=== PATIENT | female | born 1960 | race Caucasian/White ===

== ENCOUNTER → 2018-05-10 10:09 | Outpatient (CLI) | payer OTHER, SELFPAY ==
[2018-05-10 12:38] LABS: Appearance Urine UA CLOUDY; Bilirubin Urine UA NEGATIVE (NEGATIVE); Color Urine UA YELLOW; Glucose Urine UA NEGATIVE (Normal); Ketones Urine UA NEGATIVE (NEGATIVE); Leukocyte Esterase Urine UA 1+ (NEGATIVE); Nitrite Urine UA POSITIVE (Negative); Occult Blood Urine UA TRACE-INTACT (Negative); Protein Urine UA NEGATIVE (Negative); Specific Gravity Urine UA 1.015 (1.000-1.035); Urobilinogen Urine UA 0.2 E.U./dL (0.2)
[2018-05-10 12:57] LABS: RBC Urine 1-5/HPF (0-5/HPF); WBC Urine 10-30/HPF (0-5/HPF)
[2018-05-10 12:58] LABS: Bacteria Urine Many (>30); Culture Indicated Urine Specimen Cultured; Squamous Epithelial Cell Urine 1-5 /HPF
== END ==
PROVIDERS: Family Provider Family Medicine; PCP Family Medicine; Visit Provider Internal Medicine
DX: R30.0 Dysuria (principal)
CPT/HCPCS: 81003; 81015; 87077; 87086; 87186

== ENCOUNTER → 2018-08-22 09:04 | Outpatient (CLI) | payer OTHER, SELFPAY ==
[2018-08-22 10:40] LABS: Alanine Aminotransferase 37 IU/L (9-52); Albumin 3.9 g/dL (3.5-5.0); Albumin Globulin Ratio 1.3 (1.0-2.8); Alkaline Phosphatase 109 U/L (38-126); Aspartate Aminotransferase 29 IU/L (14-36); BUN Creatinine Ratio 27.1 (6-22); Bilirubin Total 0.5 mg/dL (0.2-1.3); Blood Urea Nitrogen 19 mg/dL (7-17); Carbon Dioxide 32 mmol/L (22-32); Chloride 102 mmol/L (98-107); Estimated Glomerular Filt Rate > 60.0 mL/min (>60); Globulin 2.9 g/dL (1.7-4.1); Glucose 113 mg/dL (70-100); HEMOLYSIS < 15 (0-50); Potassium 4.4 mmol/L (3.4-5.1); Sodium 141 mmol/L (137-145); Total Protein 6.8 g/dL (6.3-8.2)
[2018-08-22 10:53] LABS: Free T4, Direct Thyroxine 0.95 ng/dL (0.78-2.19)
[2018-08-22 11:57] LABS: Thyroid Stimulating Hormone 3.61 uIU/mL (0.47-4.68)
[2018-08-22 20:05] LABS: Appearance Urine UA CLEAR; Bilirubin Urine UA NEGATIVE (NEGATIVE); Color Urine UA YELLOW; Glucose Urine UA NEGATIVE (Normal); Ketones Urine UA NEGATIVE (NEGATIVE); Leukocyte Esterase Urine UA 2+ (NEGATIVE); Nitrite Urine UA Negative (Negative); Occult Blood Urine UA 1+ (Negative); Protein Urine UA NEGATIVE (Negative); Urobilinogen Urine UA 0.2 E.U./dL (0.2); pH Urine UA 6.5 (4.5-8.0)
[2018-08-22 20:13] LABS: Bacteria Urine Many (>30); Culture Indicated Urine Specimen Cultured; RBC Urine 5-10/HPF (0-5/HPF); Squamous Epithelial Cell Urine 0-1 /HPF; WBC Urine 30-100/HPF (0-5/HPF)
== END ==
PROVIDERS: Visit Provider Family Medicine
DX: R73.9 Hyperglycemia, unspecified (principal); E03.9 Hypothyroidism, unspecified; R39.89 Other symptoms and signs involving the genitourinary system
CPT/HCPCS: 36415; 80053; 81001; 83036; 84439; 84443; 87077; 87086; 87186

== ENCOUNTER 2018-10-08 15:20 | Emergency (ER) | payer OTHER, SELFPAY ==
[2018-10-08 15:25] VITALS: BP 184/87; PULSE 79; RESP 16; TEMP 37.1; O2SAT 99; BMI 50.4
--- NOTE | 2018-10-08 15:32 | ED.CHESTPAIN ---
HPI - Chest Pain General Chief Complaint: Chest Pain Stated Complaint: thinks she is having a heart attack Time Seen by Provider: 10/08/18 15:32 Source: patient Mode of arrival: ambulatory Limitations: no limitations History of Present Illness HPI narrative: Patient is a 58-year-old female who came into the emergency department for left-sided chest pain. She states started approximately 45 min prior to arrival in the ER. She states that she was lifting wood when it started to happen. She states it is a sharp pain over the left side of her chest. It is worse with palpation. Is worse with movement. Is worse with deep breath. Seems we localized in 1 specific spot. Has never had anything like this before. Has not tried anything for prior to arrival Related Data Previous Rx's Medication Instructions Recorded Disabled Parking Permit ea #1 03/08/17 levothyroxine 112 mcg tablet 112 mcg PO DAILY #90 tab 08/26/18 lorazepam 0.5 mg tablet 0 mg PO TIDP PRN #30 tab 08/26/18 fluoxetine 20 mg tablet 20 mg PO DAILY #90 tab 09/26/18 Allergies Allergy/AdvReac Type Severity Reaction Status Date / Time shellfish derived Allergy Severe breathing Verified 10/08/18 15:37 difficulties if ingested; hives when touched codeine Allergy Mild UNKNOWN Verified 10/08/18 15:37 Review of Systems Constitutional Denies fever(s) and Denies headache(s) ENT Ears, Nose, Mouth, and Throat: Denies headache(s) Cardiovascular Reports chest pain, Denies edema, Denies irregular heart rhythm, Denies leg edema, Denies palpitations and Denies dyspnea Respiratory Denies cough, Reports pain on inspiration, Reports pain with cough and Denies dyspnea Gastrointestinal Gastrointestinal: Denies nausea and Denies vomiting Musculoskeletal Denies myalgias and Denies arthralgias Integumentary/Breasts Denies rash Neurologic Denies headache(s) Endocrine Denies palpitations PFSH Medical History MS (multiple sclerosis) (Chronic ~1987) Anxiety (Chronic) Depression (Chronic) Ovarian cancer (Resolved) Family History Sister Aneurysm Social History Smoking Status: Never smoker Exam Initial Vital Signs Initial Vital Signs: Vital Signs Temperature 98.7 F 10/08/18 15:25 Pulse Rate 79 10/08/18 15:25 Respiratory Rate 16 10/08/18 15:25 Blood Pressure 184/87 H 10/08/18 15:25 Pulse Oximetry 99 10/08/18 15:25 Const General: cooperative, healthy appearing, comfortable, well developed, well groomed and No acute distress Orientation: alert, awake and oriented x3 HENMT Head: normal to inspection and normocephalic Chest Other: Patient with tenderness to palpation over the left anterior chest approximately the 3rd intercostal space. Able to reproduce the pain that brought her in by palpating this area. Improves as you move lateral and superior and inferior but worsens as you move more medial. Resp Effort & Inspection: normal respiratory effort Auscultation: clear to auscultation bilaterally Cardio Rate: regular rate Rhythm: regular rhythm Pulses: radial pulses present Skin Lesions: no lesions Rashes: no rashes Neuro General: alert, awake and oriented x3 Extrem General: normal to inspection and capillary refill normal Psych Appearance: grossly normal and well kempt Course Orders Ordered: ED Orders 10/08/18 15:33 XR chest 1V Stat 10/08/18 15:34 EKG-12 Lead Stat 10/08/18 15:36 Complete Blood Count AUTO DIFF Stat Comprehensive Metabolic Panel Stat Troponin I Stat Vital Signs - 8 hr 10/08/18 15:25 10/08/18 16:00 10/08/18 16:30 Temperature 98.7 F Pulse Rate 79 74 67 Respiratory Rate 16 22 21 Blood Pressure 184/87 H Blood Pressure [Right Arm] 128/84 130/74 Pulse Oximetry 99 95 97 MDM - Chest Pain Lab Data Attestation: I reviewed the patient's lab results. Result diagrams: 10/08/18 15:36 10/08/18 15:36 Lab Results 10/08/18 10/08/18 Range/Units 15:36 15:36 WBC 9.9 (4.5-11.0) X10^3/uL RBC 4.71 (4.0-5.2) X10^6/uL Hgb 12.9 (12.0-16.0) g/dL Hct 38.4 (36-46) % MCV 81.4 (80-100) fL MCH 27.3 (26-34) PG MCHC 33.5 (30-36) % RDW 14.4 (11.6-14.8) % Plt Count 323 (150-400) X10^3/uL Neut % (Auto) 57.7 (50-75) % Lymph % (Auto) 30.9 (25-40) % Ritchie % (Auto) 7.7 (3-14) % Eos % (Auto) 3.3 (2-4) % Baso % (Auto) 0.4 (0-2) % Neut # (Auto) 5700 (0853-5471) /uL Sodium 145 (137-145) mmol/L Potassium 3.6 (3.4-5.1) mmol/L Chloride 106 (98-107) mmol/L Carbon Dioxide 26 (22-32) mmol/L BUN 16 (7-17) mg/dL Creatinine 0.80 (0.52-1.04) mg/dL Estimated GFR > 60.0 (>60) mL/min BUN/Creatinine Ratio 20.0 (6-22) Glucose 120 H (70-100) mg/dL Calcium 8.9 (8.4-10.2) mg/dL Total Bilirubin 0.3 (0.2-1.3) mg/dL AST 33 (14-36) IU/L ALT 42 (9-52) IU/L Alkaline Phosphatase 118 (38-126) U/L Troponin I < 0.012 (0.01-0.034) ng/mL Total Protein 7.0 (6.3-8.2) g/dL Albumin 4.1 (3.5-5.0) g/dL Globulin 2.9 (1.7-4.1) g/dL Albumin/Globulin Ratio 1.4 (1.0-2.8) Imaging Data Chest x-ray: Radiologist's impression: [address] [address] XRay Report Signed Patient: Alva Lozano [facility]#: [id number] : 2Acct:[id number] Age/Sex: 58 / FDate of Service: 10/08/18 Loc: ED Accession Number: [id number] Procedure: XR chest 1V Ordering Provider: Jose Alfredo Barrett D.O. PROCEDURE: XR CHEST 1V INDICATIONS: Chest pain TECHNIQUE: One view of the chest was acquired. COMPARISON: [facility], CHEST 1 VIEW, 09/06/2012, 15:03. FINDINGS: Surgical changes and devices: None. Lungs and pleura: No pleural effusions or pneumothorax. Lungs are clear. Mediastinum: Mediastinal contours appear normal. Heart size is normal. Bones and chest wall: No suspicious bony lesions. Overlying soft tissues appear unremarkable. IMPRESSION: No acute process. Dictated by: Dawson Marr M.D. on 10/08/2018 at 15:45 Approved by: Dawson Marr M.D. on 10/08/2018 at 15:45 ECG Data Attestation: I personally reviewed and interpreted this ECG as follows: Prior ECG tracings: not available for review Interpretation: Sinus rhythm Ventricular rate is 77 Normal axis Normal intervals Normal QRS Nonspecific ST T wave changes MDM Narrative Medical decision making narrative: Patient reports some improvement of her symptoms after arrival here in the emergency department from the onset. I was able to reproduce the symptoms with palpation of the left anterior chest wall. Chest x-ray is unremarkable. EKG is unremarkable. Labs are unremarkable. I have low suspicion for ACS. Low suspicion for PE. Low suspicion for pneumonia. I suspect musculoskeletal etiology. Discussed all this with the patient and her who was at bedside. She was given return precautions. She expressed understanding and agreement with plan. Discharge Plan Departure Patient Disposition: Home Clinical Impression: Acute chest wall pain Instructions: DI for Costochondritis Activity Restrictions/Additional Instructions: Recommend you continue all of your medications as directed. Call your primary care doctor for a follow-up. Return to the emergency department for any new or worsening symptoms Prescriptions: No Action Disabled Parking Permit Qty: 1 RF: 0 fluoxetine 20 mg tablet 20 mg PO DAILY Qty: 90 RF: 0 lorazepam 0.5 mg tablet PO TIDP PRN (Reason: anxiety) Qty: 30 RF: 2 levothyroxine [Levo-T] 112 mcg tablet 112 mcg PO DAILY Qty: 90 RF: 1
[2018-10-08 15:44] LABS: Add Manual Diff / Slide Review NO; Basophils Percent Auto 0.4 % (0-2); Eosinophils Percent Auto 3.3 % (2-4); Hematocrit 38.4 % (36-46); Hemoglobin 12.9 g/dL (12.0-16.0); Lymphocytes Percent Auto 30.9 % (25-40); Mean Corpuscular HGB Conc 33.5 % (30-36); Mean Corpuscular Hemoglobin 27.3 PG (26-34); Mean Corpuscular Volume 81.4 fL (80-100); Monocytes Percent Auto 7.7 % (3-14); Neutrophils Absolute Auto 5700 /uL (3000-5900); Neutrophils Percent Auto 57.7 % (50-75); Platelet Count 323 X10^3/uL (150-400); Red Blood Cell Count 4.71 X10^6/uL (4.0-5.2); Red Cell Distribution Width 14.4 % (11.6-14.8); White Blood Cell Count 9.9 X10^3/uL (4.5-11.0)
[2018-10-08 15:56] LABS: Alanine Aminotransferase 42 IU/L (9-52); Albumin 4.1 g/dL (3.5-5.0); Albumin Globulin Ratio 1.4 (1.0-2.8); Alkaline Phosphatase 118 U/L (38-126); Aspartate Aminotransferase 33 IU/L (14-36); Bilirubin Total 0.3 mg/dL (0.2-1.3); Blood Urea Nitrogen 16 mg/dL (7-17); Calcium 8.9 mg/dL (8.4-10.2); Carbon Dioxide 26 mmol/L (22-32); Chloride 106 mmol/L (98-107); Estimated Glomerular Filt Rate > 60.0 mL/min (>60); Globulin 2.9 g/dL (1.7-4.1); Glucose 120 mg/dL (70-100); HEMOLYSIS 16 (0-50); Potassium 3.6 mmol/L (3.4-5.1); Sodium 145 mmol/L (137-145)
[2018-10-08 16:00] VITALS: BP 128/84; PULSE 74; RESP 22; O2SAT 95
[2018-10-08 16:11] LABS: Troponin I < 0.012 ng/mL (0.01-0.034)
[2018-10-08 16:30] VITALS: BP 130/74; PULSE 67; RESP 21; O2SAT 97
== END 2018-10-08 16:55 | disposition home or self-care (01) ==
PROVIDERS: Emergency Provider Emergency Medicine
DX: R07.89 Other chest pain (principal)
CPT/HCPCS: 36591; 71045; 80053; 84484; 85025; 93005; 99282; 99285

== ENCOUNTER → 2019-04-04 09:40 | Outpatient (CLI) | payer OTHER, SELFPAY ==
[2019-04-04 12:46] LABS: Free T3, Triiodothyronine Free 3.54 pg/mL (2.77-5.27); Free T4, Direct Thyroxine 1.35 ng/dL (0.78-2.19)
[2019-04-04 13:00] LABS: Thyroid Stimulating Hormone 1.18 uIU/mL (0.47-4.68)
== END ==
PROVIDERS: Visit Provider Family Medicine
DX: E03.9 Hypothyroidism, unspecified (principal)
CPT/HCPCS: 36415; 84439; 84443; 84481

== ENCOUNTER → 2019-05-22 16:07 | Outpatient (CLI) | payer OTHER, SELFPAY ==
--- NOTE | 2019-05-22 16:09 | DI.RAD.S_ITS ---
PROCEDURE: XR WRIST LT MIN 3V INDICATIONS: fall on left wrist TECHNIQUE: 4 views of the wrist were acquired. COMPARISON: [facility], CR, XR FINGER LT MIN 2V, 05/22/2019, 16:09. [facility], CR, WRIST MINIMUM 3 VIEWS RIGHT, 11/03/2012, 13:09. FINDINGS: Bones: No fractures or dislocations. No suspicious bony lesions. Scaphoid view: No trauma the scaphoid is found. Soft tissues: No suspicious soft tissue calcifications. IMPRESSION: Mild degenerative osteoarthr same day.no fracture or traumatic ligamentous subluxation is identified itis at the wrist, as was seen during hand plain film imaging Dictated by: Zaid Murphy M.D. on 05/22/2019 at 16:51 Approved by: Zaid Murphy M.D. on 05/22/2019 at 16:52
--- NOTE | 2019-05-22 16:09 | DI.RAD.S_ITS ---
PROCEDURE: XR FINGER LT MIN 2V INDICATIONS: fall on left wrist, hyperextension of thumb TECHNIQUE: AP hand, 2 views of the first finger(s) acquired. COMPARISON: None. FINDINGS: Bones: No fractures or dislocations. No suspicious bony lesions. Soft tissues: No suspicious soft tissue calcifications. IMPRESSION: Mild degenerative osteoarthritic changes of the hand, no trauma found. Dictated by: Zaid Murphy M.D. on 05/22/2019 at 16:48 Approved by: Zaid Murphy M.D. on 05/22/2019 at 16:49
== END ==
PROVIDERS: PCP Family Medicine; Visit Provider Family Medicine
DX: S69.82XA Other specified injuries of left wrist, hand and finger(s), initial encounter (principal); M19.032 Primary osteoarthritis, left wrist; W19.XXXA Unspecified fall, initial encounter
CPT/HCPCS: 73110; 73140

== ENCOUNTER → 2019-06-23 19:50 | Outpatient (CLI) | payer OTHER, SELFPAY | PROVIDERS: PCP Family Medicine; Visit Provider Physician Assistant | DX: N10 Acute pyelonephritis (principal) | CPT/HCPCS: 87077; 87086; 87186 ==

== ENCOUNTER → 2019-07-12 11:12 | Outpatient (CLI) | payer OTHER, SELFPAY ==
--- NOTE | 2019-07-12 11:17 | DI.CT.S_ITS ---
PROCEDURE: CT KIDNEY URETER BLADDER (KUB) INDICATIONS: hematuria, back pain TECHNIQUE: Noncontrast 5 mm thick sections acquired from the diaphragms to the symphysis. 5 mm thick coronal and sagittal reformats were then performed. For radiation dose reduction, the following was used: automated exposure control, adjustment of mA and/or kV according to patient size. COMPARISON: [facility], CT, ABDOMEN/PELVIS WITH CONTRAST, 08/21/2013, 11:49. FINDINGS: Image quality: Diagnostic. Lung bases: Lung bases are clear. Heart size is normal. Urinary system: Both kidneys are normal in size. No kidney stones. No hydronephrosis or perinephric fat stranding. Both ureters appear non-dilated throughout their expected courses. Bladder wall thickness is normal; no calcified bladder stones. A small amount of air is contained within the urinary bladder. Other solid organs: The liver appears to be within normal limits. No definite liver lesions are evident. The patient has had a prior cholecystectomy. There is no intrahepatic or significant extrahepatic biliary dilatation. Spleen and pancreas are within normal limits. There continues to be enlargement of the right adrenal gland, measuring 2.5 x 2.0 cm, which is unchanged in size when remeasured in a similar configuration. Peritoneum and bowel: There is a moderate-sized hiatal hernia. Otherwise, stomach is unremarkable. Extensive distal colonic diverticulosis is identified without surrounding colonic inflammation to suggest diverticulitis. Within the periumbilical region of the mid to lower abdomen there is a heterogeneous bilobed structure identified that measures approximately 6.1 x 8.6 x 5.0 cm, which may be contiguous with the small bowel and is new since the previous exam. There is moderate edema within the adjacent mesentery. The small bowel loops are not significantly dilated. No drainable fluid collection is appreciated. There is no free air evident. Nodes and vessels: No retroperitoneal or mesenteric adenopathy by size criteria. Aorta and inferior vena cava are normal in caliber. Abdominal wall: No ventral hernias. Pelvis: A trace amount of free fluid may be present within the pelvis. The uterus is surgically absent. The ovaries are not definitely seen and may have either been surgically removed or atrophic. No inguinal hernias or adenopathy. Bones: No suspicious bony lesions. No vertebral body compression fractures. Mild to moderate degenerative changes of the mid spine are present. IMPRESSION: 1. No nephro ureterolithiasis or hydronephrosis. 2. Minimal air within the urinary bladder is suspicious for possible bladder infection, unless the patient has been catheterized recently. 3. Soft tissue mass within the mid abdomen may potentially be contiguous with small bowel loops. However, the adjacent small bowel is not dilated. Differential diagnostic considerations would include a closed loop small bowel obstruction versus a mesenteric mass such as a GI stromal tumor. An abscess cannot be completely excluded. A CT of the abdomen and pelvis with oral and intravenous contrast is recommended for further evaluation. Additional findings: -Unchanged right adrenal mass is suggestive of a benign process given lack of significant change in 7 years. -Small hiatal hernia. -Distal colonic diverticulosis without diverticulitis. Dictated by: Sanchez Jones M.D. on 07/12/2019 at 10:51 Approved by: Sanchez Jones M.D. on 07/12/2019 at 11:03
== END ==
PROVIDERS: PCP Family Medicine; Visit Provider Family Medicine
DX: R31.9 Hematuria, unspecified (principal); M54.5 Low back pain
CPT/HCPCS: 74176; 87086

== ENCOUNTER → 2019-07-19 09:27 | Outpatient (CLI) | payer OTHER, SELFPAY ==
--- NOTE | 2019-07-19 09:56 | DI.CT.S_ITS ---
PROCEDURE: CT ABDOMEN PELVIS W CON INDICATIONS: mass found on CT TECHNIQUE: After the administration of oral and intravenous contrast, 5 mm thick sections acquired from the diaphragms to the symphysis. 5 mm thick coronal and sagittal reformats were performed. For radiation dose reduction, the following was used: automated exposure control, adjustment of mA and/or kV according to patient size. COMPARISON: [facility], CT, CT KIDNEY URETER BLADDER (KUB), 07/12/2019, 11:20. [facility], CT, ABDOMEN/PELVIS WITH CONTRAST, 08/21/2013, 11:49. [facility], CT, ABDOMEN/PELVIS WITH CONTRAST, 03/09/2013, 9:17. FINDINGS: Image quality: Excellent. ABDOMEN: Lung bases: Lung bases are clear. Heart size is normal. There is a small hiatal hernia behind the heart Solid organs: Liver is normal in size and enhancement. Gallbladder has been previously resected. Biliary system is non-dilated. Pancreas enhances normally. Spleen is normal in size and enhancement. No new adrenal nodules, and a lobulated right adrenal mass previously present has not significantly changed in size from 08/21/13 CT scanning. Currently measures 3.5 cm.. Kidneys are normal in size and enhancement, without hydronephrosis. Peritoneum and bowel: Stomach, small bowel, and colon loops are normal in caliber and wall thickness. No free fluid or air. Nodes and vessels: No retroperitoneal or mesenteric adenopathy. Aorta and inferior vena cava are normal in caliber. Miscellaneous: No ventral hernias. PELVIS: Genitourinary: Bladder wall thickness is normal. Miscellaneous: No inguinal hernias or adenopathy. There is a lobulated soft tissue mass at the midline of the pelvis, middle third, measuring up to 5.0 cm transverse and 8.7 cm oblique AP. No adnexal mass is identified. Sigmoid diverticulosis without acute diverticulitis is relatively prominent in this area. Bones: No suspicious bony lesions. No vertebral body compression fractures. IMPRESSION: Lobulated soft tissue mass at the midline of the pelvis, measuring up to 5.0 x 8.7 cm not previously present on CT scanning from August 2013 and not having changed from the most recent CT scanning 07/12/19. 2. There is a chronic lobulated mass measuring up to 2.5 x 2.9 cm at the right adrenal gland. This has soft tissue radiodensity, and has not enlarged from the comparison study in February of 2013. The stability over time indicates benign etiology. Dictated by: Zaid Murphy M.D. on 07/19/2019 at 12:51 Approved by: Zaid Murphy M.D. on 07/19/2019 at 12:58
== END ==
PROVIDERS: PCP Family Medicine; Visit Provider Family Medicine
DX: R19.00 Intra-abdominal and pelvic swelling, mass and lump, unspecified site (principal); E27.9 Disorder of adrenal gland, unspecified; N39.0 Urinary tract infection, site not specified
CPT/HCPCS: 74177; Q9967

== ENCOUNTER → 2019-07-21 07:10 | Outpatient (CLI) | payer OTHER, SELFPAY ==
[2019-07-21 08:00] LABS: Add Manual Diff / Slide Review NO; Basophils Absolute Auto 100 /uL (0-100); Basophils Percent Auto 0.5 % (0-2); Eosinophils Absolute Auto 300 /uL (0-450); Eosinophils Percent Auto 3.1 % (2-4); Hematocrit 39.2 % (36-46); Lymphocytes Absolute Auto 2800 /uL (1100-4500); Mean Corpuscular HGB Conc 33.1 % (30-36); Mean Corpuscular Hemoglobin 26.2 PG (26-34); Mean Corpuscular Volume 79.3 fL (80-100); Monocytes Absolute Auto 900 /uL (0-900); Monocytes Percent Auto 8.7 % (3-14); Neutrophils Absolute Auto 6000 /uL (1500-7000); Neutrophils Percent Auto 59.7 % (50-75); Platelet Count 387 X10^3/uL (150-400); Red Blood Cell Count 4.94 X10^6/uL (4.0-5.2); Red Cell Distribution Width 14.6 % (11.6-14.8)
[2019-07-21 08:25] LABS: Alanine Aminotransferase 30 IU/L (9-52); Albumin 3.7 g/dL (3.5-5.0); Albumin Globulin Ratio 1.4 (1.0-2.8); Alkaline Phosphatase 102 U/L (38-126); Aspartate Aminotransferase 21 IU/L (14-36); BUN Creatinine Ratio 25.7 (6-22); Bilirubin Total 0.7 mg/dL (0.2-1.3); Blood Urea Nitrogen 18 mg/dL (7-17); Calcium 9.7 mg/dL (8.4-10.2); Carbon Dioxide 29 mmol/L (22-32); Chloride 102 mmol/L (98-107); Cholesterol 170 mg/dL (140-199); Estimated Glomerular Filt Rate > 60.0 mL/min (>60); Globulin 2.7 g/dL (1.7-4.1); Glucose 101 mg/dL (70-100); HDL Cholesterol 48 mg/dL (40-60); HEMOLYSIS < 15 (0-50); LDL Cholesterol Calculated 86 mg/dL (<100); Sodium 140 mmol/L (137-145); Total Protein 6.4 g/dL (6.3-8.2); Triglycerides 181 mg/dL (35-150)
[2019-07-21 08:51] LABS: Cancer Antigen 125 44 U/mL (0-35)
[2019-07-21 08:52] LABS: TSH w/ Reflex to FT4 0.71 uIU/mL (0.47-4.68)
[2019-07-21 12:09] LABS: HEMOLYSIS < 15 (0-50); Iron 47 ug/dL (37-170)
[2019-07-21 12:19] LABS: Percent Iron Saturation 16 % (15-50); Total Iron Binding Capacity 286 ug/dL (265-497); Transferrin 229 mg/dL (206-381)
[2019-07-25 15:24] LABS: Human HE4 Antigen 111 pmol/L
== END ==
PROVIDERS: PCP Family Medicine; Visit Provider Family Medicine
DX: E03.9 Hypothyroidism, unspecified (principal); E66.9 Obesity, unspecified; E78.5 Hyperlipidemia, unspecified; R73.03 Prediabetes; Z85.43 Personal history of malignant neoplasm of ovary
CPT/HCPCS: 36415; 80053; 80061; 83540; 83550; 84443; 85025; 86304; 86305

== ENCOUNTER → 2019-07-31 15:21 | Outpatient (CLI) | payer OTHER, SELFPAY ==
--- NOTE | 2019-07-31 15:23 | DI.MG.S_ITS ---
BILATERAL DIGITAL SCREENING MAMMOGRAM 3D/2D WITH CAD: 07/31/2019 CLINICAL: Routine screening. Comparison is made to exams dated: 09/26/2014 mammogram, 07/07/2011 mammogram, and 06/13/2009 mammogram - [facility]. There are scattered fibroglandular elements in both breasts. Current study was also evaluated with a Computer Aided Detection (CAD) system. There is an oval low density focal asymmetry with an indistinct and circumscribed margin in the left breast at 7 o'clock anterior depth. No other significant masses, calcifications, or other findings are seen in either breast. IMPRESSION: INCOMPLETE: NEEDS ADDITIONAL IMAGING EVALUATION The oval low density focal asymmetry in the left breast is indeterminate. Mediolateral and spot compression views as well as additional views with possible ultrasound are recommended. This exam was interpreted at Station ID: [id number]. NOTE: For mammograms, a report in lay terms will be sent to the patient. Approximately 15% of breast malignancies will not be visualized mammographically. In the management of a palpable breast mass, a negative mammogram must not discourage biopsy of a clinically suspicious lesion. Electronically Signed By: Sahil persaud/nina:08/01/2019 08:18:18 letter sent: Additional Imaging Needed ACR BI-RADS Category 0: Incomplete 3340F
--- NOTE | 2019-08-01 15:19 | ONC.MSW ---
Description: T/C-Initial navigation call to introduce and schedule Activity: Called and left pt a message introducing myself and offering an urgent appt. time for Dr. Wing, initial consult for this coming Wednesday, 08/07 at 8:40am. Requested that she return this call to confirm.
--- NOTE | 2019-08-02 09:11 | ONC.MSW ---
Addendum entered and electronically signed by BRADLEY Stallworth 08/02/19 09:16: Pt called and confirmed this appt. Original Note: Late Entry: T/C navigation coordination/initial ONC consult visit Dr. Spears's office requested for Dr. Wing to review pt's recent CT scan and advise as to 1) if the imaging shows recurrance of ovarian cancer, and 2)should they move forward with a biopsy first, or schedule oncology consult first? Dr. Wing advised for a biopsy to be scheduled angelina, and that we would concurrently schedule an expedited f/u for her initial ONC provider visit. HYDROELECTRIC OPERATOR coordinated this with Dr. Spears's office, and have scheduled pt for Tuesday 08/07 at 8:40am.
== END ==
PROVIDERS: PCP Family Medicine; Visit Provider Family Medicine
DX: Z12.31 Encounter for screening mammogram for malignant neoplasm of breast (principal)
CPT/HCPCS: 77063; 77067

== ENCOUNTER → 2019-08-17 14:58 | Outpatient (CLI) | payer OTHER, SELFPAY ==
--- NOTE | 2019-08-17 15:00 | DI.MG.S_ITS ---
UNILATERAL LEFT DIGITAL DIAGNOSTIC MAMMOGRAM 3D/2D WITH ADDITIONAL VIEWS: 08/17/2019 CLINICAL: Additional evaluation requested from prior study. Comparison is made to exams dated: 07/31/2019 mammogram, 09/26/2014 mammogram, and 07/07/2011 mammogram - [facility]. There are scattered fibroglandular elements in left breast. There is a possible 0.5 cm oval equal density focal asymmetry in the left breast at 7 o'clock in the retroareolar region which appears less prominent on additional imaging. No other significant masses or calcifications are seen in the breast. IMPRESSION: INCOMPLETE: NEEDS ADDITIONAL IMAGING EVALUATION There is a possible 0.5 cm oval equal density focal asymmetry in the left breast that appears to have nearly resolved and favored to represent close proximity of two adjacent vessels and/or small ducts, and is indeterminate. Further evaluation by sonogram is recommended which is scheduled to immediately follow this examination. This exam was interpreted at Station ID: [id number]. NOTE: For mammograms, a report in lay terms will be sent to the patient. Approximately 15% of breast malignancies will not be visualized mammographically. In the management of a palpable breast mass, a negative mammogram must not discourage biopsy of a clinically suspicious lesion. Electronically Signed By: Sunny Álvarez M.D. aty/:08/17/2019 15:29:34 ACR BI-RADS Category 0: Incomplete 3340F
--- NOTE | 2019-08-17 15:00 | DI.US.S_ITS ---
ULTRASOUND OF LEFT BREAST: 08/17/2019 CLINICAL: Patient returns today to evaluate a density in the left breast. Comparison is made to exams dated: 08/17/2019 mammogram, 07/31/2019 mammogram, 09/26/2014 mammogram, 07/07/2011 mammogram, 06/13/2009 mammogram, and 05/31/2008 mammogram - [facility]. Color flow and real-time ultrasound of the left breast were performed. Campbell scale images of the real-time examination were reviewed. There is a possible 0.3 cm x 0.6 cm x 0.3 cm cluster of microcysts with a smooth internal carrington versus a complicated cyst in the left breast at 9 o'clock anterior depth 3 cm from the nipple. This cluster of microcysts versus complicated cyst is hypoechoic with no posterior acoustic shadowing or enhancement. This correlates with mammography findings. Color flow imaging demonstrates that there is no vascularity present. IMPRESSION: PROBABLY BENIGN The possible 0.3 cm x 0.6 cm x 0.3 cm cluster of microcysts versus complicated cyst in the left breast is probably benign. A follow-up left mammogram and an ultrasound in 6 months is recommended to demonstrate stability. This exam was interpreted at Station ID: [id number]. Electronically Signed By: Sunny Álvarez M.D. at/:08/17/2019 16:33:23 letter sent: Followup Recommended Ultrasound BI-RADS: 3 Probably benign
== END ==
PROVIDERS: PCP Family Medicine; Visit Provider Family Medicine
DX: R92.8 Other abnormal and inconclusive findings on diagnostic imaging of breast (principal)
CPT/HCPCS: 76642; 77065; G0279

== ENCOUNTER 2019-09-22 11:05 | Emergency (ER) | payer OTHER, SELFPAY ==
[2019-09-22 11:05] VITALS: BP 114/70; PULSE 93; RESP 12; TEMP 36.9; O2SAT 100; BMI 46.8
--- NOTE | 2019-09-22 11:20 | ED.NAVMDI ---
HPI - Nausea/Vomiting/Diarrhea General Chief complaint: Nausea/Vomiting/Diarrhea Stated complaint: pt has cancer, is sick and has lost weight,pain Time Seen by Provider: 09/22/19 11:12 Source: patient, RN notes reviewed and old records reviewed Mode of arrival: Ambulatory Limitations: no limitations History of Present Illness HPI Narrative: Patient is a 59-year-old female presenting with nausea vomiting ongoing for last 3 days. She was recently diagnosed with recurrent ovarian cancer. She is scheduled to see her ball shagger oncologist for surgery in October. There is a trip that she wants to go on . She has lost 30 lb in the last 1 month. She has also noticed swelling and a lump in her left shoulder. She overall has been unable to keep anything down she has some mild abdominal cramping. She is passing gas and having bowel movements. No fever chills. MD complaint: nausea and vomiting Description of Diarrhea: none Related Data Home Medications Medication Instructions Recorded Confirmed Disabled Parking Permit 1 ea MISCELLANEOUS DIRECTED 09/22/19 09/22/19 Previous Rx's Medication Instructions Recorded fluoxetine 20 mg tablet 20 mg PO DAILY #90 tab 06/05/19 levothyroxine 112 mcg tablet 112 mcg PO DAILY #90 tab 06/29/19 lorazepam 0.5 mg tablet 0.5 mg PO TIDP PRN #30 tab 08/14/19 cephalexin [Keflex] 500 mg PO TID #21 cap 09/22/19 omeprazole 20 mg PO DAILY PRN #20 cap 09/22/19 ondansetron 4 mg PO Q8H PRN #10 tab 09/22/19 Allergies Allergy/AdvReac Type Severity Reaction Status Date / Time shellfish derived Allergy Severe breathing Verified 09/22/19 11:17 difficulties if ingested; hives when touched codeine Allergy Mild UNKNOWN Verified 09/22/19 11:17 Review of Systems Review of Systems Narrative: GENERAL: Denies chills, fatigue, malaise, fever, sweats, travel HEENT: Denies sinus pain, ear pain, sore throat, difficulty swallowing, neck pain RESPIRATORY: Denies dyspnea, cough, wheezing, hemoptysis, sputum. CARDIOVASCULAR: Denies chest pain, palpitations, orthopnea, edema GASTROINTESTINAL: See HPI : Urinary urgency no dysuria. MUSCULOSKELETAL: Denies weakness, joint pain, or bony pain SKIN: No rash, no erythema, no pruritus NEUROLOGIC: Denies weakness, dizziness, headache, numbness, change in speech, confusion PSYCHIATRIC: No concerning psychosocial issues. 12 point review of systems is negative except for those stated above and HPI Patient History Medical History Anxiety (Chronic) Depression (Chronic) Hyperlipidemia (Acute) Hypothyroid (Acute 02/15/12) MS (multiple sclerosis) (Chronic ~1987) Ovarian cancer (Resolved) Surgical History History of third molar tooth extraction (Resolved) S/P total abdominal hysterectomy and bilateral salpingo-oophorectomy (Resolved 2011) Status post appendectomy (Resolved 1982) Status post cholecystectomy (Resolved 1987) Family History Sister Aneurysm Sister Age: 56 Breast cancer Social History Smoking Status: Current every day smoker alcohol intake frequency: holidays/special occasions only Substance Use Type: does not use Exam Initial Vital Signs Initial Vital Signs: Vital Signs Temperature 98.4 F 09/22/19 11:05 Pulse Rate 93 H 09/22/19 11:05 Respiratory Rate 12 09/22/19 11:05 Blood Pressure 114/70 09/22/19 11:05 Pulse Oximetry 100 09/22/19 11:05 GENERAL: Overweight well-appearing female HEENT: Head atraumatic,EOMI, pupils reactive, face symmetric, moist mucous membranes CARDIOVASCULAR: Regular rate and rhythm without murmurs, rubs or gallops. RESPIRATORY: Breath sounds equal bilaterally, no wheezes rales or rhonchi. ABDOMEN: Soft, obese nontender no distention. She does have superficial abrasion on her abdomen no redness or gross pus or streaking EXTREMITIES: Normal range of motion, no clubbing or edema. Neurovascularly intact NEUROLOGICAL: Alert and oriented x4.Normal gait and speech. SKIN: Warm, dry, no laceration, no petechiae, no rashes or lesions. Course Orders Ordered: ED Orders 09/22/19 11:37 CT chest abd pel w con Stat Complete Blood Count AUTO DIFF Stat Comprehensive Metabolic Panel Stat Lipase Stat 09/22/19 11:50 Ictotest Urine Stat Urine Culture Stat Urine Microscopic Stat Discontinued Medications Sodium Chloride (Normal Saline 0.9%) 1,000 mls @ 1,000 mls/hr IV CONT GASTON Last Infusion: 09/22/19 13:35 Dose: 0 mls/hr Documented by: Admin: 09/22/19 12:02 Dose: 1,000 mls/hr Documented by: BRAULIO Ondansetron HCl (Zofran) 4 mg IV NOW ONE Stop: 09/22/19 11:38 Last Admin: 09/22/19 12:01 Dose: 4 mg Documented by: BRAULIO Pantoprazole Sodium (Protonix) 40 mg IV NOW ONE Stop: 09/22/19 11:38 Last Admin: 09/22/19 12:01 Dose: 40 mg Documented by: BRAULIO Vital Signs Vital signs: Vital Signs - 8 hr 09/22/19 11:05 09/22/19 13:33 Temperature 98.4 F Pulse Rate 93 H 79 Respiratory Rate 12 22 Blood Pressure 114/70 Blood Pressure [Left Arm] 135/96 H Pulse Oximetry 100 97 MDM - Nausea/Vomiting/Diarrhea Lab Data Attestation: I reviewed the patient's lab results. Result diagrams: 09/22/19 11:37 09/22/19 11:37 Labs: Lab Results 09/22/19 09/22/19 09/22/19 Range/Units 11:37 11:37 11:50 WBC 15.4 H (4.5-11.0) X10^3/uL RBC 4.54 (4.0-5.2) X10^6/uL Hgb 11.4 L (12.0-16.0) g/dL Hct 34.8 L (36-46) % MCV 76.5 L (80-100) fL MCH 25.0 L (26-34) PG MCHC 32.7 (30-36) % RDW 15.1 H (11.6-14.8) % Plt Count 327 (150-400) X10^3/uL Neut % (Auto) 86.5 H (50-75) % Lymph % (Auto) 4.1 L (25-40) % [place] % (Auto) 9.1 (3-14) % Eos % (Auto) 0.1 L (2-4) % Baso % (Auto) 0.2 (0-2) % Neut # (Auto) 76420 H (2899-6632) /uL Lymph # (Auto) 600 L (1364-6923) /uL [place] # (Auto) 1400 H (0-900) /uL Eos # (Auto) 0 (0-450) /uL Baso # (Auto) 0 (0-100) /uL Sodium 133 L (137-145) mmol/L Potassium 3.3 L (3.4-5.1) mmol/L Chloride 98 (98-107) mmol/L Carbon Dioxide 26 (22-32) mmol/L BUN 21 H (7-17) mg/dL Creatinine 1.00 (0.52-1.04) mg/dL Estimated GFR 57.1 L (>60) mL/min BUN/Creatinine Ratio 21.0 (6-22) Glucose 147 H (70-100) mg/dL Calcium 9.2 (8.4-10.2) mg/dL Total Bilirubin 1.3 (0.2-1.3) mg/dL AST 42 H (14-36) IU/L ALT 21 (<35) IU/L Alkaline Phosphatase 129 H (38-126) U/L Total Protein 6.8 (6.3-8.2) g/dL Albumin 3.6 (3.5-5.0) g/dL Globulin 3.2 (1.7-4.1) g/dL Albumin/Globulin Ratio 1.1 (1.0-2.8) Lipase 29 (23-300) U/L Urine Ictotest Negative (Negative) Urine RBC 1-5/hpf (0-5/HPF) Urine WBC >100/hpf H (0-5/HPF) Ur Squamous Epith Cells 5-10 /hpf H (0-5/HPF) Urine Bacteria Many (>30) H (None) Ur Culture Indicated? Specimen cultured Urine Dip Bedside Urine Glucose Negative Bedside Urine Bilirubin + 1 Bedside Urine Ketone +/- 5 Urine Specific [place] 1.010 Bedside Urine Occult Blood +/- Bedside Urine pH 6.0 Bedside Urine Protein + 30 Bedside Urine Urobilinogen 1+ 2mg Bedside Urine Nitrite - Negative Bedside Urine Leukocytes +++ [address] scan - abdomen: Radiologist's impression: PROCEDURE: CT CHEST ABD PEL W CON INDICATIONS: vomiting with new recurrent ovarian cancer TECHNIQUE: After the administration of intravenous contrast, 5 mm thick sections acquired from the lung apices to the symphysis. 2.5 mm thick coronal and sagittal reformats were acquired. Additional 7 mm thick coronal maximum intensity projection (MIP) reformats acquired through the lungs. Optional 10-minute delayed imaging may be performed from the kidneys to the bladder. For radiation dose reduction, the following was used: automated exposure control, adjustment of mA and/or kV according to patient size. COMPARISON: [facility], CT, ABDOMEN/PELVIS WITH CONTRAST, 08/22/2012, 10:00. [facility], MR, ABDOMEN WITHOUT CONTRAST, 09/05/2012, 8:24. [facility], CT, CT KIDNEY URETER BLADDER (KUB), 07/12/2019, 11:20. [facility], CT, CT ABDOMEN PELVIS W CON, 07/19/2019, 10:44. [facility], CT, CT BIOPSY ABDOMEN OR RETROPERITONEAL, 08/14/2019, 8:22. FINDINGS: Image quality: Excellent. CHEST: Lungs: No acute airspace opacities. There is a 5 mm nodule in the left upper lobe. No pleural effusion or pneumothorax. Central and peripheral airways appear patent and normal in caliber. Mediastinum: No mediastinal or hilar lymphadenopathy. Heart size is normal. No pericardial effusion. Thoracic aorta and pulmonary arteries demonstrate normal size and enhancement. No mediastinal or hilar adenopathy. Esophagus is normal in caliber. There is a small hiatal hernia. Chest wall: No rib fractures. No subcutaneous emphysema. No axillary or supraclavicular adenopathy. Thyroid gland is normal. ABDOMEN: Solid organs: Hepatic steatosis. Liver is normal in size and enhancement. Gallbladder is surgically absent. Biliary system is non-dilated. Pancreas enhances normally, without transection. Spleen is normal in size and enhancement, without lacerations. There is a 3.2 x 2 point centimeter right adrenal mass, unchanged in size since 08/22/2012. Both kidneys enhance normally, without hydronephrosis or lacerations. Peritoneum and bowel: There is a mass in the central lower abdomen within the mesentery measuring 7.5 x 8.2 x 8.4 cm, demonstrating interval enlargement since 07/19/2019 (previously 6.4 x 7.5 x 5.5 cm). There is mass effect to adjacent bowel loop. There is no evidence for small bowel structure. There are innumerable colonic diverticula. No evidence for acute diverticulitis. No free air. There is trace free fluid. Unenhanced bowel loops demonstrate normal wall thickness and caliber. Nodes and vessels: No retroperitoneal or mesenteric adenopathy. Aorta and inferior vena cava are normal in size and enhancement. Miscellaneous: No ventral hernias. There is a 1.4 x 3.0 cm lipoma in the right lower anterior abdominal wall. PELVIS: Genitourinary: Bladder is contracted. Uterus is absent. A 1.3 x 2.2 cm soft tissue density in the left adnexa along the left ligament may be the left ovary (series 2 image 112). Right ovary is not identified. Miscellaneous: No inguinal hernias. There is a mildly enlarged left inguinal lymph node measuring 1.3 x 2.1 cm, unchanged. Bones: Pelvic ring and hip joints appear intact. No vertebral compression fractures. IMPRESSION: 1. Interval enlargement of a large mesenteric mass in the central lower abdomen measuring 7.5 x 8.2 x 8.4 cm. A 1.3 x 2.2 cm soft tissue density in the left adnexa along the broad ligament may be a left ovary. If the patient has had bilateral oophorectomy, this could represent a peritoneal implant. 2. Extensive diverticulosis without definitive CT findings to suggest acute diverticulitis. 3. A 5 mm left upper lobe lung nodule. A followup CT is suggested in 3 months. 4. Small hiatal hernia. 5. Hepatic steatosis. 6. A mildly enlarged left inguinal lymph node measuring 1.3 x 2.1 cm, unchanged. 7. A small lipoma in the right anterior lower abdominal wall. The result was discussed with Dr. Gao. Dictated by: Kolton Harrison M.D. on 09/22/2019 at 12:42 Approved by: Kolton Harrison M.D. on 09/22/2019 at 13:05 MDM Narrative Medical decision making narrative: The patient does have signs of UTI. She has had some slight growth in a mass. She is also found to have a lung nodule questionable if this is mets versus old. I have discussed with her that without treatment the mass seems to be growing it has grown in 2 months. She is adamant about going on trip to see her new grand niece which is scheduled for the end of the month. She will see her ball shagger oncologist afterwards. I recommend that she call this physician and update her. I discussed all findings with the patient, Education has been performed regarding treatment plan, diagnosis, warning signs and symptoms and all concerns have been addressed. Verbally agree with and understood all of the above. Discharge Plan Departure Patient Disposition: Home Clinical Impression: Acute UTI Discharge Date/Time: 09/22/19 13:55 Instructions: DI for Urinary Tract Infection (UTI) Activity Restrictions/Additional Instructions: *You have been diagnosed with bladder infection *What to do: CT today does show slightly in large mass in the ED or pelvis. You also have a 5 mm nodule in your lung. Difficult to say if this is related to your cancer or not *Continue to take medications as directed Keflex 500 mg 3 times a day for 1 week --> SENT TO [facility], [place], [facility] *Follow up with your primary care provider in 2-3 days You need to follow up with her ball shagger oncologist as soon as possible *Return to ER if you should have increasing pain persistent vomiting fevers chills or any new, worsening or concerning symptoms Prescriptions: New cephalexin [Keflex] 500 mg capsule 500 mg PO TID Qty: 21 RF: 0 ondansetron 4 mg tablet,disintegrating 4 mg PO Q8H PRN (Reason: nausea and vomiting) Qty: 10 RF: 0 omeprazole 20 mg capsule,delayed release(DR/EC) 20 mg PO DAILY PRN (Reason: acid reflux) Qty: 20 RF: 0 No Action levothyroxine [Levo-T] 112 mcg tablet 112 mcg PO DAILY Qty: 90 RF: 1 lorazepam 0.5 mg tablet 0.5 mg PO TIDP PRN (Reason: anxiety) Qty: 30 RF: 2 fluoxetine 20 mg tablet 20 mg PO DAILY Qty: 90 RF: 3 Disabled Parking Permit 1 ea miscellaneous DIRECTED RF: 0 Referrals: Kay Elisa DO [Primary Care Provider] -
--- NOTE | 2019-09-22 11:37 | DI.CT.S_ITS ---
PROCEDURE: CT CHEST ABD PEL W CON INDICATIONS: vomiting with new recurrent ovarian cancer TECHNIQUE: After the administration of intravenous contrast, 5 mm thick sections acquired from the lung apices to the symphysis. 2.5 mm thick coronal and sagittal reformats were acquired. Additional 7 mm thick coronal maximum intensity projection (MIP) reformats acquired through the lungs. Optional 10-minute delayed imaging may be performed from the kidneys to the bladder. For radiation dose reduction, the following was used: automated exposure control, adjustment of mA and/or kV according to patient size. COMPARISON: [facility], CT, ABDOMEN/PELVIS WITH CONTRAST, 08/22/2012, 10:00. [facility], MR, ABDOMEN WITHOUT CONTRAST, 09/05/2012, 8:24. [facility], CT, CT KIDNEY URETER BLADDER (KUB), 07/12/2019, 11:20. [facility], CT, CT ABDOMEN PELVIS W CON, 07/19/2019, 10:44. [facility], CT, CT BIOPSY ABDOMEN OR RETROPERITONEAL, 08/14/2019, 8:22. FINDINGS: Image quality: Excellent. CHEST: Lungs: No acute airspace opacities. There is a 5 mm nodule in the left upper lobe. No pleural effusion or pneumothorax. Central and peripheral airways appear patent and normal in caliber. Mediastinum: No mediastinal or hilar lymphadenopathy. Heart size is normal. No pericardial effusion. Thoracic aorta and pulmonary arteries demonstrate normal size and enhancement. No mediastinal or hilar adenopathy. Esophagus is normal in caliber. There is a small hiatal hernia. Chest wall: No rib fractures. No subcutaneous emphysema. No axillary or supraclavicular adenopathy. Thyroid gland is normal. ABDOMEN: Solid organs: Hepatic steatosis. Liver is normal in size and enhancement. Gallbladder is surgically absent. Biliary system is non-dilated. Pancreas enhances normally, without transection. Spleen is normal in size and enhancement, without lacerations. There is a 3.2 x 2 point centimeter right adrenal mass, unchanged in size since 08/22/2012. Both kidneys enhance normally, without hydronephrosis or lacerations. Peritoneum and bowel: There is a mass in the central lower abdomen within the mesentery measuring 7.5 x 8.2 x 8.4 cm, demonstrating interval enlargement since 07/19/2019 (previously 6.4 x 7.5 x 5.5 cm). There is mass effect to adjacent bowel loop. There is no evidence for small bowel structure. There are innumerable colonic diverticula. No evidence for acute diverticulitis. No free air. There is trace free fluid. Unenhanced bowel loops demonstrate normal wall thickness and caliber. Nodes and vessels: No retroperitoneal or mesenteric adenopathy. Aorta and inferior vena cava are normal in size and enhancement. Miscellaneous: No ventral hernias. There is a 1.4 x 3.0 cm lipoma in the right lower anterior abdominal wall. PELVIS: Genitourinary: Bladder is contracted. Uterus is absent. A 1.3 x 2.2 cm soft tissue density in the left adnexa along the left ligament may be the left ovary (series 2 image 112). Right ovary is not identified. Miscellaneous: No inguinal hernias. There is a mildly enlarged left inguinal lymph node measuring 1.3 x 2.1 cm, unchanged. Bones: Pelvic ring and hip joints appear intact. No vertebral compression fractures. IMPRESSION: 1. Interval enlargement of a large mesenteric mass in the central lower abdomen measuring 7.5 x 8.2 x 8.4 cm. A 1.3 x 2.2 cm soft tissue density in the left adnexa along the broad ligament may be a left ovary. If the patient has had bilateral oophorectomy, this could represent a peritoneal implant. 2. Extensive diverticulosis without definitive CT findings to suggest acute diverticulitis. 3. A 5 mm left upper lobe lung nodule. A followup CT is suggested in 3 months. 4. Small hiatal hernia. 5. Hepatic steatosis. 6. A mildly enlarged left inguinal lymph node measuring 1.3 x 2.1 cm, unchanged. 7. A small lipoma in the right anterior lower abdominal wall. The result was discussed with Dr. Gao. Dictated by: Kolton Harrison M.D. on 09/22/2019 at 12:42 Approved by: Kolton Harrison M.D. on 09/22/2019 at 13:05
[2019-09-22] MEDS: ONDANSETRON 4 MG/2 ML INJ IV (12:01)
[2019-09-22] MEDS: PANTOPRAZOLE 40 MG VIAL IV (12:01)
[2019-09-22] MEDS: SODIUM CHLORIDE 0.9% 1,000 ML 1000 ML IV (12:02)
[2019-09-22 12:10] LABS: Add Manual Diff / Slide Review NO; Basophils Absolute Auto 0 /uL (0-100); Basophils Percent Auto 0.2 % (0-2); Eosinophils Absolute Auto 0 /uL (0-450); Eosinophils Percent Auto 0.1 % (2-4); Hematocrit 34.8 % (36-46); Hemoglobin 11.4 g/dL (12.0-16.0); Lymphocytes Absolute Auto 600 /uL (1100-4500); Lymphocytes Percent Auto 4.1 % (25-40); Mean Corpuscular HGB Conc 32.7 % (30-36); Mean Corpuscular Volume 76.5 fL (80-100); Monocytes Absolute Auto 1400 /uL (0-900); Monocytes Percent Auto 9.1 % (3-14); Neutrophils Absolute Auto 13300 /uL (1500-7000); Neutrophils Percent Auto 86.5 % (50-75); Platelet Count 327 X10^3/uL (150-400); Red Blood Cell Count 4.54 X10^6/uL (4.0-5.2); Red Cell Distribution Width 15.1 % (11.6-14.8); White Blood Cell Count 15.4 X10^3/uL (4.5-11.0)
[2019-09-22 12:13] LABS: Alanine Aminotransferase 21 IU/L (<35); Albumin 3.6 g/dL (3.5-5.0); Albumin Globulin Ratio 1.1 (1.0-2.8); Alkaline Phosphatase 129 U/L (38-126); Aspartate Aminotransferase 42 IU/L (14-36); Bilirubin Total 1.3 mg/dL (0.2-1.3); Blood Urea Nitrogen 21 mg/dL (7-17); Calcium 9.2 mg/dL (8.4-10.2); Carbon Dioxide 26 mmol/L (22-32); Chloride 98 mmol/L (98-107); Estimated Glomerular Filt Rate 57.1 mL/min (>60); Globulin 3.2 g/dL (1.7-4.1); Glucose 147 mg/dL (70-100); HEMOLYSIS 22 (0-50); Lipase 29 U/L (23-300); Potassium 3.3 mmol/L (3.4-5.1); Sodium 133 mmol/L (137-145); Total Protein 6.8 g/dL (6.3-8.2)
[2019-09-22 12:29] LABS: RBC Urine 1-5/HPF (0-5/HPF); WBC Urine >100/HPF (0-5/HPF)
[2019-09-22 12:30] LABS: Bacteria Urine Many (>30); Culture Indicated Urine Specimen Cultured; Squamous Epithelial Cell Urine 5-10 /HPF (0-5/HPF)
[2019-09-22 12:31] LABS: Ictotest Urine Negative (Negative)
[2019-09-22 13:33] VITALS: BP 135/96; PULSE 79; RESP 22; O2SAT 97
== END 2019-09-22 13:55 | disposition home or self-care (01) ==
PROVIDERS: Emergency Provider Emergency Medicine; PCP Family Medicine
DX: N39.0 Urinary tract infection, site not specified (principal); R79.89 Other specified abnormal findings of blood chemistry; R11.2 Nausea with vomiting, unspecified
CPT/HCPCS: 36415; 71260; 74177; 80053; 81003; 81015; 83690; 85025; 87077; 87086; 87186; 96361; 96374; 96375; 99283; 99284; C9113; J2405

== ENCOUNTER 2019-09-25 02:12 | Emergency (ER) | payer OTHER, SELFPAY ==
[2019-09-25 02:12] VITALS: BP 95/63; PULSE 94; RESP 18; TEMP 36.7; O2SAT 99; BMI 43.6
--- NOTE | 2019-09-25 02:13 | ED_ITS ---
HPI - GI Bleed General Chief complaint: GI Bleed Stated complaint: GI Bleed Time Seen by Provider: 09/25/19 02:13 Source: patient and family Mode of arrival: Ambulatory Limitations: no limitations History of Present Illness HPI Narrative: 59-year-old female with history of ovarian cancer and hypothyroidism presents with her in the chief complaint of bright red bleeding per rectum today. She also complains of some generalized abdominal fullness and feels a bit fatigued but denies any specific dizziness or lightheadedness. She has no chest pain or shortness of breath. She was here few days ago with a chief complaint of some generalized abdominal fullness, she had a chest abdomen and pelvis CT which showed interval growth of a known ovarian mass for which she has a scheduled surgery for October. complaint: gross hematochezia Onset (ago): hour(s) Pain Consistency: intermittent Severity: moderate Relieving factors: none Exacerbating factors: none Associated symptoms: abdominal pain, nausea and loss of appetite Related Data Home Medications Medication Instructions Recorded Confirmed Disabled Parking Permit 1 ea MISCELLANEOUS DIRECTED 09/22/19 09/22/19 Previous Rx's Medication Instructions Recorded fluoxetine 20 mg tablet 20 mg PO DAILY #90 tab 06/05/19 levothyroxine 112 mcg tablet 112 mcg PO DAILY #90 tab 06/29/19 lorazepam 0.5 mg tablet 0.5 mg PO TIDP PRN #30 tab 08/14/19 cephalexin [Keflex] 500 mg PO TID #21 cap 09/22/19 omeprazole 20 mg PO DAILY PRN #20 cap 09/22/19 ondansetron 4 mg PO Q8H PRN #10 tab 09/22/19 Allergies Allergy/AdvReac Type Severity Reaction Status Date / Time shellfish derived Allergy Severe breathing Verified 09/22/19 11:17 difficulties if ingested; hives when touched codeine Allergy Mild UNKNOWN Verified 09/22/19 11:17 Review of Systems Constitutional Constitutional: Denies chills, Denies fatigue, Denies fever(s), Denies frequent falls, Denies lethargy and Denies weakness Eyes Eyes: Denies change in vision, Denies eye discharge, Denies irritation and Denies loss of vision ENT Ears, Nose, Mouth, and Throat: Denies change in voice, Denies dizziness, Denies neck pain, Denies sore throat and Denies throat swelling Cardiovascular Cardiovascular: Denies chest pain, Denies irregular heart rhythm, Denies lightheadedness, Denies palpitations, Denies dyspnea, Denies dyspnea on exertion and Denies orthopnea Respiratory Respiratory: Denies cough, Denies dyspnea, Denies dyspnea on exertion and Denies wheezing Gastrointestinal Gastrointestinal: Reports abdominal pain, Denies change in bowel habits, Denies diarrhea, Reports nausea and Denies vomiting Genitourinary Genitourinary: Denies hematuria, Denies flank pain, Denies urinary incontinence and Denies urinary urgency Musculoskeletal Musculoskeletal: Denies back pain, Denies muscle weakness, Denies neck pain, Denies numbness and Denies tingling Integumentary/Breasts Skin/Breast: Denies pruritus, Denies erythema, Denies rash and Denies wounds Neurologic Neurologic: Denies behavioral changes, Denies confusion, Denies dizziness, Denies frequent falls, Denies loss of vision, Denies numbness, Denies tingling and Denies weakness Psychiatric Psychiatric: Denies anxiety, Denies behavioral changes, Denies confusion, Denies depression, Denies homicidal ideation and Denies suicidal ideation Endocrine Endocrine: Denies fatigue, Denies flushing and Denies palpitations Hematologic/Lymphatic Hematologic/Lymphatic: Denies easy bruising Allergic/Immunologic Allergic/Immunologic: Denies urticaria, Denies throat swelling and Denies wheezing Patient History Medical History Anxiety (Chronic) Depression (Chronic) Hyperlipidemia (Acute) Hypothyroid (Acute 02/15/12) MS (multiple sclerosis) (Chronic ~1987) Ovarian cancer (Resolved) Surgical History History of third molar tooth extraction (Resolved) S/P total abdominal hysterectomy and bilateral salpingo-oophorectomy (Resolved 2011) Status post appendectomy (Resolved 1982) Status post cholecystectomy (Resolved 1987) Family History Sister Aneurysm Sister Age: 56 Breast cancer Social History Smoking Status: Current every day smoker alcohol intake frequency: holidays/special occasions only Substance Use Type: does not use Exam Narrative Exam Narrative: GENERAL: [59] year old patient appears stated age. Morbidly obese, obviously uncomfortable HEAD: Atraumatic. Normocephalic. EYES: Pupils equal round and reactive. Extraocular motions intact. No scleral icterus. No injection or drainage. ENT: Nose without bleeding, purulent drainage. Throat without erythema, tonsillar hypertrophy or exudate. Airway patent. NECK: Trachea midline. Non tender CARDIOVASCULAR: Regular rate and rhythm without murmurs, gallops, or rubs. RESPIRATORY: Clear to auscultation. Breath sounds equal bilaterally. No wheezes, rales, or rhonchi. GASTROINTESTINAL: Abdomen soft, non-tender, nondistended. EXTREMITIES: No edema or joint tenderness. BACK: Nontender without deformity or crepitance. No flank tenderness. NEURO: AOx3. SKIN: No rash or erythema of visible areas Initial Vital Signs Initial Vital Signs: Vital Signs Temperature 98.0 F 09/25/19 02:12 Pulse Rate 94 H 09/25/19 02:12 Respiratory Rate 18 09/25/19 02:12 Blood Pressure 95/63 09/25/19 02:12 Pulse Oximetry 99 09/25/19 02:12 Course Course Course Narrative: Patient BP is down in the 90s (her normal is 120s) Also, hgb has dropped another few grams. Her baseline is Mariposa Score for Safe Discharge After Lower GI Bleed from [facility] on 11/25/2018 All calculations should be rechecked by clinician prior to use RESULT SUMMARY: 21 points Mariposa Score 33-45 % Probability of safe discharge (absence of rebleeding, blood transfusion, therapeutic intervention, 28 day readmission, or ). Discharge NOT recommended. Consider admission with further workup and resuscitation as necessary. INPUTS: Age, years ?> 1 = 40-69 Sex ?> 0 = Female Previous lower GI bleeding admission ?> 0 = No IVA findings ?> 1 = Blood Heart rate, bpm ?> 2 = 90-109 Systolic blood pressure, mmHg ?> 4 = 90-119 Hemoglobin, mg/dL (g/dL) ?> 13 = 9.0-10.9 (90-109) Orders Ordered: ED Orders 09/25/19 02:23 XR acute abdomen series Stat 09/25/19 02:30 Complete Blood Count AUTO DIFF Stat Comprehensive Metabolic Panel Stat Partial Thromboplastin Time Stat Prothrombin Time INR Stat Type and Screen Stat 09/25/19 03:47 EKG-12 Lead Stat Discontinued Medications Lorazepam (Ativan) 0.5 mg PO NOW ONE Stop: 09/25/19 05:02 Last Admin: 09/25/19 05:09 Dose: 0.5 mg Documented by: JO ANN Ondansetron HCl (Zofran) 4 mg IV NOW ONE Stop: 09/25/19 02:22 Last Admin: 09/25/19 03:31 Dose: 4 mg Documented by: JO ANN Pantoprazole Sodium (Protonix) 40 mg IV NOW ONE Stop: 09/25/19 03:10 Last Admin: 09/25/19 03:31 Dose: 40 mg Documented by: JO ANN Consultations Consultation #1: call to Dr. Betancourt (gen surg), patient is more complex than is appropriate for this facility. Recommends transfer Consultation #2: call to [place] after discussion of the case with [facility] physician he wants an ED to ED transfer. Patient currently with stable vitals HR 84, BP 109/66. call to [place] ED, Dr. Bañuelos happy to accept in the ED. I have confirmed with their nursing supervisor insecticide that they have appropriate beds. Time: 03:17 Vital Signs Vital signs: Vital Signs - 8 hr 09/25/19 02:12 09/25/19 03:30 09/25/19 05:00 Temperature 98.0 F Pulse Rate 94 H 82 83 Respiratory Rate 18 20 18 Blood Pressure 95/63 Blood Pressure [Left Arm] 114/64 112/65 Pulse Oximetry 99 96 96 MDM - GI Bleed Lab Data Result diagrams: 09/25/19 02:30 09/25/19 02:30 Labs: Lab Results 09/25/19 09/25/19 09/25/19 Range/Units 02:30 02:30 02:30 WBC 17.6 H (4.5-11.0) X10^3/uL RBC 3.89 L (4.0-5.2) X10^6/uL Hgb 9.8 L (12.0-16.0) g/dL Hct 29.7 L (36-46) % MCV 76.2 L (80-100) fL MCH 25.3 L (26-34) PG MCHC 33.2 (30-36) % RDW 15.5 H (11.6-14.8) % Plt Count 364 (150-400) X10^3/uL Neut % (Auto) 77.6 H (50-75) % Lymph % (Auto) 10.4 L (25-40) % Bleck[place] % (Auto) 10.5 (3-14) % Eos % (Auto) 1.0 L (2-4) % Baso % (Auto) 0.5 (0-2) % Neut # (Auto) 64951 H (3480-2469) /uL Lymph # (Auto) 1800 (7381-0136) /uL Bleck[place] # (Auto) 1900 H (0-900) /uL Eos # (Auto) 200 (0-450) /uL Baso # (Auto) 100 (0-100) /uL PT 14.5 H (10.1-12.7) SECONDS INR 1.2 (0.9-1.3) APTT 28 (26.4-36.2) SECONDS Sodium 138 (137-145) mmol/L Potassium 3.1 L (3.4-5.1) mmol/L Chloride 102 (98-107) mmol/L Carbon Dioxide 23 (22-32) mmol/L BUN 42 H (7-17) mg/dL Creatinine 1.70 H (0.52-1.04) mg/dL Estimated GFR 31.0 L (>60) mL/min BUN/Creatinine Ratio 24.7 H (6-22) Glucose 106 H (70-100) mg/dL Calcium 8.6 (8.4-10.2) mg/dL Total Bilirubin 1.6 H (0.2-1.3) mg/dL AST 24 (14-36) IU/L ALT 16 (<35) IU/L Alkaline Phosphatase 213 H D (38-126) U/L Total Protein 6.0 L (6.3-8.2) g/dL Albumin 3.1 L (3.5-5.0) g/dL Globulin 2.9 (1.7-4.1) g/dL Albumin/Globulin Ratio 1.1 (1.0-2.8) Blood Type Antibody Screen Antibody Identification Antigen Identification Crossmatch 09/25/19 Range/Units 02:30 WBC (4.5-11.0) X10^3/uL RBC (4.0-5.2) X10^6/uL Hgb (12.0-16.0) g/dL Hct (36-46) % MCV (80-100) fL MCH (26-34) PG MCHC (30-36) % RDW (11.6-14.8) % Plt Count (150-400) X10^3/uL Neut % (Auto) (50-75) % Lymph % (Auto) (25-40) % Bleck[place] % (Auto) (3-14) % Eos % (Auto) (2-4) % Baso % (Auto) (0-2) % Neut # (Auto) (0259-8987) /uL Lymph # (Auto) (9552-7311) /uL Bleckley # (Auto) (0-900) /uL Eos # (Auto) (0-450) /uL Baso # (Auto) (0-100) /uL PT (10.1-12.7) SECONDS INR (0.9-1.3) APTT (26.4-36.2) SECONDS Sodium (137-145) mmol/L Potassium (3.4-5.1) mmol/L Chloride (98-107) mmol/L Carbon Dioxide (22-32) mmol/L BUN (7-17) mg/dL Creatinine (0.52-1.04) mg/dL Estimated GFR (>60) mL/min BUN/Creatinine Ratio (6-22) Glucose (70-100) mg/dL Calcium (8.4-10.2) mg/dL Total Bilirubin (0.2-1.3) mg/dL AST (14-36) IU/L ALT (<35) IU/L Alkaline Phosphatase (38-126) U/L Total Protein (6.3-8.2) g/dL Albumin (3.5-5.0) g/dL Globulin (1.7-4.1) g/dL Albumin/Globulin Ratio (1.0-2.8) Blood Type B Negative Antibody Screen Positive Antibody Identification Anti-Fya Antigen Identification Fya Antigen - NEGATIVE Crossmatch See Detail Discharge Plan Departure Patient Disposition: [facility] Clinical Impression: Acute lower gastrointestinal bleeding, Acute kidney injury Anemia Qualifiers: Anemia type: unspecified type Qualified Code(s): D64.9 - Anemia, unspecified Discharge Date/Time: 09/25/19 05:30 Prescriptions: No Action levothyroxine [Levo-T] 112 mcg tablet 112 mcg PO DAILY Qty: 90 RF: 1 lorazepam 0.5 mg tablet 0.5 mg PO TIDP PRN (Reason: anxiety) Qty: 30 RF: 2 fluoxetine 20 mg tablet 20 mg PO DAILY Qty: 90 RF: 3 Disabled Parking Permit 1 ea miscellaneous DIRECTED RF: 0 cephalexin [Keflex] 500 mg capsule 500 mg PO TID Qty: 21 RF: 0 ondansetron 4 mg tablet,disintegrating 4 mg PO Q8H PRN (Reason: nausea and vomiting) Qty: 10 RF: 0 omeprazole 20 mg capsule,delayed release(DR/EC) 20 mg PO DAILY PRN (Reason: acid reflux) Qty: 20 RF: 0 Referrals: Kay Elias DO [Primary Care Provider] -
--- NOTE | 2019-09-25 02:23 | DI.RAD.S_ITS ---
PROCEDURE: XR ACUTE ABDOMEN SERIES INDICATIONS: Abdominal pain TECHNIQUE: One view chest and two views of the abdomen were acquired. COMPARISON: [facility], CT, CT CHEST ABD PEL W CON, 09/22/2019, 12:18. FINDINGS: Surgical changes and devices: Cholecystectomy clips Chest: Lungs are clear. Heart size is normal. No pleural effusions. No pneumoperitoneum. Abdomen: Bowel gas pattern is nonspecific. No suspicious calcifications. Visualized solid organ contours appear normal. Bones: No suspicious bony lesions. IMPRESSION: Nonspecific bowel gas pattern. If the patient's symptoms persist or worsen, then CT scan of the abdomen/pelvis should be considered for further evaluation. Dictated by: Lakeisha Butts MD, PhD on 09/25/2019 at 8:45 Approved by: Lakeisha Butts MD, PhD on 09/25/2019 at 8:47
[2019-09-25 02:44] LABS: Add Manual Diff / Slide Review NO; Basophils Absolute Auto 100 /uL (0-100); Basophils Percent Auto 0.5 % (0-2); Eosinophils Absolute Auto 200 /uL (0-450); Hematocrit 29.7 % (36-46); Hemoglobin 9.8 g/dL (12.0-16.0); Lymphocytes Absolute Auto 1800 /uL (1100-4500); Lymphocytes Percent Auto 10.4 % (25-40); Mean Corpuscular HGB Conc 33.2 % (30-36); Mean Corpuscular Hemoglobin 25.3 PG (26-34); Mean Corpuscular Volume 76.2 fL (80-100); Monocytes Absolute Auto 1900 /uL (0-900); Monocytes Percent Auto 10.5 % (3-14); Neutrophils Absolute Auto 13700 /uL (1500-7000); Neutrophils Percent Auto 77.6 % (50-75); Platelet Count 364 X10^3/uL (150-400); Red Blood Cell Count 3.89 X10^6/uL (4.0-5.2); Red Cell Distribution Width 15.5 % (11.6-14.8); White Blood Cell Count 17.6 X10^3/uL (4.5-11.0)
[2019-09-25 02:46] LABS: INR 1.2 (0.9-1.3); Prothrombin Time 14.5 SECONDS (10.1-12.7)
[2019-09-25 02:49] LABS: PTT Partial Thromboplastin Tim 28 SECONDS (26.4-36.2)
[2019-09-25 02:50] LABS: Alanine Aminotransferase 16 IU/L (<35); Albumin 3.1 g/dL (3.5-5.0); Albumin Globulin Ratio 1.1 (1.0-2.8); Alkaline Phosphatase 213 U/L (38-126); Aspartate Aminotransferase 24 IU/L (14-36); BUN Creatinine Ratio 24.7 (6-22); Bilirubin Total 1.6 mg/dL (0.2-1.3); Blood Urea Nitrogen 42 mg/dL (7-17); Calcium 8.6 mg/dL (8.4-10.2); Carbon Dioxide 23 mmol/L (22-32); Chloride 102 mmol/L (98-107); Globulin 2.9 g/dL (1.7-4.1); Glucose 106 mg/dL (70-100); HEMOLYSIS < 15 (0-50); Potassium 3.1 mmol/L (3.4-5.1); Sodium 138 mmol/L (137-145)
[2019-09-25 03:30] VITALS: BP 114/64; PULSE 82; RESP 20; O2SAT 96
[2019-09-25] MEDS: ONDANSETRON 4 MG/2 ML INJ IV (03:31)
[2019-09-25] MEDS: PANTOPRAZOLE 40 MG VIAL IV (03:31)
[2019-09-25 05:00] VITALS: BP 112/65; PULSE 83; RESP 18; O2SAT 96
[2019-09-25] MEDS: LORazepam 0.5 MG TABLET PO (05:09)
== END 2019-09-25 05:30 | disposition short-term general hospital (02) ==
PROVIDERS: Emergency Provider Emergency Medicine; PCP Family Medicine
DX: K92.2 Gastrointestinal hemorrhage, unspecified (principal); N17.9 Acute kidney failure, unspecified; D64.9 Anemia, unspecified
CPT/HCPCS: 36415; 74022; 80053; 85025; 85610; 85730; 86850; 86870; 86900; 86901; 86902; 93005; 96374; 96375; 99283; 99285; C9113; J2405

== ENCOUNTER → 2019-10-16 17:21 | Outpatient (CLI) | payer OTHER, SELFPAY ==
[2019-10-16 17:38] LABS: RBC Urine None Seen (0-5/HPF)
[2019-10-16 18:03] LABS: Appearance Urine UA CLEAR; Bilirubin Urine UA NEGATIVE (NEGATIVE); Color Urine UA YELLOW; Glucose Urine UA NEGATIVE (Negative); Ketones Urine UA NEGATIVE (NEGATIVE); Leukocyte Esterase Urine UA 3+ (NEGATIVE); Nitrite Urine UA POSITIVE (Negative); Occult Blood Urine UA TRACE-LYSED (Negative); Protein Urine UA NEGATIVE (Negative); Specific Gravity Urine UA <=1.005 (1.000-1.035); Urobilinogen Urine UA 0.2 E.U./dL (0.2)
[2019-10-16 18:10] LABS: Bacteria Urine Many (>30); Culture Indicated Urine Specimen Cultured; Squamous Epithelial Cell Urine 1-5 /HPF (0-5/HPF); WBC Urine 30-100/HPF (0-5/HPF); pH Urine UA 6.5 (4.5-8.0)
== END ==
PROVIDERS: PCP Family Medicine; Visit Provider Obstetrics & Gynecology Gynecologic Oncology
DX: R82.90 Unspecified abnormal findings in urine (principal); R19.7 Diarrhea, unspecified
CPT/HCPCS: 81001; 87077; 87086; 87186

== ENCOUNTER → 2019-10-17 08:50 | Outpatient (CLI) | payer OTHER, SELFPAY ==
[2019-10-17 11:52] LABS: Clostridium Difficile Tox PCR Negative for C. diff
== END ==
PROVIDERS: PCP Family Medicine; Visit Provider Obstetrics & Gynecology Gynecologic Oncology
DX: R82.90 Unspecified abnormal findings in urine (principal); R19.7 Diarrhea, unspecified
CPT/HCPCS: 87493

== ENCOUNTER → 2019-10-18 17:26 | Outpatient (CLI) | payer OTHER, SELFPAY ==
[2019-10-18 18:02] LABS: Hematocrit 33.7 % (36-46); Hemoglobin 10.7 g/dL (12.0-16.0); Mean Corpuscular HGB Conc 31.7 % (30-36); Mean Corpuscular Hemoglobin 24.9 PG (26-34); Mean Corpuscular Volume 78.4 fL (80-100); Platelet Count 549 X10^3/uL (150-400); Red Cell Distribution Width 18.9 % (11.6-14.8); White Blood Cell Count 19.8 X10^3/uL (4.5-11.0)
[2019-10-18 20:09] LABS: Alanine Aminotransferase 11 IU/L (<35); Albumin 3.3 g/dL (3.5-5.0); Albumin Globulin Ratio 1.1 (1.0-2.8); Alkaline Phosphatase 148 U/L (38-126); Aspartate Aminotransferase 16 IU/L (14-36); Bilirubin Total 0.8 mg/dL (0.2-1.3); Blood Urea Nitrogen 17 mg/dL (7-17); Calcium 9.5 mg/dL (8.4-10.2); Carbon Dioxide 26 mmol/L (22-32); Chloride 99 mmol/L (98-107); Estimated Glomerular Filt Rate 57.1 mL/min (>60); Globulin 2.9 g/dL (1.7-4.1); Glucose 111 mg/dL (70-100); HEMOLYSIS < 15 (0-50); Potassium 4.8 mmol/L (3.4-5.1); Sodium 135 mmol/L (137-145); Total Protein 6.2 g/dL (6.3-8.2)
== END ==
PROVIDERS: PCP Family Medicine; Visit Provider Obstetrics & Gynecology Gynecologic Oncology
DX: R19.7 Diarrhea, unspecified (principal)
CPT/HCPCS: 36415; 80053; 85027

== ENCOUNTER 2019-10-23 21:28 | Emergency (ER) | payer OTHER, SELFPAY ==
[2019-10-23 21:30] VITALS: BP 128/95; PULSE 74; RESP 19; TEMP 36.8; O2SAT 100
--- NOTE | 2019-10-23 22:03 | DI.CT.S_ITS ---
PROCEDURE: CT ABDOMEN PELVIS W CON INDICATIONS: Drainage from lower portion of laproscopic incision TECHNIQUE: After the administration of intravenous contrast, 5 mm thick sections acquired from the diaphragm to the symphysis. 5 mm coronal and sagittal reformats were acquired. For radiation dose reduction, the following was used: automated exposure control, adjustment of mA and/or kV according to patient size. COMPARISON: [facility], CT, CT KIDNEY URETER BLADDER (KUB), 07/12/2019, 11:20. [facility], CT, CT CHEST ABD PEL W CON, 09/22/2019, 12:18. [facility], CT, CT ABDOMEN PELVIS W CON, 07/19/2019, 10:44. FINDINGS: Image quality: Excellent. ABDOMEN: Lung bases: Lung bases are clear. Heart size is normal. Solid organs: There is hepatic fatty infiltration. Liver is normal in size and enhancement. Gallbladder is surgically absent. Biliary system is non dilated. Pancreas enhances normally. Small low-density nodules are noted in spleen. Spleen is normal in size. There is a 3 cm right adrenal mass which demonstrates heterogeneous enhancement. It appears unchanged in size and appearance compared to last exam. Kidneys demonstrate normal size and enhancement, without hydronephrosis. Peritoneum and bowel: Bowel loops demonstrate normal wall thickness and caliber. There are multiple colonic diverticula. No free fluid or air. Nodes and vessels: No retroperitoneal or mesenteric adenopathy by size criteria. Aorta and inferior vena cava are normal in size. Miscellaneous: There is stranding and ill-defined fluid collection in the left lower anterior abdominal wall measuring 1.9 x 3.1 x 6.3 cm. There is a tiny pocket of air collection within the fluid. This is consistent with an abscess. There is a smaller fluid collection within the abdominal cavity measuring 1.7 x 3.0 x 3.7 cm There may be fistula connection between the superficial abscess in the deep fluid collection within the abdominal cavity. Thickening and nodularity of the intra-abdominal wall is noted. There is a 1.8 x 3.2 cm lipoma in the right anterior abdominal wall. PELVIS: Genitourinary: Bladder wall thickness is normal. There is hysterectomy. Ovaries are not visualized. No pathological free fluid in pelvis. Miscellaneous: No inguinal hernias or adenopathy. Bones: No suspicious bony lesions. No vertebral body compression fractures. IMPRESSION: 1. There is stranding and ill-defined fluid collection with a tiny pocket of air in the left lower anterior abdominal wall measuring 1.9 x 3.1 x 6.3 cm consistent with an abscess. A smaller fluid collection is noted within the abdominal cavity measuring 1.7 x 3.0 x 3.7 cm There may be fistula connection between the two fluid collections. 2. Thickening and nodularity of the intra-abdominal wall. 3. A 3 cm right adrenal mass appears stable. 4. Colonic diverticulosis without diverticulitis. Dictated by: Kolton Harrison M.D. on 10/24/2019 at 7:43 Approved by: Kolton Harrison M.D. on 10/24/2019 at 7:59
--- NOTE | 2019-10-23 22:04 | ED_ITS ---
HPI - General Adult <Jose Alfredo Barrett DO - Last Filed: 10/24/19 20:32> General Chief complaint: Abdominal Pain Stated complaint: feels llike she is filling up with fluids Time Seen by Provider: 10/23/19 21:44 Source: patient Mode of arrival: Wheelchair Limitations: no limitations History of Present Illness HPI narrative: Patient is a 59-year-old female here for evaluation of generalized abdominal pain and drainage coming from the lower portion of her abdominal surgical incision. Approximately 3 weeks ago she underwent an ex lap for removal of a tumor around her mesentery. This was done at [facility]. Back in 2011 she had ovarian cancer. Underwent chemotherapy. She states that the tumor that they removed during this surgery was cancer as well. She also states that she had part of her bowel removed. Approximately 5 days ago had some generalized abdominal tenderness. Went to [facility] had a CT scan performed at that time. I do not have the actual pictures of the CT scan but I have the report which showed a fairly large abdominal hematoma. This was measured as 16 cm. This scan was done without contrast. Patient states that since that time she has had drainage coming from the lower portion of her incision. Related Data Home Medications Medication Instructions Recorded Confirmed Disabled Parking Permit 1 ea MISCELLANEOUS DIRECTED 09/22/19 09/22/19 Previous Rx's Medication Instructions Recorded fluoxetine 20 mg tablet 20 mg PO DAILY #90 tab 06/05/19 cephalexin [Keflex] 500 mg PO TID #21 cap 09/22/19 omeprazole 20 mg PO DAILY PRN #20 cap 09/22/19 ondansetron 4 mg PO Q8H PRN #10 tab 09/22/19 levothyroxine 112 mcg tablet 112 mcg PO DAILY #90 tab 10/02/19 lorazepam 0.5 mg tablet 0.5 mg PO TIDP PRN #30 tab 10/11/19 levofloxacin [Levaquin] 750 mg PO DAILY #7 tab 10/24/19 omeprazole 40 mg PO DAILY PRN #20 cap 10/24/19 Allergies Allergy/AdvReac Type Severity Reaction Status Date / Time shellfish derived Allergy Severe breathing Verified 10/23/19 21:43 difficulties if ingested; hives when touched codeine Allergy Mild UNKNOWN Verified 10/23/19 21:43 Review of Systems <DO Dinah Lynch Last Filed: 10/24/19 20:32> Constitutional Constitutional: Denies fever(s) Cardiovascular Cardiovascular: Denies chest pain and Denies dyspnea Respiratory Respiratory: Denies dyspnea Gastrointestinal Gastrointestinal: Reports abdominal pain and Denies vomiting Genitourinary Genitourinary: Denies dysuria Musculoskeletal Musculoskeletal: Denies myalgias and Denies arthralgias Integumentary/Breasts Comments: Drainage from lower portion of surgical incision Neurologic Neurologic: Denies behavioral changes Psychiatric Psychiatric: Denies behavioral changes Hematologic/Lymphatic Hematologic/Lymphatic: Denies easy bleeding and Denies easy bruising Patient History <Jose Alfredo Barrett DO - Last Filed: 10/24/19 20:32> Medical History Acute lower gastrointestinal bleeding (Inactive ~09/30/19) Anxiety (Chronic) Depression (Chronic) Hyperlipidemia (Acute) Hypothyroid (Acute 02/15/12) MS (multiple sclerosis) (Chronic ~1987) Ovarian cancer (Resolved) Sigmoid diverticulosis (Acute) Surgical History History of third molar tooth extraction (Resolved) S/P total abdominal hysterectomy and bilateral salpingo-oophorectomy (Resolved 2011) Status post appendectomy (Resolved 1982) Status post cholecystectomy (Resolved 1987) Family History Sister Aneurysm Sister Age: 56 Breast cancer Social History Smoking Status: Current every day smoker Smoking Status: Current every day smoker alcohol intake frequency: holidays/special occasions only Substance Use Type: does not use Exam <Jose Alfredo Barrett DO - Last Filed: 10/24/19 20:32> Initial Vital Signs Initial Vital Signs: Vital Signs Temperature 98.2 F 10/23/19 21:30 Pulse Rate 74 10/23/19 21:30 Respiratory Rate 19 10/23/19 21:30 Blood Pressure 128/95 H 10/23/19 21:30 Pulse Oximetry 100 10/23/19 21:30 Const General: cooperative, comfortable and well developed Orientation: alert, awake and oriented x3 HENMT Head: normal to inspection and normocephalic Resp Effort & Inspection: normal respiratory effort Auscultation: clear to auscultation bilaterally Cardio Rate: regular rate Rhythm: regular rhythm GI Inspection: non-distended Palpation: soft, No firm and No tender Back/Spine/Pelvis Back: No CVA tenderness Skin Other: Multiple well-healed surgical incisions on her abdomen. The midline incision consistent with her stated history 3 weeks ago is closed. There's no surrounding erythema. The most inferior portion of this has a 2 mm opening that is draining either a purulent/serosanguineous fluid. Was able to express fluid out of this area Neuro General: alert, awake and oriented x3 Cognition: normal cognition Speech: speech normal Extrem General: normal to inspection and capillary refill normal Psych Appearance: grossly normal and well kempt <Siri Gao DO - Last Filed: 10/24/19 10:13> Initial Vital Signs Initial Vital Signs: Vital Signs Temperature 98.2 F 10/23/19 21:30 Pulse Rate 74 10/23/19 21:30 Respiratory Rate 19 10/23/19 21:30 Blood Pressure 128/95 H 10/23/19 21:30 Pulse Oximetry 100 10/23/19 21:30 Course <Jose Alfredo Barrett DO - Last Filed: 10/24/19 20:32> Orders Ordered: Discontinued Medications Sodium Chloride (Normal Saline 0.9%) 1,000 mls @ 1,000 mls/hr IV BOLUS ONE Stop: 10/23/19 23:01 Last Infusion: 10/24/19 01:24 Dose: 0 mls/hr Documented by: JO ANN Admin: 10/24/19 00:09 Dose: 1,000 mls/hr Documented by: JO ANN Piperacillin/Tazobactam/Dextrose (Zosyn) 3.375 gm in 50 mls @ 100 mls/hr IV NOW ONE Stop: 10/24/19 01:32 Last Infusion: 10/24/19 02:21 Dose: 0 mls/hr Documented by: Admin: 10/24/19 01:34 Dose: 100 mls/hr Documented by: JO ANN Vital Signs Vital signs: Vital Signs - 8 hr 10/24/19 03:27 10/24/19 04:15 10/24/19 08:43 Temperature 98.0 F Pulse Rate 68 89 77 Respiratory Rate 16 16 16 Blood Pressure 127/77 Blood Pressure [Right Arm] 124/52 L 138/83 Pulse Oximetry 96 100 97 <Siri Gao DO - Last Filed: 10/24/19 10:13> Orders Ordered: Discontinued Medications Sodium Chloride (Normal Saline 0.9%) 1,000 mls @ 1,000 mls/hr IV BOLUS ONE Stop: 10/23/19 23:01 Last Infusion: 10/24/19 01:24 Dose: 0 mls/hr Documented by: JO ANN Admin: 10/24/19 00:09 Dose: 1,000 mls/hr Documented by: JO ANN Piperacillin/Tazobactam/Dextrose (Zosyn) 3.375 gm in 50 mls @ 100 mls/hr IV NOW ONE Stop: 10/24/19 01:32 Last Infusion: 10/24/19 02:21 Dose: 0 mls/hr Documented by: Admin: 10/24/19 01:34 Dose: 100 mls/hr Documented by: JO ANN Vital Signs Vital signs: Vital Signs - 8 hr 10/24/19 03:27 10/24/19 04:15 10/24/19 08:43 Temperature 98.0 F Pulse Rate 68 89 77 Respiratory Rate 16 16 16 Blood Pressure 127/77 Blood Pressure [Right Arm] 124/52 L 138/83 Pulse Oximetry 96 100 97 Medical Decision Making <Jose Alfredo Barrett DO - Last Filed: 10/24/19 20:32> Medical Records Medical records reviewed: Yes I reviewed the patient's medical records. Lab Data Lab results reviewed: Yes I reviewed the patient's lab results. Result diagrams: 10/23/19 23:00 10/23/19 23:00 Labs: Lab Results 10/23/19 10/23/19 10/23/19 Range/Units 23:00 23:00 23:00 WBC 11.2 H (4.5-11.0) X10^3/uL RBC 4.21 (4.0-5.2) X10^6/uL Hgb 10.5 L (12.0-16.0) g/dL Hct 32.7 L (36-46) % MCV 77.5 L (80-100) fL MCH 24.9 L (26-34) PG MCHC 32.2 (30-36) % RDW 18.3 H (11.6-14.8) % Plt Count 601 H (150-400) X10^3/uL Neut % (Auto) 63.6 (50-75) % Lymph % (Auto) 25.7 (25-40) % Baldwin % (Auto) 7.7 (3-14) % Eos % (Auto) 2.1 (2-4) % Baso % (Auto) 0.9 (0-2) % Neut # (Auto) 7100 H (6706-5741) /uL Lymph # (Auto) 2900 (0918-2333) /uL Baldwin # (Auto) 900 (0-900) /uL Eos # (Auto) 200 (0-450) /uL Baso # (Auto) 100 (0-100) /uL ESR 75 H (0-20) MM/HR Sodium 135 L (137-145) mmol/L Potassium 4.3 (3.4-5.1) mmol/L Chloride 101 (98-107) mmol/L Carbon Dioxide 27 (22-32) mmol/L BUN 12 (7-17) mg/dL Creatinine 0.70 (0.52-1.04) mg/dL Estimated GFR > 60.0 (>60) mL/min BUN/Creatinine Ratio 17.1 (6-22) Glucose 111 H (70-100) mg/dL Lactate (0.7-2.1) mmol/L Calcium 9.7 (8.4-10.2) mg/dL Total Bilirubin 0.6 (0.2-1.3) mg/dL AST 30 (14-36) IU/L ALT 12 (<35) IU/L Alkaline Phosphatase 156 H (38-126) U/L C-Reactive Protein 3.2 H (<1.0) mg/dL Total Protein 7.0 (6.3-8.2) g/dL Albumin 3.6 (3.5-5.0) g/dL Globulin 3.4 (1.7-4.1) g/dL Albumin/Globulin Ratio 1.1 (1.0-2.8) Lipase 146 (23-300) U/L Procalcitonin 0.10 (<0.5) ng/mL 10/23/19 Range/Units 23:00 WBC (4.5-11.0) X10^3/uL RBC (4.0-5.2) X10^6/uL Hgb (12.0-16.0) g/dL Hct (36-46) % MCV (80-100) fL MCH (26-34) PG MCHC (30-36) % RDW (11.6-14.8) % Plt Count (150-400) X10^3/uL Neut % (Auto) (50-75) % Lymph % (Auto) (25-40) % Baldwin % (Auto) (3-14) % Eos % (Auto) (2-4) % Baso % (Auto) (0-2) % Neut # (Auto) (1602-2817) /uL Lymph # (Auto) (3153-3825) /uL Baldwin # (Auto) (0-900) /uL Eos # (Auto) (0-450) /uL Baso # (Auto) (0-100) /uL ESR (0-20) MM/HR Sodium (137-145) mmol/L Potassium (3.4-5.1) mmol/L Chloride (98-107) mmol/L Carbon Dioxide (22-32) mmol/L BUN (7-17) mg/dL Creatinine (0.52-1.04) mg/dL Estimated GFR (>60) mL/min BUN/Creatinine Ratio (6-22) Glucose (70-100) mg/dL Lactate 1.3 (0.7-2.1) mmol/L Calcium (8.4-10.2) mg/dL Total Bilirubin (0.2-1.3) mg/dL AST (14-36) IU/L ALT (<35) IU/L Alkaline Phosphatase (38-126) U/L C-Reactive Protein (<1.0) mg/dL Total Protein (6.3-8.2) g/dL Albumin (3.5-5.0) g/dL Globulin (1.7-4.1) g/dL Albumin/Globulin Ratio (1.0-2.8) Lipase (23-300) U/L Procalcitonin (<0.5) ng/mL Imaging Data CT scan - abdomen: Radiologist's impression: Focal organizing fluid collection within the anterior intra peritoneal soft tissues adjacent to the anastomosis measuring 1.6 x 2.6 by 4.9 cm. Findings concerning for developing in tripped peritoneal abscess. Soft tissue edema and ill-defined fluid collection along the anterior abdominal wall at midline Unchanged appearance of right adrenal mass measuring 3.2 cm. This reported stable since 2011 MDM Narrative Medical decision making narrative: Patient is nontoxic appearing. She is afebrile. Has a very slight leukocytosis without a left shift. Her lactate is unremarkable. Procalcitonin is unremarkable. Does have an elevated ESR/CRP however this is somewhat difficult to interpret given the fact that she recently had surgery. I do not have the CT scan images from the CT scan performed 5 days ago however there report today in the CT images today do not show anything that would be consistent with the large hematoma that they described during that time. I do suspect that the drainage from her lower surgical wound is most likely draining this fluid collection. The skin incision looks well. There's no signs of infection. The CT scan performed at this department today is somewhat concerning about a developing abscess. I did discuss the case with the on-call Gyne Onc at [facility]. He was unable to see the CT images perfor med at our facility today. He states that given the patient's clinical presentation there is some concern as to whether not this is actually an abscess in the abdomen. Plan will be is to observe the patient here in the emergency department to allow the radiology/transfer department to see why the images cannot be viewed at [facility]. The on-call provider will talk with the patient's surgical provider early in the morning and review the images together to see whether not this new finding today is concerning for an abscess given her clinical presentation. I did discuss this with the patient she is willing to stay in the emergency department. Will continue to observe and re-evaluate. Patient has been stable. Care turned over to day provider at change of shift to follow up on recommendations from operative surgeons. <Siri Gao, DO - Last Filed: 10/24/19 10:13> Lab Data Labs: Lab Results 10/23/19 10/23/19 10/23/19 Range/Units 23:00 23:00 23:00 WBC 11.2 H (4.5-11.0) X10^3/uL RBC 4.21 (4.0-5.2) X10^6/uL Hgb 10.5 L (12.0-16.0) g/dL Hct 32.7 L (36-46) % MCV 77.5 L (80-100) fL MCH 24.9 L (26-34) PG MCHC 32.2 (30-36) % RDW 18.3 H (11.6-14.8) % Plt Count 601 H (150-400) X10^3/uL Neut % (Auto) 63.6 (50-75) % Lymph % (Auto) 25.7 (25-40) % Baldwin % (Auto) 7.7 (3-14) % Eos % (Auto) 2.1 (2-4) % Baso % (Auto) 0.9 (0-2) % Neut # (Auto) 7100 H (3352-1697) /uL Lymph # (Auto) 2900 (4887-6352) /uL Baldwin # (Auto) 900 (0-900) /uL Eos # (Auto) 200 (0-450) /uL Baso # (Auto) 100 (0-100) /uL ESR 75 H (0-20) MM/HR Sodium 135 L (137-145) mmol/L Potassium 4.3 (3.4-5.1) mmol/L Chloride 101 (98-107) mmol/L Carbon Dioxide 27 (22-32) mmol/L BUN 12 (7-17) mg/dL Creatinine 0.70 (0.52-1.04) mg/dL Estimated GFR > 60.0 (>60) mL/min BUN/Creatinine Ratio 17.1 (6-22) Glucose 111 H (70-100) mg/dL Lactate (0.7-2.1) mmol/L Calcium 9.7 (8.4-10.2) mg/dL Total Bilirubin 0.6 (0.2-1.3) mg/dL AST 30 (14-36) IU/L ALT 12 (<35) IU/L Alkaline Phosphatase 156 H (38-126) U/L C-Reactive Protein 3.2 H (<1.0) mg/dL Total Protein 7.0 (6.3-8.2) g/dL Albumin 3.6 (3.5-5.0) g/dL Globulin 3.4 (1.7-4.1) g/dL Albumin/Globulin Ratio 1.1 (1.0-2.8) Lipase 146 (23-300) U/L Procalcitonin 0.10 (<0.5) ng/mL 10/23/19 Range/Units 23:00 WBC (4.5-11.0) X10^3/uL RBC (4.0-5.2) X10^6/uL Hgb (12.0-16.0) g/dL Hct (36-46) % MCV (80-100) fL MCH (26-34) PG MCHC (30-36) % RDW (11.6-14.8) % Plt Count (150-400) X10^3/uL Neut % (Auto) (50-75) % Lymph % (Auto) (25-40) % Baldwin % (Auto) (3-14) % Eos % (Auto) (2-4) % Baso % (Auto) (0-2) % Neut # (Auto) (6211-3874) /uL Lymph # (Auto) (7292-5363) /uL Baldwin # (Auto) (0-900) /uL Eos # (Auto) (0-450) /uL Baso # (Auto) (0-100) /uL ESR (0-20) MM/HR Sodium (137-145) mmol/L Potassium (3.4-5.1) mmol/L Chloride (98-107) mmol/L Carbon Dioxide (22-32) mmol/L BUN (7-17) mg/dL Creatinine (0.52-1.04) mg/dL Estimated GFR (>60) mL/min BUN/Creatinine Ratio (6-22) Glucose (70-100) mg/dL Lactate 1.3 (0.7-2.1) mmol/L Calcium (8.4-10.2) mg/dL Total Bilirubin (0.2-1.3) mg/dL AST (14-36) IU/L ALT (<35) IU/L Alkaline Phosphatase (38-126) U/L C-Reactive Protein (<1.0) mg/dL Total Protein (6.3-8.2) g/dL Albumin (3.5-5.0) g/dL Globulin (1.7-4.1) g/dL Albumin/Globulin Ratio (1.0-2.8) Lipase (23-300) U/L Procalcitonin (<0.5) ng/mL [facility] Narrative Medical decision making narrative: I received sign-out from Dr. Barrett, I've seen and evaluated patient myself. Abdomen is soft she appears well alert oriented x3 does not appear septic. Abdomen is minimally tender. I received phone call from Roderick patient has an appointment today with her surgeons in clinic. At this time she will follow-up in clinic today. Discharge Plan Departure Patient Disposition: Home Clinical Impression: Adrenal mass Discharge Date/Time: 10/24/19 08:38 Instructions: DI for Abdominal Pain-Adult Activity Restrictions/Additional Instructions: *You have been diagnosed with adrenal mass *What to do: At this time follow-up with your doctors in clinic today. If they determine the need to be hospitalized they will make those arrangements. At this time it does seem you need to be emergently transferred to another facility. Hold off taking antibiotics until you see them today *Continue to take medications as directed Levaquin 750 mg once daily Omeprazole once daily as needed for acid reflux or upset stomach *Follow up with your primary care provider today as scheduled *Return to ER if you should have increasing pain at weakness fevers chills or redness confusion or any new, worsening or concerning symptoms Prescriptions: New levofloxacin [Levaquin] 750 mg tablet 750 mg PO DAILY Qty: 7 RF: 0 omeprazole 40 mg capsule,delayed release(DR/EC) 40 mg PO DAILY PRN (Reason: acid reflux) Qty: 20 RF: 0 No Action levothyroxine [Levo-T] 112 mcg tablet 112 mcg PO DAILY Qty: 90 RF: 1 lorazepam 0.5 mg tablet 0.5 mg PO TIDP PRN (Reason: anxiety) Qty: 30 RF: 2 fluoxetine 20 mg tablet 20 mg PO DAILY Qty: 90 RF: 3 Disabled Parking Permit 1 ea miscellaneous DIRECTED RF: 0 cephalexin [Keflex] 500 mg capsule 500 mg PO TID Qty: 21 RF: 0 ondansetron 4 mg tablet,disintegrating 4 mg PO Q8H PRN (Reason: nausea and vomiting) Qty: 10 RF: 0 omeprazole 20 mg capsule,delayed release(DR/EC) 20 mg PO DAILY PRN (Reason: acid reflux) Qty: 20 RF: 0 Referrals: Kay Elias DO [Primary Care Provider] -
[2019-10-23 22:14] VITALS: BP 159/96; PULSE 133; RESP 22; TEMP 36.8; O2SAT 95
[2019-10-23 23:15] LABS: Add Manual Diff / Slide Review NO; Basophils Absolute Auto 100 /uL (0-100); Basophils Percent Auto 0.9 % (0-2); Eosinophils Absolute Auto 200 /uL (0-450); Eosinophils Percent Auto 2.1 % (2-4); Hematocrit 32.7 % (36-46); Hemoglobin 10.5 g/dL (12.0-16.0); Lymphocytes Absolute Auto 2900 /uL (1100-4500); Lymphocytes Percent Auto 25.7 % (25-40); Mean Corpuscular HGB Conc 32.2 % (30-36); Mean Corpuscular Hemoglobin 24.9 PG (26-34); Mean Corpuscular Volume 77.5 fL (80-100); Monocytes Absolute Auto 900 /uL (0-900); Monocytes Percent Auto 7.7 % (3-14); Neutrophils Absolute Auto 7100 /uL (1500-7000); Neutrophils Percent Auto 63.6 % (50-75); Platelet Count 601 X10^3/uL (150-400); Red Blood Cell Count 4.21 X10^6/uL (4.0-5.2); Red Cell Distribution Width 18.3 % (11.6-14.8); White Blood Cell Count 11.2 X10^3/uL (4.5-11.0)
[2019-10-23 23:22] LABS: Lactate (Lactic Acid) 1.3 mmol/L (0.7-2.1)
[2019-10-23 23:25] LABS: Alanine Aminotransferase 12 IU/L (<35); Albumin 3.6 g/dL (3.5-5.0); Albumin Globulin Ratio 1.1 (1.0-2.8); BUN Creatinine Ratio 17.1 (6-22); Bilirubin Total 0.6 mg/dL (0.2-1.3); Blood Urea Nitrogen 12 mg/dL (7-17); Calcium 9.7 mg/dL (8.4-10.2); Carbon Dioxide 27 mmol/L (22-32); Chloride 101 mmol/L (98-107); Estimated Glomerular Filt Rate > 60.0 mL/min (>60); Globulin 3.4 g/dL (1.7-4.1); Glucose 111 mg/dL (70-100); Lipase 146 U/L (23-300); Sodium 135 mmol/L (137-145)
[2019-10-23 23:31] LABS: HEMOLYSIS 97 (0-50); Potassium 4.3 mmol/L (3.4-5.1)
[2019-10-23 23:32] LABS: Aspartate Aminotransferase 30 IU/L (14-36)
[2019-10-23 23:33] LABS: Alkaline Phosphatase 156 U/L (38-126)
[2019-10-23 23:45] LABS: C-Reactive Protein Quant 3.2 mg/dL (<1.0)
[2019-10-23 23:47] LABS: Erythrocyte Sedimentation Rate 75 MM/HR (0-20)
[2019-10-24] MEDS: SODIUM CHLORIDE 0.9% 1,000 ML 1000 ML IV (00:09)
[2019-10-24 01:16] VITALS: PULSE 65; O2SAT 100
[2019-10-24] MEDS: PIPERACILLIN-TAZO 3.375 GM/50 ML FROZ.PIGGY IV (01:34)
[2019-10-24 03:27] VITALS: BP 124/52; PULSE 68; RESP 16; O2SAT 96
[2019-10-24 04:15] VITALS: BP 138/83; PULSE 89; RESP 16; TEMP 36.7; O2SAT 100
--- NOTE | 2019-10-24 04:18 | PC.NURSE ---
patient given ice chips per provider.
[2019-10-24 08:43] VITALS: BP 127/77; PULSE 77; RESP 16; O2SAT 97
== END 2019-10-24 08:38 | disposition home or self-care (01) ==
PROVIDERS: Emergency Medicine; Emergency Provider Emergency Medicine; Family Provider Family Medicine; PCP Family Medicine
DX: E27.8 Other specified disorders of adrenal gland (principal)
CPT/HCPCS: 36415; 74177; 80053; 83605; 83690; 84145; 85025; 85651; 86140; 87070; 87075; 87077; 87147; 87186; 87205; 96361; 96374; 99281; 99284; J2543; Q9967

== ENCOUNTER → 2019-10-27 10:14 | Outpatient (CLI) | payer OTHER, SELFPAY | PROVIDERS: Family Provider Family Medicine; PCP Family Medicine; Visit Provider Family Medicine | DX: S31.105A Unspecified open wound of abdominal wall, periumbilic region without penetration into peritoneal cavity, initial encounter (principal); T81.49XA Infection following a procedure, other surgical site, initial encounter; C56.9 Malignant neoplasm of unspecified ovary; R63.4 Abnormal weight loss; G35 Multiple sclerosis | CPT/HCPCS: 99203; 99214 ==

== ENCOUNTER → 2019-11-01 15:01 | Outpatient (CLI) | payer OTHER, SELFPAY | PROVIDERS: Family Provider Internal Medicine Hematology & Oncology; PCP Family Medicine; Referring Provider Family Medicine; Visit Provider Family Medicine | DX: S31.105A Unspecified open wound of abdominal wall, periumbilic region without penetration into peritoneal cavity, initial encounter (principal); T81.49XA Infection following a procedure, other surgical site, initial encounter; C56.9 Malignant neoplasm of unspecified ovary; C78.5 Secondary malignant neoplasm of large intestine and rectum; R63.4 Abnormal weight loss | CPT/HCPCS: 97605; 99213 ==

== ENCOUNTER → 2019-11-03 14:07 | Outpatient (CLI) | payer OTHER, SELFPAY | PROVIDERS: Family Provider Family Medicine; PCP Family Medicine; Visit Provider Family Medicine | DX: S31.105A Unspecified open wound of abdominal wall, periumbilic region without penetration into peritoneal cavity, initial encounter (principal); T81.49XA Infection following a procedure, other surgical site, initial encounter; L08.0 Pyoderma; C56.9 Malignant neoplasm of unspecified ovary; S31.101D Unspecified open wound of abdominal wall, left upper quadrant without penetration into peritoneal cavity, subsequent encounter; S31.104D Unspecified open wound of abdominal wall, left lower quadrant without penetration into peritoneal cavity, subsequent encounter | CPT/HCPCS: 97597; 99214 ==

== ENCOUNTER → 2019-11-07 10:36 | Outpatient (CLI) | payer OTHER, SELFPAY | PROVIDERS: Family Provider Family Medicine; PCP Family Medicine; Visit Provider Family Medicine | DX: S31.105A Unspecified open wound of abdominal wall, periumbilic region without penetration into peritoneal cavity, initial encounter (principal); S31.104D Unspecified open wound of abdominal wall, left lower quadrant without penetration into peritoneal cavity, subsequent encounter; L08.0 Pyoderma | CPT/HCPCS: 97605 ==

== ENCOUNTER → 2019-11-10 11:19 | Outpatient (CLI) | payer OTHER, SELFPAY | PROVIDERS: Family Provider Family Medicine; PCP Family Medicine; Visit Provider Family Medicine | DX: S31.105A Unspecified open wound of abdominal wall, periumbilic region without penetration into peritoneal cavity, initial encounter (principal); C56.9 Malignant neoplasm of unspecified ovary; S31.101A Unspecified open wound of abdominal wall, left upper quadrant without penetration into peritoneal cavity, initial encounter; S31.104A Unspecified open wound of abdominal wall, left lower quadrant without penetration into peritoneal cavity, initial encounter; L08.0 Pyoderma | CPT/HCPCS: 87070; 87075; 87077; 87147; 87186; 87205; 97597; 99213 ==

== ENCOUNTER → 2019-11-13 10:38 | Outpatient (CLI) | payer OTHER, SELFPAY | PROVIDERS: Family Provider Family Medicine; PCP Family Medicine; Visit Provider Family Medicine | DX: S31.105A Unspecified open wound of abdominal wall, periumbilic region without penetration into peritoneal cavity, initial encounter (principal); S31.101D Unspecified open wound of abdominal wall, left upper quadrant without penetration into peritoneal cavity, subsequent encounter; S31.104D Unspecified open wound of abdominal wall, left lower quadrant without penetration into peritoneal cavity, subsequent encounter; L08.9 Local infection of the skin and subcutaneous tissue, unspecified; C56.9 Malignant neoplasm of unspecified ovary; B95.61 Methicillin susceptible Staphylococcus aureus infection as the cause of diseases classified elsewhere | CPT/HCPCS: 99213; 99214 ==

== ENCOUNTER 2019-11-14 09:19 | Day surgery (SDC) | payer OTHER, SELFPAY ==
[2019-11-13 08:23] VITALS: BMI 47.6
--- NOTE | 2019-11-14 10:11 | SUR.PREOP ---
Pt arrived for portacath placement. Pt carries a dx of ovarian cancer. During my intake with her, it was discovered that the pt had been recently on a wound vac r/t a staph infection to her abd after having recent surgery at [place].After further inspection of the wound, I found an area that failed to heal with noted drainage on the dressing cover the site. Pt stated that she is being treated with doxycycline started 2 days ago. Case was discussed with FELICITY Singh for Dr Bermudez who spoke with with him regarding this new finding and he asked me to hold off with preop procedures until he was able to speak with her and observe the wound. This was done and due to the recent infection of staph, the size of the open wound, her case was canceled until she has run her course of abx and no further staph is present.
== END 2019-11-14 19:00 | disposition home or self-care (01) ==
PROVIDERS: Family Provider Family Medicine; PCP Family Medicine; Visit Provider Surgery

== ENCOUNTER → 2019-11-21 10:19 | Outpatient (CLI) | payer MEDICARE, SELFPAY | PROVIDERS: Family Provider Family Medicine; PCP Family Medicine; Visit Provider Family Medicine | DX: S31.105A Unspecified open wound of abdominal wall, periumbilic region without penetration into peritoneal cavity, initial encounter (principal); C56.9 Malignant neoplasm of unspecified ovary; C17.9 Malignant neoplasm of small intestine, unspecified; B95.61 Methicillin susceptible Staphylococcus aureus infection as the cause of diseases classified elsewhere | CPT/HCPCS: 87070; 87077; 87147; 87186; 87205; 99213 ==

== ENCOUNTER → 2019-11-28 09:44 | Outpatient (CLI) | payer MEDICARE, SELFPAY | PROVIDERS: Family Provider Family Medicine; PCP Family Medicine; Visit Provider Family Medicine | DX: S31.105A Unspecified open wound of abdominal wall, periumbilic region without penetration into peritoneal cavity, initial encounter (principal); C56.9 Malignant neoplasm of unspecified ovary; B95.61 Methicillin susceptible Staphylococcus aureus infection as the cause of diseases classified elsewhere; R11.0 Nausea; L08.9 Local infection of the skin and subcutaneous tissue, unspecified; T50.995A Adverse effect of other drugs, medicaments and biological substances, initial encounter | CPT/HCPCS: 99213; 99214 ==

== ENCOUNTER → 2019-11-28 10:51 | Outpatient (CLI) | payer MEDICARE, SELFPAY ==
--- NOTE | 2019-11-28 | DI.CT.S_ITS ---
PROCEDURE: CT ABDOMEN PELVIS W CON INDICATIONS: WOUND INFECTION POST SURGERY TECHNIQUE: After the administration of oral and intravenous contrast, 5 mm thick sections acquired from the diaphragms to the symphysis. 5 mm thick coronal and sagittal reformats were performed. For radiation dose reduction, the following was used: automated exposure control, adjustment of mA and/or kV according to patient size. COMPARISON: [facility], CT, CT CHEST ABD PEL W CON, 09/22/2019, 12:18. [facility], CT, CT ABDOMEN PELVIS W CON, 10/23/2019, 23:34. FINDINGS: Image quality: Excellent. ABDOMEN: Lung bases: Lung bases are clear. Heart size is normal. There is mild concentric thickening of the distal esophagus at the gastroesophageal junction. Solid organs: Liver is normal in size and enhancement. Gallbladder is normal. Biliary system is non-dilated. Pancreas enhances normally. Spleen is normal in size and enhancement. There is a 3.1 x 3.3 cm right adrenal mass, unchanged in size. Kidneys are normal in size and enhancement, without hydronephrosis. Peritoneum and bowel: Stomach, small bowel, and colon loops are normal in caliber and wall thickness. Extensive diverticulosis in sigmoid colon. No CT findings to suggest acute diverticulitis. No free fluid or air. Nodes and vessels: No retroperitoneal or mesenteric adenopathy. Aorta and inferior vena cava are normal in caliber. Miscellaneous: There is a thick-walled fluid collection in the anterior abdominal wall along the surgical incision measuring 5.3 x 2.7 cm, containing pockets of air, consistent with an abscess. This is in the same area of ill-defined fluid collection on the last CT and appears more defined. The smaller fluid collection behind the anterior abdominal wall can last exam is no longer present. There is irregular thickening in the left anterior abdominal wall along the surgical incision. There is a soft tissue nodule in the left rectus muscle measuring 1.6 x 2.3 cm, unchanged in size, most likely secondary to postsurgical sequelae. Again noted is a lipoma in the right anterior abdominal wall near the inferior Hepatic tip. PELVIS: Genitourinary: Bladder wall thickness is normal. Miscellaneous: No inguinal hernias or adenopathy. Bones: No suspicious bony lesions. No vertebral body compression fractures. IMPRESSION: 1. A new thick-walled fluid collection in the anterior abdominal wall along the surgical incision measuring 5.3 x 2.7 cm, containing pockets of air, consistent with an abscess. The smaller fluid collection behind the anterior abdominal wall can last exam is no longer present. 2. Irregular thickening in the left anterior abdominal wall along the surgical incision. There is a soft tissue nodule in the left rectus muscle measuring 1.6 x 2.3 cm, unchanged in size, most likely secondary to postsurgical sequelae. 3. Extensive diverticulosis. No active diverticulitis. 4. Mild concentric thickening of the distal esophagus at the gastroesophageal junction. 5. Stable right adrenal mass. 6. A small lipoma in the right anterior abdominal wall. Dictated by: Kolton Harrison M.D. on 11/28/2019 at 16:34 Approved by: Kolton Harrison M.D. on 11/28/2019 at 18:32
== END ==
PROVIDERS: Family Provider Internal Medicine Hematology & Oncology; PCP Family Medicine; Referring Provider Family Medicine; Visit Provider Obstetrics & Gynecology Gynecologic Oncology
DX: T81.49XA Infection following a procedure, other surgical site, initial encounter (principal); S31.105A Unspecified open wound of abdominal wall, periumbilic region without penetration into peritoneal cavity, initial encounter; B95.61 Methicillin susceptible Staphylococcus aureus infection as the cause of diseases classified elsewhere; C56.2 Malignant neoplasm of left ovary; K57.30 Diverticulosis of large intestine without perforation or abscess without bleeding; D17.1 Benign lipomatous neoplasm of skin and subcutaneous tissue of trunk; E27.9 Disorder of adrenal gland, unspecified; R11.0 Nausea; L08.9 Local infection of the skin and subcutaneous tissue, unspecified; T50.995A Adverse effect of other drugs, medicaments and biological substances, initial encounter
CPT/HCPCS: 36415; 74177; 80053; 85025; 86304; 99213; Q9967

== ENCOUNTER 2019-12-19 07:51 | Day surgery (SDC) | payer MEDICARE, SELFPAY ==
[2019-12-15 12:29] VITALS: BMI 47.6
[2019-12-19] VITALS (9 sets, daily range): BP systolic 130–152; BP diastolic 68–90; PULSE 64–83; RESP 12–20; TEMP 35.6–36.5; O2SAT 95–99; BMI 47.6
--- NOTE | 2019-12-19 | DI.RAD.S_ITS ---
PROCEDURE: XR CHEST 1V INDICATIONS: TARIK CATH TECHNIQUE: One view of the chest was acquired. COMPARISON: [facility], , XR CHEST 1V, 10/08/2018, 15:37. [facility], CR, CHEST 1 VIEW, 09/06/2012, 15:03. FINDINGS: Surgical changes and devices: Port-A-Cath has been placed from a right-sided approach with tip at the apparent confluence of the right and left brachiocephalic veins and origin of the superior vena cava.. Lungs and pleura: Lungs are clear. No pleural effusions or pneumothorax. Mediastinum: Mediastinal contours appear normal. Heart size is normal. Bones and chest wall: No suspicious bony lesions. Overlying soft tissues appear unremarkable. IMPRESSION: No pneumothorax after central line positioning with tip as discussed, located at the confluence of the right and left brachiocephalic veins and the superior vena cava area. Dictated by: Zaid Murphy M.D. on 12/19/2019 at 11:02 Approved by: Zaid Murphy M.D. on 12/19/2019 at 11:03
--- NOTE | 2019-12-19 09:13 | PM.HP.1 ---
History of Present Illness History of Present Illness Date Patient Seen: 12/19/19 Time Patient Seen: 09:13 Chief complaint: 28914 Narrative: Patient is a 59-year-old female with recurring ovarian cancer who presents for Port-A-Cath placement today. She had previous right-sided Port-A-Cath placement via subclavian access. Today she is feeling well in no pain nausea vomiting fever. Patient History Medical History Acute lower gastrointestinal bleeding (Inactive ~09/30/19) Anxiety (Chronic) Delayed surgical wound healing (Acute) Depression (Chronic) Hyperlipidemia (Acute) Hypothyroid (Acute 02/15/12) MS (multiple sclerosis) (Chronic ~1987) Ovarian cancer (Resolved ~2011) Sigmoid diverticulosis (Acute) Surgical History History of removal of Port-a-Cath (Acute) History of surgery (Acute 08/01/12) History of third molar tooth extraction (Resolved) Hx of exploratory laparotomy (Acute 10/02/19) S/P total abdominal hysterectomy and bilateral salpingo-oophorectomy (Resolved 2011) Status post appendectomy (Resolved 1982) Status post cholecystectomy (Resolved 1987) Family & Social History Family History Sister Aneurysm Sister Age: 56 Breast cancer Social History: household members spouse Tobacco & Substance use: Smoking Status Never smoker alcohol intake current alcohol intake frequency holiday/special occasion Substance Use Type does not use Meds Home Medications and Allergies Home Medications Medication Instructions Recorded Confirmed Type fluoxetine 20 mg tablet 20 mg PO DAILY #90 tab 06/05/19 12/19/19 Rx Disabled Parking Permit 1 ea MISCELLANEOUS DIRECTED 09/22/19 12/18/19 History levothyroxine 112 mcg tablet 112 mcg PO DAILY #90 tab 10/02/19 12/19/19 Rx lorazepam 0.5 mg tablet 0.5 mg PO TIDP PRN #30 tab 10/11/19 12/19/19 Rx cholecalciferol (vitamin D3) 1,000 unit PO DAILY 11/09/19 12/19/19 History [Vitamin D3] cyanocobalamin (vitamin B-12) 2,500 mcg SUBLINGUAL DAILY 11/09/19 12/19/19 History [Vitamin B-12] Allergies Allergy/AdvReac Type Severity Reaction Status Date / Time shellfish derived Allergy Severe breathing Verified 12/19/19 07:49 difficulties if ingested; hives when touched codeine Allergy Mild UNKNOWN Verified 12/19/19 07:49 Review of Systems Review of Systems Narrative: A 10 point review of systems is negative except as noted in the HPI Exam Vital Signs (past 8 hours): - 12/19/19 08:14 Temperature 96.1 F L Pulse Rate 83 Respiratory Rate 20 Blood Pressure 135/85 Pulse Oximetry 99 Oxygen Delivery Method Room Air Narrative Exam Narrative: General-no acute distress, well nourished HEENT-moist mucous membranes, no scleral icterus Neck-supple, no lymphadenopathy Chest- non labored respirations, clear to auscultation bilaterally Cardiac-regular rate no peripheral edema Abdomen-soft, nontender, non distended Extremities-warm, well perfused Neurological-alert and oriented, no focal deficits Assessment & Plan Assessment and plan (1) Recurrent malignant neoplasm of ovary: Current visit: Yes Status: Acute Assessment & Plan narrative: This is a 59-year-old female with recurrent ovarian cancer who presents for Port-A-Cath placement. She had previous right-sided Port-A-Cath placement. We discussed the nature of the procedure and its risks including bleeding infection pneumothorax. Her questions have been answered and she is in agreement with this plan.
[2019-12-19] MEDS: LACTATED RINGERS 1,000 ML 42 ML IV (09:16)
[2019-12-19] MEDS: CEFAZOLIN 2 GM/100 ML FROZ.PIGGY IV (09:31)
--- NOTE | 2019-12-19 09:55 | SUR.OPER ---
Supine on padded OR bed, head on pillow, BILATERAL arms padded and tucked at side, legs uncrossed, safety belt at thigh, tape over blanket over lower legs .
[2019-12-19] MEDS: HEPARIN 5,000 UNIT, SODIUM CHLORIDE 0.9% 50 ML IV (10:03)
[2019-12-19] MEDS: BUPIVACAINE 0.25% (PF) VIAL 30 ML INJ (10:04)
--- NOTE | 2019-12-19 10:39 | PM.OP.1 ---
Operative Date/Time/Diagnoses Date of procedure: 12/19/19 Time of procedure: 10:39 Pre-op diagnosis: Recurrent ovarian cancer Post-op diagnosis: same Procedure & Clinicians Procedure: ultrasound-guided the Port-A-Cath placement Same procedure as scheduled: Yes Indications: 59-year-old female current ovarian cancer presents for Port-A-Cath placement Surgeon: Drew Bermudez Anesthesia Type: General Operative Notes Findings: Chest x-ray demonstrates the catheter within the SVC and no pneumothorax. Estimated Blood Loss (mL): 10 Procedure in detail: Patient was brought to the operating room placed supine on table. Bilateral lower extremity compressive devices were applied. General anesthesia was induced and he was intubated with an LMA. He was then prepped and draped in usual sterile fashion. Time-out was performed ensure the correct patient procedure necessary equipment within the operating room. He received 2 g of Ancef prior to incision. Under ultrasound guidance the right internal jugular vein was accessed under direct visualization. The guidewire was then threaded through the needle. Its placement was then confirmed using fluoroscopy. The dilator was then placed over the guidewire. The catheter was then inserted through the sheath. Placement was again confirmed with fluoroscopy. A subcutaneous pocket was made in the right chest wall. The tunneler device was used to move the catheter from the neck to the chest pocket. The port was attached after it was primed with heparined saline. The port was tested to ensure that it flushed easily and had good blood return. The port was then secured to the underlying fascia using interupted 0 Prolene suture. Hemostasis was achieved. The wound was irrigated with sterile saline. The subcutaneous tissues were reapproximated with the 3 0 Vicryl and then skin closed with 4-0 Monocryl. The skin was sealed with Dermabond. Patient tolerated procedure well. The sponge and instrument count at the end operation was correct. Patient emerged from general anesthesia was extubated and taken to the postoperative care unit in stable condition Complications: none Post-operative Condition: stable Disposition: same day surgery
[2019-12-19] MEDS: ACETAMINOPHEN 325 MG TABLET 650 MG PO (10:59)
[2019-12-19] MEDS: KETOROLAC 30 MG/ML VIAL 15 MG IV (11:33)
== END 2019-12-19 12:47 | disposition home or self-care (01) ==
PROVIDERS: Family Provider Internal Medicine Hematology & Oncology; PCP Family Medicine; Referring Provider Family Medicine; Visit Provider Surgery
PROC: (CPT 36561; principal; 2019-12-19 09:15)
DX: C56.9 Malignant neoplasm of unspecified ovary (principal); Z45.2 Encounter for adjustment and management of vascular access device
CPT/HCPCS: 36561; 71045; 76000; C1788; J0690; J1644; J1885; J2405; J2704; J3010

== ENCOUNTER 2020-01-14 12:35 | Emergency (ER) | payer MEDICARE, SELFPAY ==
[2020-01-14 12:40] VITALS: BP 140/86; PULSE 98; RESP 18; TEMP 36.9; O2SAT 100
[2020-01-14] MEDS: ONDANSETRON 4 MG/2 ML INJ IV (13:21)
[2020-01-14] MEDS: SODIUM CHLORIDE 0.9% 1,000 ML 1000 ML IV (13:21)
[2020-01-14 13:26] LABS: Add Manual Diff / Slide Review NO; Basophils Absolute Auto 0 /uL (0-100); Basophils Percent Auto 0.9 % (0-2); Eosinophils Absolute Auto 0 /uL (0-450); Eosinophils Percent Auto 1.8 % (2-4); Hematocrit 28.1 % (36-46); Hemoglobin 9.3 g/dL (12.0-16.0); Lymphocytes Absolute Auto 1000 /uL (1100-4500); Lymphocytes Percent Auto 46.5 % (25-40); Mean Corpuscular HGB Conc 33.1 % (30-36); Mean Corpuscular Hemoglobin 24.2 PG (26-34); Monocytes Absolute Auto 100 /uL (0-900); Monocytes Percent Auto 4.7 % (3-14); Neutrophils Absolute Auto 1000 /uL (1500-7000); Neutrophils Percent Auto 46.1 % (50-75); Platelet Count 275 X10^3/uL (150-400); Red Blood Cell Count 3.84 X10^6/uL (4.0-5.2); Red Cell Distribution Width 15.7 % (11.6-14.8); White Blood Cell Count 2.1 X10^3/uL (4.5-11.0)
[2020-01-14 13:32] LABS: Prothrombin Time 11.8 SECONDS (10.1-12.7)
[2020-01-14 13:34] LABS: Bacteria Urine Many (>30); Culture Indicated Urine Cult Not Indicated; RBC Urine 1-5/HPF (0-5/HPF); Squamous Epithelial Cell Urine 5-10 /HPF (0-5/HPF); WBC Urine 5-10/HPF (0-5/HPF)
[2020-01-14 13:35] LABS: PTT Partial Thromboplastin Tim 24 SECONDS (26.4-36.2)
[2020-01-14 13:36] LABS: Lactate (Lactic Acid) 1.9 mmol/L (0.7-2.1)
[2020-01-14 13:37] LABS: Alanine Aminotransferase 15 IU/L (<35); Albumin 3.9 g/dL (3.5-5.0); Albumin Globulin Ratio 1.3 (1.0-2.8); Alkaline Phosphatase 128 U/L (38-126); Aspartate Aminotransferase 23 IU/L (14-36); Bilirubin Total 0.6 mg/dL (0.2-1.3); Blood Urea Nitrogen 18 mg/dL (7-17); Calcium 9.4 mg/dL (8.4-10.2); Carbon Dioxide 24 mmol/L (22-32); Chloride 99 mmol/L (98-107); Estimated Glomerular Filt Rate 57.1 mL/min (>60); Globulin 3.1 g/dL (1.7-4.1); Glucose 107 mg/dL (70-100); HEMOLYSIS < 15 (0-50); Lipase 62 U/L (23-300); Potassium 3.2 mmol/L (3.4-5.1); Sodium 135 mmol/L (137-145)
[2020-01-14 13:50] LABS: Magnesium 1.8 mg/dL (1.6-2.3)
[2020-01-14 13:52] LABS: Procalcitonin 0.16 ng/mL (<0.5)
[2020-01-14 14:00] VITALS: BP 135/66; PULSE 85; O2SAT 96
[2020-01-14] MEDS: POTASSIUM CHLORIDE 20 MEQ TAB 40 MEQ PO (14:46)
[2020-01-14 15:30] VITALS: BP 146/70; PULSE 96; RESP 16; O2SAT 99
--- NOTE | 2020-01-14 15:58 | ED_ITS ---
HPI - Nausea/Vomiting/Diarrhea <Mehran BIJAN Cole - Last Filed: 01/14/20 22:04> General Chief complaint: Nausea/Vomiting/Diarrhea Stated complaint: had cancer treatment, not well Time Seen by Provider: 01/14/20 13:02 Source: patient and family Mode of arrival: Wheelchair Limitations: no limitations History of Present Illness HPI Narrative: This is a 59 year female, nonsmoker, who presents to ED with her daughter with chief complain of not feeling well. Patient reports nausea, m ultiple diarrheas and feeling weak after the chemotherapy last week. Patient has been taking Compazine and Zofran at home as needed for nausea. Patient denies emesis, blood in her stools, recent cold symptoms or urinary symptoms such as dysuria, frequency or urgency. Patient denies fever but some chills. Patient was diagnosed with initial ovarian cancer and had total hysterectomy procedure for this in 2011 and underwent chemotherapy for this. However, there is a recurring tumor from ovarian cancer and had two mesenteric masses removed along the resection of 6 inch of the bowel in 10/02/2019 at [facility]. She is currently undergoing chemotherapy at [facility] and had 4th treatment completed. Patient reports she received 2 different chemotherapy medications for the 1st time last week. Patient usually come in on Saturdays to receive IV fluid and with electrolytes which she skipped this Wednesday. Patient reports some discomfort in her abdomen which has not been changed from previous and she takes Tylenol as needed for discomfort. Patient still has healing low vertical abdominal incision which has been repacking by her daughter at home. Daughter reports dressing change has been done before coming into ED and surgical wound looked good. Related Data Home Medications Medication Instructions Recorded Confirmed Disabled Parking Permit 1 ea MISCELLANEOUS DIRECTED 09/22/19 01/11/20 cholecalciferol (vitamin D3) 1,000 unit PO DAILY 11/09/19 01/11/20 [Vitamin D3] cyanocobalamin (vitamin B-12) 2,500 mcg SUBLINGUAL DAILY 11/09/19 01/11/20 [Vitamin B-12] Previous Rx's Medication Instructions Recorded fluoxetine 20 mg tablet 20 mg PO DAILY #90 tab 06/05/19 levothyroxine 112 mcg tablet 112 mcg PO DAILY #90 tab 10/02/19 acetaminophen [Tylenol] 650 mg PO QID PRN #60 cap 12/19/19 potassium chloride [Klor-Con M20] 20 meq PO BID #14 tab 01/04/20 magnesium oxide 400 mg PO BID 7 Days #14 cap 01/08/20 lorazepam 0.5 mg PO TIDP PRN #30 tab 01/11/20 prochlorperazine maleate 10 mg PO Q6H PRN #100 tab 01/11/20 [Compazine] Allergies Allergy/AdvReac Type Severity Reaction Status Date / Time shellfish derived Allergy Severe breathing Verified 01/14/20 12:49 difficulties if ingested; hives when touched codeine Allergy Mild UNKNOWN Verified 01/14/20 12:49 Review of Systems <BIJAN Champagne - Last Filed: 01/14/20 22:04> Review of Systems Narrative: General: Denies fever, (+) chills, fatigue, malaise, sweats. HEENT: Denies sinus pain, ear pain, sore throat, difficulty swallowing, dizziness. Respiratory: Denies dyspnea, cough, wheezing, hemoptysis, sputum. Cardiovascular: Denies chest pain, palpitations, orthopnea, edema. Gastrointestinal: Denies nausea, vomiting, abdominal pain, diarrhea, constipation, melena. : Denies dysuria, frequency, incontinence, hematuria, urinary retention. Musculoskeletal: Denies weakness, joint pain or bony pain. Skin: Denies rash, skin lesions, or other. Neurologic: Denies weakness, headache, numbness, change in speech, confusion, seizures, incoordination. Psychiatric: No concerning psychosocial issues. 12-point review of systems is negative except for those stated above. Patient History <BIJAN Champagne - Last Filed: 01/14/20 22:04> Medical History Acute lower gastrointestinal bleeding (Inactive ~09/30/19) Anxiety (Chronic) Delayed surgical wound healing (Acute) Depression (Chronic) Hyperlipidemia (Acute) Hypothyroid (Acute 02/15/12) MS (multiple sclerosis) (Chronic ~1987) Ovarian cancer (Resolved ~2011) Sigmoid diverticulosis (Acute) Surgical History History of removal of Port-a-Cath (Acute) History of surgery (Acute 08/01/12) History of third molar tooth extraction (Resolved) Hx of exploratory laparotomy (Acute 10/02/19) S/P total abdominal hysterectomy and bilateral salpingo-oophorectomy (Resolved 2011) Status post appendectomy (Resolved 1982) Status post cholecystectomy (Resolved 1987) Family History Sister Aneurysm Sister Age: 56 Breast cancer Social History household members: spouse Smoking Status: Never smoker alcohol intake: current Smoking Status: Never smoker alcohol intake frequency: holidays/special occasions only Substance Use Type: does not use Exam <BIJAN Champagne - Last Filed: 01/14/20 22:04> Narrative Exam Narrative: GEN: Alert, oriented x 3, well appearing and nourished, and in no acute distress. Head: Normal cephalic, atraumatic. No scalp or temporal tenderness, palpable mass or rash. EYES: Pupils are equal, round, and reactive to light and accommodation. Extraocular muscles are intact bilaterally. There is no subconjunctival hemorrhage, exudate and sclera non-icteric. ENT: Bilateral auditory canals and tympanic membranes clear. Hearing grossly intact. Nose without bleeding, purulent discharge or deviation. Facial sinuses nontender to palpate. Mucous membrane moist, no mucosal lesion. Throat without erythema, tonsillar hypertrophy or exudate. Uvula in midline, airway patent. Neck: Trachea in midline. No JVD, non-tender without lymphadenopathy. No masses or thyroid megaly. Supple, non-tender and no meningeal signs. CARDIAC: Normal regular rate and rhythm without murmurs, gallops, or rubs. No chest wall tenderness. No peripheral edema, cyanosis or pallor. Capillary refill is less than 2 seconds. RESPIRATORY: Lungs are clear to auscultate bilaterally. No cough, wheezes, rales, or rhonchi. No stridor, respiratory distress, increase work of breathing, or accessary muscle used. ABD: Abdomen soft, mild TTP in right lower abdomen w/o distended. No guarding or rebound tenderness to palpate. Bowel sounds are normal in all 4 quadrants. There is no palpable masses or organomegaly. Healing surgical incision inferior to umbilicus without erythema or warmth in surrounding region and this has been packed with gauze without drainage and covered with clear plastic bandage. On the right side lower abdomen has superficial lesion (from irritation from tapes ). There are several healed old surgical scars in abdomen. EXT: Full painless ROM of all extremities with no loss of sensation, strength, effusion or edema. SKIN: Warm, dry, mildy pale for patient. No erythema, lesions or rash over other visible areas. BACK: Nontender without deformity or crepitance. No flank tenderness. NEUROLOGICAL: Alert and oriented to place, time and person. Sensation and motor function intact bilaterally without focal deficit. No facial droops, dysphasia. PSYCHIATRIC: Good judgement and reason, without hallucinations, abnormal affect or abnormal behaviors during the examination. Initial Vital Signs Initial Vital Signs: Vital Signs Temperature 98.5 F 01/14/20 12:40 Pulse Rate 98 H 01/14/20 12:40 Respiratory Rate 18 01/14/20 12:40 Blood Pressure 140/86 01/14/20 12:40 Pulse Oximetry 100 01/14/20 12:40 <Jose Alfredo Barrett DO - Last Filed: 01/15/20 06:58> Initial Vital Signs Initial Vital Signs: Vital Signs Temperature 98.5 F 01/14/20 12:40 Pulse Rate 98 H 01/14/20 12:40 Respiratory Rate 18 01/14/20 12:40 Blood Pressure 140/86 01/14/20 12:40 Pulse Oximetry 100 01/14/20 12:40 Scores <BIJAN Champagne - Last Filed: 01/14/20 22:04> GCS [place] coma scale eye opening: Spontaneous Solo coma scale verbal response: Orientated [place] coma scale motor response: Obey commands Solo coma scale total score: 15 Course <BIJAN Champagne - Last Filed: 01/14/20 22:04> Orders Ordered: Discontinued Medications Sodium Chloride (Normal Saline 0.9%) 1,000 mls @ 1,000 mls/hr IV BOLUS ONE Stop: 01/14/20 13:57 Last Infusion: 01/14/20 14:21 Dose: 0 mls/hr Documented by: Admin: 01/14/20 13:21 Dose: 1,000 mls/hr Documented by: KSCHERE Ondansetron HCl (Zofran) 4 mg IV NOW ONE Stop: 01/14/20 12:59 Last Admin: 01/14/20 13:21 Dose: 4 mg Documented by: LISA Potassium Chloride (Klor-Con M20) 40 meq PO NOW ONE Stop: 01/14/20 14:20 Last Admin: 01/14/20 14:46 Dose: 40 meq Documented by: ARETHA Vital Signs Vital signs: Vital Signs - 8 hr 01/14/20 14:00 01/14/20 15:30 Pulse Rate 85 96 H Respiratory Rate 16 Blood Pressure [Left Arm] 135/66 146/70 H Pulse Oximetry 96 99 <Jose Alfredo Barrett DO - Last Filed: 01/15/20 06:58> Orders Ordered: Discontinued Medications Sodium Chloride (Normal Saline 0.9%) 1,000 mls @ 1,000 mls/hr IV BOLUS ONE Stop: 01/14/20 13:57 Last Infusion: 01/14/20 14:21 Dose: 0 mls/hr Documented by: Admin: 01/14/20 13:21 Dose: 1,000 mls/hr Documented by: LISA Ondansetron HCl (Zofran) 4 mg IV NOW ONE Stop: 01/14/20 12:59 Last Admin: 01/14/20 13:21 Dose: 4 mg Documented by: LISA Potassium Chloride (Klor-Con M20) 40 meq PO NOW ONE Stop: 01/14/20 14:20 Last Admin: 01/14/20 14:46 Dose: 40 meq Documented by: ARETHA Vital Signs Vital signs: Vital Signs - 8 hr 01/14/20 14:00 01/14/20 15:30 Pulse Rate 85 96 H Respiratory Rate 16 Blood Pressure [Left Arm] 135/66 146/70 H Pulse Oximetry 96 99 MDM - Nausea/Vomiting/Diarrhea <BIJAN Champagne - Last Filed: 01/14/20 22:04> Differential Diagnosis Differential diagnosis: Likely drug-induced nausea and vomiting, dehydration and other (electrolyte imbalance, ) Medical Records Attestation: I reviewed the patient's medical records. Lab Data Attestation: I reviewed the patient's lab results. Result diagrams: 01/14/20 13:15 03/01/20 13:15 Labs: Lab Results 01/14/20 01/14/20 01/14/20 Range/Units 13:00 13:15 13:15 WBC 2.1 L (4.5-11.0) X10^3/uL RBC 3.84 L (4.0-5.2) X10^6/uL Hgb 9.3 L (12.0-16.0) g/dL Hct 28.1 L (36-46) % MCV 73.0 L (80-100) fL MCH 24.2 L (26-34) PG MCHC 33.1 (30-36) % RDW 15.7 H (11.6-14.8) % Plt Count 275 (150-400) X10^3/uL Neut % (Auto) 46.1 L (50-75) % Lymph % (Auto) 46.5 H (25-40) % Reynolds % (Auto) 4.7 (3-14) % Eos % (Auto) 1.8 L (2-4) % Baso % (Auto) 0.9 (0-2) % Neut # (Auto) 1000 L (6352-1827) /uL Lymph # (Auto) 1000 L (4118-7711) /uL Reynolds # (Auto) 100 (0-900) /uL Eos # (Auto) 0 (0-450) /uL Baso # (Auto) 0 (0-100) /uL PT 11.8 (10.1-12.7) SECONDS INR 1.0 (0.9-1.3) APTT 24 L D (26.4-36.2) SECONDS Sodium (137-145) mmol/L Potassium (3.4-5.1) mmol/L Chloride (98-107) mmol/L Carbon Dioxide (22-32) mmol/L BUN (7-17) mg/dL Creatinine (0.52-1.04) mg/dL Estimated GFR (>60) mL/min BUN/Creatinine Ratio (6-22) Glucose (70-100) mg/dL Lactate (0.7-2.1) mmol/L Calcium (8.4-10.2) mg/dL Magnesium (1.6-2.3) mg/dL Total Bilirubin (0.2-1.3) mg/dL AST (14-36) IU/L ALT (<35) IU/L Alkaline Phosphatase (38-126) U/L Total Protein (6.3-8.2) g/dL Albumin (3.5-5.0) g/dL Globulin (1.7-4.1) g/dL Albumin/Globulin Ratio (1.0-2.8) Lipase (23-300) U/L Procalcitonin (<0.5) ng/mL Urine RBC 1-5/hpf (0-5/HPF) Urine WBC 5-10/hpf H (0-5/HPF) Ur Squamous Epith Cells 5-10 /hpf H (0-5/HPF) Urine Bacteria Many (>30) H (None) Ur Culture Indicated? Cult not indicated 01/14/20 01/14/20 01/14/20 Range/Units 13:15 13:15 13:15 WBC (4.5-11.0) X10^3/uL RBC (4.0-5.2) X10^6/uL Hgb (12.0-16.0) g/dL Hct (36-46) % MCV (80-100) fL MCH (26-34) PG MCHC (30-36) % RDW (11.6-14.8) % Plt Count (150-400) X10^3/uL Neut % (Auto) (50-75) % Lymph % (Auto) (25-40) % Reynolds % (Auto) (3-14) % Eos % (Auto) (2-4) % Baso % (Auto) (0-2) % Neut # (Auto) (6529-4844) /uL Lymph # (Auto) (3047-9811) /uL Reynolds # (Auto) (0-900) /uL Eos # (Auto) (0-450) /uL Baso # (Auto) (0-100) /uL PT (10.1-12.7) SECONDS INR (0.9-1.3) APTT (26.4-36.2) SECONDS Sodium 135 L (137-145) mmol/L Potassium 3.2 L (3.4-5.1) mmol/L Chloride 99 (98-107) mmol/L Carbon Dioxide 24 (22-32) mmol/L BUN 18 H (7-17) mg/dL Creatinine 1.00 (0.52-1.04) mg/dL Estimated GFR 57.1 L (>60) mL/min BUN/Creatinine Ratio 18.0 (6-22) Glucose 107 H (70-100) mg/dL Lactate 1.9 (0.7-2.1) mmol/L Calcium 9.4 (8.4-10.2) mg/dL Magnesium (1.6-2.3) mg/dL Total Bilirubin 0.6 (0.2-1.3) mg/dL AST 23 (14-36) IU/L ALT 15 (<35) IU/L Alkaline Phosphatase 128 H (38-126) U/L Total Protein 7.0 (6.3-8.2) g/dL Albumin 3.9 (3.5-5.0) g/dL Globulin 3.1 (1.7-4.1) g/dL Albumin/Globulin Ratio 1.3 (1.0-2.8) Lipase 62 (23-300) U/L Procalcitonin 0.16 (<0.5) ng/mL Urine RBC (0-5/HPF) Urine WBC (0-5/HPF) Ur Squamous Epith Cells (0-5/HPF) Urine Bacteria (None) Ur Culture Indicated? 01/14/20 Range/Units 13:15 WBC (4.5-11.0) X10^3/uL RBC (4.0-5.2) X10^6/uL Hgb (12.0-16.0) g/dL Hct (36-46) % MCV (80-100) fL MCH (26-34) PG MCHC (30-36) % RDW (11.6-14.8) % Plt Count (150-400) X10^3/uL Neut % (Auto) (50-75) % Lymph % (Auto) (25-40) % Reynolds % (Auto) (3-14) % Eos % (Auto) (2-4) % Baso % (Auto) (0-2) % Neut # (Auto) (1286-6824) /uL Lymph # (Auto) (3792-2096) /uL Reynolds # (Auto) (0-900) /uL Eos # (Auto) (0-450) /uL Baso # (Auto) (0-100) /uL PT (10.1-12.7) SECONDS INR (0.9-1.3) APTT (26.4-36.2) SECONDS Sodium (137-145) mmol/L Potassium (3.4-5.1) mmol/L Chloride (98-107) mmol/L Carbon Dioxide (22-32) mmol/L BUN (7-17) mg/dL Creatinine (0.52-1.04) mg/dL Estimated GFR (>60) mL/min BUN/Creatinine Ratio (6-22) Glucose (70-100) mg/dL Lactate (0.7-2.1) mmol/L Calcium (8.4-10.2) mg/dL Magnesium 1.8 (1.6-2.3) mg/dL Total Bilirubin (0.2-1.3) mg/dL AST (14-36) IU/L ALT (<35) IU/L Alkaline Phosphatase (38-126) U/L Total Protein (6.3-8.2) g/dL Albumin (3.5-5.0) g/dL Globulin (1.7-4.1) g/dL Albumin/Globulin Ratio (1.0-2.8) Lipase (23-300) U/L Procalcitonin (<0.5) ng/mL Urine RBC (0-5/HPF) Urine WBC (0-5/HPF) Ur Squamous Epith Cells (0-5/HPF) Urine Bacteria (None) Ur Culture Indicated? Urine Dip Bedside Urine Glucose Negative Bedside Urine Bilirubin - Negative Bedside Urine Ketone - Negative Urine Specific [place] 1.015 Bedside Urine Occult Blood + Bedside Urine pH 7.0 Bedside Urine Protein + 30 Bedside Urine Urobilinogen +/- 1mg Bedside Urine Nitrite + Positive Bedside Urine Leukocytes + 70 Esterase MDM Narrative Medical decision making narrative: This is a 59 year old female who is currently being treated with chemotherapy at oncology clinic with Carboplatin/Paclitaxel for recurring ovarian cancer after mesenteric mass has been removed in September 2019 at [facility] with generalized weakness, chills, increased nausea, portable episodes of diarrhea and generalized not feeling well. There was no focal neurological deficit per exam. Very mild tenderness to palpate in right lower abdomen near vertical incision site below umbilicus. She has no signs of infection such as erythema, edema or warmth appreciated during abdominal exam. Patient is afebrile while in ED with stable vital signs. Patient had a slight decrease in white count to 2.1 today from 3.4 (01/11/2020) with stable hemoglobin and hematocrit of 9.3/28.1. Today's neutrophil was 46.1 which is improvement from 40.6 (01/11/20). Patient had mildly decreased sodium (135) and potassium (3.2) with slightly increased of BUN (18). Patient has normal creatinine of 1.0 with slightly decreased GFR of 57.1 which is no change from last visit. This is likely due to multiple diarrhea episodes and difficulty hydrating at home orally due to nausea. Lactate and procalcitonin level were normal. Patient was hydrated with normal saline 1 L and hypokalemia has been replaced with 40 mEq of oral potassium. Patient reports her symptoms improved and is able to tolerate fluids after IV Zofran. Patient advised to follow-up with oncology clinic tomorrow to inform her visit to ED and advised bland diet with low fiber and to increase oral hydration with sports drinks along electrolyte supplements including magnesium which was lower normal range today. Patient reports next appointment with Dr. Wing at oncology clinic is on . Patient verbalized understanding and in agreement with the treatment plan. Patient reports she has enough of Compazine which works better than Zofran at home. <Jose Alfredo Barrett, DO - Last Filed: 01/15/20 06:58> Lab Data Labs: Lab Results 01/14/20 01/14/20 01/14/20 Range/Units 13:00 13:15 13:15 WBC 2.1 L (4.5-11.0) X10^3/uL RBC 3.84 L (4.0-5.2) X10^6/uL Hgb 9.3 L (12.0-16.0) g/dL Hct 28.1 L (36-46) % MCV 73.0 L (80-100) fL MCH 24.2 L (26-34) PG MCHC 33.1 (30-36) % RDW 15.7 H (11.6-14.8) % Plt Count 275 (150-400) X10^3/uL Neut % (Auto) 46.1 L (50-75) % Lymph % (Auto) 46.5 H (25-40) % Reynolds % (Auto) 4.7 (3-14) % Eos % (Auto) 1.8 L (2-4) % Baso % (Auto) 0.9 (0-2) % Neut # (Auto) 1000 L (9752-2357) /uL Lymph # (Auto) 1000 L (5930-2682) /uL Reynolds # (Auto) 100 (0-900) /uL Eos # (Auto) 0 (0-450) /uL Baso # (Auto) 0 (0-100) /uL PT 11.8 (10.1-12.7) SECONDS INR 1.0 (0.9-1.3) APTT 24 L D (26.4-36.2) SECONDS Sodium (137-145) mmol/L Potassium (3.4-5.1) mmol/L Chloride (98-107) mmol/L Carbon Dioxide (22-32) mmol/L BUN (7-17) mg/dL Creatinine (0.52-1.04) mg/dL Estimated GFR (>60) mL/min BUN/Creatinine Ratio (6-22) Glucose (70-100) mg/dL Lactate (0.7-2.1) mmol/L Calcium (8.4-10.2) mg/dL Magnesium (1.6-2.3) mg/dL Total Bilirubin (0.2-1.3) mg/dL AST (14-36) IU/L ALT (<35) IU/L Alkaline Phosphatase (38-126) U/L Total Protein (6.3-8.2) g/dL Albumin (3.5-5.0) g/dL Globulin (1.7-4.1) g/dL Albumin/Globulin Ratio (1.0-2.8) Lipase (23-300) U/L Procalcitonin (<0.5) ng/mL Urine RBC 1-5/hpf (0-5/HPF) Urine WBC 5-10/hpf H (0-5/HPF) Ur Squamous Epith Cells 5-10 /hpf H (0-5/HPF) Urine Bacteria Many (>30) H (None) Ur Culture Indicated? Cult not indicated 01/14/20 01/14/20 01/14/20 Range/Units 13:15 13:15 13:15 WBC (4.5-11.0) X10^3/uL RBC (4.0-5.2) X10^6/uL Hgb (12.0-16.0) g/dL Hct (36-46) % MCV (80-100) fL MCH (26-34) PG MCHC (30-36) % RDW (11.6-14.8) % Plt Count (150-400) X10^3/uL Neut % (Auto) (50-75) % Lymph % (Auto) (25-40) % Reynolds % (Auto) (3-14) % Eos % (Auto) (2-4) % Baso % (Auto) (0-2) % Neut # (Auto) (5839-1095) /uL Lymph # (Auto) (9423-5375) /uL Reynolds # (Auto) (0-900) /uL Eos # (Auto) (0-450) /uL Baso # (Auto) (0-100) /uL PT (10.1-12.7) SECONDS INR (0.9-1.3) APTT (26.4-36.2) SECONDS Sodium 135 L (137-145) mmol/L Potassium 3.2 L (3.4-5.1) mmol/L Chloride 99 (98-107) mmol/L Carbon Dioxide 24 (22-32) mmol/L BUN 18 H (7-17) mg/dL Creatinine 1.00 (0.52-1.04) mg/dL Estimated GFR 57.1 L (>60) mL/min BUN/Creatinine Ratio 18.0 (6-22) Glucose 107 H (70-100) mg/dL Lactate 1.9 (0.7-2.1) mmol/L Calcium 9.4 (8.4-10.2) mg/dL Magnesium (1.6-2.3) mg/dL Total Bilirubin 0.6 (0.2-1.3) mg/dL AST 23 (14-36) IU/L ALT 15 (<35) IU/L Alkaline Phosphatase 128 H (38-126) U/L Total Protein 7.0 (6.3-8.2) g/dL Albumin 3.9 (3.5-5.0) g/dL Globulin 3.1 (1.7-4.1) g/dL Albumin/Globulin Ratio 1.3 (1.0-2.8) Lipase 62 (23-300) U/L Procalcitonin 0.16 (<0.5) ng/mL Urine RBC (0-5/HPF) Urine WBC (0-5/HPF) Ur Squamous Epith Cells (0-5/HPF) Urine Bacteria (None) Ur Culture Indicated? 01/14/20 Range/Units 13:15 WBC (4.5-11.0) X10^3/uL RBC (4.0-5.2) X10^6/uL Hgb (12.0-16.0) g/dL Hct (36-46) % MCV (80-100) fL MCH (26-34) PG MCHC (30-36) % RDW (11.6-14.8) % Plt Count (150-400) X10^3/uL Neut % (Auto) (50-75) % Lymph % (Auto) (25-40) % Reynolds % (Auto) (3-14) % Eos % (Auto) (2-4) % Baso % (Auto) (0-2) % Neut # (Auto) (1739-4390) /uL Lymph # (Auto) (0831-8462) /uL Reynolds # (Auto) (0-900) /uL Eos # (Auto) (0-450) /uL Baso # (Auto) (0-100) /uL PT (10.1-12.7) SECONDS INR (0.9-1.3) APTT (26.4-36.2) SECONDS Sodium (137-145) mmol/L Potassium (3.4-5.1) mmol/L Chloride (98-107) mmol/L Carbon Dioxide (22-32) mmol/L BUN (7-17) mg/dL Creatinine (0.52-1.04) mg/dL Estimated GFR (>60) mL/min BUN/Creatinine Ratio (6-22) Glucose (70-100) mg/dL Lactate (0.7-2.1) mmol/L Calcium (8.4-10.2) mg/dL Magnesium 1.8 (1.6-2.3) mg/dL Total Bilirubin (0.2-1.3) mg/dL AST (14-36) IU/L ALT (<35) IU/L Alkaline Phosphatase (38-126) U/L Total Protein (6.3-8.2) g/dL Albumin (3.5-5.0) g/dL Globulin (1.7-4.1) g/dL Albumin/Globulin Ratio (1.0-2.8) Lipase (23-300) U/L Procalcitonin (<0.5) ng/mL Urine RBC (0-5/HPF) Urine WBC (0-5/HPF) Ur Squamous Epith Cells (0-5/HPF) Urine Bacteria (None) Ur Culture Indicated? Urine Dip Bedside Urine Glucose Negative Bedside Urine Bilirubin - Negative Bedside Urine Ketone - Negative Urine Specific [place] 1.015 Bedside Urine Occult Blood + Bedside Urine pH 7.0 Bedside Urine Protein + 30 Bedside Urine Urobilinogen +/- 1mg Bedside Urine Nitrite + Positive Bedside Urine Leukocytes + 70 Esterase Discharge Plan Departure Patient Disposition: Home Clinical Impression: Hypokalemia, Generalized weakness Diarrhea Qualifiers: Diarrhea type: unspecified type Qualified Code(s): R19.7 - Diarrhea, unspecified Discharge Date/Time: 01/14/20 16:00 Instructions: DI for Dehydration -- Adult, DI for Hypokalemia Activity Restrictions/Additional Instructions: You have been diagnosed with [generalized weakness, multiple diarrhea and hypokalemia. Your blood count is at near your baseline. Sodium and potassium level were mildly decreased as 135, 3.2. Potassium was replaced by p.o. with 40 mEq. BUN was mildly elevated as well as 18 likely from mild dehydration. Otherwise other blood tests were unremarkable.]. What to do: *Take your medications as directed. Please take your anti nausea medications that you have at home-Zofran and Compazine. Hydrate herself adequately with water and sports drink. *Follow up with your primary care provider in 2-3 days, call for an appointment. Let them know you were seen in the ED and that we asked you to be seen in follow up. *Return to ED if you have any new, worsening, or concerning symptoms, such as [chest pain, breathing difficulty, increasing weakness, fever, unable to tolerate fluids, dizziness, or any acute concerns] Prescriptions: No Action levothyroxine [Levo-T] 112 mcg tablet 112 mcg PO DAILY Qty: 90 RF: 1 fluoxetine 20 mg tablet 20 mg PO DAILY Qty: 90 RF: 3 cyanocobalamin (vitamin B-12) [Vitamin B-12] 2,500 mcg Tablet, Sublingual 2,500 mcg SUBLINGUAL DAILY RF: 0 cholecalciferol (vitamin D3) [Vitamin D3] 1,000 unit Tablet,Chewable 1,000 unit PO DAILY RF: 0 potassium chloride [Klor-Con M20] 20 mEq Tablet,Er Particles/Crystals 20 meq PO BID Qty: 14 RF: 0 magnesium oxide 400 mg magnesium Capsule 400 mg PO BID 7 Days Qty: 14 RF: 0 lorazepam 0.5 mg tablet 0.5 mg PO TIDP PRN (Reason: anxiety) Qty: 30 RF: 2 prochlorperazine maleate [Compazine] 10 mg Tablet 10 mg PO Q6H PRN (Reason: nausea and vomiting. ) Qty: 100 RF: 2 Disabled Parking Permit 1 ea miscellaneous DIRECTED RF: 0 acetaminophen [Tylenol] 325 mg capsule 650 mg PO QID PRN (Reason: pain) Qty: 60 RF: 0 Referrals: Julio César Wing MD [Family Provider] - Kay Elias DO [Primary Care Provider] - <Jose Alfredo Barrett DO - Last Filed: 01/15/20 06:58> Sign Out Provider Sign Out Attestation: Dr Barrett Co-Sign Statement: I was available for consultation during this patient's emergency department visit. This chart is signed by myself for administrative purposes only. I did not have direct contact with this patient during this visit. They were seen independently by the APC.
== END 2020-01-14 16:00 | disposition home or self-care (01) ==
PROVIDERS: Emergency Medicine; Emergency Provider Nurse Practitioner Family; Family Provider Internal Medicine Hematology & Oncology; PCP Family Medicine
DX: E87.6 Hypokalemia (principal); R53.1 Weakness; R19.7 Diarrhea, unspecified; R79.89 Other specified abnormal findings of blood chemistry; C56.9 Malignant neoplasm of unspecified ovary
CPT/HCPCS: 36415; 80053; 81003; 81015; 83605; 83690; 83735; 84145; 85025; 85610; 85730; 87077; 87086; 87186; 96361; 96374; 99284; J1642; J2405

== ENCOUNTER → 2020-01-19 13:01 | Outpatient (CLI) | payer MEDICARE, SELFPAY ==
[2020-01-20 10:41] VITALS: BP 119/68; PULSE 86; RESP 18; TEMP 36.1; O2SAT 98
== END ==
PROVIDERS: Family Provider Internal Medicine Hematology & Oncology; PCP Family Medicine; Referring Provider Family Medicine; Visit Provider Family Medicine
DX: S31.105A Unspecified open wound of abdominal wall, periumbilic region without penetration into peritoneal cavity, initial encounter (principal); C56.9 Malignant neoplasm of unspecified ovary; T45.1X5A Adverse effect of antineoplastic and immunosuppressive drugs, initial encounter; Z79.899 Other long term (current) drug therapy; E43 Unspecified severe protein-calorie malnutrition
CPT/HCPCS: 99213; 99214

== ENCOUNTER → 2020-02-02 12:39 | Outpatient (CLI) | payer MEDICARE, SELFPAY | PROVIDERS: Family Provider Internal Medicine Hematology & Oncology; PCP Family Medicine; Referring Provider Family Medicine; Visit Provider Family Medicine | DX: S31.105A Unspecified open wound of abdominal wall, periumbilic region without penetration into peritoneal cavity, initial encounter (principal); T45.1X5A Adverse effect of antineoplastic and immunosuppressive drugs, initial encounter; C56.9 Malignant neoplasm of unspecified ovary | CPT/HCPCS: 99213 ==

== ENCOUNTER → 2020-02-08 10:26 | Outpatient (CLI) | payer MEDICARE, SELFPAY ==
--- NOTE | 2020-02-08 10:28 | DI.US.S_ITS ---
PROCEDURE: US PERIPH VENOUS UP EXTREM RT INDICATIONS: EVAL FOR RIGHT LEG DVT TECHNIQUE: Real-time imaging, as well as color and pulse Doppler interrogation, was performed of the right upper extremity deep veins from the inferior neck to the antecubital fossa. COMPARISON: None. FINDINGS: Nonocclusive thrombus is identified within the imaged portions of the right internal jugular vein. The visualized portions of the subclavian vein, axillary, and brachial veins are free of intraluminal thrombus. Where physically possible, the veins are normally compressible. Color and pulse Doppler demonstrate normal intraluminal flow, with expected phasicity and pulsatility. Additional scanning of the cephalic and basilic veins of the superficial system demonstrate normal compressibility, without thrombus. IMPRESSION: Nonocclusive deep vein thrombus involving the right internal jugular vein. Dictated by: Sanchez Jones M.D. on 02/08/2020 at 10:28 Approved by: Sanchez Jones M.D. on 02/08/2020 at 10:29
== END ==
PROVIDERS: Family Provider Internal Medicine Hematology & Oncology; PCP Family Medicine; Referring Provider Internal Medicine Hematology & Oncology; Visit Provider Internal Medicine Hematology & Oncology
DX: C56.9 Malignant neoplasm of unspecified ovary (principal); I82.621 Acute embolism and thrombosis of deep veins of right upper extremity
CPT/HCPCS: 93971

== ENCOUNTER → 2020-02-22 12:38 | Outpatient (CLI) | payer MEDICARE, SELFPAY ==
--- NOTE | 2020-02-22 12:39 | DI.US.S_ITS ---
PROCEDURE: US ABDOMEN COMPLETE INDICATIONS: BLOATING; DROPPING HEMATOCRIT TECHNIQUE: Real-time scanning was performed of the abdominal and retroperitoneal organs, with image documentation. COMPARISON: [facility], CT, CT ABDOMEN PELVIS W CON, 11/28/2019, 11:40. [facility], CT, CT ABDOMEN PELVIS W CON, 10/23/2019, 23:34. FINDINGS: Liver: Liver is normal in size and homogeneous in echotexture. Gallbladder: Removed. Biliary ducts: Intrahepatic bile ducts are non-dilated. Extrahepatic bile duct caliber measures 6.5 mm. Normal is 6-7 mm or less in diameter, or 10 mm or less post-cholecystectomy. Pancreas: Visualized portions of the pancreas are sonographically normal. Spleen: Spleen is normal in size and homogeneous in echotexture. Kidneys: Kidneys are normal in size and echotexture. Right kidney measures 11.8 cm long; left kidney measures 9.6 cm long. No hydronephrosis or nephrolithiasis. No solid masses. Aorta: Visualized aorta is normal in caliber at less than 3 cm. Iliacs: Proximal common iliac arteries are normal in caliber at less than 2.5 cm. IVC: Intrahepatic inferior vena cava is patent. Miscellaneous: Negative for ascites. IMPRESSION: No imaging explanation is found for this patient's presenting symptoms. Negative for ascites. No masses are seen to the limits of this ultrasound. Given the patient's presenting history, please consider a dedicated abdomen pelvis CT with at least IV contrast for further evaluation. Dictated by: Moisés Anderson M.D. on 02/22/2020 at 12:35 Approved by: Moisés Anderson M.D. on 02/22/2020 at 12:37
== END ==
PROVIDERS: Family Provider Internal Medicine Hematology & Oncology; PCP Family Medicine; Referring Provider Internal Medicine Hematology & Oncology; Visit Provider Internal Medicine Hematology & Oncology
DX: C56.9 Malignant neoplasm of unspecified ovary (principal); R14.0 Abdominal distension (gaseous); R71.0 Precipitous drop in hematocrit; Z90.49 Acquired absence of other specified parts of digestive tract
CPT/HCPCS: 76700

== ENCOUNTER 2020-04-07 18:50 | Emergency (ER) | payer MEDICARE, SELFPAY ==
[2020-04-07 18:57] VITALS: BP 109/62; PULSE 89; RESP 14; TEMP 37.3; O2SAT 99; BMI 35.5
--- NOTE | 2020-04-07 19:16 | ED_ITS ---
HPI - Back Pain/Injury <Susan EnglishBIJAN - Last Filed: 04/07/20 20:41> General Chief Complaint: Back Pain/Injury Stated Complaint: thinks she has a UTI Time Seen by Provider: 04/07/20 19:00 Source: patient History of Present Illness HPI Narrative: 59-year-old female with a history of reoccur and ovarian cancer, presents to the emergency department complaining of left sided flank pain and dysuria that started 3 days ago. She states she usually gets a UTI after chemotherapy. Patient states she had her last chemotherapy 4 days ago. She denies any fevers at home, abdominal pain, chest pain, shortness of breath, dizziness, uncontrollable vomiting, diarrhea, or any other concerns. Related Data Home Medications Medication Instructions Recorded Confirmed Disabled Parking Permit 1 ea MISCELLANEOUS DIRECTED 09/22/19 03/21/20 cholecalciferol (vitamin D3) 1,000 unit PO DAILY 11/09/19 03/21/20 [Vitamin D3] cyanocobalamin (vitamin B-12) 2,500 mcg SUBLINGUAL DAILY 11/09/19 03/21/20 [Vitamin B-12] cholecalciferol (vitamin D3) 1,000 unit PO DAILY 03/21/20 03/21/20 [Vitamin D3] cyanocobalamin (vitamin B-12) 1,000 mcg PO DAILY 03/21/20 03/21/20 [Vitamin B-12] Previous Rx's Medication Instructions Recorded acetaminophen [Tylenol] 650 mg PO QID PRN #60 cap 12/19/19 prochlorperazine maleate 10 mg PO Q6H PRN #100 tab 01/11/20 [Compazine] lorazepam 0.5 mg PO TIDP PRN #30 tab 02/29/20 potassium chloride [Klor-Con M20] 20 meq PO BID #14 tab 02/29/20 cephalexin 500 mg PO BID 14 Days #28 cap 04/07/20 nitrofurantoin monohyd/m-cryst 100 mg PO Q12H 5 Days #10 cap 04/07/20 [Macrobid] Allergies Allergy/AdvReac Type Severity Reaction Status Date / Time shellfish derived Allergy Severe breathing Verified 04/07/20 18:57 difficulties if ingested; hives when touched codeine Allergy Mild UNKNOWN Verified 04/07/20 18:57 Review of Systems <BIJAN Forte - Last Filed: 04/07/20 20:41> Review of Systems Narrative: REVIEW OF SYSTEMS: GENERAL: Denies fever, chills, malaise, or wt. loss. HENT: No head trauma. CARDIOVASCULAR: No chest pain. RESPIRATORY: No cough. GASTROINTESTINAL: Denies abdominal pain. GENITOURINARY: Reports flank pain and dysuria, see HPI. MUSCULOSKELETAL: No pain, weakness, or trauma. INTEGUMENTARY: No rash, lesions, or pruritus. NEURO: No numbness or tingling. PSYCH: No behavior or mood changes. Patient History <BIJAN Forte - Last Filed: 04/07/20 20:41> Medical History Acute lower gastrointestinal bleeding (Inactive ~09/30/19) Anxiety (Chronic) Delayed surgical wound healing (Acute) Depression (Chronic) Hyperlipidemia (Acute) Hypothyroid (Acute 02/15/12) MS (multiple sclerosis) (Chronic ~1987) Ovarian cancer (Resolved ~2011) Sigmoid diverticulosis (Acute) Surgical History History of removal of Port-a-Cath (Acute) History of surgery (Acute 08/01/12) History of third molar tooth extraction (Resolved) Hx of exploratory laparotomy (Acute 10/02/19) S/P total abdominal hysterectomy and bilateral salpingo-oophorectomy (Resolved 2011) Status post appendectomy (Resolved 1982) Status post cholecystectomy (Resolved 1987) Family History Sister Aneurysm Sister Age: 56 Breast cancer Social History household members: spouse Smoking Status: Never smoker alcohol intake: current Smoking Status: Never smoker alcohol intake frequency: holidays/special occasions only Substance Use Type: does not use Exam <BIJAN Forte - Last Filed: 04/07/20 20:41> Initial Vital Signs Initial Vital Signs: Vital Signs Temperature 99.1 F 04/07/20 18:57 Pulse Rate 89 04/07/20 18:57 Respiratory Rate 14 04/07/20 18:57 Blood Pressure 109/62 04/07/20 18:57 Pulse Oximetry 99 04/07/20 18:57 PHYSICAL EXAMINATION: GENERAL: Well groomed, alert, and cooperative. Answers questions promptly and appropriately. Vital signs noted. HENT: Normocephalic, atraumatic. Hearing intact. Oral mucosa is pink and moist. EYES: Conjunctiva pink, sclera white, no periorbital swelling. CARDIOVASCULAR: Regular rate. RESPIRATORY: Normal respiratory rate, trachea midline, airway patent. No stridor, nasal flaring or accessory muscle use. GASTROINTESTINAL: Bowel sounds normoactive. Abdomen is soft and non-tender. No organomegaly, no palpable masses. GENITALURINARY: Mild left CVA tenderness. MUSCULOSKELETAL: Normal gait and coordination. Equal tone and mass bilaterally. EXTREMITIES: CMS intact, no pedal edema. SKIN: Warm, dry, soft, appropriate color for ethnicity. No lesions, rashes, or wounds to visualized areas. NEURO: Alert and Oriented X 3. Good coordination. No ataxia, or sensory deficits, or cognitive issues. PSYCH: Appropriate affect and mood. <Rosa M Perez MD - Last Filed: 04/08/20 01:55> Initial Vital Signs Initial Vital Signs: Vital Signs Temperature 99.1 F 04/07/20 18:57 Pulse Rate 89 04/07/20 18:57 Respiratory Rate 14 04/07/20 18:57 Blood Pressure 109/62 04/07/20 18:57 Pulse Oximetry 99 04/07/20 18:57 Course <BIJAN Forte - Last Filed: 04/07/20 20:41> Course Course Narrative: IV ceftriaxone was given symptoms of pyelonephritis and increased risk of immunocompromised nature., p.o. potassium was given to replenish low potassium. No concern for worsening condition due to lack of vomiting or diarrhea. Orders Ordered: ED Orders 04/07/20 19:45 Complete Blood Count AUTO DIFF Stat Comprehensive Metabolic Panel Stat Lactate (Lactic Acid) Stat Urine Culture Stat Urine Microscopic Stat Discontinued Medications Ceftriaxone Sodium/Dextrose (Rocephin) 1 gm in 50 mls @ 100 mls/hr IV NOW ONE Stop: 04/07/20 20:50 Last Infusion: 04/07/20 21:11 Dose: 0 mls/hr Documented by: Admin: 04/07/20 20:40 Dose: 100 mls/hr Documented by: MALACHI Nitrofurantoin Macrocrystals (Macrobid 100 Mg Capsule) 100 mg PO NOW ONE Stop: 04/07/20 20:16 Last Admin: 04/07/20 20:46 Dose: Not Given Documented by: MALACHI Potassium Chloride (Klor-Con M10) 40 meq PO NOW ONE Stop: 04/07/20 20:16 Last Admin: 04/07/20 20:45 Dose: 40 meq Documented by: MALACHI Consultations Consultation #1: Patient staffed with Dr. Perez, discussed test, test results, plan of care. Vital Signs Vital signs: Vital Signs - 8 hr 04/07/20 18:57 04/07/20 20:44 Temperature 99.1 F Pulse Rate 89 Respiratory Rate 14 Blood Pressure 109/62 Blood Pressure [Left Arm] 109/62 Pulse Oximetry 99 <Rosa M Perez MD - Last Filed: 04/08/20 01:55> Orders Ordered: ED Orders 04/07/20 19:45 Complete Blood Count AUTO DIFF Stat Comprehensive Metabolic Panel Stat Lactate (Lactic Acid) Stat Urine Culture Stat Urine Microscopic Stat Discontinued Medications Ceftriaxone Sodium/Dextrose (Rocephin) 1 gm in 50 mls @ 100 mls/hr IV NOW ONE Stop: 04/07/20 20:50 Last Infusion: 04/07/20 21:11 Dose: 0 mls/hr Documented by: Admin: 04/07/20 20:40 Dose: 100 mls/hr Documented by: MALACHI Nitrofurantoin Macrocrystals (Macrobid 100 Mg Capsule) 100 mg PO NOW ONE Stop: 04/07/20 20:16 Last Admin: 04/07/20 20:46 Dose: Not Given Documented by: MALACHI Potassium Chloride (Klor-Con M10) 40 meq PO NOW ONE Stop: 04/07/20 20:16 Last Admin: 04/07/20 20:45 Dose: 40 meq Documented by: MALACHI Vital Signs Vital signs: Vital Signs - 8 hr 04/07/20 18:57 04/07/20 20:44 Temperature 99.1 F Pulse Rate 89 Respiratory Rate 14 Blood Pressure 109/62 Blood Pressure [Left Arm] 109/62 Pulse Oximetry 99 MDM - Back Pain/Injury <BIJAN Forte - Last Filed: 04/07/20 20:41> Medical Records Attestation: I reviewed the patient's medical records. Lab Data Attestation: I reviewed the patient's lab results. Result diagrams: 04/07/20 19:45 04/07/20 19:45 Labs: Lab Results 04/07/20 04/07/20 04/07/20 Range/Units 19:45 19:45 19:45 WBC 4.7 (4.5-11.0) X10^3/uL RBC 2.33 L (4.0-5.2) X10^6/uL Hgb 7.5 L (12.0-16.0) g/dL Hct 20.6 L* (36-46) % MCV 88.4 (80-100) fL MCH 32.1 (26-34) PG MCHC 36.3 H (30-36) % RDW 19.6 H (11.6-14.8) % Plt Count 287 (150-400) X10^3/uL Neut % (Auto) 58.9 (50-75) % Lymph % (Auto) 28.6 (25-40) % [place] % (Auto) 12.1 (3-14) % Eos % (Auto) 0.2 L (2-4) % Baso % (Auto) 0.2 (0-2) % Neut # (Auto) 2800 (4164-1036) /uL Lymph # (Auto) 1400 (5882-0609) /uL [place] # (Auto) 600 (0-900) /uL Eos # (Auto) 0 (0-450) /uL Baso # (Auto) 0 (0-100) /uL Sodium 132 L (137-145) mmol/L Potassium 3.1 L (3.4-5.1) mmol/L Chloride 94 L (98-107) mmol/L Carbon Dioxide 27 (22-32) mmol/L BUN 13 (7-17) mg/dL Creatinine 0.79 (0.52-1.04) mg/dL Estimated GFR > 60.0 (>60) mL/min BUN/Creatinine Ratio 16.5 (6-22) Glucose 102 H (70-100) mg/dL Lactate 1.6 (0.7-2.1) mmol/L Calcium 9.0 (8.4-10.2) mg/dL Total Bilirubin 0.7 (0.2-1.3) mg/dL AST 16 (14-36) IU/L ALT 12 (<35) IU/L Alkaline Phosphatase 109 (38-126) U/L Total Protein 6.9 (6.3-8.2) g/dL Albumin 3.7 (3.5-5.0) g/dL Globulin 3.2 (1.7-4.1) g/dL Albumin/Globulin Ratio 1.2 (1.0-2.8) Urine RBC (0-5/HPF) Urine WBC (0-5/HPF) Urine Bacteria (None) Ur Culture Indicated? 04/07/20 Range/Units 19:45 WBC (4.5-11.0) X10^3/uL RBC (4.0-5.2) X10^6/uL Hgb (12.0-16.0) g/dL Hct (36-46) % MCV (80-100) fL MCH (26-34) PG MCHC (30-36) % RDW (11.6-14.8) % Plt Count (150-400) X10^3/uL Neut % (Auto) (50-75) % Lymph % (Auto) (25-40) % [place] % (Auto) (3-14) % Eos % (Auto) (2-4) % Baso % (Auto) (0-2) % Neut # (Auto) (4008-3638) /uL Lymph # (Auto) (6708-5693) /uL [place] # (Auto) (0-900) /uL Eos # (Auto) (0-450) /uL Baso # (Auto) (0-100) /uL Sodium (137-145) mmol/L Potassium (3.4-5.1) mmol/L Chloride (98-107) mmol/L Carbon Dioxide (22-32) mmol/L BUN (7-17) mg/dL Creatinine (0.52-1.04) mg/dL Estimated GFR (>60) mL/min BUN/Creatinine Ratio (6-22) Glucose (70-100) mg/dL Lactate (0.7-2.1) mmol/L Calcium (8.4-10.2) mg/dL Total Bilirubin (0.2-1.3) mg/dL AST (14-36) IU/L ALT (<35) IU/L Alkaline Phosphatase (38-126) U/L Total Protein (6.3-8.2) g/dL Albumin (3.5-5.0) g/dL Globulin (1.7-4.1) g/dL Albumin/Globulin Ratio (1.0-2.8) Urine RBC 5-10/hpf H (0-5/HPF) Urine WBC >100/hpf H (0-5/HPF) Urine Bacteria Many (>30) H (None) Ur Culture Indicated? Specimen cultured Urine Dip Bedside Urine Glucose 100 mg/dl Bedside Urine Bilirubin - Negative Bedside Urine Ketone - Negative Urine Specific [place] 1.015 Bedside Urine Occult Blood +/- Bedside Urine pH 6.0 Bedside Urine Protein + 30 Bedside Urine Urobilinogen - Negative Bedside Urine Nitrite + Positive Bedside Urine Leukocytes +++ 500 Esterase MDM Narrative Medical decision making narrative: 59-year-old female with a history of ovarian cancer who has just received chemo this week, presents emergency department for dysuria and left flank pain. I suspect patient's symptoms are most likely caused by pyelonephritis due to presence of nitrates and bacteria in urine micro as well as flank pain and history of frequent urinary tract infections. Less likely sepsis due to lack of deviation in white blood cell count for patient, high fevers, tachycardia, or feelings of fatigue or weakness. Additionally, lactate was within normal limits. I suspect patient hemoglobin hematocrit are slightly decreased due to effects of chemotherapy. Patient is asymptomatic, she is hemodynamically stable in continues to deny dizziness throughout the emergency department stay. No acute intervention needed for low hematocrit. Patient was counseled about the importance of close follow-up in the next few days. Less likely acute abdominal etiology due to reassuring labs and lack of abdominal pain with palpation. Patient agreed to plan of care verbalized understanding <Rosa M Perez MD - Last Filed: 04/08/20 01:55> Lab Data Labs: Lab Results 04/07/20 04/07/20 04/07/20 Range/Units 19:45 19:45 19:45 WBC 4.7 (4.5-11.0) X10^3/uL RBC 2.33 L (4.0-5.2) X10^6/uL Hgb 7.5 L (12.0-16.0) g/dL Hct 20.6 L* (36-46) % MCV 88.4 (80-100) fL MCH 32.1 (26-34) PG MCHC 36.3 H (30-36) % RDW 19.6 H (11.6-14.8) % Plt Count 287 (150-400) X10^3/uL Neut % (Auto) 58.9 (50-75) % Lymph % (Auto) 28.6 (25-40) % [place] % (Auto) 12.1 (3-14) % Eos % (Auto) 0.2 L (2-4) % Baso % (Auto) 0.2 (0-2) % Neut # (Auto) 2800 (8318-8325) /uL Lymph # (Auto) 1400 (1301-9310) /uL [place] # (Auto) 600 (0-900) /uL Eos # (Auto) 0 (0-450) /uL Baso # (Auto) 0 (0-100) /uL Sodium 132 L (137-145) mmol/L Potassium 3.1 L (3.4-5.1) mmol/L Chloride 94 L (98-107) mmol/L Carbon Dioxide 27 (22-32) mmol/L BUN 13 (7-17) mg/dL Creatinine 0.79 (0.52-1.04) mg/dL Estimated GFR > 60.0 (>60) mL/min BUN/Creatinine Ratio 16.5 (6-22) Glucose 102 H (70-100) mg/dL Lactate 1.6 (0.7-2.1) mmol/L Calcium 9.0 (8.4-10.2) mg/dL Total Bilirubin 0.7 (0.2-1.3) mg/dL AST 16 (14-36) IU/L ALT 12 (<35) IU/L Alkaline Phosphatase 109 (38-126) U/L Total Protein 6.9 (6.3-8.2) g/dL Albumin 3.7 (3.5-5.0) g/dL Globulin 3.2 (1.7-4.1) g/dL Albumin/Globulin Ratio 1.2 (1.0-2.8) Urine RBC (0-5/HPF) Urine WBC (0-5/HPF) Urine Bacteria (None) Ur Culture Indicated? 04/07/20 Range/Units 19:45 WBC (4.5-11.0) X10^3/uL RBC (4.0-5.2) X10^6/uL Hgb (12.0-16.0) g/dL Hct (36-46) % MCV (80-100) fL MCH (26-34) PG MCHC (30-36) % RDW (11.6-14.8) % Plt Count (150-400) X10^3/uL Neut % (Auto) (50-75) % Lymph % (Auto) (25-40) % [place] % (Auto) (3-14) % Eos % (Auto) (2-4) % Baso % (Auto) (0-2) % Neut # (Auto) (8376-9932) /uL Lymph # (Auto) (8574-5449) /uL [place] # (Auto) (0-900) /uL Eos # (Auto) (0-450) /uL Baso # (Auto) (0-100) /uL Sodium (137-145) mmol/L Potassium (3.4-5.1) mmol/L Chloride (98-107) mmol/L Carbon Dioxide (22-32) mmol/L BUN (7-17) mg/dL Creatinine (0.52-1.04) mg/dL Estimated GFR (>60) mL/min BUN/Creatinine Ratio (6-22) Glucose (70-100) mg/dL Lactate (0.7-2.1) mmol/L Calcium (8.4-10.2) mg/dL Total Bilirubin (0.2-1.3) mg/dL AST (14-36) IU/L ALT (<35) IU/L Alkaline Phosphatase (38-126) U/L Total Protein (6.3-8.2) g/dL Albumin (3.5-5.0) g/dL Globulin (1.7-4.1) g/dL Albumin/Globulin Ratio (1.0-2.8) Urine RBC 5-10/hpf H (0-5/HPF) Urine WBC >100/hpf H (0-5/HPF) Urine Bacteria Many (>30) H (None) Ur Culture Indicated? Specimen cultured Urine Dip Bedside Urine Glucose 100 mg/dl Bedside Urine Bilirubin - Negative Bedside Urine Ketone - Negative Urine Specific [place] 1.015 Bedside Urine Occult Blood +/- Bedside Urine pH 6.0 Bedside Urine Protein + 30 Bedside Urine Urobilinogen - Negative Bedside Urine Nitrite + Positive Bedside Urine Leukocytes +++ 500 Esterase Discharge Plan Departure Patient Disposition: Home Clinical Impression: Acute UTI Discharge Date/Time: 04/07/20 21:31 Instructions: DI for Kidney Infection, DI for Urinary Tract Infection (UTI) Activity Restrictions/Additional Instructions: Thank you for entrusting me with your care today. As discussed, it appears you have a urinary tract infection. I prescribed you an antibiotic, please take this as directed. Your prescription was sent to [facility] in [place]. Please take cephalexin. I accidentally sent an order of nitro for town in to [facility], do not pick this up. Additionally, your hematocrit and hemoglobin are low, please follow up with your primary care provider and/or oncologist in the next week for further evaluation. Return emergency department for any new or worsening symptoms such as fevers, severe abdominal pain, uncontrollable vomiting, or any other concerns. Prescriptions: New nitrofurantoin monohyd/m-cryst [Macrobid] 100 mg capsule 100 mg PO Q12H 5 Days Qty: 10 RF: 0 cephalexin 500 mg capsule 500 mg PO BID 14 Days Qty: 28 RF: 0 No Action cyanocobalamin (vitamin B-12) [Vitamin B-12] 2,500 mcg Tablet, Sublingual 2,500 mcg SUBLINGUAL DAILY RF: 0 cholecalciferol (vitamin D3) [Vitamin D3] 1,000 unit Tablet,Chewable 1,000 unit PO DAILY RF: 0 prochlorperazine maleate [Compazine] 10 mg Tablet 10 mg PO Q6H PRN (Reason: nausea and vomiting. ) Qty: 100 RF: 2 potassium chloride [Klor-Con M20] 20 mEq Tablet,Er Particles/Crystals 20 meq PO BID Qty: 14 RF: 0 lorazepam 0.5 mg tablet 0.5 mg PO TIDP PRN (Reason: anxiety) Qty: 30 RF: 2 cholecalciferol (vitamin D3) [Vitamin D3] 25 mcg (1,000 unit) Capsule 1,000 unit PO DAILY RF: 0 cyanocobalamin (vitamin B-12) [Vitamin B-12] 1,000 mcg Tablet 1,000 mcg PO DAILY RF: 0 Disabled Parking Permit 1 ea miscellaneous DIRECTED RF: 0 acetaminophen [Tylenol] 325 mg capsule 650 mg PO QID PRN (Reason: pain) Qty: 60 RF: 0 Referrals: Kay Elias DO [Primary Care Provider] - <Rosa M Perez MD - Last Filed: 04/08/20 01:55> Cosign ED Attending Cosignature Attestation: I was immediately available in the department for consultation throughout this patient's visit. I agree with documentation as above. Rosa M Perez MD
[2020-04-07 19:54] LABS: Bacteria Urine Many (>30); Culture Indicated Urine Specimen Cultured; RBC Urine 5-10/HPF (0-5/HPF); WBC Urine >100/HPF (0-5/HPF)
[2020-04-07 19:57] LABS: Add Manual Diff / Slide Review NO; Basophils Absolute Auto 0 /uL (0-100); Basophils Percent Auto 0.2 % (0-2); Eosinophils Absolute Auto 0 /uL (0-450); Eosinophils Percent Auto 0.2 % (2-4); Hemoglobin 7.5 g/dL (12.0-16.0); Lymphocytes Absolute Auto 1400 /uL (1100-4500); Lymphocytes Percent Auto 28.6 % (25-40); Mean Corpuscular HGB Conc 36.3 % (30-36); Mean Corpuscular Hemoglobin 32.1 PG (26-34); Mean Corpuscular Volume 88.4 fL (80-100); Monocytes Absolute Auto 600 /uL (0-900); Monocytes Percent Auto 12.1 % (3-14); Neutrophils Absolute Auto 2800 /uL (1500-7000); Neutrophils Percent Auto 58.9 % (50-75); Platelet Count 287 X10^3/uL (150-400); Red Blood Cell Count 2.33 X10^6/uL (4.0-5.2); Red Cell Distribution Width 19.6 % (11.6-14.8); White Blood Cell Count 4.7 X10^3/uL (4.5-11.0)
[2020-04-07 19:59] LABS: Hematocrit 20.6 % (36-46)
[2020-04-07 20:06] LABS: Alanine Aminotransferase 12 IU/L (<35); Albumin 3.7 g/dL (3.5-5.0); Albumin Globulin Ratio 1.2 (1.0-2.8); Alkaline Phosphatase 109 U/L (38-126); Aspartate Aminotransferase 16 IU/L (14-36); BUN Creatinine Ratio 16.5 (6-22); Bilirubin Total 0.7 mg/dL (0.2-1.3); Blood Urea Nitrogen 13 mg/dL (7-17); Carbon Dioxide 27 mmol/L (22-32); Chloride 94 mmol/L (98-107); Estimated Glomerular Filt Rate > 60.0 mL/min (>60); Globulin 3.2 g/dL (1.7-4.1); Glucose 102 mg/dL (70-100); HEMOLYSIS < 15 (0-50); Lactate (Lactic Acid) 1.6 mmol/L (0.7-2.1); Potassium 3.1 mmol/L (3.4-5.1); Sodium 132 mmol/L (137-145); Total Protein 6.9 g/dL (6.3-8.2)
[2020-04-07] MEDS: CEFTRIAXONE 1 GM/50 ML FROZ.PIGGY IV (20:40)
[2020-04-07 20:44] VITALS: BP 109/62
[2020-04-07] MEDS: POTASSIUM CHLORIDE 10 MEQ TAB 40 MEQ PO (20:45)
== END 2020-04-07 21:31 | disposition home or self-care (01) ==
PROVIDERS: Emergency Provider Nurse Practitioner; Family Provider Internal Medicine Hematology & Oncology; PCP Family Medicine
DX: N39.0 Urinary tract infection, site not specified (principal)
CPT/HCPCS: 36415; 80053; 81003; 81015; 83605; 85025; 87077; 87086; 87186; 96365; 99283; 99284

== ENCOUNTER 2020-04-21 10:37 | Emergency (ER) | payer MEDICARE, SELFPAY ==
[2020-04-21 11:06] VITALS: BP 97/54; PULSE 80; RESP 22; TEMP 36.8; O2SAT 99; BMI 34.9
--- NOTE | 2020-04-21 11:24 | DI.RAD.S_ITS ---
PROCEDURE: XR CHEST 1V INDICATIONS: chest pain TECHNIQUE: One view of the chest was acquired. COMPARISON: [facility], , XR CHEST 1V, 12/19/2019, 10:34. FINDINGS: Surgical changes and devices: Clips within the right upper quadrant are present related to prior cholecystectomy. There is a right-sided Port-A-Cath central line identified with the tip overlying the high superior vena cava. Lungs and pleura: Lungs are clear. No pleural effusions or pneumothorax. Mediastinum: Mediastinal contours appear normal. Heart size is normal. Bones and chest wall: No suspicious bony lesions. Overlying soft tissues appear unremarkable. IMPRESSION: Stable chest. No acute cardiopulmonary process is evident. Dictated by: Sanchez Jones M.D. on 04/21/2020 at 10:41 Approved by: Sanchez Jones M.D. on 04/21/2020 at 10:42
--- NOTE | 2020-04-21 11:57 | ED_ITS ---
HPI - Arrhythmia/Palpitations <Magda Singh, HEALTH CARE ANALYST-BC - Last Filed: 04/21/20 19:46> General Chief Complaint: Arrhythmia/Palpitations Stated Complaint: Heart's racing Time Seen by Provider: 04/21/20 11:22 Source: patient Mode of arrival: Wheelchair Limitations: no limitations History of Present Illness HPI narrative: The patient is a 59-year-old female nonsmoker with history of ovarian cancer who presents with a chief complaint chest pain and heart racing that happened this morning. She states she has chronic GI upset due to her chemo. She reportedly was getting her chemo infusion this morning and experienced heart racing ?chest twinges. The twinges did not go anywhere, no radiation. She denies any palpitations. She does complain of decreased oral intake over the past few days and states that nothing tastes good so she does not want to eat or drink. She does note that she has a DVT in her right arm, and self discontinued her Eliquis 2 weeks ago. She states that she recently had a potassium and magnesium infusion. She notes that she has had back pain since she had a kidney infection recently. She felt warm last night, but denies any fevers chills or muscle aches today. She states that Dr. Wing is her oncologist. Related Data Home Medications Medication Instructions Recorded Confirmed Disabled Parking Permit 1 ea MISCELLANEOUS DIRECTED 09/22/19 05/08/20 cholecalciferol (vitamin D3) 125 mcg PO BID 04/11/20 05/08/20 [Vitamin D3] cyanocobalamin (vitamin B-12) 2,500 mcg PO BID 04/11/20 05/08/20 [Vitamin B-12] levothyroxine 112 mcg PO DAILY 04/11/20 05/08/20 Previous Rx's Medication Instructions Recorded acetaminophen [Tylenol] 650 mg PO QID PRN #60 cap 12/19/19 prochlorperazine maleate 10 mg PO Q6H PRN #100 tab 01/11/20 [Compazine] lorazepam 0.5 mg PO TIDP PRN #30 tab 02/29/20 potassium chloride [Klor-Con M20] 20 meq PO BID #14 tab 02/29/20 fluoxetine 20 mg tablet 30 mg PO DAILY #120 tab 05/08/20 Allergies Allergy/AdvReac Type Severity Reaction Status Date / Time shellfish derived Allergy Severe breathing Verified 05/08/20 09:39 difficulties if ingested; hives when touched codeine Allergy Mild UNKNOWN Verified 05/08/20 09:39 Review of Systems <JOANNA Nicole - Last Filed: 04/21/20 19:46> Review of Systems Narrative: GENERAL: See HPI HEENT: Denies sinus pain, ear pain, sore throat, difficulty swallowing, dizziness. RESPIRATORY: Denies dyspnea, cough, wheezing, hemoptysis, sputum. CARDIOVASCULAR: See HPI GASTROINTESTINAL: See HPI : Denies dysuria, frequency, incontinence, hematuria, urinary retention. MUSCULOSKELETAL: denies weakness, joint pain, or bony pain SKIN: Denies rash, skin lesions, or other NEUROLOGIC: Denies weakness, headache, numbness, change in speech, confusion, seizures, incoordination. PSYCHIATRIC: No concerning psychosocial issues. 12 point review of systems is negative except for those stated above Patient History <JOANNA Nicole - Last Filed: 04/21/20 19:46> Medical History (Updated 05/13/20 @ 00:00 by ) Acute lower gastrointestinal bleeding (Inactive ~09/30/19) Anxiety (Chronic) Colovesical fistula (Acute) Delayed surgical wound healing (Acute) Depression (Chronic) Hyperlipidemia (Acute) Hypothyroid (Acute 02/15/12) MS (multiple sclerosis) (Chronic ~1987) Ovarian cancer (Resolved ~2011) Sigmoid diverticulosis (Acute) Surgical History History of removal of Port-a-Cath (Acute) History of surgery (Acute 08/01/12) History of third molar tooth extraction (Resolved) Hx of exploratory laparotomy (Acute 10/02/19) S/P total abdominal hysterectomy and bilateral salpingo-oophorectomy (Resolved 2011) Status post appendectomy (Resolved 1982) Status post cholecystectomy (Resolved 1987) Family History Sister Aneurysm Sister Age: 56 Breast cancer Social History household members: spouse Smoking Status: Never smoker alcohol intake: current Smoking Status: Never smoker alcohol intake frequency: holidays/special occasions only Substance Use Type: does not use Exam <DAVIDE Nicole-BC - Last Filed: 04/21/20 19:46> Narrative Exam Narrative: GENERAL: Chronically ill-appearing female in no acute distress HEAD: Atraumatic. Normocephalic. No temporal or scalp tenderness. EYES: Pupils equal round and reactive. Extraocular motions intact. No scleral ic terus. No injection or drainage. ENT: Nose without bleeding, purulent drainage or septal hematoma. Throat without erythema, tonsillar hypertrophy or exudate. Uvula midline. Airway patent. Dry mucous membranes noted NECK: Trachea midline. No JVD or lymphadenopathy. Supple, nontender, no meningeal signs. CARDIOVASCULAR: Regular rate and rhythm without murmurs, gallops, or rubs. RESPIRATORY: Clear to auscultation. Breath sounds equal bilaterally. No wheezes, rales, or rhonchi. No cough. No increased respiratory effort. No accessory muscle use. GASTROINTESTINAL: Abdomen soft, diffusely tender, nondistended. No hepato- splenomegaly, or palpable masses. No guarding. EXTREMITIES: No clubbing, cyanosis, or edema. No joint tenderness, effusion, or edema noted. BACK: Nontender without deformity or crepitance. No flank tenderness. NEURO: AOx3. SKIN: No rash or erythema on visible skin Initial Vital Signs Initial Vital Signs: Vital Signs Temperature 98.2 F 04/21/20 11:06 Pulse Rate 80 04/21/20 11:06 Respiratory Rate 22 04/21/20 11:06 Blood Pressure 97/54 L 04/21/20 11:06 Pulse Oximetry 99 04/21/20 11:06 <Frantz Eli MD - Last Filed: 05/13/20 18:10> Initial Vital Signs Initial Vital Signs: Vital Signs Temperature 98.2 F 04/21/20 11:06 Pulse Rate 80 04/21/20 11:06 Respiratory Rate 22 04/21/20 11:06 Blood Pressure 97/54 L 04/21/20 11:06 Pulse Oximetry 99 04/21/20 11:06 Scores <MARISABEL NicoleBC - Last Filed: 04/21/20 19:46> GCS [place] coma scale eye opening: Spontaneous Solo coma scale verbal response: Orientated Solo coma scale motor response: Obey commands [place] coma scale total score: 15 Wells' Criteria for PE Clinical signs and symptoms of DVT: No PE is #1 Dx or equally likely: No Heart rate > 100: No Immobilization at least 3 days or surg in previous 4 weeks: No History of PE or DVT: Yes Hemoptysis: No Malignancy w/Treatment within 6 months or palliative: Yes Wells' PE Score total: 2.5 Course <DAVIDE Nicole-BC - Last Filed: 04/21/20 19:46> Orders Ordered: Discontinued Medications Heparin Sodium (Porcine) (Heparin Flush (Port)) 500 unit IV PRN PRN PRN Reason: Flush Last Admin: 04/21/20 17:15 Dose: 500 unit Documented by: RSTONE Sodium Chloride (Normal Saline 0.9%) 1,000 mls @ 150 mls/hr IV CONT GASTON Last Admin: 04/21/20 13:06 Dose: Not Given Documented by: RSTONE Sodium Chloride (Normal Saline 0.9%) 1,000 mls @ 1,000 mls/hr IV BOLUS ONE Stop: 04/21/20 15:44 Last Infusion: 04/21/20 17:00 Dose: 0 mls/hr Documented by: Admin: 04/21/20 15:11 Dose: 1,000 mls/hr Documented by: ZACHARY Oxymetazoline HCl (Afrin) 2 sprays NASAL NOW ONE Stop: 04/21/20 12:46 Last Admin: 04/21/20 13:06 Dose: Not Given Documented by: ZACHARY Vital Signs Vital signs: Vital Signs - 8 hr 04/21/20 13:00 04/21/20 14:40 04/21/20 15:58 Pulse Rate 75 77 81 Respiratory Rate 18 21 19 Blood Pressure [Left Arm] 121/59 L 96/52 L 123/56 L Pulse Oximetry 99 100 98 <Frantz Eli MD - Last Filed: 05/13/20 18:10> Orders Ordered: Discontinued Medications Heparin Sodium (Porcine) (Heparin Flush (Port)) 500 unit IV PRN PRN PRN Reason: Flush Last Admin: 04/21/20 17:15 Dose: 500 unit Documented by: RSTONE Sodium Chloride (Normal Saline 0.9%) 1,000 mls @ 150 mls/hr IV CONT GASTON Last Admin: 04/21/20 13:06 Dose: Not Given Documented by: ZACHARY Sodium Chloride (Normal Saline 0.9%) 1,000 mls @ 1,000 mls/hr IV BOLUS ONE Stop: 04/21/20 15:44 Last Infusion: 04/21/20 17:00 Dose: 0 mls/hr Documented by: Admin: 04/21/20 15:11 Dose: 1,000 mls/hr Documented by: ZACHARY Oxymetazoline HCl (Afrin) 2 sprays NASAL NOW ONE Stop: 04/21/20 12:46 Last Admin: 04/21/20 13:06 Dose: Not Given Documented by: ZACHARY Vital Signs Vital signs: Vital Signs - 8 hr 04/21/20 13:00 04/21/20 14:40 04/21/20 15:58 Pulse Rate 75 77 81 Respiratory Rate 18 21 19 Blood Pressure [Left Arm] 121/59 L 96/52 L 123/56 L Pulse Oximetry 99 100 98 MDM - Arrhythmia/Palpitations <MARISABEL Nicole - Last Filed: 04/21/20 19:46> Differential Diagnosis Differential diagnosis: Likely palpitations and sinus tachycardia Lab Data Attestation: I reviewed the patient's lab results. Result diagrams: 04/21/20 12:10 04/21/20 12:10 Labs: Lab Results 04/21/20 04/21/20 04/21/20 Range/Units 12:10 12:10 12:10 WBC 5.2 (4.5-11.0) X10^3/uL RBC 2.18 L (4.0-5.2) X10^6/uL Hgb 6.8 L* (12.0-16.0) g/dL Hct 19.6 L* (36-46) % MCV 90.3 (80-100) fL MCH 31.0 (26-34) PG MCHC 34.3 (30-36) % RDW 19.1 H (11.6-14.8) % Plt Count 123 L (150-400) X10^3/uL Neut % (Auto) 70.8 (50-75) % Lymph % (Auto) 23.2 L (25-40) % Glenn % (Auto) 5.7 (3-14) % Eos % (Auto) 0.1 L (2-4) % Baso % (Auto) 0.2 (0-2) % Neut # (Auto) 3700 (1595-4398) /uL Lymph # (Auto) 1200 (1492-6893) /uL Glenn # (Auto) 300 (0-900) /uL Eos # (Auto) 0 (0-450) /uL Baso # (Auto) 0 (0-100) /uL PT 13.5 H (10.1-12.7) SECONDS INR 1.2 (0.9-1.3) APTT 27 D (26.4-36.2) SECONDS Sodium 138 (137-145) mmol/L Potassium 3.7 (3.4-5.1) mmol/L Chloride 103 (98-107) mmol/L Carbon Dioxide 28 (22-32) mmol/L BUN 19 H (7-17) mg/dL Creatinine 0.78 (0.52-1.04) mg/dL Estimated GFR > 60.0 (>60) mL/min BUN/Creatinine Ratio 24.4 H (6-22) Glucose 100 (70-100) mg/dL Calcium 9.1 (8.4-10.2) mg/dL Magnesium (1.6-2.3) mg/dL Total Bilirubin 0.6 (0.2-1.3) mg/dL AST 14 (14-36) IU/L ALT 9 (<35) IU/L Alkaline Phosphatase 94 (38-126) U/L Total Creatine Kinase < 20 L (30-135) U/L CK-MB (CK-2) TNP CK-MB (CK-2) Rel Index TNP Troponin I < 0.012 (0.01-0.034) ng/mL NT-Pro-B Natriuret Pep 186 H (<125) pg/mL Total Protein 6.0 L (6.3-8.2) g/dL Albumin 3.0 L (3.5-5.0) g/dL Globulin 3.0 (1.7-4.1) g/dL Albumin/Globulin Ratio 1.0 (1.0-2.8) Lipase 39 (23-300) U/L Urine RBC (0-5/HPF) Urine WBC (0-5/HPF) Ur Squamous Epith Cells (0-5/HPF) Amorphous Sediment Urine Bacteria (None) Ur Culture Indicated? Blood Type Antibody Screen Antibody Identification 04/21/20 04/21/20 04/21/20 Range/Units 13:06 15:00 15:00 WBC (4.5-11.0) X10^3/uL RBC (4.0-5.2) X10^6/uL Hgb (12.0-16.0) g/dL Hct (36-46) % MCV (80-100) fL MCH (26-34) PG MCHC (30-36) % RDW (11.6-14.8) % Plt Count (150-400) X10^3/uL Neut % (Auto) (50-75) % Lymph % (Auto) (25-40) % Glenn % (Auto) (3-14) % Eos % (Auto) (2-4) % Baso % (Auto) (0-2) % Neut # (Auto) (5516-1155) /uL Lymph # (Auto) (7112-2539) /uL Glenn # (Auto) (0-900) /uL Eos # (Auto) (0-450) /uL Baso # (Auto) (0-100) /uL PT (10.1-12.7) SECONDS INR (0.9-1.3) APTT (26.4-36.2) SECONDS Sodium (137-145) mmol/L Potassium (3.4-5.1) mmol/L Chloride (98-107) mmol/L Carbon Dioxide (22-32) mmol/L BUN (7-17) mg/dL Creatinine (0.52-1.04) mg/dL Estimated GFR (>60) mL/min BUN/Creatinine Ratio (6-22) Glucose (70-100) mg/dL Calcium (8.4-10.2) mg/dL Magnesium 1.6 (1.6-2.3) mg/dL Total Bilirubin (0.2-1.3) mg/dL AST (14-36) IU/L ALT (<35) IU/L Alkaline Phosphatase (38-126) U/L Total Creatine Kinase (30-135) U/L CK-MB (CK-2) CK-MB (CK-2) Rel Index Troponin I (0.01-0.034) ng/mL NT-Pro-B Natriuret Pep (<125) pg/mL Total Protein (6.3-8.2) g/dL Albumin (3.5-5.0) g/dL Globulin (1.7-4.1) g/dL Albumin/Globulin Ratio (1.0-2.8) Lipase (23-300) U/L Urine RBC None seen (0-5/HPF) Urine WBC 10-30/hpf H (0-5/HPF) Ur Squamous Epith Cells 1-5 /hpf (0-5/HPF) Amorphous Sediment 1+ Urine Bacteria Moderate (10-30) H (None) Ur Culture Indicated? Specimen cultured Blood Type Cancelled Antibody Screen Cancelled Antibody Identification Cancelled 04/21/20 Range/Units 15:00 WBC (4.5-11.0) X10^3/uL RBC (4.0-5.2) X10^6/uL Hgb (12.0-16.0) g/dL Hct (36-46) % MCV (80-100) fL MCH (26-34) PG MCHC (30-36) % RDW (11.6-14.8) % Plt Count (150-400) X10^3/uL Neut % (Auto) (50-75) % Lymph % (Auto) (25-40) % Glenn % (Auto) (3-14) % Eos % (Auto) (2-4) % Baso % (Auto) (0-2) % Neut # (Auto) (9631-7090) /uL Lymph # (Auto) (3502-4868) /uL Glenn # (Auto) (0-900) /uL Eos # (Auto) (0-450) /uL Baso # (Auto) (0-100) /uL PT (10.1-12.7) SECONDS INR (0.9-1.3) APTT (26.4-36.2) SECONDS Sodium (137-145) mmol/L Potassium (3.4-5.1) mmol/L Chloride (98-107) mmol/L Carbon Dioxide (22-32) mmol/L BUN (7-17) mg/dL Creatinine (0.52-1.04) mg/dL Estimated GFR (>60) mL/min BUN/Creatinine Ratio (6-22) Glucose (70-100) mg/dL Calcium (8.4-10.2) mg/dL Magnesium (1.6-2.3) mg/dL Total Bilirubin (0.2-1.3) mg/dL AST (14-36) IU/L ALT (<35) IU/L Alkaline Phosphatase (38-126) U/L Total Creatine Kinase (30-135) U/L CK-MB (CK-2) CK-MB (CK-2) Rel Index Troponin I < 0.012 (0.01-0.034) ng/mL NT-Pro-B Natriuret Pep (<125) pg/mL Total Protein (6.3-8.2) g/dL Albumin (3.5-5.0) g/dL Globulin (1.7-4.1) g/dL Albumin/Globulin Ratio (1.0-2.8) Lipase (23-300) U/L Urine RBC (0-5/HPF) Urine WBC (0-5/HPF) Ur Squamous Epith Cells (0-5/HPF) Amorphous Sediment Urine Bacteria (None) Ur Culture Indicated? Blood Type Antibody Screen Antibody Identification Urine Dip Bedside Urine Glucose Negative Bedside Urine Bilirubin + 1 Bedside Urine Ketone - Negative Urine Specific [place] 1.015 Bedside Urine Occult Blood - Negative Bedside Urine pH 6.0 Bedside Urine Protein + 30 Bedside Urine Urobilinogen +/- 1mg Bedside Urine Nitrite - Negative Bedside Urine Leukocytes +/- 15 Esterase Imaging Data Chest x-ray: Radiologist's Impresson: [address] [place] [id number] XRay Report Signed Patient: Alva Lozano [facility]#: [id number] : 2Acct:[id number] Age/Sex: 59 / FDate of Service: 04/21/20 Loc: ED Accession Number: [id number] Procedure: XR chest 1V Ordering Provider: Magda Singh PROCEDURE: XR CHEST 1V INDICATIONS: chest pain TECHNIQUE: One view of the chest was acquired. COMPARISON: [facility], , XR CHEST 1V, 12/19/2019, 10:34. FINDINGS: Surgical changes and devices: Clips within the right upper quadrant are present related to prior cholecystectomy. There is a right-sided Port-A-Cath central line identified with the tip overlying the high superior vena cava. Lungs and pleura: Lungs are clear. No pleural effusions or pneumothorax. Mediastinum: Mediastinal contours appear normal. Heart size is normal. Bones and chest wall: No suspicious bony lesions. Overlying soft tissues appear unremarkable. IMPRESSION: Stable chest. No acute cardiopulmonary process is evident. Dictated by: Sanchez Jones M.D. on 04/21/2020 at 10:41 Approved by: Sanchez Jones M.D. on 04/21/2020 at 10:42 ECG Data Attestation: I personally reviewed and interpreted this ECG as follows: Interpretation: Sinus rhythm. Ventricular 81. P.r. interval 141. QRS 97. Viewed by Alcira MELENDREZ Narrative Medical decision making narrative: The patient is a 59-year-old female with a complex medical history including DVT as well as anemia, ovarian cancer that is recurring and treatment. She presents with chest pain and shortness of breath earlier today. Given her DVT history, ultrasound was obtained which is clear for DVT. CT PA was completed in order to evaluate for possible PE, which came back negative., negative repeat troponin. She felt much improved after 2 L of IV fluid. She is noted to be anemic, with a hemoglobin of 6.8 as opposed to 8.4 few days ago. I offered rectal exam for Hemoccult, patient states that this level of anemia is not abnormal for her. This is confirmed by chart review which shows a hemoglobin down to 6.5 previously. Chart review also illustrate a history of chest pain as per Dr. Wing's notes. I spoke with Dr. Reilly regarding the patient, on-call for Dr. Wing, who states that the patient does need to be transfused. However the patient has so many antibodies it takes a long time to match her blood. He states that since she runs anemic, 6.8 is not very low for her and she can follow up with Dr. Wing tomorrow to arrange an outpatient transfusion rather than coming inpatient. The patient states that this is preferable and she would rather go home than come into the hospital and wait for for blood. I called and spoke with blood bank and they will work on arranging for blood tomorrow. I discussed at length coming back to the emergency department for any acute concerns as well as strict follow-up with [facility] provider as well as Dr. Wing tomorrow. Patient has no questions or concerns upon discharge and states understanding return precautions as well as follow-up care. <Frantz Eli MD - Last Filed: 05/13/20 18:10> Lab Data Labs: Lab Results 04/21/20 04/21/20 04/21/20 Range/Units 12:10 12:10 12:10 WBC 5.2 (4.5-11.0) X10^3/uL RBC 2.18 L (4.0-5.2) X10^6/uL Hgb 6.8 L* (12.0-16.0) g/dL Hct 19.6 L* (36-46) % MCV 90.3 (80-100) fL MCH 31.0 (26-34) PG MCHC 34.3 (30-36) % RDW 19.1 H (11.6-14.8) % Plt Count 123 L (150-400) X10^3/uL Neut % (Auto) 70.8 (50-75) % Lymph % (Auto) 23.2 L (25-40) % Glenn % (Auto) 5.7 (3-14) % Eos % (Auto) 0.1 L (2-4) % Baso % (Auto) 0.2 (0-2) % Neut # (Auto) 3700 (3481-9624) /uL Lymph # (Auto) 1200 (1469-6547) /uL Glenn # (Auto) 300 (0-900) /uL Eos # (Auto) 0 (0-450) /uL Baso # (Auto) 0 (0-100) /uL PT 13.5 H (10.1-12.7) SECONDS INR 1.2 (0.9-1.3) APTT 27 D (26.4-36.2) SECONDS Sodium 138 (137-145) mmol/L Potassium 3.7 (3.4-5.1) mmol/L Chloride 103 (98-107) mmol/L Carbon Dioxide 28 (22-32) mmol/L BUN 19 H (7-17) mg/dL Creatinine 0.78 (0.52-1.04) mg/dL Estimated GFR > 60.0 (>60) mL/min BUN/Creatinine Ratio 24.4 H (6-22) Glucose 100 (70-100) mg/dL Calcium 9.1 (8.4-10.2) mg/dL Magnesium (1.6-2.3) mg/dL Total Bilirubin 0.6 (0.2-1.3) mg/dL AST 14 (14-36) IU/L ALT 9 (<35) IU/L Alkaline Phosphatase 94 (38-126) U/L Total Creatine Kinase < 20 L (30-135) U/L CK-MB (CK-2) TNP CK-MB (CK-2) Rel Index TNP Troponin I < 0.012 (0.01-0.034) ng/mL NT-Pro-B Natriuret Pep 186 H (<125) pg/mL Total Protein 6.0 L (6.3-8.2) g/dL Albumin 3.0 L (3.5-5.0) g/dL Globulin 3.0 (1.7-4.1) g/dL Albumin/Globulin Ratio 1.0 (1.0-2.8) Lipase 39 (23-300) U/L Urine RBC (0-5/HPF) Urine WBC (0-5/HPF) Ur Squamous Epith Cells (0-5/HPF) Amorphous Sediment Urine Bacteria (None) Ur Culture Indicated? Blood Type Antibody Screen Antibody Identification 04/21/20 04/21/20 04/21/20 Range/Units 13:06 15:00 15:00 WBC (4.5-11.0) X10^3/uL RBC (4.0-5.2) X10^6/uL Hgb (12.0-16.0) g/dL Hct (36-46) % MCV (80-100) fL MCH (26-34) PG MCHC (30-36) % RDW (11.6-14.8) % Plt Count (150-400) X10^3/uL Neut % (Auto) (50-75) % Lymph % (Auto) (25-40) % Glenn % (Auto) (3-14) % Eos % (Auto) (2-4) % Baso % (Auto) (0-2) % Neut # (Auto) (9159-1077) /uL Lymph # (Auto) (9692-6366) /uL Glenn # (Auto) (0-900) /uL Eos # (Auto) (0-450) /uL Baso # (Auto) (0-100) /uL PT (10.1-12.7) SECONDS INR (0.9-1.3) APTT (26.4-36.2) SECONDS Sodium (137-145) mmol/L Potassium (3.4-5.1) mmol/L Chloride (98-107) mmol/L Carbon Dioxide (22-32) mmol/L BUN (7-17) mg/dL Creatinine (0.52-1.04) mg/dL Estimated GFR (>60) mL/min BUN/Creatinine Ratio (6-22) Glucose (70-100) mg/dL Calcium (8.4-10.2) mg/dL Magnesium 1.6 (1.6-2.3) mg/dL Total Bilirubin (0.2-1.3) mg/dL AST (14-36) IU/L ALT (<35) IU/L Alkaline Phosphatase (38-126) U/L Total Creatine Kinase (30-135) U/L CK-MB (CK-2) CK-MB (CK-2) Rel Index Troponin I (0.01-0.034) ng/mL NT-Pro-B Natriuret Pep (<125) pg/mL Total Protein (6.3-8.2) g/dL Albumin (3.5-5.0) g/dL Globulin (1.7-4.1) g/dL Albumin/Globulin Ratio (1.0-2.8) Lipase (23-300) U/L Urine RBC None seen (0-5/HPF) Urine WBC 10-30/hpf H (0-5/HPF) Ur Squamous Epith Cells 1-5 /hpf (0-5/HPF) Amorphous Sediment 1+ Urine Bacteria Moderate (10-30) H (None) Ur Culture Indicated? Specimen cultured Blood Type Cancelled Antibody Screen Cancelled Antibody Identification Cancelled 04/21/20 Range/Units 15:00 WBC (4.5-11.0) X10^3/uL RBC (4.0-5.2) X10^6/uL Hgb (12.0-16.0) g/dL Hct (36-46) % MCV (80-100) fL MCH (26-34) PG MCHC (30-36) % RDW (11.6-14.8) % Plt Count (150-400) X10^3/uL Neut % (Auto) (50-75) % Lymph % (Auto) (25-40) % Glenn % (Auto) (3-14) % Eos % (Auto) (2-4) % Baso % (Auto) (0-2) % Neut # (Auto) (7627-4835) /uL Lymph # (Auto) (0721-6811) /uL Glenn # (Auto) (0-900) /uL Eos # (Auto) (0-450) /uL Baso # (Auto) (0-100) /uL PT (10.1-12.7) SECONDS INR (0.9-1.3) APTT (26.4-36.2) SECONDS Sodium (137-145) mmol/L Potassium (3.4-5.1) mmol/L Chloride (98-107) mmol/L Carbon Dioxide (22-32) mmol/L BUN (7-17) mg/dL Creatinine (0.52-1.04) mg/dL Estimated GFR (>60) mL/min BUN/Creatinine Ratio (6-22) Glucose (70-100) mg/dL Calcium (8.4-10.2) mg/dL Magnesium (1.6-2.3) mg/dL Total Bilirubin (0.2-1.3) mg/dL AST (14-36) IU/L ALT (<35) IU/L Alkaline Phosphatase (38-126) U/L Total Creatine Kinase (30-135) U/L CK-MB (CK-2) CK-MB (CK-2) Rel Index Troponin I < 0.012 (0.01-0.034) ng/mL NT-Pro-B Natriuret Pep (<125) pg/mL Total Protein (6.3-8.2) g/dL Albumin (3.5-5.0) g/dL Globulin (1.7-4.1) g/dL Albumin/Globulin Ratio (1.0-2.8) Lipase (23-300) U/L Urine RBC (0-5/HPF) Urine WBC (0-5/HPF) Ur Squamous Epith Cells (0-5/HPF) Amorphous Sediment Urine Bacteria (None) Ur Culture Indicated? Blood Type Antibody Screen Antibody Identification Urine Dip Bedside Urine Glucose Negative Bedside Urine Bilirubin + 1 Bedside Urine Ketone - Negative Urine Specific [place] 1.015 Bedside Urine Occult Blood - Negative Bedside Urine pH 6.0 Bedside Urine Protein + 30 Bedside Urine Urobilinogen +/- 1mg Bedside Urine Nitrite - Negative Bedside Urine Leukocytes +/- 15 Esterase Discharge Plan Departure Patient Disposition: Home Clinical Impression: Acute UTI, Anemia, Chest pain Discharge Date/Time: 04/21/20 17:33 Instructions: Anemia, DI for Urinary Tract Infection (UTI), DI for Atypical Chest Pain Activity Restrictions/Additional Instructions: Thank you for trusting us with your care today Your urine is still concerning for infection, so I sent a prescription of Bactrim to [facility] As discussed, your hemoglobin has dropped to 6.8. I spoke to Dr Reilly, who is on-call for Dr. Wing. Please follow-up with their office tomorrow morning. We are working to arrange transfusion tomorrow. As discussed, your ultrasound of your arm came back well, your chest CT came back with no clot, you have had two negative cardiac enzyme tests several hours apart Please follow-up with primary care provider as well. Please follow-up with Dr. Wing tomorrow As discussed, please come back to the emergency department for any acute concerns Prescriptions: No Action fluoxetine 20 mg tablet 30 mg PO DAILY Qty: 120 RF: 0 prochlorperazine maleate [Compazine] 10 mg Tablet 10 mg PO Q6H PRN (Reason: nausea and vomiting. ) Qty: 100 RF: 2 potassium chloride [Klor-Con M20] 20 mEq Tablet,Er Particles/Crystals 20 meq PO BID Qty: 14 RF: 0 lorazepam 0.5 mg tablet 0.5 mg PO TIDP PRN (Reason: anxiety) Qty: 30 RF: 2 cyanocobalamin (vitamin B-12) [Vitamin B-12] 2,500 mcg Tablet, Sublingual 2,500 mcg PO BID RF: 0 levothyroxine 112 mcg Tablet 112 mcg PO DAILY RF: 0 cholecalciferol (vitamin D3) [Vitamin D3] 125 mcg (5,000 unit) Tablet 125 mcg PO BID RF: 0 Disabled Parking Permit 1 ea miscellaneous DIRECTED RF: 0 acetaminophen [Tylenol] 325 mg capsule 650 mg PO QID PRN (Reason: pain) Qty: 60 RF: 0 Referrals: Julio César Wing MD [Family Provider] - Kay Elias DO [Primary Care Provider] - <Frantz Eli MD - Last Filed: 05/13/20 18:10> Cosign ED Attending Cosignature Attestation: I was immediately available in the department for consultation. This documentation has been reviewed and I agree with assessment and plan. Supervised by Frantz Eli MD
[2020-04-21 12:23] LABS: Add Manual Diff / Slide Review NO; Basophils Absolute Auto 0 /uL (0-100); Basophils Percent Auto 0.2 % (0-2); Eosinophils Absolute Auto 0 /uL (0-450); Eosinophils Percent Auto 0.1 % (2-4); INR 1.2 (0.9-1.3); Lymphocytes Absolute Auto 1200 /uL (1100-4500); Lymphocytes Percent Auto 23.2 % (25-40); Mean Corpuscular HGB Conc 34.3 % (30-36); Mean Corpuscular Volume 90.3 fL (80-100); Monocytes Absolute Auto 300 /uL (0-900); Monocytes Percent Auto 5.7 % (3-14); Neutrophils Absolute Auto 3700 /uL (1500-7000); Neutrophils Percent Auto 70.8 % (50-75); Platelet Count 123 X10^3/uL (150-400); Prothrombin Time 13.5 SECONDS (10.1-12.7); Red Blood Cell Count 2.18 X10^6/uL (4.0-5.2); Red Cell Distribution Width 19.1 % (11.6-14.8); White Blood Cell Count 5.2 X10^3/uL (4.5-11.0)
[2020-04-21 12:24] LABS: Hematocrit 19.6 % (36-46); Hemoglobin 6.8 g/dL (12.0-16.0)
[2020-04-21 12:25] LABS: PTT Partial Thromboplastin Tim 27 SECONDS (26.4-36.2)
[2020-04-21 12:27] LABS: Alanine Aminotransferase 9 IU/L (<35); Alkaline Phosphatase 94 U/L (38-126); Aspartate Aminotransferase 14 IU/L (14-36); BUN Creatinine Ratio 24.4 (6-22); Bilirubin Total 0.6 mg/dL (0.2-1.3); Blood Urea Nitrogen 19 mg/dL (7-17); Calcium 9.1 mg/dL (8.4-10.2); Carbon Dioxide 28 mmol/L (22-32); Chloride 103 mmol/L (98-107); Creatine Kinase < 20 U/L (30-135); Estimated Glomerular Filt Rate > 60.0 mL/min (>60); Glucose 100 mg/dL (70-100); HEMOLYSIS < 15 (0-50); Lipase 39 U/L (23-300); Potassium 3.7 mmol/L (3.4-5.1); Sodium 138 mmol/L (137-145)
[2020-04-21 12:37] LABS: NT-proBNP (BNP-Adult 18+) 186 pg/mL (<125)
[2020-04-21 12:39] LABS: Troponin I < 0.012 ng/mL (0.01-0.034)
--- NOTE | 2020-04-21 12:44 | DI.CT.S_ITS ---
PROCEDURE: CT ANGIO CHEST PE PROTOCOL INDICATIONS: chest pain, hx dvt, chemo TECHNIQUE: After the administration of intravenous contrast, 2 mm thick sections acquired from the pulmonary apices to the posterior costophrenic angles. 3-dimensional maximum intensity projection (MIP) coronal and sagittal reformats were then acquired through the thorax. For radiation dose reduction, the following was used: automated exposure control, adjustment of mA and/or kV according to patient size. COMPARISON: [facility], CT, CT CHEST ABD PEL W CON, 09/22/2019, 12:18. FINDINGS: Image quality: Diagnostic. Pulmonary arteries: Pulmonary arteries are normal in size, and demonstrate no intraluminal filling defects to suggest central pulmonary embolism. Lungs and pleura: The lungs are well aerated without focal consolidation, effusion, or pneumothorax. No overt heart failure is identified. There may be minimal atelectasis within the posterior costophrenic angles. There is a 6 x 7 mm nodule identified within the posterior aspect of the left upper lobe, previously measuring 6 x 6 mm when remeasured in a similar configuration. There is also mild nodular density identified along the superior aspect of the right lower lobe adjacent to the major pulmonary fissure that measures up to approximately 5 mm in diameter (image 42, series 4), which was not evident on the previous exam. Minimal adjacent ground glass attenuation is identified within this region. Mediastinum: Heart size is mildly enlarged, without pericardial effusion. Coronary artery atherosclerosis is present. No mediastinal or hilar adenopathy. Thoracic aorta is normal in caliber and enhancement. There is aortic atherosclerosis. Mild prominence of the wall of the esophagus is present. There is a small hiatal hernia. A right-sided Port-A-Cath central line is identified with the tip positioned within the superior vena cava. The exact position of the tip is obscured by high attenuation contrast material. Bones and chest wall: No suspicious bony lesions. Ribs and thoracic spine appear intact throughout. However, slight deformity involving the medial margins of the 11th and 12th left ribs are compatible with old injuries/healed fractures. Moderate to severe degenerative changes of the thoracic spine are noted. Thyroid gland is not enlarged or adequately characterized. No axillary or supraclavicular adenopathy. Abdomen: Included portions of the upper abdomen demonstrate the liver and spleen to appear bulky and may be mildly enlarged, but are not adequately characterized. There is enlargement of the right adrenal gland demonstrating heterogeneous enhancement and density, measuring 2.6 x 2.9 cm, which is unchanged since the prior exam. Otherwise, the included portions of the upper abdomen are unremarkable. IMPRESSION: 1. No evidence of pulmonary emboli. 2. No acute cardiopulmonary process is evident. 3. Cardiomegaly without overt heart failure. 4. Coronary and aortic atherosclerosis. 5. Small hiatal hernia. 6. Right adrenal mass is unchanged. 7. Unchanged left upper lobe pulmonary nodule. There appears to be a new superior right lower lobe pulmonary nodule. Six-month followup CT of the chest is recommended. Dictated by: Sanchez Jones M.D. on 04/21/2020 at 13:06 Approved by: Sanchez Jones M.D. on 04/21/2020 at 13:13
[2020-04-21 13:00] VITALS: BP 121/59; PULSE 75; RESP 18; O2SAT 99
--- NOTE | 2020-04-21 13:08 | DI.US.S_ITS ---
PROCEDURE: [facility] VENOUS UP EXTREM RT INDICATIONS: RIGHT ARM PAIN; RECENT JUGULAR THROMBUS TECHNIQUE: Real-time imaging, as well as color and pulse Doppler interrogation, was performed of the right upper extremity deep veins from the inferior neck to the antecubital fossa. COMPARISON: [facility], , [facility] VENOUS UP EXTREM RT, 02/08/2020, 10:50. FINDINGS: The internal jugular vein, visualized portions of the subclavian vein, axillary, and brachial veins are free of intraluminal thrombus. Where physically possible, the veins are normally compressible. Color and pulse Doppler demonstrate normal intraluminal flow, with expected phasicity and pulsatility. Additional scanning of the cephalic and basilic veins of the superficial system demonstrate normal compressibility, without thrombus. IMPRESSION: Previously seen deep vein thrombus has resolved in the interim within the right upper extremity. No new thrombus is evident. Dictated by: Sanchez Jones M.D. on 04/21/2020 at 13:31 Approved by: Sanchez Jones M.D. on 04/21/2020 at 13:31
[2020-04-21 13:51] LABS: RBC Urine None Seen (0-5/HPF)
[2020-04-21 14:02] LABS: Amorphous Sediment Urine 1+; Bacteria Urine Moderate (10-30); Culture Indicated Urine Specimen Cultured; Squamous Epithelial Cell Urine 1-5 /HPF (0-5/HPF); WBC Urine 10-30/HPF (0-5/HPF)
[2020-04-21 14:40] VITALS: BP 96/52; PULSE 77; RESP 21; O2SAT 100
[2020-04-21] MEDS: SODIUM CHLORIDE 0.9% 1,000 ML 1000 ML IV (15:11)
[2020-04-21 15:31] LABS: Troponin I < 0.012 ng/mL (0.01-0.034)
[2020-04-21 15:43] LABS: Magnesium 1.6 mg/dL (1.6-2.3)
[2020-04-21 15:58] VITALS: BP 123/56; PULSE 81; RESP 19; O2SAT 98
== END 2020-04-21 17:33 | disposition home or self-care (01) ==
PROVIDERS: Emergency Provider Nurse Practitioner Family; Family Provider Internal Medicine Hematology & Oncology; PCP Family Medicine
DX: R07.9 Chest pain, unspecified (principal); N39.0 Urinary tract infection, site not specified; D64.9 Anemia, unspecified; C56.9 Malignant neoplasm of unspecified ovary
CPT/HCPCS: 36415; 71045; 71275; 80053; 81003; 81015; 82550; 83690; 83735; 83880; 84484; 85025; 85610; 85730; 86850; 86870; 86900; 86901; 87086; 93005; 93971; 96360; 96361; 99284; J1642; Q9967

== ENCOUNTER → 2020-04-26 09:19 | Outpatient (CLI) | payer MEDICARE, SELFPAY | PROVIDERS: Family Provider Internal Medicine Hematology & Oncology; PCP Family Medicine; Visit Provider Family Medicine | DX: R30.0 Dysuria (principal) | CPT/HCPCS: 87086 ==

== ENCOUNTER 2020-04-27 15:28 | Emergency (ER) | payer MEDICARE, SELFPAY ==
[2020-04-27] VITALS (11 sets, daily range): BP systolic 103–171; BP diastolic 56–72; PULSE 70–103; RESP 15–24; TEMP 36.7–37.8; O2SAT 92–99; BMI 33.0
--- NOTE | 2020-04-27 16:03 | DI.RAD.S_ITS ---
PROCEDURE: XR CHEST 1V INDICATIONS: suspected sepsis TECHNIQUE: One view of the chest was acquired. COMPARISON: [facility], CT, CT ANGIO CHEST PE PROTOCOL, 04/21/2020, 13:36. [facility], CR, XR CHEST 1V, 12/19/2019, 10:34. [facility], CR, XR CHEST 1V, 04/21/2020, 11:28. FINDINGS: Surgical changes and devices: There is a stable right-sided chest port. Cholecystectomy clips are seen. Lungs and pleura: Lungs are clear. No pleural effusions or pneumothorax. Mediastinum: Mediastinal contours appear normal. Heart size is normal. Bones and chest wall: No suspicious bony lesions. Mild levoconvex scoliotic curvature is noted. Age-appropriate bony degenerative changes are seen. Overlying soft tissues appear unremarkable. IMPRESSION: No focal infiltrates are seen. If there is clinical concern for a developing pulmonary process, a short-term followup chest series (with PA and lateral views, performed in deep inspiration) is suggested for further evaluation. Postoperative and degenerative changes are seen. Dictated by: Moisés Anderson M.D. on 04/27/2020 at 15:35 Approved by: Moisés Anderson M.D. on 04/27/2020 at 15:36
[2020-04-27] MEDS: CEFEPIME 2 GM in SODIUM CHLORIDE 0.9% 100 ML 200 ML IV (16:32)
[2020-04-27] MEDS: SODIUM CHLORIDE 0.9% 1,000 ML 2000 ML IV (16:32)
[2020-04-27 16:39] LABS: Add Manual Diff / Slide Review NO; Basophils Absolute Auto 0 /uL (0-100); Basophils Percent Auto 0.2 % (0-2); Eosinophils Absolute Auto 0 /uL (0-450); Eosinophils Percent Auto 0.3 % (2-4); Hematocrit 26.9 % (36-46); Hemoglobin 9.3 g/dL (12.0-16.0); Lymphocytes Absolute Auto 1700 /uL (1100-4500); Lymphocytes Percent Auto 22.5 % (25-40); Mean Corpuscular HGB Conc 34.4 % (30-36); Mean Corpuscular Hemoglobin 30.7 PG (26-34); Mean Corpuscular Volume 89.2 fL (80-100); Monocytes Absolute Auto 1600 /uL (0-900); Monocytes Percent Auto 21.4 % (3-14); Neutrophils Absolute Auto 4100 /uL (1500-7000); Neutrophils Percent Auto 55.6 % (50-75); Platelet Count 477 X10^3/uL (150-400); Red Blood Cell Count 3.02 X10^6/uL (4.0-5.2); Red Cell Distribution Width 18.2 % (11.6-14.8); White Blood Cell Count 7.4 X10^3/uL (4.5-11.0)
[2020-04-27 16:45] LABS: INR 1.2 (0.9-1.3)
[2020-04-27 16:48] LABS: PTT Partial Thromboplastin Tim 28 SECONDS (26.4-36.2)
[2020-04-27 16:55] LABS: Alanine Aminotransferase 14 IU/L (<35); Albumin 3.1 g/dL (3.5-5.0); Albumin Globulin Ratio 0.9 (1.0-2.8); Alkaline Phosphatase 259 U/L (38-126); Aspartate Aminotransferase 21 IU/L (14-36); BUN Creatinine Ratio 17.2 (6-22); Bilirubin Total 0.5 mg/dL (0.2-1.3); Blood Urea Nitrogen 15 mg/dL (7-17); Calcium 9.2 mg/dL (8.4-10.2); Carbon Dioxide 25 mmol/L (22-32); Chloride 98 mmol/L (98-107); Estimated Glomerular Filt Rate > 60.0 mL/min (>60); Globulin 3.4 g/dL (1.7-4.1); Glucose 101 mg/dL (70-100); HEMOLYSIS < 15 (0-50); Lipase 30 U/L (23-300); Potassium 3.7 mmol/L (3.4-5.1); Sodium 132 mmol/L (137-145); Total Protein 6.5 g/dL (6.3-8.2)
[2020-04-27 16:56] LABS: Lactate (Lactic Acid) 1.1 mmol/L (0.7-2.1)
[2020-04-27 16:59] LABS: Creatine Kinase 27 U/L (30-135)
[2020-04-27 17:09] LABS: Erythrocyte Sedimentation Rate > 140 MM/HR (0-20)
[2020-04-27 17:16] LABS: Procalcitonin 0.27 ng/mL (<0.5)
[2020-04-27 17:25] LABS: C-Reactive Protein Quant 30.9 mg/dL (<1.0)
[2020-04-27] MEDS: ACETAMINOPHEN 325 MG TABLET 975 MG PO ×2 (17:52→23:22)
--- NOTE | 2020-04-27 17:59 | ED_ITS ---
HPI - Female Genitourinary <Nathanael Avelar MD - Last Filed: 04/28/20 07:50> General Chief complaint: Urogenital-Female Stated complaint: states Kidney infection, UTI, and Bladder infectio Time Seen by Provider: 04/27/20 16:08 Source: patient Mode of arrival: Ambulatory Limitations: no limitations History of Present Illness HPI Narrative: cc: Lower abdominal pelvic pain. HPI: The patient is a 59-year-old female who states that she is having a recurrence of her ovarian cancer and has been receiving chemotherapy. She has had a low white blood count and her last dose of chemotherapy was 2 weeks ago . She states that she was having increased urinary frequency urgency and dysuria 1 week ago and was started on an antibiotic. She has developed progressively worsening lower abdominal pain and back pain. The patient states that she has a history of low white blood count and did not receive chemotherapy this week. However on she was transfused 2 units of packed red blood cells because she has progressive anemia. She states that in the last 2 weeks she has received 6 blood transfusions. Her oncologist is . She complains that she has been having urinary frequency and urgency and she becomes incontinent of urine when she stands up. For pain and discomfort she has been taking just Tylenol. She has not been taking any opiate medications. Her pain is approximately 5 to 7/10 in intensity. She denies a history of asthma hypertension and diabetes mellitus. She does not smoke cigarettes drink alcohol use any drugs or marijuana products. Related Data Home Medications Medication Instructions Recorded Confirmed Disabled Parking Permit 1 ea MISCELLANEOUS DIRECTED 09/22/19 03/21/20 cholecalciferol (vitamin D3) 125 mcg PO BID 04/11/20 04/11/20 [Vitamin D3] cyanocobalamin (vitamin B-12) 2,500 mcg PO BID 04/11/20 04/11/20 [Vitamin B-12] fluoxetine 20 mg PO DAILY 04/11/20 04/11/20 levothyroxine 112 mcg PO DAILY 04/11/20 04/11/20 Previous Rx's Medication Instructions Recorded acetaminophen [Tylenol] 650 mg PO QID PRN #60 cap 12/19/19 prochlorperazine maleate 10 mg PO Q6H PRN #100 tab 01/11/20 [Compazine] lorazepam 0.5 mg PO TIDP PRN #30 tab 02/29/20 potassium chloride [Klor-Con M20] 20 meq PO BID #14 tab 02/29/20 sulfamethoxazole-trimethoprim 1 tab PO BID 7 Days #14 tab 04/21/20 [Bactrim DS] Allergies Allergy/AdvReac Type Severity Reaction Status Date / Time shellfish derived Allergy Severe breathing Verified 04/21/20 11:11 difficulties if ingested; hives when touched codeine Allergy Mild UNKNOWN Verified 04/21/20 11:11 Review of Systems <Nathanael Avelar MD - Last Filed: 04/28/20 07:50> Review of Systems Narrative: REVIEW OF SYSTEMS: CONSTITUTIONAL: She states that she has been having intermittent fever chills a nd sweats. Over the last few days prior to admission. NEUROLOGICAL: She has a chronic mild headache but has had no numbness tingling paresthesias anesthesia is or paresis. EENT: She has had no change in vision nasal drainage sinus congestion dysphagia or change in vision. CARDIO-PULMONARY: She denies any significant shortness of breath cough chest pain palpitations or dizziness. GASTROINTESTINAL: The patient has had persistent nausea without vomiting she has had no diarrhea and states that she has not had a bowel movement in the last week. GENITAL URINARY: She complains of dysuria urinary frequency and urgency and incontinence on standing MUSCULOSKELETAL/ RHEUMATOLOGICAL: She complains of increased lower back pain. : Patient History <Nathanael Avelar MD - Last Filed: 04/28/20 07:50> Medical History Acute lower gastrointestinal bleeding (Inactive ~09/30/19) Anxiety (Chronic) Delayed surgical wound healing (Acute) Depression (Chronic) Hyperlipidemia (Acute) Hypothyroid (Acute 02/15/12) MS (multiple sclerosis) (Chronic ~1987) Ovarian cancer (Resolved ~2011) Sigmoid diverticulosis (Acute) Surgical History History of removal of Port-a-Cath (Acute) History of surgery (Acute 08/01/12) History of third molar tooth extraction (Resolved) Hx of exploratory laparotomy (Acute 10/02/19) S/P total abdominal hysterectomy and bilateral salpingo-oophorectomy (Resolved 2011) Status post appendectomy (Resolved 1982) Status post cholecystectomy (Resolved 1987) Family History Sister Aneurysm Sister Age: 56 Breast cancer alcohol intake frequency: holidays/special occasions only Substance Use Type: does not use Exam <Nathanael Avelar MD - Last Filed: 04/28/20 07:50> Narrative Exam Narrative: PHYSICAL EXAM: CONSTITUTIONAL: Awake, Alert, Oriented, Coherent, Cooperative in NAD. Does not appear toxic or ill. HEAD: AT/NC EENT: PERRL, FROM of eyes, no discharge, no nystagmus NOSE:No epistaxis or nasal drainage MOUTH:Oral mucosa is moist and pink, posterior pharynx is without erythema or exudate. NECK: Supple, no obvious JVD, Trachea is midline without stridor, no palpable LN. SPINE: Palpationof the cervical, Thoracic, Lumbar or Sacral spine reveals no angelito ss deformity or tenderness. She has bilateral costovertebral angle tenderness. THORAX: No deformity, retractions, chest wall tenderness. She has a port in her right chest. LUNGS: She has basically clear breath sounds with a few expiratory rhonchi in her right posterior chest that clears with continued breathing and cough HEART: The patient's rhythm is tachycardic with normal heart tones no teodora reciable murmur ABDOMEN: Diffuse tenderness suprapubically and in the right lower quadrant without any palpable organomegaly. The she has mild guarding but no rebound no rigidity noted. EXTREMITIES: No edema, deformity, tenderness or cyanosis. SKIN: No rash, bruising, petechiae or purpura. NEURO: Awake, alert, oriented, conversive, cranial nerves II-XII are symmetrical , moves all 4 extremities and is ambulatory. MENTAL HEALTH: Does not appear anxious or depressed. Initial Vital Signs Initial Vital Signs: Vital Signs Temperature 99.5 F 04/27/20 15:46 Pulse Rate 103 H 04/27/20 15:46 Respiratory Rate 21 04/27/20 15:46 Blood Pressure 171/72 H 04/27/20 15:46 Pulse Oximetry 92 04/27/20 15:46 <Rosa M Perez MD - Last Filed: 04/28/20 00:57> Initial Vital Signs Initial Vital Signs: Vital Signs Temperature 99.5 F 04/27/20 15:46 Pulse Rate 103 H 04/27/20 15:46 Respiratory Rate 21 04/27/20 15:46 Blood Pressure 171/72 H 04/27/20 15:46 Pulse Oximetry 92 04/27/20 15:46 Course <Nathanael Avelar MD - Last Filed: 04/28/20 07:50> Course Course Narrative: 1740: The patient's chest x-ray revealed no focal infiltrates or acute cardiopulmonary pathology. Review of the patient's radiological records reveal no recent CT scan of her abdomen and pelvis. The patient at this time is complaining of increased abdominal pain and pelvic pain and discomfort with constipation and no bowel movement in over 1 week. The patient is not taking any pain medication other than Tylenol. She states that on she was transfused 2 units of packed red blood cells. White blood count 7.4 hemoglobin 9.3 hematocrit 26.9, ESR greater than 140, GFR is greater than 60 with a creatinine is 0.87 the, lactate is 1.1, bilirubin is 0.5 AST 21 ALT 14 alkaline phosphatase is elevated 259 CPK 27 C reactive protein is 30.9. Lipase is 30 procalcitonin is 0.27 urine red blood cells 1-5 per high- power field urine white blood count 1 to 5 per high-power field squamous epithelial cells 5-10 per high-power field few bacteria culture and sensitivity not indicated. The patient was informed of her laboratory results. A CT was ordered because she complained of increasing abdominal pain with her cancer and inability to have a bowel movement. She was informed that despite her dysuria urinary frequency her urinalysis came back negative and did not show any signs of infection. However she did spike a temperature to 100.0.Report was given to Dr. Perez to disposition and review her abdominal CT scan. Orders Ordered: Discontinued Medications Acetaminophen (Tylenol) 975 mg PO NOW ONE Stop: 04/27/20 17:47 Last Admin: 04/27/20 17:52 Dose: 975 mg Documented by: LISEFARL Acetaminophen (Tylenol) 975 mg PO NOW ONE Stop: 04/27/20 22:36 Last Admin: 04/27/20 23:22 Dose: 975 mg Documented by: TONG Heparin Sodium (Porcine) (Heparin Flush (Port)) 500 unit IV PRN PRN PRN Reason: Flush Last Admin: 04/28/20 00:33 Dose: 500 unit Documented by: TONG Sodium Chloride (Normal Saline 0.9%) 1,000 mls @ 1,000 mls/hr IV BOLUS ONE Stop: 04/27/20 17:02 Last Admin: 04/27/20 16:13 Dose: Not Given Documented by: RENETTA Cefepime HCl 2 gm/ Sodium (Chloride) 100 mls @ 200 mls/hr IV NOW ONE Stop: 04/27/20 16:10 Last Infusion: 04/27/20 17:10 Dose: 200 mls/hr Documented by: Admin: 04/27/20 16:32 Dose: 200 mls/hr Documented by: ROSITA Sodium Chloride (Normal Saline 0.9%) 1,000 mls @ 2,000 mls/hr IV BOLUS ONE Stop: 04/27/20 16:40 Last Infusion: 04/27/20 22:07 Dose: 0 mls/hr Documented by: Admin: 04/27/20 16:32 Dose: 2,000 mls/hr Documented by: ROSITA Metronidazole (Flagyl) 500 mg in 100 mls @ 100 mls/hr IV NOW ONE Stop: 04/27/20 20:56 Last Infusion: 04/27/20 21:48 Dose: 0 mls/hr Documented by: Admin: 04/27/20 20:11 Dose: 100 mls/hr Documented by: ROSITA Ampicillin Sodium 2,000 mg/ (Sodium Chloride) 100 mls @ 200 mls/hr IV NOW ONE Stop: 04/27/20 19:58 Last Infusion: 04/27/20 23:16 Dose: 200 mls/hr Documented by: Admin: 04/27/20 22:00 Dose: 200 mls/hr Documented by: ROSITA Vital Signs Vital signs: Vital Signs - 8 hr 04/28/20 00:30 Pulse Rate 89 Respiratory Rate 16 Blood Pressure [Left Arm] 126/63 Pulse Oximetry 99 <Rosa M Perez MD - Last Filed: 04/28/20 00:57> Orders Ordered: Discontinued Medications Acetaminophen (Tylenol) 975 mg PO NOW ONE Stop: 04/27/20 17:47 Last Admin: 04/27/20 17:52 Dose: 975 mg Documented by: ROSITA Acetaminophen (Tylenol) 975 mg PO NOW ONE Stop: 04/27/20 22:36 Last Admin: 04/27/20 23:22 Dose: 975 mg Documented by: TONG Heparin Sodium (Porcine) (Heparin Flush (Port)) 500 unit IV PRN PRN PRN Reason: Flush Last Admin: 04/28/20 00:33 Dose: 500 unit Documented by: TONG Sodium Chloride (Normal Saline 0.9%) 1,000 mls @ 1,000 mls/hr IV BOLUS ONE Stop: 04/27/20 17:02 Last Admin: 04/27/20 16:13 Dose: Not Given Documented by: RENETTA Cefepime HCl 2 gm/ Sodium (Chloride) 100 mls @ 200 mls/hr IV NOW ONE Stop: 04/27/20 16:10 Last Infusion: 04/27/20 17:10 Dose: 200 mls/hr Documented by: Admin: 04/27/20 16:32 Dose: 200 mls/hr Documented by: ROSITA Sodium Chloride (Normal Saline 0.9%) 1,000 mls @ 2,000 mls/hr IV BOLUS ONE Stop: 04/27/20 16:40 Last Infusion: 04/27/20 22:07 Dose: 0 mls/hr Documented by: Admin: 04/27/20 16:32 Dose: 2,000 mls/hr Documented by: ROSITA Metronidazole (Flagyl) 500 mg in 100 mls @ 100 mls/hr IV NOW ONE Stop: 04/27/20 20:56 Last Infusion: 04/27/20 21:48 Dose: 0 mls/hr Documented by: Admin: 04/27/20 20:11 Dose: 100 mls/hr Documented by: ROSITA Ampicillin Sodium 2,000 mg/ (Sodium Chloride) 100 mls @ 200 mls/hr IV NOW ONE Stop: 04/27/20 19:58 Last Infusion: 04/27/20 23:16 Dose: 200 mls/hr Documented by: Admin: 04/27/20 22:00 Dose: 200 mls/hr Documented by: ROSITA Vital Signs Vital signs: Vital Signs - 8 hr 04/28/20 00:30 Pulse Rate 89 Respiratory Rate 16 Blood Pressure [Left Arm] 126/63 Pulse Oximetry 99 MDM - Female Genitourinary <Nathanael Avelar MD - Last Filed: 04/28/20 07:50> Lab Data Result diagrams: 04/27/20 16:27 04/27/20 16:27 Labs: Lab Results 04/27/20 04/27/20 04/27/20 Range/Units 16:27 16:27 16:27 WBC 7.4 (4.5-11.0) X10^3/uL RBC 3.02 L (4.0-5.2) X10^6/uL Hgb 9.3 L (12.0-16.0) g/dL Hct 26.9 L (36-46) % MCV 89.2 (80-100) fL MCH 30.7 (26-34) PG MCHC 34.4 (30-36) % RDW 18.2 H (11.6-14.8) % Plt Count 477 H (150-400) X10^3/uL Neut % (Auto) 55.6 (50-75) % Lymph % (Auto) 22.5 L (25-40) % Moffat % (Auto) 21.4 H (3-14) % Eos % (Auto) 0.3 L (2-4) % Baso % (Auto) 0.2 (0-2) % Neut # (Auto) 4100 (0598-1484) /uL Lymph # (Auto) 1700 (3918-3715) /uL Moffat # (Auto) 1600 H (0-900) /uL Eos # (Auto) 0 (0-450) /uL Baso # (Auto) 0 (0-100) /uL ESR (0-20) MM/HR PT 14.0 H (10.1-12.7) SECONDS INR 1.2 (0.9-1.3) APTT 28 (26.4-36.2) SECONDS Sodium (137-145) mmol/L Potassium (3.4-5.1) mmol/L Chloride (98-107) mmol/L Carbon Dioxide (22-32) mmol/L BUN (7-17) mg/dL Creatinine (0.52-1.04) mg/dL Estimated GFR (>60) mL/min BUN/Creatinine Ratio (6-22) Glucose (70-100) mg/dL Lactate (0.7-2.1) mmol/L Calcium (8.4-10.2) mg/dL Total Bilirubin (0.2-1.3) mg/dL AST (14-36) IU/L ALT (<35) IU/L Alkaline Phosphatase (38-126) U/L Total Creatine Kinase (30-135) U/L C-Reactive Protein (<1.0) mg/dL Total Protein (6.3-8.2) g/dL Albumin (3.5-5.0) g/dL Globulin (1.7-4.1) g/dL Albumin/Globulin Ratio (1.0-2.8) Lipase (23-300) U/L Procalcitonin 0.27 (<0.5) ng/mL Urine RBC (0-5/HPF) Urine WBC (0-5/HPF) Ur Squamous Epith Cells (0-5/HPF) Urine Bacteria (None) Ur Culture Indicated? 04/27/20 04/27/20 04/27/20 Range/Units 16:27 16:27 16:27 WBC (4.5-11.0) X10^3/uL RBC (4.0-5.2) X10^6/uL Hgb (12.0-16.0) g/dL Hct (36-46) % MCV (80-100) fL MCH (26-34) PG MCHC (30-36) % RDW (11.6-14.8) % Plt Count (150-400) X10^3/uL Neut % (Auto) (50-75) % Lymph % (Auto) (25-40) % Moffat % (Auto) (3-14) % Eos % (Auto) (2-4) % Baso % (Auto) (0-2) % Neut # (Auto) (0598-4379) /uL Lymph # (Auto) (3659-0301) /uL Moffat # (Auto) (0-900) /uL Eos # (Auto) (0-450) /uL Baso # (Auto) (0-100) /uL ESR > 140 H (0-20) MM/HR PT (10.1-12.7) SECONDS INR (0.9-1.3) APTT (26.4-36.2) SECONDS Sodium 132 L (137-145) mmol/L Potassium 3.7 (3.4-5.1) mmol/L Chloride 98 (98-107) mmol/L Carbon Dioxide 25 (22-32) mmol/L BUN 15 (7-17) mg/dL Creatinine 0.87 (0.52-1.04) mg/dL Estimated GFR > 60.0 (>60) mL/min BUN/Creatinine Ratio 17.2 (6-22) Glucose 101 H (70-100) mg/dL Lactate 1.1 (0.7-2.1) mmol/L Calcium 9.2 (8.4-10.2) mg/dL Total Bilirubin 0.5 (0.2-1.3) mg/dL AST 21 (14-36) IU/L ALT 14 (<35) IU/L Alkaline Phosphatase 259 H D (38-126) U/L Total Creatine Kinase (30-135) U/L C-Reactive Protein (<1.0) mg/dL Total Protein 6.5 (6.3-8.2) g/dL Albumin 3.1 L (3.5-5.0) g/dL Globulin 3.4 (1.7-4.1) g/dL Albumin/Globulin Ratio 0.9 L (1.0-2.8) Lipase 30 (23-300) U/L Procalcitonin (<0.5) ng/mL Urine RBC (0-5/HPF) Urine WBC (0-5/HPF) Ur Squamous Epith Cells (0-5/HPF) Urine Bacteria (None) Ur Culture Indicated? 04/27/20 04/27/20 Range/Units 16:27 17:37 WBC (4.5-11.0) X10^3/uL RBC (4.0-5.2) X10^6/uL Hgb (12.0-16.0) g/dL Hct (36-46) % MCV (80-100) fL MCH (26-34) PG MCHC (30-36) % RDW (11.6-14.8) % Plt Count (150-400) X10^3/uL Neut % (Auto) (50-75) % Lymph % (Auto) (25-40) % Moffat % (Auto) (3-14) % Eos % (Auto) (2-4) % Baso % (Auto) (0-2) % Neut # (Auto) (1776-8873) /uL Lymph # (Auto) (1853-3408) /uL Moffat # (Auto) (0-900) /uL Eos # (Auto) (0-450) /uL Baso # (Auto) (0-100) /uL ESR (0-20) MM/HR PT (10.1-12.7) SECONDS INR (0.9-1.3) APTT (26.4-36.2) SECONDS Sodium (137-145) mmol/L Potassium (3.4-5.1) mmol/L Chloride (98-107) mmol/L Carbon Dioxide (22-32) mmol/L BUN (7-17) mg/dL Creatinine (0.52-1.04) mg/dL Estimated GFR (>60) mL/min BUN/Creatinine Ratio (6-22) Glucose (70-100) mg/dL Lactate (0.7-2.1) mmol/L Calcium (8.4-10.2) mg/dL Total Bilirubin (0.2-1.3) mg/dL AST (14-36) IU/L ALT (<35) IU/L Alkaline Phosphatase (38-126) U/L Total Creatine Kinase 27 L (30-135) U/L C-Reactive Protein 30.9 H (<1.0) mg/dL Total Protein (6.3-8.2) g/dL Albumin (3.5-5.0) g/dL Globulin (1.7-4.1) g/dL Albumin/Globulin Ratio (1.0-2.8) Lipase (23-300) U/L Procalcitonin (<0.5) ng/mL Urine RBC 1-5/hpf (0-5/HPF) Urine WBC 1-5/hpf (0-5/HPF) Ur Squamous Epith Cells 5-10 /hpf H (0-5/HPF) Urine Bacteria Few (2-10) H (None) Ur Culture Indicated? Cult not indicated <Rosa M Perez MD - Last Filed: 04/28/20 00:57> Medical Records Attestation: I reviewed the patient's medical records. Lab Data Attestation: I reviewed the patient's lab results. Labs: Lab Results 04/27/20 04/27/20 04/27/20 Range/Units 16:27 16:27 16:27 WBC 7.4 (4.5-11.0) X10^3/uL RBC 3.02 L (4.0-5.2) X10^6/uL Hgb 9.3 L (12.0-16.0) g/dL Hct 26.9 L (36-46) % MCV 89.2 (80-100) fL MCH 30.7 (26-34) PG MCHC 34.4 (30-36) % RDW 18.2 H (11.6-14.8) % Plt Count 477 H (150-400) X10^3/uL Neut % (Auto) 55.6 (50-75) % Lymph % (Auto) 22.5 L (25-40) % Moffat % (Auto) 21.4 H (3-14) % Eos % (Auto) 0.3 L (2-4) % Baso % (Auto) 0.2 (0-2) % Neut # (Auto) 4100 (6477-8055) /uL Lymph # (Auto) 1700 (0022-0062) /uL Moffat # (Auto) 1600 H (0-900) /uL Eos # (Auto) 0 (0-450) /uL Baso # (Auto) 0 (0-100) /uL ESR (0-20) MM/HR PT 14.0 H (10.1-12.7) SECONDS INR 1.2 (0.9-1.3) APTT 28 (26.4-36.2) SECONDS Sodium (137-145) mmol/L Potassium (3.4-5.1) mmol/L Chloride (98-107) mmol/L Carbon Dioxide (22-32) mmol/L BUN (7-17) mg/dL Creatinine (0.52-1.04) mg/dL Estimated GFR (>60) mL/min BUN/Creatinine Ratio (6-22) Glucose (70-100) mg/dL Lactate (0.7-2.1) mmol/L Calcium (8.4-10.2) mg/dL Total Bilirubin (0.2-1.3) mg/dL AST (14-36) IU/L ALT (<35) IU/L Alkaline Phosphatase (38-126) U/L Total Creatine Kinase (30-135) U/L C-Reactive Protein (<1.0) mg/dL Total Protein (6.3-8.2) g/dL Albumin (3.5-5.0) g/dL Globulin (1.7-4.1) g/dL Albumin/Globulin Ratio (1.0-2.8) Lipase (23-300) U/L Procalcitonin 0.27 (<0.5) ng/mL Urine RBC (0-5/HPF) Urine WBC (0-5/HPF) Ur Squamous Epith Cells (0-5/HPF) Urine Bacteria (None) Ur Culture Indicated? 04/27/20 04/27/20 04/27/20 Range/Units 16:27 16:27 16:27 WBC (4.5-11.0) X10^3/uL RBC (4.0-5.2) X10^6/uL Hgb (12.0-16.0) g/dL Hct (36-46) % MCV (80-100) fL MCH (26-34) PG MCHC (30-36) % RDW (11.6-14.8) % Plt Count (150-400) X10^3/uL Neut % (Auto) (50-75) % Lymph % (Auto) (25-40) % Moffat % (Auto) (3-14) % Eos % (Auto) (2-4) % Baso % (Auto) (0-2) % Neut # (Auto) (2600-6839) /uL Lymph # (Auto) (8052-3388) /uL Moffat # (Auto) (0-900) /uL Eos # (Auto) (0-450) /uL Baso # (Auto) (0-100) /uL ESR > 140 H (0-20) MM/HR PT (10.1-12.7) SECONDS INR (0.9-1.3) APTT (26.4-36.2) SECONDS Sodium 132 L (137-145) mmol/L Potassium 3.7 (3.4-5.1) mmol/L Chloride 98 (98-107) mmol/L Carbon Dioxide 25 (22-32) mmol/L BUN 15 (7-17) mg/dL Creatinine 0.87 (0.52-1.04) mg/dL Estimated GFR > 60.0 (>60) mL/min BUN/Creatinine Ratio 17.2 (6-22) Glucose 101 H (70-100) mg/dL Lactate 1.1 (0.7-2.1) mmol/L Calcium 9.2 (8.4-10.2) mg/dL Total Bilirubin 0.5 (0.2-1.3) mg/dL AST 21 (14-36) IU/L ALT 14 (<35) IU/L Alkaline Phosphatase 259 H D (38-126) U/L Total Creatine Kinase (30-135) U/L C-Reactive Protein (<1.0) mg/dL Total Protein 6.5 (6.3-8.2) g/dL Albumin 3.1 L (3.5-5.0) g/dL Globulin 3.4 (1.7-4.1) g/dL Albumin/Globulin Ratio 0.9 L (1.0-2.8) Lipase 30 (23-300) U/L Procalcitonin (<0.5) ng/mL Urine RBC (0-5/HPF) Urine WBC (0-5/HPF) Ur Squamous Epith Cells (0-5/HPF) Urine Bacteria (None) Ur Culture Indicated? 04/27/20 04/27/20 Range/Units 16:27 17:37 WBC (4.5-11.0) X10^3/uL RBC (4.0-5.2) X10^6/uL Hgb (12.0-16.0) g/dL Hct (36-46) % MCV (80-100) fL MCH (26-34) PG MCHC (30-36) % RDW (11.6-14.8) % Plt Count (150-400) X10^3/uL Neut % (Auto) (50-75) % Lymph % (Auto) (25-40) % Moffat % (Auto) (3-14) % Eos % (Auto) (2-4) % Baso % (Auto) (0-2) % Neut # (Auto) (3248-1981) /uL Lymph # (Auto) (5318-1605) /uL Moffat # (Auto) (0-900) /uL Eos # (Auto) (0-450) /uL Baso # (Auto) (0-100) /uL ESR (0-20) MM/HR PT (10.1-12.7) SECONDS INR (0.9-1.3) APTT (26.4-36.2) SECONDS Sodium (137-145) mmol/L Potassium (3.4-5.1) mmol/L Chloride (98-107) mmol/L Carbon Dioxide (22-32) mmol/L BUN (7-17) mg/dL Creatinine (0.52-1.04) mg/dL Estimated GFR (>60) mL/min BUN/Creatinine Ratio (6-22) Glucose (70-100) mg/dL Lactate (0.7-2.1) mmol/L Calcium (8.4-10.2) mg/dL Total Bilirubin (0.2-1.3) mg/dL AST (14-36) IU/L ALT (<35) IU/L Alkaline Phosphatase (38-126) U/L Total Creatine Kinase 27 L (30-135) U/L C-Reactive Protein 30.9 H (<1.0) mg/dL Total Protein (6.3-8.2) g/dL Albumin (3.5-5.0) g/dL Globulin (1.7-4.1) g/dL Albumin/Globulin Ratio (1.0-2.8) Lipase (23-300) U/L Procalcitonin (<0.5) ng/mL Urine RBC 1-5/hpf (0-5/HPF) Urine WBC 1-5/hpf (0-5/HPF) Ur Squamous Epith Cells 5-10 /hpf H (0-5/HPF) Urine Bacteria Few (2-10) H (None) Ur Culture Indicated? Cult not indicated Imaging Data CT scan - abdomen/pelvis: Radiologist's Impression: ABDOMEN: Lung bases: Lung bases are clear. Heart size is normal. There is a small hiatal hernia. Solid organs: Evaluation of the liver demonstrates no focal hepatic lesions. The gallbladder is surgically absent. Biliary system is non-dilated. Pancreas enhances normally. No peripancreatic fat stranding or fluid collections. No pancreatic duct dilatation. The spleen is borderline enlarged, measuring up to 13.3 cm. There is a heterogeneous right adrenal mass redemonstrated measuring up to 3.2 x 3.1 cm in transverse dimension. The findings are consistent with a lipid rich adenoma as demonstrated on prior studies and appear stable in size. Kidneys demonstrate no hydronephrosis. Peritoneum and bowel: Small bowel loops demonstrate normal wall thickness and caliber. There is extensive colonic diverticulosis. Associated segmental wall thickening and pericolonic fat stranding are demonstrated in the sigmoid colon consistent with acute diverticulitis. There is a bilobed loculated fluid collection inferior to the sigmoid colon and superior to the bladder dome with predominant components anteriorly and posteriorly extending superiorly. The collection measures up to 9.0 cm in anteroposterior dimension by 6.0 cm in transverse dimension by 10 cm in craniocaudal extent. There is suspected fistulization with the urinary bladder which demonstrates wall thickening and intraluminal gas. Nodes and vessels: No retroperitoneal or mesenteric adenopathy by size criteria. Aorta and inferior vena cava are normal in size. Miscellaneous: No ventral hernias. PELVIS: Genitourinary: There is concentric bladder wall thickening with small focus of intraluminal gas suspicious for fistulization with the abscess. Miscellaneous: No inguinal hernias or adenopathy. Bones: No suspicious bony lesions. No vertebral body compression fractures. IMPRESSION: 1. Sigmoid diverticulitis with an associated large multiloculated bilobed diverticular abscess collection in the pelvis as described. 2. Abscess extend along the dome of the bladder which demonstrates associated wall thickening and intraluminal gas suspicious for a fistulous communication with the abscess. Findings discussed with Dr. Perez on 04/27/20 at 7:20 PM. 3. Stable right adrenal adenoma. Dictated by: Sahil Arnold M.D. on 04/27/2020 at 19:09 ECG Data Attestation: I personally reviewed and interpreted this ECG as follows: Interpretation: Sinus rhythm at a rate of 65 Normal intervals, normal axis No acute ischemic changes MDM Narrative Medical decision making narrative: 740pm Care is assumed from Dr Avelar. 59yo woman with recurrent ovarian cancer, getting chemo, presenting with low pelvic pain with concern for recurrent UTI. Urine is unremarkable. CT scan is significantly concerning for diverticulitis with large multiloculated bilobed diverticular abscess in the pelvis with probable fistula developing with the dome of the bladder. Patient has already received cefepime. Will add metronidazole and ampicillin based on recommendations for intra-abdominal infections in up-to-date. She has received 2 L of fluid. Lactic acid was 1.1 at 4:30 p.m. this afternoon will repeated at 8:30 a.m. this evening. [address] Bermudez. Suggests talking with IR to see if drain can be placed tomorrow at [place]. If not, then may need transfer to facility where this can be facilitated. She had the majority of her obstetrics gynecology md/Oncology surgery at [facility]. Initial lab work does not suggest sepsis, she remains afebrile minimally tender however blood pressure is come down significantly from admission. Admitting blood pressure was 171/72 and most recently is 103/59. She is significantly less tachycardic and the initial elevation may have been secondary to pain. Will continue to watch this. 920 Dr Arnold, radiology, has reviewed with Dr Marr, interventional radiology. He does not feel that there is an appropriate IR window for a percutaneous drain. 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 Brief review of notes indicate that Dr. Briseyda Kirkpatrick was the OBGYN who did the exploratory laparotomy in 09/2019. She is also a [facility] patient. 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 Will await phone call [phone] Dr Janine Soto [facility]. ? Admit to obstetrics gynecology md onc vs gen surgery. Also, has Medicare and [place] insurance and suggested that the regular hospitalist service might be more appropriate if not primarily to surgical service. 1055 Dr Orozco, obstetrics gynecology md onc, feels this should go to general sugery. 11:11 Dr Real Silvestre, general surgery, agrees to accept patient directly to her service. Will await for phone call with bed availability before calling for ambulance transport. Patient remains stable. Mild pain and requests only T ylenol. S transport arranged, estimated arrival around 1am. Discharge Plan Departure Patient Disposition: [facility] Clinical Impression: Dysuria Ovarian carcinoma Qualifiers: Laterality: unspecified laterality Qualified Code(s): C56.9 - Malignant neoplasm of unspecified ovary Fever Qualifiers: Fever type: unspecified Qualified Code(s): R50.9 - Fever, unspecified Abdominal pain Qualifiers: Abdominal location: lower abdomen, unspecified Qualified Code(s): R10.30 - Lower abdominal pain, unspecified Constipation Qualifiers: Constipation type: unspecified constipation type Qualified Code(s): K59.00 - Constipation, unspecified Discharge Date/Time: 04/28/20 00:48 Prescriptions: No Action prochlorperazine maleate [Compazine] 10 mg Tablet 10 mg PO Q6H PRN (Reason: nausea and vomiting. ) Qty: 100 RF: 2 potassium chloride [Klor-Con M20] 20 mEq Tablet,Er Particles/Crystals 20 meq PO BID Qty: 14 RF: 0 lorazepam 0.5 mg tablet 0.5 mg PO TIDP PRN (Reason: anxiety) Qty: 30 RF: 2 cyanocobalamin (vitamin B-12) [Vitamin B-12] 2,500 mcg Tablet, Sublingual 2,500 mcg PO BID RF: 0 fluoxetine 20 mg Tablet 20 mg PO DAILY RF: 0 levothyroxine 112 mcg Tablet 112 mcg PO DAILY RF: 0 cholecalciferol (vitamin D3) [Vitamin D3] 125 mcg (5,000 unit) Tablet 125 mcg PO BID RF: 0 sulfamethoxazole-trimethoprim [Bactrim DS] 800-160 mg tablet 1 tab PO BID 7 Days Qty: 14 RF: 0 Disabled Parking Permit 1 ea miscellaneous DIRECTED RF: 0 acetaminophen [Tylenol] 325 mg capsule 650 mg PO QID PRN (Reason: pain) Qty: 60 RF: 0 Referrals: Kay Elias DO [Primary Care Provider] -
--- NOTE | 2020-04-27 18:00 | PC.NURSE ---
PT states low back pain, lower abd discomfort and urinary symptoms since last Wednesday, started on Bactrim a week ago and feels like symptoms and back pain are getting worse. Pt has hx of ovarian CA with chemo 2 weeks ago and reports intermittent fever/chills and chronic VENTURA.
--- NOTE | 2020-04-27 18:00 | DI.CT.S_ITS ---
PROCEDURE: CT ABDOMEN PELVIS W CON INDICATIONS: increasing lower abdominal pain with constipation TECHNIQUE: After the administration of intravenous contrast, 5 mm thick sections acquired from the diaphragm to the symphysis. 5 mm coronal and sagittal reformats were acquired. For radiation dose reduction, the following was used: automated exposure control, adjustment of mA and/or kV according to patient size. COMPARISON: [facility], MR, ABDOMEN WITHOUT CONTRAST, 09/05/2012, 8:24. [facility], CT, ABDOMEN/PELVIS WITH CONTRAST, 08/22/2012, 10:00. [facility], CT, CT ABDOMEN PELVIS W CON, 11/28/2019, 11:40. FINDINGS: Image quality: Excellent. ABDOMEN: Lung bases: Lung bases are clear. Heart size is normal. There is a small hiatal hernia. Solid organs: Evaluation of the liver demonstrates no focal hepatic lesions. The gallbladder is surgically absent. Biliary system is non-dilated. Pancreas enhances normally. No peripancreatic fat stranding or fluid collections. No pancreatic duct dilatation. The spleen is borderline enlarged, measuring up to 13.3 cm. There is a heterogeneous right adrenal mass redemonstrated measuring up to 3.2 x 3.1 cm in transverse dimension. The findings are consistent with a lipid rich adenoma as demonstrated on prior studies and appear stable in size. Kidneys demonstrate no hydronephrosis. Peritoneum and bowel: Small bowel loops demonstrate normal wall thickness and caliber. There is extensive colonic diverticulosis. Associated segmental wall thickening and pericolonic fat stranding are demonstrated in the sigmoid colon consistent with acute diverticulitis. There is a bilobed loculated fluid collection inferior to the sigmoid colon and superior to the bladder dome with predominant components anteriorly and posteriorly extending superiorly. The collection measures up to 9.0 cm in anteroposterior dimension by 6.0 cm in transverse dimension by 10 cm in craniocaudal extent. There is suspected fistulization with the urinary bladder which demonstrates wall thickening and intraluminal gas. Nodes and vessels: No retroperitoneal or mesenteric adenopathy by size criteria. Aorta and inferior vena cava are normal in size. Miscellaneous: No ventral hernias. PELVIS: Genitourinary: There is concentric bladder wall thickening with small focus of intraluminal gas suspicious for fistulization with the abscess. Miscellaneous: No inguinal hernias or adenopathy. Bones: No suspicious bony lesions. No vertebral body compression fractures. IMPRESSION: 1. Sigmoid diverticulitis with an associated large multiloculated bilobed diverticular abscess collection in the pelvis as described. 2. Abscess extend along the dome of the bladder which demonstrates associated wall thickening and intraluminal gas suspicious for a fistulous communication with the abscess. Findings discussed with Dr. Perez on 04/27/20 at 7:20 PM. 3. Stable right adrenal adenoma. Dictated by: Sahil Arnold M.D. on 04/27/2020 at 19:09 Approved by: Sahil Arnold M.D. on 04/27/2020 at 19:23
[2020-04-27 18:02] LABS: RBC Urine 1-5/HPF (0-5/HPF); Squamous Epithelial Cell Urine 5-10 /HPF (0-5/HPF); WBC Urine 1-5/HPF (0-5/HPF)
[2020-04-27 18:03] LABS: Bacteria Urine Few (2-10); Culture Indicated Urine Cult Not Indicated
[2020-04-27] MEDS: metroNIDAZOLE 500 MG/100 ML PIGGYBACK 100 MG IV (20:11)
[2020-04-27] MEDS: AMPICILLIN 2,000 MG in SODIUM CHLORIDE 0.9% 100 ML 200 ML IV (22:00)
[2020-04-28 00:30] VITALS: BP 126/63; PULSE 89; RESP 16; O2SAT 99
== END 2020-04-28 00:48 | disposition short-term general hospital (02) ==
PROVIDERS: Emergency Medicine; Emergency Provider Emergency Medicine; Family Provider Internal Medicine Hematology & Oncology; PCP Family Medicine
DX: R30.0 Dysuria (principal); R10.30 Lower abdominal pain, unspecified; K59.00 Constipation, unspecified; R50.9 Fever, unspecified; C56.9 Malignant neoplasm of unspecified ovary
CPT/HCPCS: 36415; 71045; 74177; 80053; 81015; 82550; 83605; 83690; 84145; 85025; 85610; 85651; 85730; 86140; 87040; 93005; 96365; 96366; 96367; 99284; J0290; J0692; J1642; Q9967

== ENCOUNTER → 2020-07-12 09:27 | Outpatient (CLI) | payer MEDICARE, SELFPAY ==
--- NOTE | 2020-07-12 | DI.US.S_ITS ---
PROCEDURE: US EXTREMITY NONVASC UPPER LT INDICATIONS: PALPABLE LUMP LEFT SHOULDER TECHNIQUE: Real-time scanning was performed of the left shoulder area of current clinical concern , with image documentation. COMPARISON: None. 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 IMPRESSION: Presumed lipoma measuring up to 1.4 x 3. 4 x 3.7 cm left shoulder area, which should be followed clinically over time and if fine usual symptoms or progressive increase in size develops follow-up by contrast-enhanced MR scanning would then be recommended. Dictated by: Zaid Murphy M.D. on 07/12/2020 at 11:29 Approved by: Zaid Murphy M.D. on 07/12/2020 at 11:32
--- NOTE | 2020-07-12 09:42 | DI.MG.S_ITS ---
Patient Name: DEVIN IZAGUIRRE date: 1960 Sex: F Attending Physician: Curt Indications: Date: 07/12/2020 09:39 At the request of: CHANA GIL Procedure: MM diagnostic mammo BI BILATERAL DIGITAL DIAGNOSTIC MAMMOGRAM 3D/2D: 07/12/2020 CLINICAL: Patient returns for a 6 month follow up of the left breast, due for bilateral exam. Comparison is made to exams dated: 08/17/2019 mammogram, 07/31/2019 mammogram, and 09/26/2014 mammogram - [facility]. There are scattered fibroglandular elements in both breasts. Redemonstration of possible 0.5 cm oval equal density focal asymmetry with an indistinct and circumscribed margin in the left breast at 7 o'clock in the retroareolar region. This continues to appear less prominent, not visualized on the craniocaudal view and only faintly visible on the lateral views. No other significant masses, calcifications, or other findings are seen in either breast. IMPRESSION: INCOMPLETE: NEEDS ADDITIONAL IMAGING EVALUATION The possible 0.5 cm oval equal density focal asymmetry in the left breast remains indeterminate and likely represents cluster of microcysts or complicated cyst seen on prior ultrasound. Further evaluation by sonogram is recommended which is scheduled to immediately follow this examination. This exam was interpreted at Station ID: [id number]. NOTE: For mammograms, a report in lay terms will be sent to the patient. Approximately 15% of breast malignancies will not be visualized mammographically. In the management of a palpable breast mass, a negative mammogram must not discourage biopsy of a clinically suspicious lesion. Electronically Signed By: Sunny Álvarez M.D. aty/:07/12/2020 10:02:51 ACR BI-RADS Category 0: Incomplete [id number] Continued Report - Page 2 of 2 Patient Name: DEVIN IZAGUIRRE date: 1960 Sex: F Attending Physician: Curt Indications: Date: 07/12/2020 09:39 At the request of: CHANA GIL Procedure: MM diagnostic mammo BI
--- NOTE | 2020-07-15 10:27 | DI.US.S_ITS ---
Patient Name: DEVIN IZAGUIRRE date: 1960 Sex: F Attending Physician: Curt Indications: Date: 07/12/2020 08:26 At the request of: CHANA CURT Procedure: US breast LT limited ULTRASOUND OF LEFT BREAST: 07/12/2020 CLINICAL: 6 month follow-up of cysts. Comparison is made to exams dated: 07/12/2020 mammogram, 08/17/2019 ultrasound, 08/17/2019 mammogram, 07/31/2019 mammogram, 09/26/2014 mammogram, and 07/07/2011 mammogram - [facility]. Color flow and real-time ultrasound of the left breast were performed. Campbell scale images of the real-time examination were reviewed. The previously described 0.3 cm x 0.6 cm x 0.3 cm cluster of irregular cysts with a smooth internal wall in the left breast at 9 o'clock anterior depth 3 cm from the nipple is no longer seen. This is consistent with a benign process. No significant abnormalities were seen sonographically in the left breast. IMPRESSION: BENIGN There is no sonographic evidence of malignancy. Previously described cluster of microcysts is not longer seen and consistent with a benign process. A 1 year screening mammogram is recommended. Findings and recommendations were conveyed to the patient during today's evaluation. This exam was interpreted at Station ID: [id number]. Electronically Signed By: Sunny Álvarez M.D. aty/:07/15/2020 10:52:59 letter sent: Normal Exam Ultrasound BI-RADS: 2 Benign
== END ==
PROVIDERS: Family Provider Internal Medicine Hematology & Oncology; PCP Family Medicine; Referring Provider Family Medicine; Visit Provider Family Medicine
DX: R92.8 Other abnormal and inconclusive findings on diagnostic imaging of breast (principal); N60.02 Solitary cyst of left breast; R22.32 Localized swelling, mass and lump, left upper limb
CPT/HCPCS: 76642; 76882; 77066; G0279

== ENCOUNTER 2020-07-26 20:02 | Emergency (ER) | payer MEDICARE, SELFPAY ==
[2020-07-26] VITALS (19 sets, daily range): BP systolic 131–171; BP diastolic 61–91; PULSE 72–107; RESP 16–18; TEMP 36.6; O2SAT 87–100; BMI 33.2
--- NOTE | 2020-07-26 20:23 | DI.CT.S_ITS ---
PROCEDURE: CT ABDOMEN PELVIS W CON INDICATIONS: post op infection TECHNIQUE: After the administration of intravenous contrast, 5 mm thick sections acquired from the diaphragm to the symphysis. 5 mm coronal and sagittal reformats were acquired. For radiation dose reduction, the following was used: automated exposure control, adjustment of mA and/or kV according to patient size. COMPARISON: [facility], CT, CT ABDOMEN PELVIS W CON, 04/27/2020, 18:18. FINDINGS: Image quality: Excellent. ABDOMEN: Lung bases: Lung bases are clear. Heart size is normal. Solid organs: Mild hepatomegaly. Gallbladder is surgically absent. Heterogeneous low-density right adrenal mass measures 2.9 cm, stable. No left adrenal nodule.. Biliary system is non dilated. Pancreas enhances normally. Spleen is normal in size and enhancement. Kidneys demonstrate normal size and enhancement, without hydronephrosis. Peritoneum and bowel: The stomach is filled with ingested material. There is a moderate-sized debris and gas containing duodenal diverticulum arising anteriorly and laterally from the 2nd portion. Small bowel loops in the pelvis appear to demonstrate anastomosis in the low pelvis. There is extensive diverticulosis throughout the colon. A left lower quadrant diverting ostomy is present. Alonso's pouch has been created. Small bowel anastomotic staple line is also present in the left lower quadrant. There is a small amount of unencapsulated free fluid above the urinary bladder and adjacent to small bowel anastomosis. Nodes and vessels: No retroperitoneal or mesenteric adenopathy by size criteria. Aorta and inferior vena cava are normal in size. Miscellaneous: There is a low midline vertical incision with skin shabana present. There is vertical subcutaneous soft tissue thickening deep to the incision. Focal thickening along the left rectus muscle sheath is present. Unencapsulated fluid is seen in the low midline subcutaneous tissues and there is moderate edema. No discrete drainable fluid collection. Subcutaneous edema extends a laterally over the pelvis. PELVIS: Genitourinary: Bladder wall thickness is normal. The urinary bladder has a Rubin catheter in it. The uterus is surgically absent. Ovarian tissue is not discretely identified. Miscellaneous: No inguinal hernias or adenopathy. Bones: No suspicious bony lesions. No vertebral body compression fractures. IMPRESSION: 1. There is healing vertical midline incision with associated subcutaneous thickening and diffuse edema. No discrete drainable fluid collection. 2. There is a small amount of fluid in the pelvis adjacent to a low midline small bowel anastomosis. No pelvic abscess identified. 3. Postsurgical changes of left lower quadrant ostomy and Alonso's pouch. 4. Diverticulosis. 5. Stable right adrenal mass Dictated by: Gale Siegel M.D. on 07/26/2020 at 22:10 Approved by: Gale Siegel M.D. on 07/26/2020 at 22:25
[2020-07-26 21:03] LABS: Add Manual Diff / Slide Review NO; Basophils Absolute Auto 100 /uL (0-100); Basophils Percent Auto 0.7 % (0-2); Bilirubin Urine UA NEGATIVE (NEGATIVE); Color Urine UA YELLOW; Eosinophils Absolute Auto 1200 /uL (0-450); Eosinophils Percent Auto 10.3 % (2-4); Glucose Urine UA NEGATIVE (Negative); Hematocrit 31.7 % (36-46); Hemoglobin 10.6 g/dL (12.0-16.0); Ketones Urine UA NEGATIVE (NEGATIVE); Leukocyte Esterase Urine UA 1+ (NEGATIVE); Lymphocytes Absolute Auto 3400 /uL (1100-4500); Lymphocytes Percent Auto 29.4 % (25-40); Mean Corpuscular HGB Conc 33.5 % (30-36); Mean Corpuscular Hemoglobin 29.1 PG (26-34); Monocytes Absolute Auto 800 /uL (0-900); Monocytes Percent Auto 6.6 % (3-14); Neutrophils Absolute Auto 6100 /uL (1500-7000); Nitrite Urine UA NEGATIVE (Negative); Occult Blood Urine UA 3+ (Negative); Platelet Count 435 X10^3/uL (150-400); Protein Urine UA 2+ (Negative); Red Blood Cell Count 3.64 X10^6/uL (4.0-5.2); Red Cell Distribution Width 14.9 % (11.6-14.8); Specific Gravity Urine UA >=1.030 (1.000-1.035); Urobilinogen Urine UA 0.2 E.U./dL (0.2); White Blood Cell Count 11.5 X10^3/uL (4.5-11.0)
[2020-07-26 21:06] LABS: Appearance Urine UA Cloudy; pH Urine UA 5.5 (4.5-8.0)
--- NOTE | 2020-07-26 21:14 | PC.NURSE ---
Pt arrives with colostomy in place, surrounding tissue pink and dry. Midline lower abdominal incision closed with shabana minimal dehiscence at proxmial origin with minimal yellow drainage. Rubin in place with leg bag, urine yellow, cloudy. Urine specimen sent to lab.
[2020-07-26 21:15] LABS: Alanine Aminotransferase 15 IU/L (<35); Albumin 3.5 g/dL (3.5-5.0); Albumin Globulin Ratio 1.1 (1.0-2.8); Alkaline Phosphatase 94 U/L (38-126); Aspartate Aminotransferase 20 IU/L (14-36); Bilirubin Total 0.4 mg/dL (0.2-1.3); Blood Urea Nitrogen 29 mg/dL (7-17); Calcium 9.2 mg/dL (8.4-10.2); Carbon Dioxide 28 mmol/L (22-32); Chloride 102 mmol/L (98-107); Estimated Glomerular Filt Rate > 60.0 mL/min (>60); Globulin 3.3 g/dL (1.7-4.1); Glucose 95 mg/dL (70-100); HEMOLYSIS < 15 (0-50); Potassium 3.5 mmol/L (3.4-5.1); Sodium 136 mmol/L (137-145); Total Protein 6.8 g/dL (6.3-8.2)
[2020-07-26 21:17] LABS: Bacteria Urine Moderate (10-30); Calcium Oxalate Crystals Urine Occasional; Culture Indicated Urine Specimen Cultured; RBC Urine 30-100/HPF (0-5/HPF); WBC Urine 30-100/HPF (0-5/HPF)
[2020-07-26 21:21] LABS: Lactate (Lactic Acid) 1.6 mmol/L (0.7-2.1)
--- NOTE | 2020-07-26 23:18 | ED.WOUNDLAC ---
HPI - Wound/Laceration General Chief Complaint: Wound/Laceration Stated Complaint: infection at surgical site Time Seen by Provider: 07/26/20 20:17 Source: patient Mode of arrival: Wheelchair Limitations: no limitations History of Present Illness HPI narrative: 60-year-old woman with recurrent ovarian cancer. She recent surgery for rectovaginal and vest so vaginal fistula as 2 weeks ago at the [facility]. Today was being seen by home health was concerned that the upper portion of her wound was becoming infected. She also notes that her urine, through her urinary catheter, has become more cloudy over the last 24 hours. She notes no fevers, or chills. She does note that she is having a consistent deal pain in the low pelvic area. Related Data Home Medications Medication Instructions Recorded Confirmed Disabled Parking Permit 1 ea MISCELLANEOUS DIRECTED 09/22/19 05/08/20 cholecalciferol (vitamin D3) 125 mcg PO BID 04/11/20 05/08/20 [Vitamin D3] cyanocobalamin (vitamin B-12) 2,500 mcg PO BID 04/11/20 05/08/20 [Vitamin B-12] levothyroxine 112 mcg PO DAILY 04/11/20 05/08/20 Previous Rx's Medication Instructions Recorded acetaminophen [Tylenol] 650 mg PO QID PRN #60 cap 12/19/19 prochlorperazine maleate 10 mg PO Q6H PRN #100 tab 01/11/20 [Compazine] potassium chloride [Klor-Con M20] 20 meq PO BID #14 tab 02/29/20 lorazepam 0.5 mg tablet 0.5 mg PO TIDP PRN #30 tab 06/13/20 fluoxetine 10 mg capsule 30 mg PO DAILY 90 Days #270 cap 06/20/20 levofloxacin 500 mg PO DAILY #10 tab 07/27/20 Allergies Allergy/AdvReac Type Severity Reaction Status Date / Time shellfish derived Allergy Severe breathing Verified 05/08/20 09:39 difficulties if ingested; hives when touched codeine Allergy Mild UNKNOWN Verified 05/08/20 09:39 amoxicillin [From Augmentin] Allergy Verified 07/26/20 20:23 clavulanic acid Allergy Verified 07/26/20 20:23 [From Augmentin] Review of Systems Review of Systems Narrative: Pertinent positive and negative findings as per HPI Remainder of review of systems is otherwise unremarkable for Constitutional: Fevers, chills, weakness ENT: No sore throat, neck pain, ear pain CV: Chest pain, palpitations, dyspnea on exertion Respiratory: Cough, wheeze, dyspnea GI: Nausea, vomiting, diarrhea, change in bowel habits, black or bloody stools : Dysuria, hematuria, flank pain MS: Muscle weakness, numbness, joint swelling or warmth Patient History Medical History Acute lower gastrointestinal bleeding (Inactive ~09/30/19) Anxiety (Chronic) Colovesical fistula (Acute) Delayed surgical wound healing (Acute) Depression (Chronic) Hyperlipidemia (Acute) Hypothyroid (Acute 02/15/12) MS (multiple sclerosis) (Chronic ~1987) Ovarian cancer (Resolved ~2011) Sigmoid diverticulosis (Acute) Surgical History History of removal of Port-a-Cath (Acute) History of surgery (Acute 08/01/12) History of third molar tooth extraction (Resolved) Hx of exploratory laparotomy (Acute 10/02/19) S/P total abdominal hysterectomy and bilateral salpingo-oophorectomy (Resolved 2011) Status post appendectomy (Resolved 1982) Status post cholecystectomy (Resolved 1987) Family History Sister Aneurysm Sister Age: 57 Breast cancer Social History household members: spouse Smoking Status: Never smoker alcohol intake: current Smoking Status: Never smoker alcohol intake frequency: holidays/special occasions only Substance Use Type: does not use Exam Narrative Exam Narrative: General: Slightly pale but in no acute distress. Able to give a complete and coherent history. Well-nourished well-developed HEENT: Moist mucous membranes, normal sclera with reactive pupils, Neck: No JVD, supple Respiratory: Lungs are clear to auscultation, no wheezing no rales no rhonchi. Full and symmetrical air movement Cardiac: Regular rate and rhythm no murmurs no bruits Abdomen: Lower abdomen abdomen midline scar extending into the umbilicus. Tender along the scar. Luis are still in place and there does appear to be some slight midline breakdown in the umbilicus and in the few cm just distal to the umbilicus. No obvious drainage and no palpable collection of fluid or abscess. There is slight erythema along the healing skin edges but no significant cellulitis Skin: Warm and dry, no rashes Neurologic: Grossly neurologically intact with no obvious asymmetries or abnormalities Extremities: No trauma, well perfused Psych: Cooperative, appropriate insight and affect Initial Vital Signs Initial Vital Signs: Vital Signs Pulse Rate 88 07/26/20 20:18 Blood Pressure 151/91 H 07/26/20 20:18 Pulse Oximetry 99 07/26/20 20:18 Course Orders Ordered: ED Orders 07/26/20 20:23 CT abdomen pelvis w con Stat 07/26/20 20:45 Complete Blood Count AUTO DIFF Stat Comprehensive Metabolic Panel Stat Lactate (Lactic Acid) Stat Urinalysis and Microscopic Stat Urine Culture Stat 07/26/20 21:10 Blood Culture Stat Discontinued Medications Ceftriaxone Sodium/Dextrose (Rocephin) 2 gm in 50 mls @ 100 mls/hr IV NOW ONE Stop: 07/26/20 23:52 Last Infusion: 07/26/20 23:55 Dose: 100 mls/hr Documented by: Admin: 07/26/20 23:28 Dose: 100 mls/hr Documented by: ROSITA Levofloxacin (Levaquin) 750 mg PO NOW ONE Stop: 07/26/20 23:30 Last Admin: 07/26/20 23:49 Dose: 750 mg Documented by: ANNE Vital Signs Vital signs: Vital Signs - 8 hr 07/26/20 20:18 07/26/20 20:24 07/26/20 20:30 Temperature 98 F Pulse Rate 88 90 76 Respiratory Rate 18 Blood Pressure 151/91 H 151/91 H 171/81 H Pulse Oximetry 99 100 98 07/26/20 20:32 07/26/20 20:45 07/26/20 21:00 Temperature Pulse Rate 82 81 74 Respiratory Rate 16 16 Blood Pressure 133/61 133/61 131/76 Pulse Oximetry 99 99 98 07/26/20 21:15 07/26/20 21:30 07/26/20 21:48 Temperature Pulse Rate 74 72 Respiratory Rate Blood Pressure Pulse Oximetry 99 90 L 87 L 07/26/20 22:00 07/26/20 22:15 07/26/20 22:30 Temperature Pulse Rate 107 H 72 92 H Respiratory Rate Blood Pressure Pulse Oximetry 93 100 07/26/20 22:45 07/26/20 23:00 07/26/20 23:06 Temperature Pulse Rate 81 78 77 Respiratory Rate Blood Pressure 132/75 Pulse Oximetry 96 96 94 MDM - Wound/Laceration Medical Records Attestation: I reviewed the patient's medical records. Lab Data Attestation: I reviewed the patient's lab results. Result diagrams: 07/26/20 20:45 07/26/20 20:45 Labs: Lab Results 07/26/20 07/26/20 07/26/20 Range/Units 20:45 20:45 20:45 WBC 11.5 H (4.5-11.0) X10^3/uL RBC 3.64 L (4.0-5.2) X10^6/uL Hgb 10.6 L (12.0-16.0) g/dL Hct 31.7 L (36-46) % MCV 87.0 (80-100) fL MCH 29.1 (26-34) PG MCHC 33.5 (30-36) % RDW 14.9 H (11.6-14.8) % Plt Count 435 H (150-400) X10^3/uL Neut % (Auto) 53.0 (50-75) % Lymph % (Auto) 29.4 (25-40) % [place] % (Auto) 6.6 (3-14) % Eos % (Auto) 10.3 H (2-4) % Baso % (Auto) 0.7 (0-2) % Neut # (Auto) 6100 (2916-7373) /uL Lymph # (Auto) 3400 (5717-6553) /uL [place] # (Auto) 800 (0-900) /uL Eos # (Auto) 1200 H (0-450) /uL Baso # (Auto) 100 (0-100) /uL Sodium 136 L (137-145) mmol/L Potassium 3.5 (3.4-5.1) mmol/L Chloride 102 (98-107) mmol/L Carbon Dioxide 28 (22-32) mmol/L BUN 29 H (7-17) mg/dL Creatinine 0.88 (0.52-1.04) mg/dL Estimated GFR > 60.0 (>60) mL/min BUN/Creatinine Ratio 33.0 H (6-22) Glucose 95 (70-100) mg/dL Lactate 1.6 (0.7-2.1) mmol/L Calcium 9.2 (8.4-10.2) mg/dL Total Bilirubin 0.4 (0.2-1.3) mg/dL AST 20 (14-36) IU/L ALT 15 (<35) IU/L Alkaline Phosphatase 94 (38-126) U/L Total Protein 6.8 (6.3-8.2) g/dL Albumin 3.5 (3.5-5.0) g/dL Globulin 3.3 (1.7-4.1) g/dL Albumin/Globulin Ratio 1.1 (1.0-2.8) Urine Color Urine Appearance Urine pH (4.5-8.0) Ur Specific [place] (1.000-1.035) Urine Protein (Negative) Urine Glucose (UA) (Negative) g/dL Urine Ketones (NEGATIVE) Urine Occult Blood (Negative) Urine Nitrate (Negative) Urine Bilirubin (NEGATIVE) Urine Urobilinogen (0.2) E.U./dL Ur Leukocyte Esterase (NEGATIVE) Urine RBC (0-5/HPF) Urine WBC (0-5/HPF) Calcium Oxalate Crystal Urine Bacteria (None) Urine Yeast (None) Ur Culture Indicated? 07/26/20 Range/Units 20:45 WBC (4.5-11.0) X10^3/uL RBC (4.0-5.2) X10^6/uL Hgb (12.0-16.0) g/dL Hct (36-46) % MCV (80-100) fL MCH (26-34) PG MCHC (30-36) % RDW (11.6-14.8) % Plt Count (150-400) X10^3/uL Neut % (Auto) (50-75) % Lymph % (Auto) (25-40) % [place] % (Auto) (3-14) % Eos % (Auto) (2-4) % Baso % (Auto) (0-2) % Neut # (Auto) (2238-7403) /uL Lymph # (Auto) (0035-8479) /uL [place] # (Auto) (0-900) /uL Eos # (Auto) (0-450) /uL Baso # (Auto) (0-100) /uL Sodium (137-145) mmol/L Potassium (3.4-5.1) mmol/L Chloride (98-107) mmol/L Carbon Dioxide (22-32) mmol/L BUN (7-17) mg/dL Creatinine (0.52-1.04) mg/dL Estimated GFR (>60) mL/min BUN/Creatinine Ratio (6-22) Glucose (70-100) mg/dL Lactate (0.7-2.1) mmol/L Calcium (8.4-10.2) mg/dL Total Bilirubin (0.2-1.3) mg/dL AST (14-36) IU/L ALT (<35) IU/L Alkaline Phosphatase (38-126) U/L Total Protein (6.3-8.2) g/dL Albumin (3.5-5.0) g/dL Globulin (1.7-4.1) g/dL Albumin/Globulin Ratio (1.0-2.8) Urine Color Yellow Urine Appearance Cloudy Urine pH 5.5 (4.5-8.0) Ur Specific [place] >=1.030 H (1.000-1.035) Urine Protein 2+ H (Negative) Urine Glucose (UA) Negative (Negative) g/dL Urine Ketones Negative (NEGATIVE) Urine Occult Blood 3+ H (Negative) Urine Nitrate Negative (Negative) Urine Bilirubin Negative (NEGATIVE) Urine Urobilinogen 0.2 (0.2) E.U./dL Ur Leukocyte Esterase 1+ H (NEGATIVE) Urine RBC 30-100/hpf H (0-5/HPF) Urine WBC 30-100/hpf H (0-5/HPF) Calcium Oxalate Crystal Occasional H Urine Bacteria Moderate (10-30) H (None) Urine Yeast 5-10/hpf H (None) Ur Culture Indicated? Specimen cultured Imaging Data CT scan - abdomen/pelvis: Radiologist's Impression: FINDINGS: Image quality: Excellent. ABDOMEN: Lung bases: Lung bases are clear. Heart size is normal. Solid organs: Mild hepatomegaly. Gallbladder is surgically absent. Heterogeneous low-density right adrenal mass measures 2.9 cm, stable. No left adrenal nodule.. Biliary system is non dilated. Pancreas enhances normally. Spleen is normal in size and enhancement. Kidneys demonstrate normal size and enhancement, without hydronephrosis. Peritoneum and bowel: The stomach is filled with ingested material. There is a moderate-sized debris and gas containing duodenal diverticulum arising anteriorly and laterally from the 2nd portion. Small bowel loops in the pelvis appear to demonstrate anastomosis in the low pelvis. There is extensive diverticulosis throughout the colon. A left lower quadrant diverting ostomy is present. Alonso's pouch has been created. Small bowel anastomotic staple line is also present in the left lower quadrant. There is a small amount of unencapsulated free fluid above the urinary bladder and adjacent to small bowel anastomosis. Nodes and vessels: No retroperitoneal or mesenteric adenopathy by size criteria. Aorta and inferior vena cava are normal in size. Miscellaneous: There is a low midline vertical incision with skin luis present. There is vertical subcutaneous soft tissue thickening deep to the incision. Focal thickening along the left rectus muscle sheath is present. Unencapsulated fluid is seen in the low midline subcutaneous tissues and there is moderate edema. No discrete drainable fluid collection. Subcutaneous edema extends a laterally over the pelvis. PELVIS: Genitourinary: Bladder wall thickness is normal. The urinary bladder has a Rubin catheter in it. The uterus is surgically absent. Ovarian tissue is not discretely identified. Miscellaneous: No inguinal hernias or adenopathy. Bones: No suspicious bony lesions. No vertebral body compression fractures. IMPRESSION: 1. There is healing vertical midline incision with associated subcutaneous thickening and diffuse edema. No discrete drainable fluid collection. 2. There is a small amount of fluid in the pelvis adjacent to a low midline small bowel anastomosis. No pelvic abscess identified. 3. Postsurgical changes of left lower quadrant ostomy and Alonso's pouch. 4. Diverticulosis. 5. Stable right adrenal mass Dictated by: Gale Siegel M.D. on 07/26/2020 at 22:10 MDM Narrative Medical decision making narrative: 60-year-old woman 2 weeks postop from pelvic reconstruction surgery with multiple fistula revisions. Increasing left lower quadrant/pelvic pain and concerns for breakdown of the midline incision. No obvious abscess at either site. Will place her on antibiotics, Levaquin, and encouraged her to continue her follow-up as scheduled with her surgeon. She was scheduled to have a repeat abdominal CT on Wednesday and then follow-up on Wednesday. Will make sure that the CT scan is sent via PACS system to [facility] in [place] and will provide a written copy of the CT report to the patient to take to her surgeon directly. She is safe for home discharge Discharge Plan Departure Patient Disposition: Home Clinical Impression: Deep incisional surgical site infection Instructions: DI for Surgical Site Infection Activity Restrictions/Additional Instructions: Thank you for coming in today Your blood work is reassuring and does not suggest an overwhelming infection, sepsis or abscess formation. Your CT scan does show increased edema under the area of concern for the surgical wound and a small amount of fluid collecting around the Alonso pouch portion of your colon. I am going to suggest that you continue Levaquin 500 mg daily for 10 days. A prescription for this was electronically transmitted for to [facility] for you to pharmacy picking tech tomorrow Please contact your surgeon on Wednesday to see if she wants you to repeat the CT scan as we did do one today. We have electronically transmitted that CT scan to the [facility] so she can view it directly. I will also give you a copy of the radiology report for you to share with your surgeon. It also looks like you have a bladder infection. The antibiotics above should cover that adequately as well. You will need to talk with your surgeon regarding removal of your Rubin catheter. If you are having increasing pain, fevers, the skin is breaking down more, increasing redness spreading across the skin of her lower abdomen or other concerning symptoms please return to the emergency department. I hope you feel better Prescriptions: New levofloxacin 500 mg tablet 500 mg PO DAILY Qty: 10 RF: 0 No Action lorazepam 0.5 mg tablet 0.5 mg PO TIDP PRN (Reason: anxiety) Qty: 30 RF: 2 fluoxetine 10 mg capsule 30 mg PO DAILY 90 Days Qty: 270 RF: 0 prochlorperazine maleate [Compazine] 10 mg Tablet 10 mg PO Q6H PRN (Reason: nausea and vomiting. ) Qty: 100 RF: 2 potassium chloride [Klor-Con M20] 20 mEq Tablet,Er Particles/Crystals 20 meq PO BID Qty: 14 RF: 0 cyanocobalamin (vitamin B-12) [Vitamin B-12] 2,500 mcg Tablet, Sublingual 2,500 mcg PO BID RF: 0 levothyroxine 112 mcg Tablet 112 mcg PO DAILY RF: 0 cholecalciferol (vitamin D3) [Vitamin D3] 125 mcg (5,000 unit) Tablet 125 mcg PO BID RF: 0 Disabled Parking Permit 1 ea miscellaneous DIRECTED RF: 0 acetaminophen [Tylenol] 325 mg capsule 650 mg PO QID PRN (Reason: pain) Qty: 60 RF: 0 Referrals: Kay Elias DO [Primary Care Provider] -
[2020-07-26] MEDS: CEFTRIAXONE 2 GM/50 ML FROZ.PIGGY IV (23:28)
[2020-07-26] MEDS: levoFLOXacin 250 MG TABLET 750 MG PO (23:49)
[2020-07-27] VITALS: PULSE 75; O2SAT 96
[2020-07-27 00:15] VITALS: PULSE 87; O2SAT 98
[2020-07-27 00:30] VITALS: PULSE 78; O2SAT 99
== END 2020-07-27 01:15 | disposition home or self-care (01) ==
PROVIDERS: Emergency Provider Emergency Medicine; Family Provider Internal Medicine Hematology & Oncology; PCP Family Medicine
DX: T81.42XA Infection following a procedure, deep incisional surgical site, initial encounter (principal)
CPT/HCPCS: 36415; 74177; 80053; 81001; 83605; 85025; 87040; 87077; 87086; 87186; 96365; 99284; J0696; Q9967

== ENCOUNTER 2020-08-28 13:03 | Emergency (ER) | payer MEDICARE, SELFPAY ==
[2020-08-28] VITALS (13 sets, daily range): BP systolic 121–148; BP diastolic 63–81; PULSE 57–74; RESP 13–23; TEMP 36.7; O2SAT 33–100; BMI 33.0
--- NOTE | 2020-08-28 13:44 | ED.ARRPALP ---
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 patient also had complications from surgery and she is currently seeing at [facility] for infection in abdomen near umbilicus. She is not currently on p.o. or IV antibiotic medication therapy for this. Patient reports she had another episode yesterday for about an hour. She had similar symptoms when she was on chemotherapy from electrolytes imbalance. Patient denies chest pain, dyspnea but had mild lightheadedness. Patient denies she was exerting herself before the palpitations started. She denies leg pain or recent weight gain. She denies fever, chills, nausea or vomiting, diarrhea, or Covid symptoms. Related Data Home Medications Medication Instructions Recorded Confirmed Disabled Parking Permit 1 ea MISCELLANEOUS DIRECTED 09/22/19 08/19/20 cholecalciferol (vitamin D3) 125 mcg PO BID 04/11/20 08/19/20 [Vitamin D3] cyanocobalamin (vitamin B-12) 2,500 mcg PO BID 04/11/20 08/19/20 [Vitamin B-12] levothyroxine 112 mcg PO DAILY 04/11/20 08/19/20 Previous Rx's Medication Instructions Recorded acetaminophen [Tylenol] 650 mg PO QID PRN #60 cap 12/19/19 prochlorperazine maleate 10 mg PO Q6H PRN #100 tab 01/11/20 [Compazine] potassium chloride [Klor-Con M20] 20 meq PO BID #14 tab 02/29/20 fluoxetine 10 mg capsule 30 mg PO DAILY 90 Days #270 cap 06/20/20 levofloxacin 500 mg PO DAILY #10 tab 07/27/20 lorazepam 0.5 mg tablet 0.5 mg PO TIDP PRN #30 tab 08/06/20 olaparib 300 mg PO BID #120 tab 08/19/20 Allergies Allergy/AdvReac Type Severity Reaction Status Date / Time shellfish derived Allergy Severe breathing Verified 05/08/20 09:39 difficulties if ingested; hives when touched codeine Allergy Mild UNKNOWN Verified 05/08/20 09:39 amoxicillin [From Augmentin] Allergy Verified 07/26/20 20:23 clavulanic acid Allergy Verified 07/26/20 20:23 [From Augmentin] Review of Systems <BIJAN Champagne - Last Filed: 08/28/20 17:45> Review of Systems Narrative: General: Denies fever, chills, fatigue, malaise, sweats. HEENT: Denies sinus pain, ear pain, sore throat, difficulty swallowing, dizziness. Respiratory: Denies dyspnea, cough, wheezing, hemoptysis, sputum. Cardiovascular: See HPI Gastrointestinal: Denies nausea, vomiting, abdominal pain, diarrhea, constipation, melena. : Denies dysuria, frequency, incontinence, hematuria, urinary retention. Musculoskeletal: Denies weakness, joint pain or bony pain. Skin: See HPI Neurologic: Denies weakness, headache, numbness, change in speech, confusion, seizures, incoordination. Psychiatric: No concerning psychosocial issues. 12-point review of systems is negative except for those stated above. Patient History <BIJAN Champagne - Last Filed: 08/28/20 17:45> Medical History Acute lower gastrointestinal bleeding (Inactive ~09/30/19) Anxiety (Chronic) Colovesical fistula (Acute) Delayed surgical wound healing (Acute) Depression (Chronic) Hyperlipidemia (Acute) Hypothyroid (Acute 02/15/12) MS (multiple sclerosis) (Chronic ~1987) Ovarian cancer (Resolved ~2011) Sigmoid diverticulosis (Acute) Surgical History History of removal of Port-a-Cath (Acute) History of surgery (Acute 08/01/12) History of third molar tooth extraction (Resolved) Hx of exploratory laparotomy (Acute 10/02/19) S/P total abdominal hysterectomy and bilateral salpingo-oophorectomy (Resolved 2011) Status post appendectomy (Resolved 1982) Status post cholecystectomy (Resolved 1987) Family History Sister Aneurysm Sister Age: 57 Breast cancer Social History household members: spouse Smoking Status: Never smoker alcohol intake: current Smoking Status: Never smoker alcohol intake frequency: holidays/special occasions only Substance Use Type: does not use Exam <BIJAN Champagne - Last Filed: 08/28/20 17:45> Narrative Exam Narrative: GEN: Alert, oriented x 3, well appearing and nourished, and in no acute distress. Head: Normal cephalic, atraumatic. No scalp or temporal tenderness, palpable mass or rash. EYES: Pupils are equal, round, and reactive to light and accommodation. Extraocular muscles are intact bilaterally. There is no subconjunctival hemorrhage, exudate and sclera non-icteric. ENT: Hearing grossly intact. Nose without bleeding, purulent discharge or deviation. Mucous membrane moist, no mucosal lesion. Throat without erythema, tonsillar hypertrophy or exudate. Uvula in midline, airway patent. Neck: Trachea in midline. No JVD, non-tender without lymphadenopathy. No masses or thyroid megaly. Supple, non-tender and no meningeal signs. CARDIAC: Normal regular rate and rhythm without murmurs, gallops, or rubs. No chest wall tenderness. No peripheral edema, cyanosis or pallor. Capillary refill is less than 2 seconds. RESPIRATORY: Lungs are clear to auscultate bilaterally. No cough, wheezes, rales, or rhonchi. No stridor, respiratory distress, increase work of breathing, or accessary muscle used. ABD: Abdomen soft, nontender and non-distended. No guarding or rebound tenderness to palpate. Bowel sounds are normal in all 4 quadrants. There is no palpable masses or organomegaly. EXT: Full painless ROM of all extremities with no loss of sensation, strength, effusion or edema. SKIN: Slight erythematous vertical lesion to inferior to umbilicus. No warmth, or drainage appreciated. BACK: Nontender without deformity or crepitance. No flank tenderness. NEUROLOGICAL: Alert and oriented to place, time and person. Sensation and motor function intact bilaterally. No facial droops, dysphasia. PSYCHIATRIC: Good judgement and reason, without hallucinations, abnormal affect or abnormal behaviors during the examination. Patient is not suicidal. Initial Vital Signs Initial Vital Signs: Vital Signs Temperature 98.0 F 08/28/20 13:05 Pulse Rate 65 08/28/20 13:05 Respiratory Rate 18 08/28/20 13:05 Blood Pressure 124/81 08/28/20 13:05 Pulse Oximetry 100 08/28/20 13:05 <Siri Gao DO - Last Filed: 08/28/20 17:55> Initial Vital Signs Initial Vital Signs: Vital Signs Temperature 98.0 F 08/28/20 13:05 Pulse Rate 65 08/28/20 13:05 Respiratory Rate 18 08/28/20 13:05 Blood Pressure 124/81 08/28/20 13:05 Pulse Oximetry 100 08/28/20 13:05 Scores <[facility] - Last Filed: 08/28/20 17:45> GCS Sidon coma scale eye opening: Spontaneous Solo coma scale verbal response: Orientated Sidon coma scale motor response: Obey commands Sidon coma scale total score: 15 HEART Score Heart Score history: Slightly Suspicious Heart Score EKG: Normal Heart Score Age: 45-64 years old Heart Score risk factors: No known risk factors Heart Score troponin: < or = to normal limit Heart Score Total: 1 Wells' Criteria for PE Clinical signs and symptoms of DVT: No PE is #1 Dx or equally likely: Yes Heart rate > 100: No Immobilization at least 3 days or surg in previous 4 weeks: No History of PE or DVT: Yes Hemoptysis: No Malignancy w/Treatment within 6 months or palliative: Yes Wells' PE Score total: 5.5 Course <AMINA ChampagneP - Last Filed: 08/28/20 17:45> Orders Ordered: ED Orders 08/28/20 13:12 EKG-12 Lead Stat 08/28/20 13:35 Comprehensive Metabolic Panel Stat D Dimer Stat Free T4, Direct Thyroxine Stat Magnesium Stat Partial Thromboplastin Time Stat Prothrombin Time INR Stat Thyroid Stimulating Hormone Stat Troponin & CK Cardiac Panel Stat 08/28/20 13:45 XR chest 1V Stat 08/28/20 14:23 Urine Microscopic Stat 08/28/20 14:36 CT angio chest PE protocol Stat Discontinued Medications Heparin Sodium (Porcine) (Heparin Flush (Port)) 500 unit IV PRN PRN PRN Reason: Flush Last Admin: 08/28/20 16:51 Dose: 500 unit Documented by: ZACHARY Sodium Chloride (Normal Saline 0.9%) 1,000 mls @ 150 mls/hr IV CONT GASTON Last Admin: 08/28/20 14:26 Dose: 150 mls/hr Documented by: ZACHARY Magnesium Sulfate (Magnesium Sulfate) 2 gm in 50 mls @ 25 mls/hr IV NOW ONE Stop: 08/28/20 16:22 Last Infusion: 08/28/20 16:50 Dose: 0 mls/hr Documented by: ZACHARY Cosigned by: FRANK Admin: 08/28/20 14:30 Dose: 25 mls/hr Documented by: ZACHARY Cosigned by: FRANK Vital Signs Vital signs: Vital Signs - 8 hr 08/28/20 13:05 08/28/20 13:11 08/28/20 13:30 Temperature 98.0 F Pulse Rate 65 74 67 Respiratory Rate 18 23 Blood Pressure 124/81 124/81 135/66 Pulse Oximetry 100 100 100 08/28/20 14:00 08/28/20 14:22 08/28/20 14:30 Temperature Pulse Rate 66 63 Respiratory Rate 21 Blood Pressure 124/63 133/70 Pulse Oximetry 92 100 08/28/20 14:49 08/28/20 15:00 08/28/20 15:30 Temperature Pulse Rate 62 63 Respiratory Rate 19 20 20 Blood Pressure 142/65 H 127/70 133/66 Pulse Oximetry 99 99 100 08/28/20 15:40 08/28/20 16:00 08/28/20 16:01 Temperature Pulse Rate 61 57 L 60 Respiratory Rate 21 20 Blood Pressure 121/76 135/80 Pulse Oximetry 33 L 99 99 08/28/20 16:30 Temperature Pulse Rate 57 L Respiratory Rate 13 Blood Pressure 148/72 H Pulse Oximetry 99 <Siri Gao DO - Last Filed: 08/28/20 17:55> Orders Ordered: ED Orders 08/28/20 13:12 EKG-12 Lead Stat 08/28/20 13:35 Comprehensive Metabolic Panel Stat D Dimer Stat Free T4, Direct Thyroxine Stat Magnesium Stat Partial Thromboplastin Time Stat Prothrombin Time INR Stat Thyroid Stimulating Hormone Stat Troponin & CK Cardiac Panel Stat 08/28/20 13:45 XR chest 1V Stat 08/28/20 14:23 Urine Microscopic Stat 08/28/20 14:36 CT angio chest PE protocol Stat Discontinued Medications Heparin Sodium (Porcine) (Heparin Flush (Port)) 500 unit IV PRN PRN PRN Reason: Flush Last Admin: 08/28/20 16:51 Dose: 500 unit Documented by: ZACHARY Sodium Chloride (Normal Saline 0.9%) 1,000 mls @ 150 mls/hr IV CONT GASTON Last Admin: 08/28/20 14:26 Dose: 150 mls/hr Documented by: ZACHARY Magnesium Sulfate (Magnesium Sulfate) 2 gm in 50 mls @ 25 mls/hr IV NOW ONE Stop: 08/28/20 16:22 Last Infusion: 08/28/20 16:50 Dose: 0 mls/hr Documented by: ZACHARY Cosigned by: FRANK Admin: 08/28/20 14:30 Dose: 25 mls/hr Documented by: ZACHARY Cosigned by: FRANK Vital Signs Vital signs: Vital Signs - 8 hr 08/28/20 13:05 08/28/20 13:11 08/28/20 13:30 Temperature 98.0 F Pulse Rate 65 74 67 Respiratory Rate 18 23 Blood Pressure 124/81 124/81 135/66 Pulse Oximetry 100 100 100 08/28/20 14:00 08/28/20 14:22 08/28/20 14:30 Temperature Pulse Rate 66 63 Respiratory Rate 21 Blood Pressure 124/63 133/70 Pulse Oximetry 92 100 08/28/20 14:49 08/28/20 15:00 08/28/20 15:30 Temperature Pulse Rate 62 63 Respiratory Rate 19 20 20 Blood Pressure 142/65 H 127/70 133/66 Pulse Oximetry 99 99 100 08/28/20 15:40 08/28/20 16:00 08/28/20 16:01 Temperature Pulse Rate 61 57 L 60 Respiratory Rate 21 20 Blood Pressure 121/76 135/80 Pulse Oximetry 33 L 99 99 08/28/20 16:30 Temperature Pulse Rate 57 L Respiratory Rate 13 Blood Pressure 148/72 H Pulse Oximetry 99 MDM - Arrhythmia/Palpitations <Mehran Colleen-BIJAN George - Last Filed: 08/28/20 17:45> Differential Diagnosis Differential diagnosis: Likely palpitations, anxiety, ventricular premature beats and other (Electrolytes imbalance, dehydration, arrhythmia, hyperthyroidism, PE, NSTEMI) Medical Records Attestation: I reviewed the patient's medical records. Lab Data Attestation: I reviewed the patient's lab results. Result diagrams: 08/28/20 13:35 Labs: Lab Results 08/28/20 08/28/20 08/28/20 Range/Units 13:35 13:35 13:35 PT 11.4 (10.1-12.7) SECONDS INR 1.0 (0.9-1.3) APTT 36 D (26.4-36.2) SECONDS D-Dimer 249 H (<230) ng/mL Sodium 138 (137-145) mmol/L Potassium 3.5 (3.4-5.1) mmol/L Chloride 106 (98-107) mmol/L Carbon Dioxide 29 (22-32) mmol/L BUN 20 H (7-17) mg/dL Creatinine 0.99 (0.52-1.04) mg/dL Estimated GFR 57.6 L (>60) mL/min BUN/Creatinine Ratio 20.2 (6-22) Glucose 97 (70-100) mg/dL Calcium 9.2 (8.4-10.2) mg/dL Magnesium 1.5 L (1.6-2.3) mg/dL Total Bilirubin 0.4 (0.2-1.3) mg/dL AST 25 (14-36) IU/L ALT 16 (<35) IU/L Alkaline Phosphatase 86 (38-126) U/L Total Creatine Kinase 76 (30-135) U/L CK-MB (CK-2) TNP CK-MB (CK-2) Rel Index TNP Troponin I < 0.012 (0.01-0.034) ng/mL Total Protein 6.3 (6.3-8.2) g/dL Albumin 3.4 L (3.5-5.0) g/dL Globulin 2.9 (1.7-4.1) g/dL Albumin/Globulin Ratio 1.2 (1.0-2.8) TSH 1.87 (0.47-4.68) uIU/mL Free T4 1.31 (0.78-2.19) ng/dL Urine RBC (0-5/HPF) Urine WBC (0-5/HPF) Ur Squamous Epith Cells (0-5/HPF) Urine Bacteria (None) Urine Mucus (Negative) Ur Culture Indicated? 08/28/20 Range/Units 14:23 PT (10.1-12.7) SECONDS INR (0.9-1.3) APTT (26.4-36.2) SECONDS D-Dimer (<230) ng/mL Sodium (137-145) mmol/L Potassium (3.4-5.1) mmol/L Chloride (98-107) mmol/L Carbon Dioxide (22-32) mmol/L BUN (7-17) mg/dL Creatinine (0.52-1.04) mg/dL Estimated GFR (>60) mL/min BUN/Creatinine Ratio (6-22) Glucose (70-100) mg/dL Calcium (8.4-10.2) mg/dL Magnesium (1.6-2.3) mg/dL Total Bilirubin (0.2-1.3) mg/dL AST (14-36) IU/L ALT (<35) IU/L Alkaline Phosphatase (38-126) U/L Total Creatine Kinase (30-135) U/L CK-MB (CK-2) CK-MB (CK-2) Rel Index Troponin I (0.01-0.034) ng/mL Total Protein (6.3-8.2) g/dL Albumin (3.5-5.0) g/dL Globulin (1.7-4.1) g/dL Albumin/Globulin Ratio (1.0-2.8) TSH (0.47-4.68) uIU/mL Free T4 (0.78-2.19) ng/dL Urine RBC 10-30/hpf H (0-5/HPF) Urine WBC 1-5/hpf (0-5/HPF) Ur Squamous Epith Cells 1-5 /hpf (0-5/HPF) Urine Bacteria None seen (None) Urine Mucus 1+ H (Negative) Ur Culture Indicated? Cult not indicated Urine Dip Bedside Urine Glucose Negative Bedside Urine Bilirubin - Negative Bedside Urine Ketone - Negative Urine Specific [place] 1.025 Bedside Urine Occult Blood + Bedside Urine pH 6.0 Bedside Urine Protein - Negative Bedside Urine Urobilinogen - Negative Bedside Urine Nitrite - Negative Bedside Urine Leukocytes - Negative Esterase Imaging Data CT scan - chest: Radiologist's Impresson: [address] [id number] [address] Scan Report Signed Patient: Alva Lozano [facility]#: [id number] : 2Acct:[id number] Age/Sex: 60 / FDate of Service: 08/28/20 Loc: ED Accession Number: [id number] Procedure: CT angio chest PE protocol Ordering Provider: Mehran Cole PROCEDURE: CT ANGIO CHEST PE PROTOCOL INDICATIONS: palpitation, hx of DVT, CA, surgery TECHNIQUE: After the administration of intravenous contrast, 2 mm thick sections acquired from the pulmonary apices to the posterior costophrenic angles. 3-dimensional maximum intensity projection (MIP) coronal and sagittal reformats were then acquired through the thorax. For radiation dose reduction, the following was used: automated exposure control, adjustment of mA and/or kV according to patient size. COMPARISON: [facility], [place], CT ANGIO CHEST PE PROTOCOL, 04/21/2020, 13:36. FINDINGS: Image quality: Excellent. Pulmonary arteries: Pulmonary arteries are normal in size, and demonstrate no intraluminal filling defects to suggest central pulmonary embolism. Lungs and pleura: Redemonstration of 0.8 x 0.6 cm irregular left upper lobe nodule (axial image 43, series 5). There is a 2 mm peripheral left upper lobe nodule seen on axial image 68, series 5. Previously noted nodular density abutting the lateral aspect of the right major fissure is not appreciated on this examination. Mild patchy dependent ground-glass opacities are visualized throughout the lower lobes bilaterally. No pleural effusions or pneumothorax. Central and peripheral airways are patent. Mediastinum: Heart size is enlarged, without pericardial effusion. Scattered atherosclerotic calcifications of the coronary arteries are noted.No mediastinal or hilar adenopathy. Thoracic aorta is normal in caliber and enhancement. Esophagus is normal in caliber, with small hiatal hernia. Prominent azygos vein without contrast opacification. Bones and chest wall: No suspicious bony lesions. Ribs and thoracic spine appear intact throughout. Thyroid gland is unremarkable. No axillary or supraclavicular adenopathy. Abdomen: Stable 2.6 x 3.1 cm right adrenal mass (axial image 112, series 4). Remainder of the visualized upper abdominal solid organs and bowel loops appear unremarkable. IMPRESSION: 1. No acute pulmonary emboli identified. 2. Redemonstration of left upper lobe pulmonary nodule measuring 0.8 x 0.6 cm, previously 0.7 x 0.6 cm. This is relatively stable given slight differences in imaging technique. Recommend follow-up CT in 6-12 months. 3. Mild scattered patchy bibasilar ground-glass opacities without focal consolidations or septal thickening/nodularity. This may be related to atelectasis versus an infectious/inflammatory process or early edema. Recommend clinical correlation. 4. Small hiatal hernia. 5. Stable right adrenal mass. 6. Atherosclerosis. Dictated by: Sunny Álvarez M.D. on 08/28/2020 at 14:52 Approved by: Sunny Álvarez M.D. on 08/28/2020 at 15:15 ECG Data Attestation: I personally reviewed and interpreted this ECG as follows: Prior ECG tracings: available for review Interpretation: SR rate at 63. Left dominant [place]. TN interval 159, QRS duration 91, QT/QTc 403/410. Non specific ST and T wave anbormality No changes from previous EKG in April 2020 [facility] Narrative Medical decision making narrative: This is a 60 year female who presents to ED with occasional palpitation which lasted for 1 hour before coming into ED at yesterday. Patient had similar symptoms during chemotherapy for colon cancer when her electrolytes were abnormal. Patient had associated symptoms like lightheadedness but denies chest pain, breathing difficulty. EKG was sinus rhythm with nonspecific ST and T-wave abnormality without much changes from previous EKG tracings. Chest x-ray was unremarkable. Patient has low heart score of 1. Moderate risk for PE with wells criteria for PE 5.5. Patient recently had colovesicle fistula from diverticulitis complication and has colostomy. Patient also developed abdominal wound infection and currently visits [facility]. No leukocytosis. Anemia of H&H 11.2/33.6 which is actually improvement from previously. Electrolyte was unremarkable except mildly decreased magnesium 1.5 but this appears to be her baseline in the past. BUN of 20, normal creatinine level of 0.99 in slightly decreased estimated GFR of 57.6 today (range from 59 to >60). No TSH and FT4. D dimer was 249 which was expected since she recently had surgery and history of CA and this is normal for her age. However, given patient has moderate risk for PE, chest CT for PE was ordered and obtained. The CT test result shows no acute pulmonary embolism identified. Patient has left upper lobe pulmonary nodule which is relatively stable when compared to previous CT. Incidental finding of stable right adrenal mass and artherosclerosis. It also showed mild scattered patchy bibasilar ground-glass opacity without focal consolidation or septal thickening/nodularity. However, patient had no difficulty breathing, cough, or short of breath. O2 sat in RA was 99-100% without increased work of breathing or tachypnea. Patient was provided with 2 g of IV magnesium before leaving ED. she takes magnesium supplement daily. I discussed findings with patient. 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 During ED stay, heart rates were in ED range from 60s to 70s with normal blood pressure. I recommended to patient that if her symptoms persists, to follow-up with Dr. Rosado and consider outpatient workup with incident monitor/Holter monitor to see arrhythmia. Return precautions were discussed with patient patient verbalized understanding and agreement with the treatment plan. <Siri Gao, DO - Last Filed: 08/28/20 17:55> Lab Data Labs: Lab Results 08/28/20 08/28/20 08/28/20 Range/Units 13:35 13:35 13:35 PT 11.4 (10.1-12.7) SECONDS INR 1.0 (0.9-1.3) APTT 36 D (26.4-36.2) SECONDS D-Dimer 249 H (<230) ng/mL Sodium 138 (137-145) mmol/L Potassium 3.5 (3.4-5.1) mmol/L Chloride 106 (98-107) mmol/L Carbon Dioxide 29 (22-32) mmol/L BUN 20 H (7-17) mg/dL Creatinine 0.99 (0.52-1.04) mg/dL Estimated GFR 57.6 L (>60) mL/min BUN/Creatinine Ratio 20.2 (6-22) Glucose 97 (70-100) mg/dL Calcium 9.2 (8.4-10.2) mg/dL Magnesium 1.5 L (1.6-2.3) mg/dL Total Bilirubin 0.4 (0.2-1.3) mg/dL AST 25 (14-36) IU/L ALT 16 (<35) IU/L Alkaline Phosphatase 86 (38-126) U/L Total Creatine Kinase 76 (30-135) U/L CK-MB (CK-2) TNP CK-MB (CK-2) Rel Index TNP Troponin I < 0.012 (0.01-0.034) ng/mL Total Protein 6.3 (6.3-8.2) g/dL Albumin 3.4 L (3.5-5.0) g/dL Globulin 2.9 (1.7-4.1) g/dL Albumin/Globulin Ratio 1.2 (1.0-2.8) TSH 1.87 (0.47-4.68) uIU/mL Free T4 1.31 (0.78-2.19) ng/dL Urine RBC (0-5/HPF) Urine WBC (0-5/HPF) Ur Squamous Epith Cells (0-5/HPF) Urine Bacteria (None) Urine Mucus (Negative) Ur Culture Indicated? 08/28/20 Range/Units 14:23 PT (10.1-12.7) SECONDS INR (0.9-1.3) APTT (26.4-36.2) SECONDS D-Dimer (<230) ng/mL Sodium (137-145) mmol/L Potassium (3.4-5.1) mmol/L Chloride (98-107) mmol/L Carbon Dioxide (22-32) mmol/L BUN (7-17) mg/dL Creatinine (0.52-1.04) mg/dL Estimated GFR (>60) mL/min BUN/Creatinine Ratio (6-22) Glucose (70-100) mg/dL Calcium (8.4-10.2) mg/dL Magnesium (1.6-2.3) mg/dL Total Bilirubin (0.2-1.3) mg/dL AST (14-36) IU/L ALT (<35) IU/L Alkaline Phosphatase (38-126) U/L Total Creatine Kinase (30-135) U/L CK-MB (CK-2) CK-MB (CK-2) Rel Index Troponin I (0.01-0.034) ng/mL Total Protein (6.3-8.2) g/dL Albumin (3.5-5.0) g/dL Globulin (1.7-4.1) g/dL Albumin/Globulin Ratio (1.0-2.8) TSH (0.47-4.68) uIU/mL Free T4 (0.78-2.19) ng/dL Urine RBC 10-30/hpf H (0-5/HPF) Urine WBC 1-5/hpf (0-5/HPF) Ur Squamous Epith Cells 1-5 /hpf (0-5/HPF) Urine Bacteria None seen (None) Urine Mucus 1+ H (Negative) Ur Culture Indicated? Cult not indicated Urine Dip Bedside Urine Glucose Negative Bedside Urine Bilirubin - Negative Bedside Urine Ketone - Negative Urine Specific [place] 1.025 Bedside Urine Occult Blood + Bedside Urine pH 6.0 Bedside Urine Protein - Negative Bedside Urine Urobilinogen - Negative Bedside Urine Nitrite - Negative Bedside Urine Leukocytes - Negative Esterase Discharge Plan Departure Patient Disposition: Home Clinical Impression: Heart palpitations, Hypomagnesemia Discharge Date/Time: 08/28/20 17:10 Instructions: DI for Palpitations, DI for Hypomagnesemia Activity Restrictions/Additional Instructions: You have been diagnosed with [palpitation and hypo magnesemia. Normal 12 lead EKG, occasional PVC on continuous gravure press set up operator appreciated. No pulmonary embolism according to CT test. Magnesium very slightly low as 1.5 today. This has been replaced via IV. Normal cardiac enzymes and unremarkable other electrolytes results. Very mild anemia of 11.2/33.6 which is improvement from previous results.]. What to do: *Take your medications as directed. *Follow up with your primary care provider in 2-3 days, call for an appointment. Let them know you were seen in the ED and that we asked you to be seen in follow up. Possible Holter monitor if your symptoms persists. *Return to ED if you have any new, worsening, or concerning symptoms, such as [chest pain, breathing difficulty, unable to tolerate fluids, fever, cough, feeling like faint, or any acute concerns]. Prescriptions: No Action fluoxetine 10 mg capsule 30 mg PO DAILY 90 Days Qty: 270 RF: 0 lorazepam 0.5 mg tablet 0.5 mg PO TIDP PRN (Reason: anxiety) Qty: 30 RF: 2 prochlorperazine maleate [Compazine] 10 mg Tablet 10 mg PO Q6H PRN (Reason: nausea and vomiting. ) Qty: 100 RF: 2 potassium chloride [Klor-Con M20] 20 mEq Tablet,Er Particles/Crystals 20 meq PO BID Qty: 14 RF: 0 cyanocobalamin (vitamin B-12) [Vitamin B-12] 2,500 mcg Tablet, Sublingual 2,500 mcg PO BID RF: 0 levothyroxine 112 mcg Tablet 112 mcg PO DAILY RF: 0 cholecalciferol (vitamin D3) [Vitamin D3] 125 mcg (5,000 unit) Tablet 125 mcg PO BID RF: 0 olaparib 150 mg Tablet 300 mg PO BID Qty: 120 RF: 11 levofloxacin 500 mg tablet 500 mg PO DAILY Qty: 10 RF: 0 Disabled Parking Permit 1 ea miscellaneous DIRECTED RF: 0 acetaminophen [Tylenol] 325 mg capsule 650 mg PO QID PRN (Reason: pain) Qty: 60 RF: 0 Referrals: Kay Elias DO [Primary Care Provider] - <Siri Gao DO - Last Filed: 08/28/20 17:55> Cosign ED Attending Cosignature Attestation: I was immediately available in the department for consultation. Documentation has been reviewed. I agree with assessment and plan.
--- NOTE | 2020-08-28 13:45 | DI.RAD.S_ITS ---
PROCEDURE: XR CHEST 1V INDICATIONS: palpitations TECHNIQUE: One view of the chest was acquired. COMPARISON: [facility], CT, CT ABDOMEN PELVIS W CON, 07/26/2020, 21:21. [facility], CR, XR CHEST 1V, 04/27/2020, 16:19. [facility], CR, XR CHEST 1V, 04/21/2020, 11:28. FINDINGS: Surgical changes and devices: Right-sided port with the catheter tip in the upper 3rd of the SVC. Lungs and pleura: Lungs are clear. No pleural effusions or pneumothorax. Mediastinum: Mediastinal contours appear normal. Heart size is normal. Bones and chest wall: No suspicious bony lesions. Overlying soft tissues appear unremarkable. IMPRESSION: No acute cardiopulmonary abnormality. Dictated by: Isaias Salgado M.D. on 08/28/2020 at 14:11 Approved by: Isaias Salgado M.D. on 08/28/2020 at 14:12
[2020-08-28 14:08] LABS: Prothrombin Time 11.4 SECONDS (10.1-12.7)
[2020-08-28 14:11] LABS: D Dimer 249 ng/mL (<230); PTT Partial Thromboplastin Tim 36 SECONDS (26.4-36.2)
[2020-08-28 14:18] LABS: Alanine Aminotransferase 16 IU/L (<35); Albumin 3.4 g/dL (3.5-5.0); Albumin Globulin Ratio 1.2 (1.0-2.8); Alkaline Phosphatase 86 U/L (38-126); Aspartate Aminotransferase 25 IU/L (14-36); BUN Creatinine Ratio 20.2 (6-22); Bilirubin Total 0.4 mg/dL (0.2-1.3); Blood Urea Nitrogen 20 mg/dL (7-17); Calcium 9.2 mg/dL (8.4-10.2); Carbon Dioxide 29 mmol/L (22-32); Chloride 106 mmol/L (98-107); Creatine Kinase 76 U/L (30-135); Estimated Glomerular Filt Rate 57.6 mL/min (>60); Globulin 2.9 g/dL (1.7-4.1); Glucose 97 mg/dL (70-100); HEMOLYSIS < 15 (0-50); Magnesium 1.5 mg/dL (1.6-2.3); Potassium 3.5 mmol/L (3.4-5.1); Sodium 138 mmol/L (137-145); Total Protein 6.3 g/dL (6.3-8.2)
[2020-08-28] MEDS: SODIUM CHLORIDE 0.9% 1,000 ML 150 ML IV (14:26)
[2020-08-28 14:29] LABS: Troponin I < 0.012 ng/mL (0.01-0.034)
[2020-08-28] MEDS: MAGNESIUM SULFATE 2 GM/50 ML PIGGYBACK IV (14:30)
--- NOTE | 2020-08-28 14:36 | DI.CT.S_ITS ---
PROCEDURE: CT ANGIO CHEST PE PROTOCOL INDICATIONS: palpitation, hx of DVT, CA, surgery TECHNIQUE: After the administration of intravenous contrast, 2 mm thick sections acquired from the pulmonary apices to the posterior costophrenic angles. 3-dimensional maximum intensity projection (MIP) coronal and sagittal reformats were then acquired through the thorax. For radiation dose reduction, the following was used: automated exposure control, adjustment of mA and/or kV according to patient size. COMPARISON: [facility], CT, CT ANGIO CHEST PE PROTOCOL, 04/21/2020, 13:36. FINDINGS: Image quality: Excellent. Pulmonary arteries: Pulmonary arteries are normal in size, and demonstrate no intraluminal filling defects to suggest central pulmonary embolism. Lungs and pleura: Redemonstration of 0.8 x 0.6 cm irregular left upper lobe nodule (axial image 43, series 5). There is a 2 mm peripheral left upper lobe nodule seen on axial image 68, series 5. Previously noted nodular density abutting the lateral aspect of the right major fissure is not appreciated on this examination. Mild patchy dependent ground-glass opacities are visualized throughout the lower lobes bilaterally. No pleural effusions or pneumothorax. Central and peripheral airways are patent. Mediastinum: Heart size is enlarged, without pericardial effusion. Scattered atherosclerotic calcifications of the coronary arteries are noted.No mediastinal or hilar adenopathy. Thoracic aorta is normal in caliber and enhancement. Esophagus is normal in caliber, with small hiatal hernia. Prominent azygos vein without contrast opacification. Bones and chest wall: No suspicious bony lesions. Ribs and thoracic spine appear intact throughout. Thyroid gland is unremarkable. No axillary or supraclavicular adenopathy. Abdomen: Stable 2.6 x 3.1 cm right adrenal mass (axial image 112, series 4). Remainder of the visualized upper abdominal solid organs and bowel loops appear unremarkable. IMPRESSION: 1. No acute pulmonary emboli identified. 2. Redemonstration of left upper lobe pulmonary nodule measuring 0.8 x 0.6 cm, previously 0.7 x 0.6 cm. This is relatively stable given slight differences in imaging technique. Recommend follow-up CT in 6-12 months. 3. Mild scattered patchy bibasilar ground-glass opacities without focal consolidations or septal thickening/nodularity. This may be related to atelectasis versus an infectious/inflammatory process or early edema. Recommend clinical correlation. 4. Small hiatal hernia. 5. Stable right adrenal mass. 6. Atherosclerosis. Dictated by: Sunny Álvarez M.D. on 08/28/2020 at 14:52 Approved by: Sunny Álvarez M.D. on 08/28/2020 at 15:15
[2020-08-28 14:38] LABS: Bacteria Urine None Seen
[2020-08-28 14:47] LABS: Culture Indicated Urine Cult Not Indicated; Mucus Urine 1+ (Negative); RBC Urine 10-30/HPF (0-5/HPF); Squamous Epithelial Cell Urine 1-5 /HPF (0-5/HPF); WBC Urine 1-5/HPF (0-5/HPF)
[2020-08-28 14:59] LABS: Free T4, Direct Thyroxine 1.31 ng/dL (0.78-2.19)
[2020-08-28 15:13] LABS: Thyroid Stimulating Hormone 1.87 uIU/mL (0.47-4.68)
== END 2020-08-28 17:10 | disposition home or self-care (01) ==
PROVIDERS: Emergency Provider Nurse Practitioner Family; Family Provider Internal Medicine Hematology & Oncology; PCP Family Medicine
DX: R00.2 Palpitations (principal); E83.42 Hypomagnesemia; Z79.01 Long term (current) use of anticoagulants
CPT/HCPCS: 36415; 71045; 71275; 80053; 81003; 81015; 82550; 83735; 84439; 84443; 84484; 85379; 85610; 85730; 93005; 96365; 96366; 99284; J1642; Q9967

== ENCOUNTER → 2020-09-09 09:46 | Outpatient (CLI) | payer MEDICARE, SELFPAY | PROVIDERS: Family Provider Internal Medicine Hematology & Oncology; PCP Family Medicine; Referring Provider Family Medicine; Visit Provider Family Medicine | DX: S31.105A Unspecified open wound of abdominal wall, periumbilic region without penetration into peritoneal cavity, initial encounter (principal); C56.9 Malignant neoplasm of unspecified ovary | CPT/HCPCS: 99213; 99214 ==

== ENCOUNTER → 2021-03-07 08:43 | Outpatient (CLI) | payer MEDICARE, SELFPAY ==
--- NOTE | 2021-03-07 09:45 | DI.CT.S_ITS ---
PROCEDURE: CT ABDOMEN PELVIS W CON INDICATIONS: ovarian cancer TECHNIQUE: After the administration of oral and intravenous contrast, 5 mm thick sections acquired from the diaphragms to the symphysis. 5 mm thick coronal and sagittal reformats were performed. For radiation dose reduction, the following was used: automated exposure control, adjustment of mA and/or kV according to patient size. COMPARISON: [facility], CT, CT ABDOMEN PELVIS W CON, 10/23/2019, 23:34. [facility], CT, CT ABDOMEN PELVIS W CON, 07/26/2020, 21:21. FINDINGS: Image quality: Excellent. ABDOMEN: Lung bases: Lung bases are clear. Heart size is normal. Solid organs: Liver is normal in size and enhancement. Gallbladder is surgically absent Biliary system is non-dilated. Pancreas enhances normally. Spleen is normal in size and enhancement. Relatively stable right adrenal mass. On initial image 27/2 it measured 3.1 x 3.2 cm. On current image 26/2 it measures 3.2 x 3.4 cm. . Kidneys are normal in size and enhancement, without hydronephrosis. Peritoneum and bowel: Colostomy. Interval development of significant nonobstructed bowel herniation through the colostomy site into the subcutaneous fat. Stomach, small bowel, and colon loops are normal in caliber and wall thickness. No free fluid or air. Nodes and vessels: No retroperitoneal or mesenteric adenopathy. Aorta and inferior vena cava are normal in caliber. Miscellaneous: No ventral hernias. PELVIS: Genitourinary: Bladder is relatively contracted. The wall is mildly prominent. There is air present in the bladder. Miscellaneous: No inguinal hernias or adenopathy. Uterus is surgically absent. Bones: No suspicious bony lesions. No acute vertebral body compression fractures. IMPRESSION: 1. Stable right adrenal mass. 2. Colostomy with interval development of herniated bowel through the colostomy site into the subcutaneous fat. 3. Relatively decompressed bladder with air contained within it. There suggest either instrumentation or possible UTI. 4. No evidence of metastatic disease in abdomen and pelvis. Dictated by: Clinton Parnell M.D. on 03/07/2021 at 12:12 Approved by: Clinton Parnell M.D. on 03/07/2021 at 12:29
== END ==
PROVIDERS: Family Provider Internal Medicine Hematology & Oncology; PCP Family Medicine; Referring Provider Internal Medicine Hematology & Oncology; Visit Provider Internal Medicine Hematology & Oncology
DX: C56.9 Malignant neoplasm of unspecified ovary (principal); E27.9 Disorder of adrenal gland, unspecified; Z93.3 Colostomy status
CPT/HCPCS: 74177

== ENCOUNTER → 2021-09-06 10:23 | Outpatient (CLI) | payer MEDICARE, SELFPAY | PROVIDERS: Family Provider Internal Medicine Hematology & Oncology; PCP Family Medicine; Visit Provider Nurse Practitioner Family | DX: N34.3 Urethral syndrome, unspecified (principal) | CPT/HCPCS: 87077; 87086; 87186 ==

== ENCOUNTER → 2021-10-15 09:01 | Outpatient (CLI) | payer MEDICARE, SELFPAY ==
--- NOTE | 2021-10-15 10:12 | DI.CT.S_ITS ---
PROCEDURE: CT ABDOMEN PELVIS W CON INDICATIONS: early satiety, pelvic cancer, ostomy TECHNIQUE: After the administration of oral and intravenous contrast, axial sections were acquired from the lung bases to the pubic symphysis. Coronal and sagittal reformats were performed. For radiation dose reduction, the following was used: automated exposure control, adjustment of mA and/or kV according to patient size. COMPARISON:, CT, CT ABDOMEN PELVIS W CON, 03/07/2021, 10:01. FINDINGS: Image quality: Excellent. Lung bases: Unremarkable. Heart: No significant findings. ABDOMEN: Liver: Unremarkable. Gallbladder: Surgically absent. Biliary ducts: Unremarkable. Pancreas: Unremarkable. Spleen: Unremarkable. Adrenal Glands: Again noted is a mass involving the right adrenal gland. It has decreased in size somewhat since the previous study. On previous image 26/2 it measured 3.1 x 3.3 cm. On current image 25/2 it measures 2.9 x 2.9 cm. Kidneys and Ureters: Unremarkable. Stomach and Bowel: Again noted is distal colectomy and colostomy. Again noted is herniated: Through the ostomy defect. Multiple diverticuli are present throughout the remaining colon without evidence of acute diverticulitis. No bowel obstruction. Peritoneum: No abnormal intraperitoneal fluid. No free air. Ventral Wall: No hernia. Abdominal Nodes: No retroperitoneal or mesenteric adenopathy by size criteria. Vessels: Aorta and inferior vena cava are normal in size. PELVIS: Pelvic Organs: Uterus is surgically absent no evidence of residual or recurrent neoplasm in the pelvis.. Bladder: Unremarkable. Pelvic Nodes: No enlarged lymph nodes. Miscellaneous: No inguinal hernias are seen. Bones: Lumbar degenerative change. No lytic or blastic bony lesions. IMPRESSION: 1. A right adrenal mass appears to be slightly decreased in size since the previous study. 2. No other suspicious lesions are identified in the abdomen and pelvis. 3. Colostomy with herniated colon through the colostomy site into the subcutaneous fat. 4. Diverticulosis without evidence of diverticulitis. Dictated by: Clinton Parnell M.D. on 10/15/2021 at 10:37 Approved by: Clinton Parnell M.D. on 10/15/2021 at 11:16
== END ==
PROVIDERS: Family Provider Internal Medicine Hematology & Oncology; PCP Family Medicine; Referring Provider Family Medicine; Visit Provider Family Medicine
DX: E27.9 Disorder of adrenal gland, unspecified (principal); C76.3 Malignant neoplasm of pelvis; K57.90 Diverticulosis of intestine, part unspecified, without perforation or abscess without bleeding; R14.0 Abdominal distension (gaseous); R68.81 Early satiety; Z90.49 Acquired absence of other specified parts of digestive tract; Z93.3 Colostomy status
CPT/HCPCS: 74177

== ENCOUNTER → 2021-10-23 11:00 | Outpatient (CLI) | payer MEDICARE, SELFPAY | PROVIDERS: Family Provider Internal Medicine Hematology & Oncology; PCP Family Medicine; Referring Provider Nurse Practitioner Family; Visit Provider Nurse Practitioner Family | DX: N39.0 Urinary tract infection, site not specified (principal) | CPT/HCPCS: 87077; 87086; 87186 ==

== ENCOUNTER → 2022-02-03 18:33 | Outpatient (CLI) | payer MEDICARE, SELFPAY | PROVIDERS: Family Provider Internal Medicine Hematology & Oncology; PCP Family Medicine; Visit Provider Nurse Practitioner Family | DX: R30.0 Dysuria (principal) | CPT/HCPCS: 87086 ==

== ENCOUNTER → 2022-02-24 12:07 | Outpatient (CLI) | payer MEDICARE, SELFPAY ==
[2022-02-24 12:53] LABS: Add Manual Diff / Slide Review NO; Basophils Absolute Auto 100 /uL (0-100); Basophils Percent Auto 0.7 % (0-2); Eosinophils Absolute Auto 400 /uL (0-450); Eosinophils Percent Auto 5.4 % (2-4); Hematocrit 36.2 % (36-46); Hemoglobin 11.9 g/dL (12.0-16.0); Lymphocytes Absolute Auto 1600 /uL (1100-4500); Lymphocytes Percent Auto 22.3 % (25-40); Mean Corpuscular HGB Conc 32.8 % (30-36); Mean Corpuscular Hemoglobin 26.5 PG (26-34); Mean Corpuscular Volume 80.8 fL (80-100); Monocytes Absolute Auto 500 /uL (0-900); Monocytes Percent Auto 6.9 % (3-14); Neutrophils Absolute Auto 4600 /uL (1500-7000); Neutrophils Percent Auto 64.7 % (50-75); Platelet Count 335 X10^3/uL (150-400); Red Blood Cell Count 4.48 X10^6/uL (4.0-5.2); Red Cell Distribution Width 14.7 % (11.6-14.8); White Blood Cell Count 7.1 X10^3/uL (4.5-11.0)
[2022-02-24 13:06] LABS: Alanine Aminotransferase 18 IU/L (<35); Albumin 4.1 g/dL (3.5-5.0); Albumin Globulin Ratio 1.2 (1.0-2.8); Alkaline Phosphatase 98 U/L (38-126); Aspartate Aminotransferase 31 IU/L (14-36); BUN Creatinine Ratio 15.6 (6-22); Bilirubin Total 0.5 mg/dL (0.2-1.3); Blood Urea Nitrogen 15 mg/dL (7-17); Calcium 8.9 mg/dL (8.4-10.2); Carbon Dioxide 30 mmol/L (22-32); Chloride 103 mmol/L (98-107); Estimated Glomerular Filt Rate > 60.0 mL/min (>60); Globulin 3.3 g/dL (1.7-4.1); Glucose 102 mg/dL (70-100); HEMOLYSIS < 15 (0-50); Potassium 3.7 mmol/L (3.4-5.1); Sodium 141 mmol/L (137-145); Total Protein 7.4 g/dL (6.3-8.2)
[2022-02-24 13:36] LABS: Cancer Antigen 125 7.6 U/mL (0-35)
[2022-02-24 13:37] LABS: TSH w/ Reflex to FT4 2.34 uIU/mL (0.47-4.68)
== END ==
PROVIDERS: Family Provider Internal Medicine Hematology & Oncology; PCP Family Medicine; Referring Provider Family Medicine; Visit Provider Family Medicine
DX: E03.9 Hypothyroidism, unspecified (principal); C56.9 Malignant neoplasm of unspecified ovary
CPT/HCPCS: 36415; 80053; 84443; 85025; 86304

== ENCOUNTER → 2022-05-12 09:39 | Outpatient (CLI) | payer MEDICARE, SELFPAY | PROVIDERS: Family Provider Internal Medicine Hematology & Oncology; PCP Family Medicine; Visit Provider Physician Assistant | DX: N34.3 Urethral syndrome, unspecified (principal) | CPT/HCPCS: 87077; 87086; 87186 ==

== ENCOUNTER → 2022-07-13 13:30 | Outpatient (ROUT) | payer MEDICARE, SELFPAY ==
[2022-07-13 13:42] LABS: Appearance Urine UA SL CLOUDY; Bilirubin Urine UA NEGATIVE (NEGATIVE); Color Urine UA YELLOW; Glucose Urine UA NEGATIVE (Negative); Ketones Urine UA NEGATIVE (NEGATIVE); Leukocyte Esterase Urine UA 2+ (NEGATIVE); Nitrite Urine UA NEGATIVE (Negative); Occult Blood Urine UA 3+ (Negative); Protein Urine UA 1+ (Negative); Urobilinogen Urine UA 0.2 E.U./dL (0.2)
[2022-07-13 13:45] LABS: pH Urine UA 6.5 (4.5-8.0)
[2022-07-13 14:00] LABS: RBC Urine 30-100/HPF (0-5/HPF); Squamous Epithelial Cell Urine 5-10 /HPF (0-5/HPF); WBC Urine 30-100/HPF (0-5/HPF)
[2022-07-13 14:01] LABS: Bacteria Urine Few (2-10); Culture Indicated Urine Specimen Cultured
== END ==
PROVIDERS: Family Provider Internal Medicine Hematology & Oncology; PCP Family Medicine; Visit Provider Pediatrics
DX: R30.0 Dysuria (principal); Z87.440 Personal history of urinary (tract) infections
CPT/HCPCS: 81001; 87077; 87086; 87186

== ENCOUNTER → 2022-07-29 09:04 | Outpatient (CLI) | payer MEDICARE, SELFPAY ==
--- NOTE | 2022-07-29 09:05 | DI.CT.S_ITS ---
PROCEDURE: CT ABDOMEN PELVIS W CON INDICATIONS: assess for cancer recurrence vs other TECHNIQUE: After the administration of oral and intravenous contrast, axial sections were acquired from the lung bases to the pubic symphysis. Coronal and sagittal reformats were performed. For radiation dose reduction, the following was used: automated exposure control, adjustment of mA and/or kV according to patient size. COMPARISON:[facility], CT, CT ABDOMEN PELVIS W CON, 10/15/2021, 9:45. FINDINGS: Image quality: Excellent. Lung bases: Unremarkable. Heart: No significant findings. ABDOMEN: Liver: Unremarkable. Gallbladder: Surgically absent Biliary ducts: Unremarkable. Pancreas: Unremarkable. Spleen: Unremarkable. Adrenal Glands: Continue slight interval decrease in size of right adrenal mass. By my measurements today, on previous image 25/2 it measured 3.0 x 3.0 cm. On current image / it measures 2.8 x 2.7 cm. No left adrenal mass. Kidneys and Ureters: Unremarkable. Stomach and Bowel: Small hiatal hernia. Distal colectomy and colostomy. Extensive diverticulosis without evidence of diverticulitis. Left anterior abdominal wall hernia at the colostomy site containing nondilated herniated colon. Peritoneum: No abnormal intraperitoneal fluid. No free air. Ventral Wall: No hernia. Abdominal Nodes: No retroperitoneal or mesenteric adenopathy by size criteria. Vessels: Aorta and inferior vena cava are normal in size. PELVIS: Pelvic Organs: Uterus is surgically absent.. Bladder: Unremarkable. Pelvic Nodes: No enlarged lymph nodes. Miscellaneous: No inguinal hernias are seen. Bones: Lumbar degenerative change. No lytic or blastic bony lesions. No compression fractures. IMPRESSION: 1. Remote hysterectomy and distal colectomy with colostomy. 2. Nondilated herniated colon at the ostomy wall defect. 3. Diverticulosis. 4. Continued slight interval decrease in size of right adrenal nodule. 5. No other suspicious lesions in the abdomen and pelvis. Dictated by: Clinton Parnell M.D. on 07/29/2022 at 12:57 Approved by: Clinton Parnell M.D. on 07/29/2022 at 13:10
== END ==
PROVIDERS: Family Provider Internal Medicine Hematology & Oncology; PCP Pediatrics; Referring Provider Pediatrics; Visit Provider Pediatrics
DX: R10.31 Right lower quadrant pain (principal); C56.9 Malignant neoplasm of unspecified ovary; Z95.828 Presence of other vascular implants and grafts; K57.30 Diverticulosis of large intestine without perforation or abscess without bleeding; K94.09 Other complications of colostomy
CPT/HCPCS: 74177; Q9967

== ENCOUNTER → 2023-02-26 10:40 | Outpatient (CLI) | payer MEDICARE, SELFPAY ==
[2023-02-26 11:47] LABS: Add Manual Diff / Slide Review NO; Basophils Absolute Auto 100 /uL (0-100); Basophils Percent Auto 0.8 % (0-2); Eosinophils Absolute Auto 100 /uL (0-450); Hematocrit 36.4 % (36-46); Hemoglobin 12.2 g/dL (12.0-16.0); Lymphocytes Absolute Auto 1700 /uL (1100-4500); Lymphocytes Percent Auto 23.8 % (25-40); Mean Corpuscular HGB Conc 33.6 % (30-36); Mean Corpuscular Hemoglobin 26.7 PG (26-34); Mean Corpuscular Volume 79.5 fL (80-100); Monocytes Absolute Auto 600 /uL (0-900); Neutrophils Absolute Auto 4700 /uL (1500-7000); Neutrophils Percent Auto 65.4 % (50-75); Platelet Count 338 X10^3/uL (150-400); Red Blood Cell Count 4.57 X10^6/uL (4.0-5.2); Red Cell Distribution Width 14.5 % (11.6-14.8); White Blood Cell Count 7.2 X10^3/uL (4.5-11.0)
[2023-02-26 12:04] LABS: HEMOLYSIS < 15 (0-50); Iron 69 ug/dL (37-170)
[2023-02-26 12:06] LABS: Alanine Aminotransferase 23 IU/L (<35); Albumin 3.6 g/dL (3.5-5.0); Albumin Globulin Ratio 1.1 (1.0-2.8); Alkaline Phosphatase 95 U/L (38-126); Aspartate Aminotransferase 23 IU/L (14-36); BUN Creatinine Ratio 16.8 (6-22); Bilirubin Total 0.5 mg/dL (0.2-1.3); Blood Urea Nitrogen 16 mg/dL (7-17); Calcium 9.2 mg/dL (8.4-10.2); Carbon Dioxide 29 mmol/L (22-32); Chloride 102 mmol/L (98-107); Estimated Glomerular Filt Rate > 60 mL/min (>60); Globulin 3.2 g/dL (1.7-4.1); Glucose 97 mg/dL (80-110); HEMOLYSIS < 15 (0-50); Potassium 3.7 mmol/L (3.4-5.1); Sodium 138 mmol/L (137-145); Total Protein 6.8 g/dL (6.3-8.2)
[2023-02-26 12:16] LABS: Percent Iron Saturation 20 % (15-50); Total Iron Binding Capacity 344 ug/dL (265-497); Transferrin 257 mg/dL (206-381)
[2023-02-26 12:23] LABS: Free T4, Direct Thyroxine 1.01 ng/dL (0.78-2.19); Vitamin D 25 Hydroxy (D3) 73.3 ng/mL (30.0-100.0)
[2023-02-26 12:37] LABS: Thyroid Stimulating Hormone 1.68 uIU/mL (0.47-4.68)
[2023-02-26 12:54] LABS: Vitamin B12 > 1000 pg/mL (239-931)
== END ==
PROVIDERS: Family Provider Internal Medicine Hematology & Oncology; PCP Family Medicine; Referring Provider Family Medicine; Visit Provider Family Medicine
DX: C56.9 Malignant neoplasm of unspecified ovary (principal); E55.9 Vitamin D deficiency, unspecified; E03.9 Hypothyroidism, unspecified; F32.9 Major depressive disorder, single episode, unspecified; R73.03 Prediabetes
CPT/HCPCS: 36415; 80053; 82306; 82607; 83036; 83540; 83550; 84439; 84443; 85025

== ENCOUNTER → 2023-05-28 08:26 | Outpatient (CLI) | payer MEDICARE, SELFPAY ==
--- NOTE | 2023-05-28 08:28 | DI.MG.S_ITS ---
BILATERAL DIGITAL SCREENING MAMMOGRAM 3D/2D WITH CAD: 05/28/2023 CLINICAL: Routine screening. Family history of breast cancer. Comparison is made to exams dated: 07/12/2020 mammogram, 07/12/2020 ultrasound, 08/17/2019 ultrasound, 08/17/2019 mammogram, 07/31/2019 mammogram, and 09/26/2014 mammogram - [facility]. There are scattered areas of fibroglandular density in both breasts (category b / 25%-50% glandular tissue). Current study was also evaluated with a Computer Aided Detection (CAD) system. No significant masses, calcifications, or other findings are seen in either breast. There has been no significant interval change. IMPRESSION: NEGATIVE There is no mammographic evidence of malignancy. A 1 year screening mammogram is recommended. Based on the Tyrer Cuzick model (a risk assessment model) the patient's lifetime risk is 12.1% and her 10 year risk is 5.1%. According to the ACR, ACS, and NCCN guidelines, an annual breast MRI exam along with mammogram is recommended if the patient's lifetime risk is 20% or greater. This exam was interpreted at Station ID: [id number]. NOTE: For mammograms, a report in lay terms will be sent to the patient. Approximately 15% of breast malignancies will not be visualized mammographically. In the management of a palpable breast mass, a negative mammogram must not discourage biopsy of a clinically suspicious lesion. Electronically Signed By: Sukhdeep cortes/nina:05/28/2023 09:50:56 letter sent: Normal Exam ACR BI-RADS Category 1: Negative [id number]
== END ==
PROVIDERS: Family Provider Internal Medicine Hematology & Oncology; PCP Family Medicine; Referring Provider Internal Medicine Hematology & Oncology; Visit Provider Internal Medicine Hematology & Oncology
DX: Z12.31 Encounter for screening mammogram for malignant neoplasm of breast (principal); Z80.3 Family history of malignant neoplasm of breast
CPT/HCPCS: 77063; 77067

== ENCOUNTER 2024-01-21 12:53 | Emergency (ER) | payer MEDICARE, SELFPAY ==
[2024-01-21] VITALS (10 sets, daily range): BP systolic 120–151; BP diastolic 71–91; PULSE 57–73; RESP 16–34; TEMP 36.6–36.8; O2SAT 98–100; BMI 25.7
--- NOTE | 2024-01-21 13:05 | DI.RAD.S_ITS ---
PROCEDURE: XR CHEST 1V INDICATIONS: chest pain TECHNIQUE: One view of the chest was acquired. COMPARISON: [facility], CR, XR CHEST 1V, 08/28/2020, 13:58. FINDINGS: Surgical changes and devices: Cath is present with distal tip projecting over the SVC/subclavian junction. Lungs and pleura: Lungs are clear. No pleural effusions or pneumothorax. Mediastinum: Mediastinal contours appear normal. Heart size is enlarged. Bones and chest wall: No suspicious bony lesions. Overlying soft tissues appear unremarkable. IMPRESSION: No acute cardiopulmonary abnormality is seen. Dictated by: Evita Buckner M.D. on 01/21/2024 at 13:56 Approved by: Evita Buckner M.D. on 01/21/2024 at 13:56
[2024-01-21 13:25] LABS: Add Manual Diff / Slide Review NO; Basophils Absolute Auto 100 /uL (0-100); Basophils Percent Auto 1.1 % (0-2); Eosinophils Absolute Auto 200 /uL (0-450); Eosinophils Percent Auto 2.7 % (2-4); Hematocrit 35.3 % (36-46); Hemoglobin 11.8 g/dL (12.0-16.0); Lymphocytes Absolute Auto 1700 /uL (1100-4500); Lymphocytes Percent Auto 22.5 % (25-40); Mean Corpuscular HGB Conc 33.4 % (30-36); Mean Corpuscular Hemoglobin 26.8 PG (26-34); Mean Corpuscular Volume 80.5 fL (80-100); Monocytes Absolute Auto 700 /uL (0-900); Monocytes Percent Auto 8.9 % (3-14); Neutrophils Absolute Auto 4800 /uL (1500-7000); Neutrophils Percent Auto 64.8 % (50-75); Platelet Count 329 X10^3/uL (150-400); Red Blood Cell Count 4.39 X10^6/uL (4.0-5.2); Red Cell Distribution Width 14.8 % (11.6-14.8); White Blood Cell Count 7.5 X10^3/uL (4.5-11.0)
[2024-01-21 13:30] LABS: Prothrombin Time 11.1 SECONDS (9.4-12.5)
[2024-01-21 13:33] LABS: PTT Partial Thromboplastin Tim 30 SECONDS (25.1-36.5)
[2024-01-21 13:37] LABS: Alanine Aminotransferase 21 IU/L (<35); Albumin 3.7 g/dL (3.5-5.0); Albumin Globulin Ratio 1.2 (1.0-2.8); Alkaline Phosphatase 84 U/L (38-126); Aspartate Aminotransferase 21 IU/L (14-36); BUN Creatinine Ratio 17.8 (6-22); Bilirubin Total 0.7 mg/dL (0.2-1.3); Blood Urea Nitrogen 16 mg/dL (7-17); Calcium 8.9 mg/dL (8.4-10.2); Carbon Dioxide 28 mmol/L (22-32); Chloride 108 mmol/L (98-107); Creatine Kinase 86 U/L (30-135); Estimated Glomerular Filt Rate > 60 mL/min (>60); Globulin 3.2 g/dL (1.7-4.1); Glucose 87 mg/dL (80-110); HEMOLYSIS < 15 (0-50); Lipase 149 U/L (23-300); Magnesium 1.7 mg/dL (1.6-2.3); Potassium 3.5 mmol/L (3.4-5.1); Sodium 140 mmol/L (137-145); Total Protein 6.9 g/dL (6.3-8.2)
[2024-01-21 13:47] LABS: Troponin I < 0.012 ng/mL (0.01-0.034)
--- NOTE | 2024-01-21 14:57 | ED_ITS ---
HPI - Arrhythmia/Palpitations <Briseyda Holland PA-C - Last Filed: 01/21/24 14:57> General Chief Complaint: Arrhythmia/Palpitations Stated Complaint: palpitations Time Seen by Provider: 01/21/24 14:53 Source: patient Mode of arrival: Ambulatory Related Data Home Medications Medication Instructions Recorded Confirmed cholecalciferol (vitamin D3) 125 125 mcg PO BID 04/11/20 02/11/24 mcg (5,000 unit) tablet (Vitamin D3) cyanocobalamin (vitamin B-12) 2,500 mcg PO BID 04/11/20 02/11/24 2,500 mcg sublingual tablet (Vitamin B-12) Previous Rx's Medication Instructions Recorded acetaminophen 325 mg capsule 650 mg (2 x 325 mg) PO QID PRN 12/19/19 (Tylenol) pain #60 caps Disabled Parking Permit #1 ea 02/19/22 lorazepam 0.5 mg tablet 0.5 mg PO TID PRN anxiety #30 tabs 01/07/24 doxycycline hyclate 100 mg tablet 100 mg PO BID #14 tabs 02/11/24 fluoxetine 10 mg capsule 30 mg (3 x 10 mg) PO DAILY #270 02/11/24 caps nitrofurantoin 100 mg PO DAILY #90 caps 02/11/24 monohydrate/macrocrystals 100 mg capsule Allergies Allergy/AdvReac Type Severity Reaction Status Date / Time shellfish derived Allergy Severe breathing Verified 02/11/24 08:10 difficulties if ingested; hives when touched codeine Allergy Mild UNKNOWN Verified 02/11/24 08:10 amoxicillin [From Augmentin] Allergy Verified 02/11/24 08:10 clavulanic acid Allergy Verified 02/11/24 08:10 [From Augmentin] <Bill Rhoades MD - Last Filed: 02/12/24 14:45> History of Present Illness HPI narrative: 63-year-old female complaining of palpitations beginning early this morning. Not associated with chest pain or syncope although she did feel lightheaded and a bit dyspneic. She does have baseline dyspnea. Symptoms have now resolved. Has been seen here previously for syncope in 2019, I reviewed that note. She has not had fevers he has not had nausea or vomiting no recent changes in her medications. She does report she is having some dysuria and gets frequent urinary tract infections. She has not have a cardiac history. Patient History <Brisedya Holland PA-C - Last Filed: 01/21/24 14:57> Medical History (Updated 02/11/24 @ 08:50 by Kavin Amaro DO) History of ovarian cancer Tick bite of back Encounter for well adult exam with abnormal findings Vitamin D deficiency Right lower quadrant pain Morbid obesity with BMI of 45.0-49.9, adult Colovesical fistula Wound, open, abdominal wall, anterior Delayed surgical wound healing Recurrent malignant neoplasm of ovary Sigmoid diverticulosis Acute lower gastrointestinal bleeding (~09/30/19) Hyperlipidemia Prediabetes Hypothyroid (02/15/12) Depression Anxiety MS (multiple sclerosis) (~1987) Ovarian cancer (~2011) Surgical History History of partial colectomy Colostomy status History of removal of Port-a-Cath Hx of exploratory laparotomy (10/02/19) History of surgery (08/01/12) History of third molar tooth extraction Status post cholecystectomy (1987) Status post appendectomy (1982) S/P total abdominal hysterectomy and bilateral salpingo-oophorectomy (2011) Family History Sister Aneurysm Sister Age: 60 Breast cancer Social History household members: spouse Smoking Status: Never smoker alcohol intake: current Smoking Status: Never smoker alcohol intake frequency: holidays/special occasions only Substance Use Type: does not use Exam <Briseyda Holland PA-C - Last Filed: 01/21/24 14:57> Initial Vital Signs Initial Vital Signs: Vital Signs Temperature 98 F 01/21/24 13:06 Pulse Rate 70 01/21/24 13:06 Respiratory Rate 17 01/21/24 13:06 Blood Pressure 134/84 01/21/24 13:06 Pulse Oximetry 98 01/21/24 13:06 Oxygen Delivery Method Room Air 01/21/24 13:06 <Bill Rhoades MD - Last Filed: 02/12/24 14:45> Narrative Exam Narrative: Alert, no acute distress HEENT: Normocephalic, atraumaitic moist mucus membranes Neck: Supple no midline tenderness Lungs: Clear to ascultaion, no respiratory distress Heart: Regular rhythm and rate no murmur Abdomen: Normal bowel sounds, soft and nontender no CVAT Extremeties: Full range of motion no deformity Neuro: Alert and oriented, normal speech moves x4 Initial Vital Signs Initial Vital Signs: Vital Signs Temperature 98 F 01/21/24 13:06 Pulse Rate 70 01/21/24 13:06 Respiratory Rate 17 01/21/24 13:06 Blood Pressure 134/84 01/21/24 13:06 Pulse Oximetry 98 01/21/24 13:06 Oxygen Delivery Method Room Air 01/21/24 13:06 Course <Briseyda Holland PA-C - Last Filed: 01/21/24 14:57> Orders Ordered: ED Orders 01/21/24 13:05 XR chest 1V Stat EKG-12 Lead Stat 01/21/24 13:14 Complete Blood Count AUTO DIFF Stat Comprehensive Metabolic Panel Stat Lipase Stat Magnesium Stat PTT Partial Thromboplastin Familia Stat Prothrombin Time INR Stat Troponin & CK Cardiac Panel Stat Vital Signs Vital signs: Vital Signs - 8 hr 01/21/24 13:06 01/21/24 15:21 01/21/24 15:21 Temperature 98 F Pulse Rate 70 61 Respiratory Rate 17 Blood Pressure 134/84 124/75 Pulse Oximetry 98 99 Oxygen Delivery Method Room Air 01/21/24 15:30 01/21/24 15:31 01/21/24 15:31 Temperature Pulse Rate 62 57 L Respiratory Rate 22 Blood Pressure 151/90 H Pulse Oximetry 98 98 Oxygen Delivery Method 01/21/24 15:41 01/21/24 15:41 01/21/24 16:00 Temperature Pulse Rate 60 60 Respiratory Rate 18 24 Blood Pressure 141/77 H Pulse Oximetry 100 98 Oxygen Delivery Method 01/21/24 16:01 01/21/24 16:01 01/21/24 16:30 Temperature Pulse Rate 59 L 63 Respiratory Rate 24 24 Blood Pressure 132/72 Pulse Oximetry 98 98 Oxygen Delivery Method 01/21/24 16:30 01/21/24 17:00 Temperature Pulse Rate 73 Respiratory Rate 34 H Blood Pressure 142/71 H Pulse Oximetry 98 Oxygen Delivery Method <Bill Rhoades MD - Last Filed: 02/12/24 14:45> Orders Ordered: ED Orders 01/21/24 13:05 XR chest 1V Stat EKG-12 Lead Stat 01/21/24 13:14 Complete Blood Count AUTO DIFF Stat Comprehensive Metabolic Panel Stat Lipase Stat Magnesium Stat PTT Partial Thromboplastin Familia Stat Prothrombin Time INR Stat Troponin & CK Cardiac Panel Stat Vital Signs Vital signs: Vital Signs - 8 hr 01/21/24 13:06 01/21/24 15:21 01/21/24 15:21 Temperature 98 F Pulse Rate 70 61 Respiratory Rate 17 Blood Pressure 134/84 124/75 Pulse Oximetry 98 99 Oxygen Delivery Method Room Air 01/21/24 15:30 01/21/24 15:31 01/21/24 15:31 Temperature Pulse Rate 62 57 L Respiratory Rate 22 Blood Pressure 151/90 H Pulse Oximetry 98 98 Oxygen Delivery Method 01/21/24 15:41 01/21/24 15:41 01/21/24 16:00 Temperature Pulse Rate 60 60 Respiratory Rate 18 24 Blood Pressure 141/77 H Pulse Oximetry 100 98 Oxygen Delivery Method 01/21/24 16:01 01/21/24 16:01 01/21/24 16:30 Temperature Pulse Rate 59 L 63 Respiratory Rate 24 24 Blood Pressure 132/72 Pulse Oximetry 98 98 Oxygen Delivery Method 01/21/24 16:30 01/21/24 17:00 Temperature Pulse Rate 73 Respiratory Rate 34 H Blood Pressure 142/71 H Pulse Oximetry 98 Oxygen Delivery Method MDM - Arrhythmia/Palpitations <Briseyda Holland PA-C - Last Filed: 01/21/24 14:57> Lab Data 01/21/24 13:14 01/21/24 13:14 Labs: Lab Results 01/21/24 01/21/24 Range/Units 13:14 17:15 WBC 7.5 (4.5-11.0) X10^3/uL RBC 4.39 (4.0-5.2) X10^6/uL Hgb 11.8 L (12.0-16.0) g/dL Hct 35.3 L (36-46) % MCV 80.5 (80-100) fL MCH 26.8 (26-34) PG MCHC 33.4 (30-36) % RDW 14.8 (11.6-14.8) % Plt Count 329 (150-400) X10^3/uL Neut % (Auto) 64.8 (50-75) % Lymph % (Auto) 22.5 L (25-40) % Davison % (Auto) 8.9 (3-14) % Eos % (Auto) 2.7 (2-4) % Baso % (Auto) 1.1 (0-2) % Neut # (Auto) 4800 (4439-3909) /uL Lymph # (Auto) 1700 (2080-7345) /uL Davison # (Auto) 700 (0-900) /uL Eos # (Auto) 200 (0-450) /uL Baso # (Auto) 100 (0-100) /uL PT 11.1 (9.4-12.5) SECONDS INR 1.0 (0.9-1.3) APTT 30 (25.1-36.5) SECONDS Sodium 140 (137-145) mmol/L Potassium 3.5 (3.4-5.1) mmol/L Chloride 108 H (98-107) mmol/L Carbon Dioxide 28 (22-32) mmol/L BUN 16 (7-17) mg/dL Creatinine 0.90 (0.52-1.04) mg/dL Estimated GFR > 60 (>60) mL/min BUN/Creatinine Ratio 17.8 (6-22) Glucose 87 (80-110) mg/dL Calcium 8.9 (8.4-10.2) mg/dL Magnesium 1.7 (1.6-2.3) mg/dL Total Bilirubin 0.7 (0.2-1.3) mg/dL AST 21 (14-36) IU/L ALT 21 (<35) IU/L Alkaline Phosphatase 84 (38-126) U/L Total Creatine Kinase 86 (30-135) U/L Troponin I < 0.012 (0.01-0.034) ng/mL Total Protein 6.9 (6.3-8.2) g/dL Albumin 3.7 (3.5-5.0) g/dL Globulin 3.2 (1.7-4.1) g/dL Albumin/Globulin Ratio 1.2 (1.0-2.8) Lipase 149 (23-300) U/L Urine RBC 0-1/hpf D (0-5/HPF) Urine WBC 5-10/hpf H (0-5/HPF) Ur Squamous Epith Cells >30 /hpf H (0-5/HPF) Urine Bacteria Moderate (10-30) H (None) Urine Mucus 3+ H D (Negative) Ur Culture Indicated? Cult not indicated Vol Urine Centrifuged 10ml (spun) Urine Dip Bedside Urine Glucose Negative Bedside Urine Bilirubin - Negative Bedside Urine Ketone - Negative Urine Specific [place] 1.030 Bedside Urine Occult Blood - Negative Bedside Urine pH 6.0 Bedside Urine Protein +/- 15 Bedside Urine Urobilinogen - Negative Bedside Urine Nitrite - Negative Bedside Urine Leukocytes +/- 15 Esterase <Bill Rhoades MD - Last Filed: 02/12/24 14:45> Lab Data Lab results narrative: CBC with diff and CMP are reassuring, magnesium is normal, urine dip is positive for leukocyte esterase Labs: Lab Results 01/21/24 01/21/24 Range/Units 13:14 17:15 WBC 7.5 (4.5-11.0) X10^3/uL RBC 4.39 (4.0-5.2) X10^6/uL Hgb 11.8 L (12.0-16.0) g/dL Hct 35.3 L (36-46) % MCV 80.5 (80-100) fL MCH 26.8 (26-34) PG MCHC 33.4 (30-36) % RDW 14.8 (11.6-14.8) % Plt Count 329 (150-400) X10^3/uL Neut % (Auto) 64.8 (50-75) % Lymph % (Auto) 22.5 L (25-40) % Davison % (Auto) 8.9 (3-14) % Eos % (Auto) 2.7 (2-4) % Baso % (Auto) 1.1 (0-2) % Neut # (Auto) 4800 (2660-4926) /uL Lymph # (Auto) 1700 (1149-2406) /uL Davison # (Auto) 700 (0-900) /uL Eos # (Auto) 200 (0-450) /uL Baso # (Auto) 100 (0-100) /uL PT 11.1 (9.4-12.5) SECONDS INR 1.0 (0.9-1.3) APTT 30 (25.1-36.5) SECONDS Sodium 140 (137-145) mmol/L Potassium 3.5 (3.4-5.1) mmol/L Chloride 108 H (98-107) mmol/L Carbon Dioxide 28 (22-32) mmol/L BUN 16 (7-17) mg/dL Creatinine 0.90 (0.52-1.04) mg/dL Estimated GFR > 60 (>60) mL/min BUN/Creatinine Ratio 17.8 (6-22) Glucose 87 (80-110) mg/dL Calcium 8.9 (8.4-10.2) mg/dL Magnesium 1.7 (1.6-2.3) mg/dL Total Bilirubin 0.7 (0.2-1.3) mg/dL AST 21 (14-36) IU/L ALT 21 (<35) IU/L Alkaline Phosphatase 84 (38-126) U/L Total Creatine Kinase 86 (30-135) U/L Troponin I < 0.012 (0.01-0.034) ng/mL Total Protein 6.9 (6.3-8.2) g/dL Albumin 3.7 (3.5-5.0) g/dL Globulin 3.2 (1.7-4.1) g/dL Albumin/Globulin Ratio 1.2 (1.0-2.8) Lipase 149 (23-300) U/L Urine RBC 0-1/hpf D (0-5/HPF) Urine WBC 5-10/hpf H (0-5/HPF) Ur Squamous Epith Cells >30 /hpf H (0-5/HPF) Urine Bacteria Moderate (10-30) H (None) Urine Mucus 3+ H D (Negative) Ur Culture Indicated? Cult not indicated Vol Urine Centrifuged 10ml (spun) Urine Dip Bedside Urine Glucose Negative Bedside Urine Bilirubin - Negative Bedside Urine Ketone - Negative Urine Specific [place] 1.030 Bedside Urine Occult Blood - Negative Bedside Urine pH 6.0 Bedside Urine Protein +/- 15 Bedside Urine Urobilinogen - Negative Bedside Urine Nitrite - Negative Bedside Urine Leukocytes +/- 15 Esterase ECG Data Interpretation: EKG shows normal sinus rhythm at 66, no acute ST segment elevation intervals are normal axis is normal, nonspecific ST segment changes no old EKG available for comparison MDM Narrative Medical decision making narrative: 63-year-old female presenting with palpitations. She is in normal sinus rhythm here, workup does not show evidence of ischemic disease early ultralight disturbance. Also has urinary tract symptoms, dipstick is positive for leukocyte esterase and I will treat this empirically. Urine was sent for culture. Discharge Plan Departure Patient Disposition: Home Clinical Impression: Palpitations, Urinary tract infection Activity Restrictions/Additional Instructions: No serious cause for palpitations has found today. I think it is safe to go home. Continue previous home medications and follow up with her primary care provider. If you are having increasing symptoms return to the emergency department. It does look like you have a urinary tract infection. I provided a prescription for cephalexin to treat this. I would recommend holding her nitrofurantoin while you are taking the cephalexin. You can resume nitrofurantoin following that. Follow up soon with her primary care provider. Return to the emergency department for fevers frequent vomiting or abdominal pain. Prescriptions: No Action lorazepam 0.5 mg tablet 0.5 mg PO TID PRN (Reason: anxiety) Qty: 30 0RF (DME) Disabled Parking Permit See Rx Instructions .ROUTE .MEDSUPPLY Qty: 1 0RF Rx Instructions: Valid for 5 years fluoxetine 10 mg capsule 30 mg PO DAILY Qty: 270 1RF nitrofurantoin monohyd/m-cryst 100 mg capsule 100 mg PO DAILY Qty: 90 3RF Rx Instructions: Take one capsule by mouth daily doxycycline hyclate 100 mg tablet 100 mg PO BID Qty: 14 0RF Rx Instructions: take twice a day for a week cyanocobalamin (vitamin B-12) [Vitamin B-12] 2,500 mcg Tablet, Sublingual 2,500 mcg PO BID cholecalciferol (vitamin D3) [Vitamin D3] 125 mcg (5,000 unit) Tablet 125 mcg PO BID acetaminophen [Tylenol] 325 mg capsule 650 mg PO QID PRN (Reason: pain) Qty: 60 0RF Referrals: Kavin Amaro DO [Primary Care Provider] - Stand Alone Forms: Patient Portal/API
--- NOTE | 2024-01-21 15:28 | PC.NURSE ---
Pt endorses a hx of cancer (not on treatment), colostomy...denies any cardiac or thyroid hx. Pt states at 4am they were awoken by palptations. Pt states she has no other symptoms but feels that her heart is pounding out of her chest. Pt in no acute distress. Pt denies wanting any more blankets. Pt alert and oriented. call eric in reach/bedside monitor in place.
[2024-01-21 17:37] LABS: Bacteria Urine Moderate (10-30); Culture Indicated Urine Cult Not Indicated; Mucus Urine 3+ (Negative); RBC Urine 0-1/HPF (0-5/HPF); Squamous Epithelial Cell Urine >30 /HPF (0-5/HPF); Urine Volume 10mL (spun); WBC Urine 5-10/HPF (0-5/HPF)
== END 2024-01-21 17:40 | disposition home or self-care (01) ==
PROVIDERS: Emergency Provider Emergency Medicine; Family Provider Internal Medicine Hematology & Oncology; PCP Family Medicine
DX: R00.2 Palpitations (principal); N30.00 Acute cystitis without hematuria
CPT/HCPCS: 36415; 71045; 80053; 81003; 81015; 82550; 83690; 83735; 84484; 85025; 85610; 85730; 87086; 93005; 93010; 99284

== ENCOUNTER → 2024-06-08 08:29 | Outpatient (CLI) | payer MEDICARE, SELFPAY ==
--- NOTE | 2024-06-08 08:30 | DI.MG.S_ITS ---
BILATERAL DIGITAL SCREENING MAMMOGRAM 3D/2D WITH CAD: 06/08/2024 CLINICAL: Routine screening. Family history of breast cancer. Comparison is made to exams dated: 05/28/2023 mammogram, 07/12/2020 mammogram, and 07/31/2019 mammogram - [facility]. There are scattered areas of fibroglandular density in both breasts (category b / 25%-50% glandular tissue). Current study was also evaluated with a Computer Aided Detection (CAD) system. No significant masses, calcifications, or other findings are seen in either breast. There has been no significant interval change. IMPRESSION: NEGATIVE There is no mammographic evidence of malignancy. A 1 year screening mammogram is recommended. Based on the Tyrer Cuzick model (a risk assessment model) the patient's lifetime risk is 13.2% and her 10 year risk is 5.8%. According to the ACR, ACS, and NCCN guidelines, an annual breast MRI exam along with mammogram is recommended if the patient's lifetime risk is 20% or greater. This exam was interpreted at Station ID: [id number]. NOTE: For mammograms, a report in lay terms will be sent to the patient. Approximately 15% of breast malignancies will not be visualized mammographically. In the management of a palpable breast mass, a negative mammogram must not discourage biopsy of a clinically suspicious lesion. Electronically Signed By: Keren Borges M.D., Ph.D. dariela/nina:06/09/2024 08:46:32 letter sent: Normal Exam ACR BI-RADS Category 1: Negative [id number]
== END ==
PROVIDERS: Family Provider Internal Medicine Hematology & Oncology; PCP Family Medicine; Referring Provider Internal Medicine Hematology & Oncology; Visit Provider Internal Medicine Hematology & Oncology
DX: Z12.31 Encounter for screening mammogram for malignant neoplasm of breast (principal); Z80.3 Family history of malignant neoplasm of breast; R92.323 Mammographic fibroglandular density, bilateral breasts
CPT/HCPCS: 77063; 77067

== ENCOUNTER 2024-07-24 17:25 | Emergency (ER) | payer MEDICARE, SELFPAY ==
[2024-07-24 17:54] VITALS: BP 104/63; PULSE 76; RESP 16; TEMP 36.9; O2SAT 95; BMI 44.9
--- NOTE | 2024-07-24 18:46 | ED_ITS ---
HPI - Fall General Chief Complaint: Fall Stated Complaint: fall t-3, poss broken lt knee Time Seen by Provider: 07/24/24 18:36 Source: patient and family Mode of arrival: Family Vehicle History of Present Illness HPI Narrative: 64-year-old female with previous history of ovarian cancer status post colonic resection and ostomy in place presents for evaluation left knee pain and swelling. Patient states that 3 days ago she slipped on some water in the bathroom and landed on her left side and left knee. She states that she is normally ambulatory without any assistive devices, but lately has had to use either a walker or a cane due to pain in her left knee. Over the last 3 days patient has also reported some abdominal soreness. She reported to nursing staff that she was having black stool output in her ostomy bag. She states that she was concerned that in her fall she may have ripped something or is having internal bleeding. Denies use of blood thinners. Related Data Home Medications Medication Instructions Recorded Confirmed cholecalciferol (vitamin D3) 125 125 mcg PO BID 04/11/20 02/11/24 mcg (5,000 unit) tablet (Vitamin D3) cyanocobalamin (vitamin B-12) 2,500 mcg PO BID 04/11/20 02/11/24 2,500 mcg sublingual tablet (Vitamin B-12) Previous Rx's Medication Instructions Recorded acetaminophen 325 mg capsule 650 mg (2 x 325 mg) PO QID PRN 12/19/19 (Tylenol) pain #60 caps Disabled Parking Permit #1 ea 02/19/22 doxycycline hyclate 100 mg tablet 100 mg PO BID #14 tabs 02/11/24 fluoxetine 10 mg capsule 30 mg (3 x 10 mg) PO DAILY #270 02/11/24 caps nitrofurantoin 100 mg PO DAILY #90 caps 02/11/24 monohydrate/macrocrystals 100 mg capsule lorazepam 0.5 mg tablet 0.5 mg PO TID PRN anxiety #30 tabs 05/22/24 Allergies Allergy/AdvReac Type Severity Reaction Status Date / Time shellfish derived Allergy Severe breathing Verified 02/11/24 08:10 difficulties if ingested; hives when touched codeine Allergy Mild UNKNOWN Verified 02/11/24 08:10 amoxicillin [From Augmentin] Allergy Verified 02/11/24 08:10 clavulanic acid Allergy Verified 02/11/24 08:10 [From Augmentin] Patient History Medical History History of ovarian cancer Tick bite of back Encounter for well adult exam with abnormal findings Vitamin D deficiency Right lower quadrant pain Morbid obesity with BMI of 45.0-49.9, adult Colovesical fistula Wound, open, abdominal wall, anterior Delayed surgical wound healing Recurrent malignant neoplasm of ovary Sigmoid diverticulosis Acute lower gastrointestinal bleeding (~09/30/19) Hyperlipidemia Prediabetes Hypothyroid (02/15/12) Depression Anxiety MS (multiple sclerosis) (~1987) Ovarian cancer (~2011) Surgical History History of partial colectomy Colostomy status History of removal of Port-a-Cath Hx of exploratory laparotomy (10/02/19) History of surgery (08/01/12) History of third molar tooth extraction Status post cholecystectomy (1987) Status post appendectomy (1982) S/P total abdominal hysterectomy and bilateral salpingo-oophorectomy (2011) Family History Sister Aneurysm Sister Age: 61 Breast cancer Social History household members: spouse Smoking Status: Never smoker alcohol intake: current Smoking Status: Never smoker alcohol intake frequency: holidays/special occasions only Substance Use Type: does not use Exam Initial Vital Signs Initial Vital Signs: Vital Signs Temperature 98.5 F 07/24/24 17:54 Pulse Rate 76 07/24/24 17:54 Respiratory Rate 16 07/24/24 17:54 Blood Pressure 104/63 07/24/24 17:54 Pulse Oximetry 95 07/24/24 17:54 Oxygen Delivery Method Room Air 07/24/24 17:54 Const: Awake, alert, no acute distress, nontoxic appearing Cardiac: regular rate, regular rhythm RESP: unlabored, clear bilaterally, no wheezing GI: Soft, nontender, nondistended, ostomy in LLQ with soft brown stool in bag MSK: L knee generalized swelling, full ROM Skin: Warm, Dry, intact, no rashes Neuro: AO x3, CN II-XII grossly intact, moves all extremities Course Orders Ordered: ED Orders 07/24/24 18:45 XR knee LT 3V Stat 07/24/24 18:54 CBC Auto Diff [Complete Blood Count AUTO DIFF] Stat CMP [Comprehensive Metabolic Panel] Stat Lactate (Lactic Acid) Stat Lipase Stat MAG [Magnesium] Stat PT [Prothrombin Time INR] Stat Vital Signs Vital signs: Vital Signs - 8 hr 07/24/24 19:03 07/24/24 19:03 07/24/24 19:04 Pulse Rate 68 65 Respiratory Rate 17 Blood Pressure 127/65 127/65 Pulse Oximetry 100 Oxygen Delivery Method Room Air 07/24/24 19:30 07/24/24 19:30 Pulse Rate 65 Respiratory Rate Blood Pressure 131/63 Pulse Oximetry 99 Oxygen Delivery Method MDM - Fall Lab Data 07/24/24 18:54 07/24/24 18:54 Labs: Lab Results 07/24/24 Range/Units 18:54 WBC 10.6 (4.5-11.0) X10^3/uL RBC 4.54 (4.0-5.2) X10^6/uL Hgb 12.1 (12.0-16.0) g/dL Hct 36.5 (36-46) % MCV 80.5 (80-100) fL MCH 26.7 (26-34) PG MCHC 33.2 (30-36) % RDW 14.5 (11.6-14.8) % Plt Count 339 (150-400) X10^3/uL Neut % (Auto) 64.6 (50-75) % Lymph % (Auto) 22.8 L (25-40) % Gordon % (Auto) 9.3 (3-14) % Eos % (Auto) 2.4 (2-4) % Baso % (Auto) 0.9 (0-2) % Neut # (Auto) 6800 (9536-4780) /uL Lymph # (Auto) 2400 (6161-5987) /uL Gordon # (Auto) 1000 H (0-900) /uL Eos # (Auto) 300 (0-450) /uL Baso # (Auto) 100 (0-100) /uL PT 12.2 (9.4-12.5) SECONDS INR 1.1 (0.9-1.3) Sodium 138 (137-145) mmol/L Potassium 3.2 L (3.4-5.1) mmol/L Chloride 106 (98-107) mmol/L Carbon Dioxide 25 (22-32) mmol/L BUN 19 H (7-17) mg/dL Creatinine 0.89 (0.52-1.04) mg/dL Estimated GFR > 60 (>60) mL/min BUN/Creatinine Ratio 21.3 (6-22) Glucose 94 (80-110) mg/dL Lactate 1.3 (0.7-2.1) mmol/L Calcium 9.6 (8.4-10.2) mg/dL Magnesium 1.4 L (1.6-2.3) mg/dL Total Bilirubin 0.6 (0.2-1.3) mg/dL AST 26 (14-36) IU/L ALT 19 (<35) IU/L Alkaline Phosphatase 80 (38-126) U/L Total Protein 7.1 (6.3-8.2) g/dL Albumin 3.9 (3.5-5.0) g/dL Globulin 3.2 (1.7-4.1) g/dL Albumin/Globulin Ratio 1.2 (1.0-2.8) Lipase 138 (23-300) U/L Imaging Data Extremity x-ray #1: Radiologist's Impression: PROCEDURE: XR KNEE LT 3V INDICATIONS: GLF FALL, L KNEE PAIN/SWELLING TECHNIQUE: 3 views of the knee were acquired. COMPARISON: [facility], , KNEE 3V LEFT, 02/18/2018, 11:48. FINDINGS: No fracture or dislocation. Severe tricompartmental osteoarthritis. Small joint effusion. IMPRESSION: No acute fracture or dislocation of the left knee. Dictated by: Vinod Carroll M.D. on 07/24/2024 at 19:18 Approved by: Vinod Carroll M.D. on 07/24/2024 at 19:19 MDM Narrative Medical decision making narrative: Well-appearing patient with left knee pain and swelling after ground level fall. Also reports some lower abdominal soreness. Patient states that her concern is that she may have torn something in her intestines or is having internal bleeding. Abdominal exam is soft, no reproducible tenderness to light or deep palpation, and there was no bruising to suggest occult injury. Ostomy bag removed and there was soft brown stool without any evidence of blood or bleeding. I explained to the patient that 3 days post injury if she were to truly have intestinal damage or bleeding it would be much more apparent at this point. X-ray imaging negative for acute traumatic findings. There is a trace small joint effusion present, likely from the fall. Laboratory work is reviewed, no leukocytosis, hemoglobin is 12.1, which is patient's baseline. Sodium 138, potassium 3.2, creatinine 0.89, magnesium 1.4, normal liver enzymes. Patient placed in Vinicio wrap bandage. 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 Patient was counseled on lab and imaging findings, she was counseled on foods she can eat to increase her potassium and magnesium over the next several days. Orthopedic follow up referral number provided if patient does not have improvement in her knee pain Discharge Plan Departure Patient Disposition: Home Clinical Impression: Acute knee pain Instructions: DI for Knee Sprain Activity Restrictions/Additional Instructions: Your knee x-ray did not show any fracture. Your blood work is overall reassuring, with normal hemoglobin and no elevated white blood cell count. Your potassium and magnesium levels were very slightly on the low side, make sure to follow a healthy diet with medication such as leafy vegetables, whole grains, nuts, or seeds. Follow up as needed with your primary care doctor. If you notice that your knee pain is not improving with compression and icing please follow up with Orthopedic surgery, a referral number has been provided. Prescriptions: No Action lorazepam 0.5 mg tablet 0.5 mg PO TID PRN (Reason: anxiety) Qty: 30 1RF (DME) Disabled Parking Permit See Rx Instructions .ROUTE .MEDSUPPLY Qty: 1 0RF Rx Instructions: Valid for 5 years fluoxetine 10 mg capsule 30 mg PO DAILY Qty: 270 1RF nitrofurantoin monohyd/m-cryst 100 mg capsule 100 mg PO DAILY Qty: 90 3RF Rx Instructions: Take one capsule by mouth daily doxycycline hyclate 100 mg tablet 100 mg PO BID Qty: 14 0RF Rx Instructions: take twice a day for a week cyanocobalamin (vitamin B-12) [Vitamin B-12] 2,500 mcg Tablet, Sublingual 2,500 mcg PO BID cholecalciferol (vitamin D3) [Vitamin D3] 125 mcg (5,000 unit) Tablet 125 mcg PO BID acetaminophen [Tylenol] 325 mg capsule 650 mg PO QID PRN (Reason: pain) Qty: 60 0RF Referrals: Kavin Amaro DO [Primary Care Provider] - Omari Merchant MD [Physician] - Stand Alone Forms: Patient Portal/API
[2024-07-24 19:02] LABS: Add Manual Diff / Slide Review NO; Basophils Absolute Auto 100 /uL (0-100); Basophils Percent Auto 0.9 % (0-2); Eosinophils Absolute Auto 300 /uL (0-450); Eosinophils Percent Auto 2.4 % (2-4); Hematocrit 36.5 % (36-46); Hemoglobin 12.1 g/dL (12.0-16.0); Lymphocytes Absolute Auto 2400 /uL (1100-4500); Lymphocytes Percent Auto 22.8 % (25-40); Mean Corpuscular HGB Conc 33.2 % (30-36); Mean Corpuscular Hemoglobin 26.7 PG (26-34); Mean Corpuscular Volume 80.5 fL (80-100); Monocytes Absolute Auto 1000 /uL (0-900); Monocytes Percent Auto 9.3 % (3-14); Neutrophils Absolute Auto 6800 /uL (1500-7000); Neutrophils Percent Auto 64.6 % (50-75); Platelet Count 339 X10^3/uL (150-400); Red Blood Cell Count 4.54 X10^6/uL (4.0-5.2); Red Cell Distribution Width 14.5 % (11.6-14.8); White Blood Cell Count 10.6 X10^3/uL (4.5-11.0)
[2024-07-24 19:03] VITALS: BP 127/65; PULSE 68
[2024-07-24 19:04] VITALS: BP 127/65; PULSE 65; RESP 17; O2SAT 100
[2024-07-24 19:12] LABS: INR 1.1 (0.9-1.3); Prothrombin Time 12.2 SECONDS (9.4-12.5)
[2024-07-24 19:16] LABS: Lactate (Lactic Acid) 1.3 mmol/L (0.7-2.1)
[2024-07-24 19:17] LABS: Alanine Aminotransferase 19 IU/L (<35); Albumin 3.9 g/dL (3.5-5.0); Albumin Globulin Ratio 1.2 (1.0-2.8); Alkaline Phosphatase 80 U/L (38-126); Aspartate Aminotransferase 26 IU/L (14-36); BUN Creatinine Ratio 21.3 (6-22); Bilirubin Total 0.6 mg/dL (0.2-1.3); Blood Urea Nitrogen 19 mg/dL (7-17); Calcium 9.6 mg/dL (8.4-10.2); Carbon Dioxide 25 mmol/L (22-32); Chloride 106 mmol/L (98-107); Estimated Glomerular Filt Rate > 60 mL/min (>60); Globulin 3.2 g/dL (1.7-4.1); Glucose 94 mg/dL (80-110); HEMOLYSIS 24 (0-50); Lipase 138 U/L (23-300); Magnesium 1.4 mg/dL (1.6-2.3); Potassium 3.2 mmol/L (3.4-5.1); Sodium 138 mmol/L (137-145); Total Protein 7.1 g/dL (6.3-8.2)
[2024-07-24 19:30] VITALS: BP 131/63; PULSE 65; O2SAT 99
== END 2024-07-24 19:52 | disposition home or self-care (01) ==
PROVIDERS: Emergency Provider Emergency Medicine; Family Provider Internal Medicine Hematology & Oncology; PCP Family Medicine
DX: M25.562 Pain in left knee (principal); R10.9 Unspecified abdominal pain
CPT/HCPCS: 36415; 73562; 80053; 83605; 83690; 83735; 85025; 85610; 99283; 99284

== ENCOUNTER → 2025-03-02 07:02 | Outpatient (CLI) | payer MEDICARE, SELFPAY ==
[2025-03-02 08:25] LABS: Hemoglobin A1C% w Est Avg Glu 5.3 % (4.0-6.0)
[2025-03-02 08:28] LABS: Alanine Aminotransferase 22 IU/L (<35); Albumin 3.9 g/dL (3.5-5.0); Albumin Globulin Ratio 1.5 (1.0-2.8); Alkaline Phosphatase 84 U/L (38-126); Aspartate Aminotransferase 25 IU/L (14-36); Bilirubin Total 0.7 mg/dL (0.2-1.3); Blood Urea Nitrogen 15 mg/dL (7-17); Calcium 9.4 mg/dL (8.4-10.2); Carbon Dioxide 27 mmol/L (22-32); Chloride 104 mmol/L (98-107); Cholesterol 216 mg/dL (140-199); Estimated Glomerular Filt Rate > 60 mL/min (>60); Globulin 2.6 g/dL (1.7-4.1); Glucose 113 mg/dL (80-110); HDL Cholesterol 54 mg/dL (40-60); HEMOLYSIS < 15 (0-50); LDL Cholesterol Calculated 118 mg/dL (<100); Potassium 3.6 mmol/L (3.4-5.1); Sodium 139 mmol/L (137-145); Total Protein 6.5 g/dL (6.3-8.2); Triglycerides 218 mg/dL (35-150)
[2025-03-02 08:46] LABS: Free T4, Direct Thyroxine 1.06 ng/dL (0.78-2.19)
[2025-03-02 08:59] LABS: Thyroid Stimulating Hormone 3.64 uIU/mL (0.47-4.68)
== END ==
PROVIDERS: Family Provider Internal Medicine Hematology & Oncology; PCP Family Medicine; Referring Provider Family Medicine; Visit Provider Family Medicine
DX: R73.03 Prediabetes (principal); E78.5 Hyperlipidemia, unspecified; F41.9 Anxiety disorder, unspecified
CPT/HCPCS: 36415; 80053; 80061; 83036; 84439; 84443

== ENCOUNTER 2025-04-27 06:13 | Day surgery (SDC) | payer MEDICARE, SELFPAY ==
[2025-04-25 10:26] VITALS: BMI 40.7
--- NOTE | 2025-04-27 | PATH_ITS ---
[facility] Accession Number: [id number] No. of containers..01 Tissue . 01 Material submitted: . shoulder - LEFT SHOULDER LIPOMA . 01 Diagnosis: LEFT SHOULDER, EXCISION: Mature adipose tissue, consistent with lipoma. [facility] 05/07/2025 1001 Local . 01 Electronically signed: . Juan Ruvalcaba MD, Dermatopathologist NPI- [id number] . 01 Gross description: . LEFT SHOULDER LIPOMA: Received in formalin is 1 fragment of ibrahim soft tissue measuring 6.0 x 6.0 x 3.5 cm. Tissue is inked. Specimen is sectioned and submitted in customer field representative sections in 2 cassettes. /KELLY 04/30/2025 1718 Local . 01 Pathologist provided ICD-10: D17.9 . 01 CPT . 116224 Specimen Comment: A courtesy copy of this report has been sent to [facility] Performed at: [address] [id number] MD Sahil Carrasco MD Phone: [phone]
[2025-04-27 06:40] VITALS: BP 125/71; PULSE 55; RESP 16; TEMP 36.1; O2SAT 97; BMI 40.7
[2025-04-27] MEDS: LACTATED RINGERS 1,000 ML 84 ML IV (07:19)
--- NOTE | 2025-04-27 07:37 | PM.HP.IH.1 ---
History of Present Illness History of Present Illness Date Patient Seen: 04/27/25 Time Patient Seen: 07:30 Chief complaint: SDC Narrative: 64-year-old female seen a little over a month ago in the office with a long history of a slowly growing subcutaneous mass overlying the left deltoid. She is admitted for excisional biopsy of the probable lipoma. [facility] Medical History (Updated 03/02/25 @ 14:58 by Kavin Amaro DO) Body mass index [BMI] 45.0-49.9, adult Lipoma History of ovarian cancer Tick bite of back Encounter for well adult exam with abnormal findings Vitamin D deficiency Right lower quadrant pain Morbid obesity with BMI of 45.0-49.9, adult Colovesical fistula Wound, open, abdominal wall, anterior Delayed surgical wound healing Recurrent malignant neoplasm of ovary Sigmoid diverticulosis Acute lower gastrointestinal bleeding (~09/30/19) Hyperlipidemia Prediabetes Hypothyroid (02/15/12) Depression Anxiety MS (multiple sclerosis) (~1987) Ovarian cancer (~2011) Surgical History History of partial colectomy Colostomy status History of removal of Port-a-Cath Hx of exploratory laparotomy (10/02/19) History of surgery (08/01/12) History of third molar tooth extraction Status post cholecystectomy (1987) Status post appendectomy (1982) S/P total abdominal hysterectomy and bilateral salpingo-oophorectomy (2011) Family History Sister Aneurysm Sister Age: 61 Breast cancer Social History household members: spouse Smoking Status: Never smoker alcohol intake: former Meds Home Medications and Allergies Home Medications ?Medication ?Instructions ?Recorded ?Confirmed ?Type acetaminophen 325 mg capsule 650 mg (2 x 325 mg) PO QID PRN 12/19/19 04/27/25 Rx (Tylenol) pain #60 caps cholecalciferol (vitamin D3) 125 125 mcg PO BID 04/11/20 04/27/25 History mcg (5,000 unit) tablet (Vitamin D3) cyanocobalamin (vitamin B-12) 2,500 mcg PO BID 04/11/20 04/27/25 History 2,500 mcg sublingual tablet (Vitamin B-12) Disabled Parking Permit #1 ea 02/19/22 04/27/25 Rx fluoxetine 10 mg capsule 30 mg (3 x 10 mg) PO DAILY #270 03/02/25 04/27/25 Rx caps lorazepam 0.5 mg tablet 0.5 mg PO BID PRN anxiety #60 tabs 03/02/25 04/27/25 Rx mupirocin 2 % topical ointment 1 applic topical TID #22 grams 03/02/25 04/27/25 Rx Held on 04/27/25. Instructions: Order Change nitrofurantoin 100 mg PO DAILY #90 caps 03/02/25 04/27/25 Rx monohydrate/macrocrystals 100 mg capsule ferrous sulfate 325 mg (65 mg 325 mg PO 04/25/25 History iron) tablet,delayed release Allergies Allergy/AdvReac Type Severity Reaction Status Date / Time shellfish derived Allergy Severe breathing Verified 04/27/25 06:53 difficulties if ingested; hives when touched codeine Allergy Mild UNKNOWN Verified 04/27/25 06:53 amoxicillin (From Augmentin) Allergy Verified 04/27/25 06:53 clavulanic acid (From Allergy Verified 04/27/25 06:53 Augmentin) Review of Systems Review of Systems Narrative: Comprehensive review of systems negative to direct questioning with the exception of the previously mentioned chronic conditions. Exam Vital Signs (past 8 hours): - 04/27/25 06:40 Temperature 96.9 F L Pulse Rate 55 L Respiratory Rate 16 Blood Pressure 125/71 Pulse Oximetry 97 Oxygen Delivery Method Room Air Oxygen Delivery Method Room Air Narrative Exam Narrative: Head is normocephalic and atraumatic. Neck is supple. Back is without CVA or spinous process tenderness. Lungs are clear to auscultation. Chest is symmetric nontender with normal inspiratory and expiratory excursion. Heart has a regular rate and rhythm with no murmur or gallop. Abdomen is soft and nontender with normal bowel sounds. Extremities manifests full range of motion. There is a 3 x 5 cm mobile firm rubbery sharply marginated mass below the dermis of the left shoulder overlying the left middle deltoid. Assessment & Plan Assessment and plan (1) Lipoma: Qualifiers: Lipoma location: upper extremity Laterality: left Qualified Code(s): D17.22 - Benign lipomatous neoplasm of skin and subcutaneous tissue of left arm Status: Acute Plan This mass likely represents a lipoma. Growth constitutes an indication for excisional biopsy. I have recommended excisional biopsy. Alternatives, risks and benefits were discussed in detail. Questions were answered. The patient desires to proceed as I have outlined. Plan: Excisional biopsy left shoulder mass. Time-Based Coding :: [TOTAL MINUTES] spent with patient and on the chart (including review of chart, obtaining history, exam, reviewing outside data, placing orders, documenting exam and treatment plan, and counseling patient) on [DATE]. PROFEE Wound Care Nurse Document charge(s): No
[2025-04-27] MEDS: CEFAZOLIN 2 GM/100 ML PREMIX 100 ML IV (08:00)
--- NOTE | 2025-04-27 08:15 | SUR.OPER ---
Lateral on a harrington bag, head on pillow, gel axillary roll in place, bottom leg bent with gel pad under knee to foot, upper leg straight and supported with pillows. Operative arm out and on side to be drapped, non operative arm on padded OR arm board with gel pads and secured to padded arm board. Safety belt at hip, tape over blanket lower legs. Dr. Bray, polysomnography tech, MEDICAL PLANNER, and PA in room at time of positioning to assist. Final position approved by , all pressure points padded.
--- NOTE | 2025-04-27 08:25 | PM.OP.1 ---
Operative Date/Time/Diagnoses Date of procedure: 04/27/25 Time of procedure: 08:15 Pre-op diagnosis: Lipoma left shoulder Post-op diagnosis: same Procedure & Clinicians Procedure: Excisional biopsy Same procedure as scheduled: Yes Indications: Growing subdermal mass left shoulder Surgeon: Dmitri Bray Anesthesia Type: General Operative Notes Findings: 5 x 7 x 2 cm lipoma Closure Type: primary Specimen(s): other (Left shoulder mass) Applied: none Estimated Blood Loss (mL): 2 Blood products transfused: none Procedure in detail: After obtaining informed consent properly identifying the patient the patient was transported to the operating room and was placed on the table in the supine position. General endotracheal anesthesia was induced and the patient was rolled to the right lateral decubitus position with the left shoulder up. The left arm and shoulder were prepped and draped in the usual sterile manner. Time-out protocol was observed. A 6 cm incision was made with a 10 blade directly over the palpable abnormality in the long axis of the left upper extremity. The lipoma capsule was sharply cut down upon with the electrocautery. Sharp dissection was used to incise marjorie, avascular adhesions of the lipoma capsule to surrounding and underlying tissues. The final attachments were taken and the specimen was passed from the field. Hemostasis was perfect. The wound was closed with a series of inverted deep dermal 3-0 Vicryl sutures and Dermabond. The patient tolerated the procedure well and was transported to the recovery room extubated and awake. Complications: none Post-operative Condition: stable Disposition: PACU Plan for aftercare: Discharge to home
[2025-04-27] MEDS: BUPIVACAINE 0.5% (PF) 30 ML VIAL INJ (08:29)
[2025-04-27 08:50] VITALS: BP 153/94; PULSE 79; RESP 15; TEMP 36.7; O2SAT 98
[2025-04-27 08:55] VITALS: BP 137/96; PULSE 68; RESP 16; O2SAT 98
[2025-04-27 09:00] VITALS: BP 128/51; PULSE 69; RESP 16; O2SAT 98
[2025-04-27 09:05] VITALS: BP 122/51; PULSE 73; RESP 16; TEMP 36.2; O2SAT 97
[2025-04-27 09:15] VITALS: BP 112/58; PULSE 60; RESP 15; TEMP 36.2; O2SAT 96
== END 2025-04-27 09:25 | disposition home or self-care (01) ==
PROVIDERS: Family Provider Internal Medicine Hematology & Oncology; PCP Family Medicine; Referring Provider Surgery; Visit Provider Surgery
PROC: (CPT 23071; principal; 2025-04-27 07:45)
DX: D17.22 Benign lipomatous neoplasm of skin and subcutaneous tissue of left arm (principal)
CPT/HCPCS: 23071; J0330; J0690; J1100; J1885; J2405; J2704; J3010

== ENCOUNTER 2025-05-09 10:50 | Emergency (ER) | payer MEDICARE, SELFPAY ==
[2025-05-09 10:52] VITALS: BP 118/71; PULSE 73; RESP 13; TEMP 36.1; O2SAT 99; BMI 44.9
--- NOTE | 2025-05-09 11:13 | ED_ITS ---
<Statement entered by Chon Dempsey, - 05/09/25 15:09> Dr. Dempsey: I was immediately available in the department for consultation. I did not actually see the patient. HPI - Skin/Abscess/Foreign Bdy General Chief complaint: Skin/Abscess/Foreign Body Stated complaint: Left shoulder pain , bleeding after surgery Time Seen by Provider: 05/09/25 11:12 Source: patient Mode of arrival: Ambulatory Limitations: no limitations History of Present Illness HPI narrative: This is a 65-year-old female presenting to the emergency department due to drainage from the left shoulder incision. Two weeks ago she had a lipoma removed by General surgery here in [place] and over the last 2 days she noticed a very small opening with some purulent drainage, and mild tenderness. She denies any fevers, nausea, vomiting, spreading erythema, or any other concerning signs or symptoms. Related Data Home Medications ?Medication ?Instructions ?Recorded ?Confirmed cholecalciferol (vitamin D3) 125 125 mcg PO BID 04/27/25 mcg (5,000 unit) tablet (Vitamin D3) cyanocobalamin (vitamin B-12) 2,500 mcg PO BID 0 04/27/25 2,500 mcg sublingual tablet (Vitamin B-12) ferrous sulfate 325 mg (65 mg 325 mg PO 04/25/25 iron) tablet,delayed release Previous Rx's ?Medication ?Instructions ?Recorded acetaminophen 325 mg capsule 650 mg (2 x 325 mg) PO QI D PRN 12/19/19 (Tylenol) pain #60 caps Disabled Parking Permit #1 ea 02/19/22 fluoxetine 10 mg capsule 30 mg (3 x 10 mg) PO DAILY # 270 03/02/25 caps lorazepam 0.5 mg tablet 0.5 mg PO BID PRN anxiety #6 0 tabs 03/02/25 mupirocin 2 % topical ointment 1 applic topical TID #2 2 grams 03/02/25 nitrofurantoin 100 mg PO DAILY #90 caps monohydrate/macrocrystals 100 mg capsule hydrocodone 5 mg-acetaminophen 325 1 tab PO Q6H PRN pa in #20 tabs 04/27/25 mg tablet sulfamethoxazole 800 2 tab PO BID 7 days #28 tabs 05/09/25 mg-trimethoprim 160 mg tablet (Bactrim DS) Allergies Allergy/AdvReac Type Severity Reaction Status Date / Time shellfish derived Allergy Severe breathing Verified 05/09/25 10:52 difficulties if ingested; hives when touched codeine Allergy Mild UNKNOWN Verified 05/09/25 10:52 amoxicillin (From Augmentin) Allergy Verified 05/09/25 10:52 clavulanic acid (From Allergy Verified 05/09/25 10:52 Augmentin) Review of Systems Review of Systems Narrative: GENERAL: Denies chills, fatigue, malaise, fever, sweats. HEENT: Denies sinus pain, ear pain, sore throat, difficulty swallowing, dizziness. RESPIRATORY: Denies dyspnea, cough, wheezing, hemoptysis, sputum. CARDIOVASCULAR: Denies chest pain, palpitations, orthopnea, edema, GASTROINTESTINAL: Denies nausea, vomiting, abdominal pain, diarrhea, constipation, melena. : Denies dysuria, frequency, incontinence, hematuria, urinary retention. MUSCULOSKELETAL: denies weakness, joint pain, or bony pain SKIN: Open wounds left shoulder NEUROLOGIC: Denies weakness, headache, numbness, change in speech, confusion, seizures, incoordination. PSYCHIATRIC: No concerning psychosocial issues. 12 point review of systems is negative except for those stated above Patient History Medical History (Updated 05/09/25 @ 11:56 by Florin Beckford PA-C) Body mass index [BMI] 45.0-49.9, adult Lipoma History of ovarian cancer Tick bite of back Encounter for well adult exam with abnormal findings Vitamin D deficiency Right lower quadrant pain Morbid obesity with BMI of 45.0-49.9, adult Colovesical fistula Wound, open, abdominal wall, anterior Delayed surgical wound healing Recurrent malignant neoplasm of ovary Sigmoid diverticulosis Acute lower gastrointestinal bleeding (~09/30/19) Hyperlipidemia Prediabetes Hypothyroid (02/15/12) Depression Anxiety MS (multiple sclerosis) (~1987) Ovarian cancer (~2011) Surgical History History of partial colectomy Colostomy status History of removal of Port-a-Cath Hx of exploratory laparotomy (10/02/19) History of surgery (08/01/12) History of third molar tooth extraction Status post cholecystectomy (1987) Status post appendectomy (1982) S/P total abdominal hysterectomy and bilateral salpingo-oophorectomy (2011) Family History Sister Aneurysm Sister Age: 61 Breast cancer Social History household members: spouse alcohol intake: former Smoking Status: Unknown if ever smoked alcohol intake frequency: holidays/special occasions only Exam Narrative Exam Narrative: GENERAL: Well-developed patient, in mild distress. HEAD: Atraumatic. Normocephalic. EYES: Pupils equal round and reactive. Extraocular motions intact. No scleral icterus. No injection or drainage. ENT: Nose without bleeding, purulent drainage. Throat without erythema, tonsillar hypertrophy or exudate. Airway patent. NECK: Trachea midline. Non tender EXTREMITIES: No edema or joint tenderness. NEURO: AOx3. SKIN: Well-healing incision to the left deltoid other than a approximately 0.5 cm area of dehiscence with some purulent drainage noted on the dressing. Initial Vital Signs Initial Vital Signs: Vital Signs Temperature 97.0 F L 05/09/25 10:52 Pulse Rate 73 05/09/25 10:52 Respiratory Rate 13 05/09/25 10:52 Blood Pressure 118/71 05/09/25 10:52 Pulse Oximetry 99 05/09/25 10:52 Oxygen Delivery Method Room Air 05/09/25 10:52 Course Vital Signs Vital signs: Vital Signs - 8 hr 05/09/25 10:52 Temperature 97.0 F L Pulse Rate 73 Respiratory Rate 13 Blood Pressure 118/71 Pulse Oximetry 99 Oxygen Delivery Method Room Air MDM - Skin/Abscess/Foreign Bdy MDM Narrative Medical decision making narrative: ED course: This is a 65-year-old female presenting to the emergency department due to a very small area of dehiscence with likely infection with purulent drainage to the left shoulder incision after having a lipoma removal 2 weeks ago by General surgery. She was no systemic symptoms and vitals within normal limits. The operating surgeon is no longer with the group but spoke with Dr. Brasher of General surgery who agree with the plan for p.o. Bactrim and follow up in his office. CC: Wound drainage Complicating co-morbidities: None Data collected from: Previous notes Medical records reviewed: Patient was seen by General surgery on 04/27/2025 for lipoma removal by Dr. Bray. History obesity, prediabetes, hypothyroidism, anxiety, depression, MS. Differential considered, but not limited to: Infected wound, abscess, sepsis Exam documented above, pertinent findings include: Purulence drainage noted on dressing from left shoulder incisions Lab Test results independently reviewed as above. Pertinent findings: None obtained Imaging studies independently reviewed: Not obtained Scores Used: None MIPS Elements: None Consultations: None Treatments: None Re-evaluations: None Discussion: Discussed plan with the patient was comfortable with the plan Diagnosis: Infected incision Disposition: see below, along with detailed discharge instructions that have been reviewed with patient as well as indications for ED re-evaluation and additional outpatient follow up Discharge Plan Departure Patient Disposition: Home Clinical Impression: Infected wound Activity Restrictions/Additional Instructions: Thank you for coming to the [facility] Emergency Department today. Overall your incision looks well although there is a small infection. Please take the oral antibiotics as prescribed. Please follow up with Dr. Brasher signs office to arrange for the next follow up visit as soon as possible. Please return to the emergency department if you develop any worsening spreading redness while taking the antibiotics, fevers, or any other concerning signs or symptoms. I hope you feel better soon. Please follow up with your primary care provider within a week if your symptoms continue. If you do not have a primary care provider please contact the [facility] Resource line at [phone]. They will ask some questions about your medical history and help you get set up with a provider in the community. Prescriptions: New sulfamethoxazole-trimethoprim [Bactrim DS] 800-160 mg tablet 2 tab PO BID 7 Days Qty: 28 0RF No Action (DME) Disabled Parking Permit See Rx Instructions .ROUTE .MEDSUPPLY Qty: 1 0RF Rx Instructions: Valid for 5 years lorazepam 0.5 mg tablet 0.5 mg PO BID PRN (Reason: anxiety) Qty: 60 2RF fluoxetine 10 mg capsule 30 mg PO DAILY Qty: 270 3RF mupirocin 2 % ointment 1 applic topical TID Qty: 22 2RF nitrofurantoin monohyd/m-cryst 100 mg capsule 100 mg PO DAILY Qty: 90 3RF Rx Instructions: Take one capsule by mouth daily cyanocobalamin (vitamin B-12) [Vitamin B-12] 2,500 mcg Tablet, Sublingual 2,500 mcg PO BID cholecalciferol (vitamin D3) [Vitamin D3] 125 mcg (5,000 unit) Tablet 125 mcg PO BID acetaminophen [Tylenol] 325 mg capsule 650 mg PO QID PRN (Reason: pain) Qty: 60 0RF ferrous sulfate 325 mg (65 mg iron) tablet,delayed release (DR/EC) 325 mg PO hydrocodone-acetaminophen 5-325 mg tablet 1 tab PO Q6H PRN (Reason: pain) Qty: 20 0RF Referrals: Kavin Amaro DO [Primary Care Provider, Family Practice] Stand Alone Forms: Patient Portal/API
[2025-05-09 12:04] VITALS: BP 121/67; PULSE 80; RESP 18; TEMP 36.7; O2SAT 99
== END 2025-05-09 12:12 | disposition home or self-care (01) ==
PROVIDERS: Emergency Provider Physician Assistant Medical; Family Provider Internal Medicine Hematology & Oncology; PCP Family Medicine
DX: T81.41XA Infection following a procedure, superficial incisional surgical site, initial encounter (principal)
CPT/HCPCS: 99281